=== PATIENT | male | born 1940 | race Caucasian/White ===

== ENCOUNTER → 2016-11-07 | Outpatient (CLI) | payer MEDICARE, OTHER ==
--- NOTE | 2016-11-07 10:41 | FL ---
Esophagram Indication status post esophageal stent, patient with recurrent feeling of food sticking. TECHNIQUE: Single contrast esophagram in the upright position Esophagus and the proximal and mid portions appears normal. The distal esophagus has a stent present. The stent appears open. Distal to the stent there is irregularity. This does open to a degree there is has be passing through this region. Contrast extends into the stomach. IMPRESSIONS: 1. There appears to be irregular narrowing distal to the esophageal stent at the level of the gastroe sophageal junction. Direct visualization is recommended. Neoplasm is not excluded. Differential diagn osis could include varices.
== END | disposition home or self-care (01) ==
LOC: RADFLWHC 09:53
PROVIDERS: ATTEND Thoracic Surgery (Cardiothoracic Vascular Surgery)
DX: K22.2 Esophageal obstruction (principal)
CPT/HCPCS: 74220

== ENCOUNTER 2017-11-16 09:26 | Day surgery (SDC) | payer MEDICARE, OTHER ==
[2017-11-15 09:19] VITALS: BMI 21.8
[~2017-11-16 09:26] MED LIST: LACTATED RINGERS 1,000 ML IV SCH; LIDOCAINE 1% 20 ML VIAL (10MG/ML) FOR IV START INTRADERMA PRN
[2017-11-16 09:45] VITALS: RESP 16; TEMP 97.2
--- NOTE | 2017-11-16 09:55 | P.GSHP ---
History of Present Illness H&P Date: 11/16/17 Chief Complaint: Anemia, GI bleed This is a 77-year-old male referred from Dr. Madelyn Kelsey. Patient presents today for EGD colonoscopy. He's had issues with anemia and GI bleed. Past Medical History Past Medical History: Cancer, GERD/Reflux, Hyperlipidemia, Hypertension, Osteoarthritis (OA) Additional Past Medical History / Comment(s): esophageal stricture, hiatal hernia, prostate cancer 7 yrs. ago-had radiation tx, rectal bleeding History of Any Multi-Drug Resistant Organisms: None Reported Past Surgical History: Cholecystectomy Additional Past Surgical History / Comment(s): mult EGD's. 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 Esophageal dilatations, esophageal stent Past Anesthesia/Blood Transfusion Reactions: Previous Problems w/ Anesthesia, Postoperative Nausea & Vomiting (PONV) Additional Past Anesthesia/Blood Transfusion Reaction / Comment(s): problem with intubation-"uses special equipment" per niece. small airway & palate, niece states had a trach after a procedure and went to ICU Smoking Status: Former smoker - Past Family History Sister(s) Family Medical History: Cancer Medications and Allergies Home Medications Medication Instructions Recorded Confirmed Type Citalopram Hydrobromide [CeleXA] 20 mg PO BID 04/30/14 11/16/17 History Metoprolol Succinate [Toprol XL] 100 mg PO DAILY 04/30/14 11/16/17 History Omeprazole [PriLOSEC] 40 mg PO BID 04/30/14 11/16/17 History Potassium Chloride [Klor-Con 10] 20 meq PO DAILY 04/30/14 11/16/17 History Pravastatin Sodium [Pravachol] 40 mg PO DAILY 04/30/14 11/16/17 History Multivitamin [Men's Multi-Vitamin] 1 each PO DAILY 11/15/17 11/16/17 History amLODIPine BESYLATE/BENAZEPRIL 1 cap PO DAILY 11/15/17 11/16/17 History [Lotrel 5-20 mg Capsule] Allergies Allergy/AdvReac Type Severity Reaction Status Date / Time No Known Allergies Allergy Verified 11/16/17 09:39 Surgical - Exam Vital Signs Temp Pulse Resp BP Pulse Ox 97.2 F L 69 16 123/60 100 11/16/17 09:43 11/16/17 09:43 11/16/17 09:43 11/16/17 09:43 11/16/17 09:43 - General well developed, no distress - Eyes PERRL - ENT normal pinna - Neck no masses - Respiratory normal expansion - Cardiovascular Rhythm: regular - Abdomen Abdomen: soft, non tender Assessment and Plan Assessment: Anemia, GI bleed. We'll perform EGD and colonoscopy.
[2017-11-16] MEDS ORDERED: PROPOFOL 10 MG/ML 20 ML VIAL IV ONE (09:57)
--- NOTE | 2017-11-16 10:23 | P.OP ---
Date of Procedure: 11/16/17 Preoperative Diagnosis: GI bleed Postoperative Diagnosis: Mild antral gastritis No evidence of upper GI bleed Procedure(s) Performed: EGD Colonoscopy Anesthesia: MAC Surgeon: Delmar España Pathology: other (Antrum) Condition: stable Disposition: PACU Description of Procedure: The patient's placed on the endoscopy table in the lateral position. He received IV sedation. The gastroscope placed oropharynx passed in the esophagus. The patient had an esophageal stent the scope was placed through the esophageal stent into the stomach. Scope was then placed through the pylorus. The first and second portion of the duodenum appeared normal. Scope was then brought back the antrum and this was mildly inflamed. A biopsies performed. The scope was unretroflexed and remainder of the stomach appeared normal. The patient had a sliding hiatal hernia. The GE junction was at 38 cm. There is known to any blood in the stomach. Scope was then brought back through the esophagus the esophageal stent appeared to be in the lower third of the esophagus. Her is known to any erosions around the esophageal stent. The proximal esophagus appeared normal. Scope was withdrawn for patient. Next, digital rectal exam was performed which revealed a few external hemorrhoids. The flexible colonoscope was then placed patient anus and passed throughout the entire colon. The colon prep was quite poor. There is a large amount of liquid stool seen throughout the colon. The ileocecal valve was visualized. The cecum, ascending and transverse colon appeared normal. The view was limited due to the poor prep. There is no blood seen in the colon. Scope was withdrawn of the transverse colon, descending colon and sigmoid colon appeared normal. However once again the prep was quite poor in the mucosal view was limited. There is no evidence of any large polyps or tumors. There is no blood seen in the entire colon. Scope was then brought back the rectum and this appeared normal. Scope was withdrawn from patient.
[2017-11-16 10:45] VITALS: PULSE 86
[2017-11-16 12:32] VITALS: BP 147/67
== END 2017-11-16 12:40 | disposition home or self-care (01) ==
LOC: ORWHC2ENDO 09:26
PROVIDERS: ATTEND Surgery
DX: K29.70 Gastritis, unspecified, without bleeding (principal); K44.9 Diaphragmatic hernia without obstruction or gangrene; K64.4 Residual hemorrhoidal skin tags; D64.9 Anemia, unspecified; K21.9 Gastro-esophageal reflux disease without esophagitis; Z87.19 Personal history of other diseases of the digestive system; Z85.46 Personal history of malignant neoplasm of prostate; Z92.3 Personal history of irradiation; E78.5 Hyperlipidemia, unspecified; I10 Essential (primary) hypertension; M19.90 Unspecified osteoarthritis, unspecified site; Z79.899 Other long term (current) drug therapy; Z87.891 Personal history of nicotine dependence
CPT/HCPCS: 88305; 88342; 45378; 43239; J2704

== ENCOUNTER 2018-11-15 10:44 | Inpatient (IN) | payer MEDICARE, OTHER ==
[2018-11-15] MEDS ORDERED: SODIUM CHLORIDE 0.9% 1,000 ML IV STA ×3 (11:07→16:54)
[2018-11-15] MEDS ORDERED: SODIUM CHLORIDE 0.9% 500 ML 500 ML IV STA (11:07)
--- NOTE | 2018-11-15 11:11 | ED ---
Chest Pain HPI - General Chief Complaint: Chest Pain Stated Complaint: CHEST PAIN Time Seen by Provider: 11/15/18 10:56 Source: patient, family, RN notes reviewed Mode of arrival: ambulatory Limitations: no limitations - History of Present Illness Initial Comments: This is a 78-year-old male with a history of a congenital absence of the external ears a former smoker who presents complaining of 2 days of not feeling well fighting cold symptoms he's had rhinorrhea slight cough some chest discomfort no palpitations no reports of fevers chills or sweats he also has a history of quitting smoking 10 years ago and history of alcoholism he has not drank for long time. No other complaints at this time other modifying factors MD Complaint: chest pain, other - Related Data Home Medications Medication Instructions Recorded Confirmed Metoprolol Succinate [Toprol XL] 100 mg PO DAILY 04/30/14 11/15/18 Omeprazole [PriLOSEC] 40 mg PO BID 04/30/14 11/15/18 Aspirin [Adult Low Dose Aspirin EC] 81 mg PO DAILY PRN 11/15/18 11/15/18 Citalopram Hydrobromide [CeleXA] 40 mg PO BID 11/15/18 11/15/18 HYDROcodone/APAP 10-325MG [[place] 1 tab PO Q4HR PRN 11/15/18 11/15/18 10-325] Magnesium 200 mg PO DAILY 11/15/18 11/15/18 amLODIPine [Norvasc] 5 mg PO DAILY 11/15/18 11/15/18 Allergies Allergy/AdvReac Type Severity Reaction Status Date / Time No Known Allergies Allergy Verified 11/15/18 10:57 Review of Systems ROS Statement: Those systems with pertinent positive or pertinent negative responses have been documented in the HPI. ROS Other: All systems not noted in ROS Statement are negative. EKG Findings - EKG Results: EKG: interpreted by ERMD, sinus rhythm (Junctional rhythm likely sinus rate was 99 QRS 92 QT since QTC 422/541 minimal voltage criteria for LVH nonspecific ST configuration prolonged QT artifact is present) Past Medical History Past Medical History: Cancer, GERD/Reflux, Hyperlipidemia, Hypertension, Osteoarthritis (OA) Additional Past Medical History / Comment(s): esophageal stricture, hiatal hernia, prostate cancer 7 yrs. ago-had radiation tx, rectal bleeding History of Any Multi-Drug Resistant Organisms: None Reported Past Surgical History: Cholecystectomy Additional Past Surgical History / Comment(s): mult EGD's. 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 Esophageal dilatations, esophageal stent Past Anesthesia/Blood Transfusion Reactions: Previous Problems w/ Anesthesia, Postoperative Nausea & Vomiting (PONV) Additional Past Anesthesia/Blood Transfusion Reaction / Comment(s): problem with intubation-"uses special equipment" per niece. 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 Absent: scleral icterus, conjunctival injection, periorbital swelling ENT exam: Present: mucous membranes dry. Absent: normal external ear exam Neck exam: Present: normal inspection. Absent: tenderness, meningismus, lymphadenopathy Respiratory exam: Present: normal lung sounds bilaterally. Absent: respiratory distress, wheezes, rales, rhonchi, stridor Cardiovascular Exam: Present: regular rate, normal rhythm, normal heart sounds. Absent: systolic murmur, diastolic murmur, rubs, gallop, clicks GI/Abdominal exam: Present: soft, normal bowel sounds. Absent: distended, tenderness, guarding, rebound, rigid Extremities exam: Present: normal inspection, full ROM, normal capillary refill. Absent: tenderness, pedal edema, joint swelling, calf tenderness Back exam: Present: normal inspection Neurological exam: Present: alert, oriented X3, CN II-XII intact Psychiatric exam: Present: normal affect, normal mood Skin exam: Present: warm, intact, normal color, diaphoretic. Absent: rash Course Vital Signs 11/15/18 11/15/18 11/15/18 10:47 11:06 11:30 Temperature 98.4 F Pulse Rate 103 H 90 Respiratory 20 18 Rate Blood Pressure 159/74 151/80 O2 Sat by Pulse 99 96 95 Oximetry 11/15/18 11/15/18 11/15/18 12:00 12:30 14:17 Temperature 97.1 F L Pulse Rate 93 87 105 H Respiratory 13 13 16 Rate Blood Pressure 129/74 142/68 140/83 O2 Sat by Pulse 95 92 L 95 Oximetry 11/15/18 11/15/18 15:00 15:30 Temperature Pulse Rate 114 H 100 Respiratory 18 17 Rate Blood Pressure 165/87 165/107 O2 Sat by Pulse 91 L 93 L Oximetry Chest Pain MDM - MDM I did review the imaging and reports no acute findings. I did discuss the findings with the patient family members. he'll be admitted. The site appears be no infectious source for the leukocytosis and the lactic acidosis appears be secondary to dehydration. I did discuss the findings with the family and with Dr. Lara. Patient be admitted with continued IV hydration. Disposition Clinical Impression: Lactic acidosis, Dehydration, Hypomagnesemia syndrome, Renal insufficiency syndrome Disposition: ADMITTED IP TO THIS HOSP Condition: Stable Referrals: Madelyn Kelsey DO [Primary Care Provider] - 1-2 days
[2018-11-15] MEDS ORDERED: LORazepam 2 MG/ML INJ IV STA ×2 (11:37→17:07)
[2018-11-15 12:04] LABS: Basophils % (A) 0 %; Eosinophils % (A) 0 %; HCT 33.6 % (39.0-53.0); HGB 11.6 gm/dL (13.0-17.5); Lymphocytes # (A) 0.4 k/uL (1.0-4.8); Lymphocytes % (A) 2 %; MCHC 34.4 g/dL (31.0-37.0); Mean Platelet Volume 6.8; Monocytes # (A) 0.8 k/uL (0-1.0); Monocytes % (A) 4 %; Neutrophils # (A) 20.8 k/uL (1.3-7.7); Neutrophils % (A) 93 %; Platelet Count 314 k/uL (150-450); RBC 3.74 m/uL (4.30-5.90); RDW 13.6 % (11.5-15.5); WBC 22.3 k/uL (3.8-10.6)
--- NOTE | 2018-11-15 12:12 | XR ---
EXAMINATION TYPE: XR chest 2V DATE OF EXAM: 11/15/2018 COMPARISON: 03/31/2011 INDICATION: TECHNIQUE: Frontal and lateral views of the chest are obtained. FINDINGS: The heart size is normal. The pulmonary vasculature is normal. The lungs are clear. On the lateral projection there is some subtle circular range densities could be related to internal foreign body structure markers. These are not identified on the frontal projection were not present p reviously. IMPRESSION: 1. No acute pulmonary process.
[2018-11-15 12:18] LABS: INR 1.1 (<1.2); Partial Thromboplastin Time 27.1 sec (22.0-30.0); Prothrombin Time 11.7 sec (9.0-12.0)
[2018-11-15 12:22] LABS: Albumin 3.7 g/dL (3.5-5.0); Calcium 8.7 mg/dL (8.4-10.2); Magnesium 1.1 mg/dL (1.6-2.3); Potassium 3.7 mmol/L (3.5-5.1); Total Bilirubin 0.6 mg/dL (0.2-1.3); Total Protein 6.8 g/dL (6.3-8.2)
[2018-11-15 12:28] LABS: Creatine Kinase 35 U/L (55-170)
[2018-11-15 12:42] LABS: Creatine Kinase MB 0.6 ng/mL (0.0-2.4); Troponin I <0.012 ng/mL (0.000-0.034)
[2018-11-15] MEDS ORDERED: MAGNESIUM SULFATE-D5W PMX 1 GM in DEXTROSE/WATER 1 100ML.BAG IVPB ONE ×2 (12:50→16:54)
--- NOTE | 2018-11-15 14:40 | CT ---
EXAMINATION TYPE: CT abdomen pelvis wo con DATE OF EXAM: 11/15/2018 COMPARISON: 10/13/2015 HISTORY: generalized pain CT DLP: 465 mGycm Automated exposure control for dose reduction was used. TECHNIQUE: Helical acquisition of images was performed from the lung bases through the pelvis. FINDINGS: LUNG BASES: There is a small left pleural effusion and left basilar atelectasis. Punctate high densit y foci are seen along the left hemidiaphragm such as on coronal image 54 and 66. These appear calcifi ed. Right lower lobe opacity is partially groundglass, suspicious for pneumonia with linear probable atelectasis. LIVER/GB: Unremarkable unenhanced morphology. Limitation in evaluation for hepatic masses due to lack of intravenous contrast. Gallbladder surgically absent. PANCREAS: Pancreatic parenchymal atrophy is seen without ductal dilatation. SPLEEN: No significant abnormality is seen. ADRENALS: No significant abnormality is seen. KIDNEYS: No nephrolithiasis or hydronephrosis. FREE AIR: No free air is visualized ADENOPATHY: No greater than 1 cm short axis lymph node is seen in the abdomen or pelvis. OSSEOUS STRUCTURES: There is a mottled appearance of the bone marrow such as on sagittal image 62 an d 63 that may relate to metastasis. Multilevel degenerative change of the thoracolumbar spine is also seen with multilevel Schmorl's nodes and intervertebral disc space narrowing as well as facet arthro keerthi. BOWEL: Esophageal stent is noted. There is circumferential esophageal wall thickening surrounding the stent and thickening of the gastric fundus and body, partially related to incomplete distention. The re is a descending duodenal diverticulum present. Numerous sigmoid diverticula are present without pe ricolonic fat stranding. Gaseous distention of the transverse colon is seen. Moderate hemicolonic retained stool is seen. Appendix is air-filled and within normal limits. OTHER: Moderate atherosclerosis is seen of the abdominal aorta and its branches. IMPRESSION: 1. THERE IS AN ESOPHAGEAL STENT WITH CIRCUMFERENTIAL WALL THICKENING OF THE DISTAL ESOPHAGUS, GASTRIC FUNDUS AND GASTRIC BODY. NO PROVIDED HISTORY OF ESOPHAGEAL CARCINOMA IS GIVEN HOWEVER ESOPHAGEAL CAR CINOMA IS PRESUMED WITH STENT PLACEMENT. THERE IS ALSO A SMALL LEFT PLEURAL EFFUSION AND FINDINGS VICTOR HUGO PICIOUS FOR RIGHT LOWER LOBE PNEUMONIA. 2. MOTTLED APPEARANCE OF THE BONE MARROW RAISES SUSPICION FOR OSSEOUS METASTASIS AND COULD BE FURTHER EVALUATED WITH MRI TO EVALUATE FOR BONE MARROW REPLACING PROCESS OR NUCLEAR MEDICINE BONE SCAN.
[2018-11-15 15:52] LABS: Appearance,Urine Clear (Clear); Bilirubin,Urine Negative (Negative); Blood,Urine Negative (Negative); Color,Urine Yellow; Glucose,Urine (UA) Negative (Negative); Ketones,Urine Negative (Negative); Leukocyte Esterase,Urine Negative (Negative); Nitrite,Urine Negative (Negative); PH, Urine 5.5 (5.0-8.0); Protein,Urine Trace (Negative); Specific Gravity,Urine 1.019 (1.001-1.035); Urobilinogen,Urine <2.0 mg/dL (<2.0)
[2018-11-15] MEDS ORDERED: MORPHINE SULFATE 4 MG/ML SYRINGE IVP STA (16:36)
[2018-11-15] MEDS ORDERED: NALOXONE 0.4 MG/ML 1 ML VIAL IV PRN (16:51)
[2018-11-15] MEDS ORDERED: ONDANSETRON 4 MG/2 ML VIAL IVP PRN (16:51)
[2018-11-15 19:03] VITALS: BMI 23.0
[2018-11-15] MEDS: HYDROmorphone 1 MG/ML 1 ML SYRINGE IVP PRN (20:14)
[2018-11-15] MEDS: SODIUM CHLORIDE 0.9% 1,000 ML IV SCH (22:50)
[2018-11-15] MEDS: PANTOPRAZOLE 40 MG TABLET PO SCH (22:52)
[2018-11-15] MEDS: CITALOPRAM HYDROBROMIDE 20 MG TAB PO SCH (22:52)
[2018-11-16] MEDS: SODIUM CHLORIDE 0.9% 1,000 ML IV SCH ×4 (02:33→21:42)
[2018-11-16] MEDS: HYDROmorphone 1 MG/ML 1 ML SYRINGE IVP PRN (07:02)
[2018-11-16] MEDS: CITALOPRAM HYDROBROMIDE 20 MG TAB PO SCH ×2 (07:45→20:27)
[2018-11-16] MEDS: amLODIPine 5 MG TAB PO SCH (07:45)
[2018-11-16] MEDS: PANTOPRAZOLE 40 MG TABLET PO SCH ×2 (07:45→16:51)
[2018-11-16] MEDS: MAGNESIUM OXIDE 400 MG TAB PO SCH (07:45)
[2018-11-16] MEDS: ASPIRIN 81 MG PO SCH (07:45)
[2018-11-16] MEDS: METOPROLOL SUCCINATE (ER) 100 MG TAB.ER.24H PO SCH (07:45)
[2018-11-16] MEDS ORDERED: PANTOPRAZOLE 40 MG/10 ML VIAL IV SCH (09:00)
[2018-11-16] MEDS: HYDROcodone/APAP 10-325MG 1 EACH TAB PO PRN ×2 (10:38→20:28)
[2018-11-16] MEDS ORDERED: HYDROmorphone 4 MG TABLET PO PRN (12:17)
[2018-11-16 12:30] LABS: Basophils % (A) 0 %; Eosinophils # (A) 0.1 k/uL (0-0.7); Eosinophils % (A) 0 %; HCT 29.7 % (39.0-53.0); Lymphocytes # (A) 0.5 k/uL (1.0-4.8); Lymphocytes % (A) 3 %; MCH 28.9 pg (25.0-35.0); MCHC 31.7 g/dL (31.0-37.0); MCV 91.4 fL (80.0-100.0); Mean Platelet Volume 6.1; Monocytes # (A) 0.5 k/uL (0-1.0); Monocytes % (A) 3 %; Neutrophils # (A) 13.2 k/uL (1.3-7.7); Neutrophils % (A) 92 %; Platelet Count 305 k/uL (150-450); RBC 3.24 m/uL (4.30-5.90); RDW 13.4 % (11.5-15.5); WBC 14.4 k/uL (3.8-10.6)
[2018-11-16 12:40] LABS: HGB 9.4 gm/dL (13.0-17.5)
[2018-11-16 12:48] LABS: ALT 20 U/L (21-72); AST 16 U/L (17-59); Albumin 2.7 g/dL (3.5-5.0); Alkaline Phosphatase 69 U/L (38-126); Anion Gap 5 mmol/L; Blood Urea Nitrogen 15 mg/dL (9-20); Calcium 7.9 mg/dL (8.4-10.2); Carbon Dioxide 24 mmol/L (22-30); Chloride 103 mmol/L (98-107); Glucose 91 mg/dL (74-99); Magnesium 1.6 mg/dL (1.6-2.3); Potassium 3.8 mmol/L (3.5-5.1); Sodium 132 mmol/L (137-145); Total Bilirubin 0.5 mg/dL (0.2-1.3); Total Protein 5.2 g/dL (6.3-8.2)
--- NOTE | 2018-11-16 13:30 | P.HPIM ---
History of Present Illness H&P Date: 11/16/18 Chief Complaint: Not feeling well This is a 78-year-old male, patient of [facility]. He has a known past medical history of congenital absence of external ears, hyperlipidemia hypertension and prostate cancer with previous radiation treatment. He also has a history of smoking and quit about 10 years ago. Patient presents to the hospital complaining of 2 days of not feeling well. He's been fighting cold symptoms. Runny nose cough and some chest discomfort. Patient denies any fever or chills or sweats. It is difficult to obtain history form from him. Patient niece is his main caregiver. She is not present during my exam. History was mostly obtained from the chart. Apparently he does have a history of alcoholism he does not have a drink in a long time. Patient does feel that he is hurting all over. Computed tomography scan of the abdomen and pelvis shows esophageal stent with circumferential wall thickening of the distal esophagus, gastric fundus and gastric body. No parotid history of esophageal carcinoma is given. And suspicious findings of a right lower lobe pneumonia. Mottled appearance of the bone marrow raises suspicion for osseous metastasis and could be further evaluated with MRI. Review of Systems Please refer to HPI otherwise unremarkable Past Medical History Past Medical History: Cancer, GERD/Reflux, GI Bleed, Hyperlipidemia, Hypertension, Osteoarthritis (OA) Additional Past Medical History / Comment(s): esophageal stricture, hiatal hernia, prostate cancer 7 yrs. ago-had radiation tx, rectal bleeding congenital absence of external ears(sx), hiatal hernia, past anemia, per great neice-pt had flu and pne vaccine,web content writer unable to verify dates at time of admit-please f/ u in am History of Any Multi-Drug Resistant Organisms: None Reported Past Surgical History: Cholecystectomy Additional Past Surgical History / Comment(s): mult EGD's. 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 Esophageal dilatations, esophageal stentegd/colonooscopy, cataracts Past Anesthesia/Blood Transfusion Reactions: Previous Problems w/ Anesthesia, Postoperative Nausea & Vomiting (PONV) Additional Past Anesthesia/Blood Transfusion Reaction / Comment(s): problem with intubation-"uses special equipment" per niece. small airway & palate, niece states had a trach after a procedure and went to ICU Smoking Status: Former smoker - Past Family History Sister(s) Family Medical History: Cancer Mother History Unknown: Yes Additional Family Medical History / Comment(s): great niece stated pt's mom may have had syphyllis Father Additional Family Medical History / Comment(s): went blind, from alcoholism Medications and Allergies Home Medications Medication Instructions Recorded Confirmed Type Metoprolol Succinate [Toprol XL] 100 mg PO DAILY 04/30/14 11/15/18 History Omeprazole [PriLOSEC] 40 mg PO BID 04/30/14 11/15/18 History Aspirin [Adult Low Dose Aspirin EC] 81 mg PO DAILY PRN 11/15/18 11/15/18 History Citalopram Hydrobromide [CeleXA] 40 mg PO BID 11/15/18 11/15/18 History HYDROcodone/APAP 10-325MG [[place] 1 tab PO Q4HR PRN 11/15/18 11/15/18 History 10-325] Magnesium 200 mg PO DAILY 11/15/18 11/15/18 History amLODIPine [Norvasc] 5 mg PO DAILY 11/15/18 11/15/18 History Allergies Allergy/AdvReac Type Severity Reaction Status Date / Time No Known Allergies Allergy Verified 11/15/18 10:57 Physical Exam Vitals: Vital Signs Temp Pulse Pulse Resp BP BP BP 11/16/18 05:50 97.6 F 104 H 20 147/69 11/15/18 22:40 98.2 F 115 H 20 134/70 11/15/18 21:35 100.0 F H 112 H 22 148/72 11/15/18 21:00 115 H 11/15/18 20:12 11/15/18 19:54 99.2 F 115 H 26 H 169/92 11/15/18 18:30 103 H 15 130/73 11/15/18 18:00 105 H 20 142/77 11/15/18 17:30 105 H 18 149/86 11/15/18 17:00 102 H 19 155/82 11/15/18 16:30 105 H 19 127/79 11/15/18 16:00 102 H 19 147/85 11/15/18 15:30 100 17 165/107 11/15/18 15:00 114 H 18 165/87 11/15/18 14:17 97.1 F L 105 H 16 140/83 Pulse Ox 11/16/18 05:50 96 11/15/18 22:40 92 L 11/15/18 21:35 95 11/15/18 21:00 11/15/18 20:12 94 L 11/15/18 19:54 88 L 11/15/18 18:30 89 L 11/15/18 18:00 90 L 11/15/18 17:30 89 L 11/15/18 17:00 92 L 11/15/18 16:30 93 L 11/15/18 16:00 93 L 11/15/18 15:30 93 L 11/15/18 15:00 91 L 11/15/18 14:17 95 Intake and Output 11/15/18 11/16/18 11/16/18 22:59 06:59 14:59 Output Total 350 Balance -350 Output: Urine 350 Other: Voiding Method Urinal Weight 70.76 kg Head normocephalic Neck supple Lungs diminished bilaterally Heart regular rate and rhythm S1-S2, no rub or gallop Abdomen is soft nontender nondistended positive bowel sounds no hepatosplenomegaly Extremities no edema Neuro alert and orientated to 3 Muscle skeletal she does have tenderness along the rib cage especially on the left and into the abdomen area. Results CBC & Chem 7: 11/16/18 12:08 11/16/18 12:08 Labs: Abnormal Lab Results - Last 24 Hours (Table) 11/15/18 11/16/18 11/16/18 Range/Units 15:00 12:08 12:08 WBC 14.4 H (3.8-10.6) k/uL RBC 3.24 L (4.30-5.90) m/uL Hgb 9.4 L D (13.0-17.5) gm/dL Hct 29.7 L (39.0-53.0) % Neutrophils # 13.2 H (1.3-7.7) k/uL Lymphocytes # 0.5 L (1.0-4.8) k/uL Sodium 132 L (137-145) mmol/L Creatinine 0.63 L (0.66-1.25) mg/dL Calcium 7.9 L (8.4-10.2) mg/dL AST 16 L (17-59) U/L ALT 20 L (21-72) U/L Total Protein 5.2 L (6.3-8.2) g/dL Albumin 2.7 L (3.5-5.0) g/dL Urine Protein Trace H (Negative) Thrombosis Risk Factor Assmnt - Choose All That Apply Any of the Below Risk Factors Present?: No Other Risk Factors: Yes Each Risk Factor Represents 2 Points: Age 61-74 years Other congenital or acquired thrombophilia - If yes, enter type in comment: No Thrombosis Risk Factor Assessment Total Risk Factor Score: 2 Thrombosis Risk Factor Assessment Level: Low Risk Assessment and Plan Assessment: 1. Cough with cold like symptoms: Questionable pneumonia noted on CT. Chest x- rays negative. Patient will continue the Rocephin 1 g daily. Influenza screen negative urinalysis negative 2. Musculoskeletal pain with CT showing mottled appearance of the bone marrow raising suspicion for osseous metastasis. 3. Elevated lactic acid level possibly related to dehydration improved with IV fluids. 4. Acute kidney injury creatinine 1.48 baseline creatinine unknown. Continue with IV fluids 5. History of prostate cancer status post radiation treatment 6. History of nicotine dependence quit smoking about 10 years ago 7. Essential hypertension 8. Hyperlipidemia 9. Hypomagnesemia and patient receiving magnesium supplement. 10. Chest pain troponin negative repeating EKG due to artifact Also note patient's EKG had a lot of artifact. We'll repeat EKG GI prophylaxis Protonix and DVT prophylaxis SCDs Time with Patient: Greater than 30 (Greater than 50% of the total time spent in counseling and coordination of care.I performed an examination of the patient and discussed their management with the physician Space Officer. I have reviewed the Physician Space Officer's notes and agree with the documented findings and plan of care)
[2018-11-16] MEDS: ACETAMINOPHEN TAB 325 MG TAB PO PRN (15:37)
[2018-11-16 16:31] LABS: Reticulocyte % 1.8 % (0.5-2.0)
--- NOTE | 2018-11-16 16:32 | P.CONS ---
History of Present Illness - Reason for Consult Consult date: 11/16/18 possible Osseous mets Requesting physician: Roxie Wilhelm - Chief Complaint Not Feeling Well - History of Present Illness Mr. Carballo is a 8 year old male patient, poor historian who presented with 3-5 days of not feeling well. He apparently has history of prostate cancer, unknown stage or treatment. Per the medical record he received radiation treatment. On imaging CT Abdomen and Pelvis there was esophageal thickening and stent identified which is suspicious for a history of esophageal carcinoma. His bone and bone marrow signal also showed some abnormalities, along with normocytic anemia on peripheral blood therefore hematology oncology has been asked to further evaluate. His WBC is elevated, Febrile 101.4 today and tachycardic. Complained of pain lkeft lower back, he is extremely anxious. Review of Systems A 14 point review of systems is difficult to obtain given the patient is a poor historian and no family at bedside, attempted to best of my ability all neg except HPI. Past Medical History Past Medical History: Cancer, GERD/Reflux, GI Bleed, Hyperlipidemia, Hypertension, Osteoarthritis (OA) Additional Past Medical History / Comment(s): esophageal stricture, hiatal hernia, prostate cancer 7 yrs. ago-had radiation tx, rectal bleeding congenital absence of external ears(sx), hiatal hernia, past anemia, per radha chilel-pt had flu and pne vaccine,underwriter solicitation director unable to verify dates at time of admit-please f/ u in am History of Any Multi-Drug Resistant Organisms: None Reported Past Surgical History: Cholecystectomy Additional Past Surgical History / Comment(s): mult EGD's. 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 Esophageal dilatations, esophageal stentegd/colonooscopy, cataracts Past Anesthesia/Blood Transfusion Reactions: Previous Problems w/ Anesthesia, Postoperative Nausea & Vomiting (PONV) Additional Past Anesthesia/Blood Transfusion Reaction / Comm: problem with intubation-"uses special equipment" per niece. small airway & palate, niece states had a trach after a procedure and went to ICU Smoking Status: Former smoker - Past Family History Sister(s) Family Medical History: Cancer Mother History Unknown: Yes Additional Family Medical History / Comment(s): great niece stated pt's mom may have had syphyllis Father Additional Family Medical History / Comment(s): went blind, from alcoholism Medications and Allergies Home Medications Medication Instructions Recorded Confirmed Type Metoprolol Succinate [Toprol XL] 100 mg PO DAILY 04/30/14 11/15/18 History Omeprazole [PriLOSEC] 40 mg PO BID 04/30/14 11/15/18 History Aspirin [Adult Low Dose Aspirin EC] 81 mg PO DAILY PRN 11/15/18 11/15/18 History Citalopram Hydrobromide [CeleXA] 40 mg PO BID 11/15/18 11/15/18 History HYDROcodone/APAP 10-325MG [Sharon 1 tab PO Q4HR PRN 11/15/18 11/15/18 History 10-325] Magnesium 200 mg PO DAILY 11/15/18 11/15/18 History amLODIPine [Norvasc] 5 mg PO DAILY 11/15/18 11/15/18 History Allergies Allergy/AdvReac Type Severity Reaction Status Date / Time No Known Allergies Allergy Verified 11/15/18 10:57 Physical Exam Vitals: Vital Signs Temp Pulse Pulse Resp BP BP BP 11/16/18 15:00 101.4 F H 86 18 129/70 11/16/18 05:50 97.6 F 104 H 20 147/69 11/15/18 22:40 98.2 F 115 H 20 134/70 11/15/18 21:35 100.0 F H 112 H 22 148/72 11/15/18 21:00 115 H 11/15/18 20:12 11/15/18 19:54 99.2 F 115 H 26 H 169/92 11/15/18 18:30 103 H 15 130/73 11/15/18 18:00 105 H 20 142/77 11/15/18 17:30 105 H 18 149/86 11/15/18 17:00 102 H 19 155/82 11/15/18 16:30 105 H 19 127/79 Pulse Ox 11/16/18 15:00 91 L 11/16/18 05:50 96 11/15/18 22:40 92 L 11/15/18 21:35 95 11/15/18 21:00 11/15/18 20:12 94 L 11/15/18 19:54 88 L 11/15/18 18:30 89 L 11/15/18 18:00 90 L 11/15/18 17:30 89 L 11/15/18 17:00 92 L 11/15/18 16:30 93 L Intake and Output 11/16/18 11/16/18 11/16/18 06:59 14:59 22:59 Output Total 350 600 Balance -350 -600 Output: Urine 350 600 Other: Voiding Method Urinal Weight 70.76 kg Gen: Alert, poor historian Head nc, nt no cervical or supraclavicular adenopathy on exam Lungs: Diminished, bibasilar, no increased effort noted Heart: tachycardic, reg, diaphoretic Abdomen: tender ND Ext: No Edema Neuro: inconsistent follows Results CBC & Chem 7: 11/18/18 09:50 11/18/18 09:50 Labs: Abnormal Lab Results - Last 24 Hours (Table) 11/16/18 11/16/18 Range/Units 12:08 12:08 WBC 14.4 H (3.8-10.6) k/uL RBC 3.24 L (4.30-5.90) m/uL Hgb 9.4 L D (13.0-17.5) gm/dL Hct 29.7 L (39.0-53.0) % Neutrophils # 13.2 H (1.3-7.7) k/uL Lymphocytes # 0.5 L (1.0-4.8) k/uL Sodium 132 L (137-145) mmol/L Creatinine 0.63 L (0.66-1.25) mg/dL Calcium 7.9 L (8.4-10.2) mg/dL AST 16 L (17-59) U/L ALT 20 L (21-72) U/L Total Protein 5.2 L (6.3-8.2) g/dL Albumin 2.7 L (3.5-5.0) g/dL Microbiology - Last 24 Hours (Table) 11/15/18 11:20 Blood Culture - Preliminary Blood No Growth after 24 hours Chest x-ray: report reviewed CT scan - abdomen: report reviewed US - abdomen: report reviewed Assessment and Plan Plan: Assessment and Recommendations: 1. SIRS 4/4: Tachycardic and Febrile - Lactic Acidosis - Ignacio cultures in Progress - I have ordered Influenza Culture - Urinalysis and Blood cultures negative 24 hours 2. Abnormality on bone/bone marrow in CT scan: - Further evaluate with history of cancer Bone Scan with nuclear medicine 3. History of Prostate Cancer?Esophageal Cancer: - Check PSA 4. Normocytic Anemia: - no interventional transfusion needed at his time, transfuse less than 7 - Work-up ordered with SPEP, FLC, LDH, RETIC, IRON, Folate, Ferritin, B12, MMA 5. Leukocytosis with neutrophilia shift. - Likely reactive to underlying infection thank you for allowing us to participate in the care of this patient await further work up and will continue to follow
[2018-11-16 20:55] LABS: Glucose,Whole Blood 134 mg/dL (75-99)
[2018-11-16] MEDS ORDERED: AZITHROMYCIN 500 MG TAB PO STA (21:59)
[2018-11-16 22:48] LABS: Iron Saturation 2.86 (15.00-50.00)
[2018-11-17] MEDS: SODIUM CHLORIDE 0.9% 1,000 ML IV SCH ×4 (01:47→23:02)
[2018-11-17] MEDS: HYDROcodone/APAP 10-325MG 1 EACH TAB PO PRN ×3 (05:44→21:43)
--- NOTE | 2018-11-17 07:17 | CONS ---
CONSULTATION DATE OF SERVICE: 11/16/2018. REASON FOR CONSULTATION: Pneumonia and UTI. HISTORY OF PRESENT ILLNESS: The patient is a 78-year-old male who presented to the ER at [facility] yesterday with the chief complaints of not feeling well and coarse symptoms that apparently has been going on for a few days before he presented to the hospital. The patient did have a congested cough. Patient also bringing up some sputum, not clear about the color. No hemoptysis. No chest pain. No significant URI symptoms. No nausea or vomiting. No abdominal pain or any diarrhea. With these symptoms, the patient was evaluated by the ER physician. On arrival to the ER, the patient was afebrile. Subsequently, spiked a fever of 100 with 101.4 this afternoon. The patient did have elevated white count of 22.3. The patient UA was negative. Influenza serology was negative. The patient did have a chest x-ray, that was reported to be negative for any acute infiltrate. The patient did have a CT of the abdomen and pelvis which shows esophageal stent with circumferential wall thickening of the distal esophagus, appearance of the bone marrow raises the possibility of question of metastasis and evidence of left lower lobe infiltrate. The patient who also has elevated lactic acid. With these symptoms, the patient has been started on Rocephin and admitted hospital. Infectious Disease was consulted for further recommendation regarding antibiotic therapy. REVIEW OF SYSTEMS: Positive points have been mentioned in HPI. Rest of the system has been negative. PAST MEDICAL HISTORY: Hypertension hyperlipidemia, osteoarthritis, gastroesophageal reflux disease, esophageal stricture. Prostate cancer. PAST SURGICAL HISTORY: Cholecystectomy, esophageal stent placement, tracheostomy, skin graft with reconstruction of the ears, esophageal dilatation. SOCIAL HISTORY: Remote history of smoking. No drinking, drug use. FAMILY HISTORY: Father from alcoholism, Sister with a history of cancer. ALLERGIES: No known drug allergies. MEDICATIONS: The patient is currently on: 1. Protonix. 2. Zofran. 3. Narcan. 4. Toprol-XL. 5. Mag oxide. 6. Dilaudid. 7. Celexa. 8. Rocephin. 9. Aspirin. 10.Norvasc. 11.[place]. 12.Tylenol. PHYSICAL EXAMINATION: VITAL SIGNS: On examination, blood pressure is 129/70 with a pulse of 86, temperature 101.4 degrees Fahrenheit. He is 91% on room air. GENERAL DESCRIPTION: Elderly male lying in bed in no distress. No tachypnea or accessory muscles for respiration use. HEENT: Shows pallor. No scleral icterus. Oral mucosa membranes are dry. No pharyngeal erythema or thrush. Neck: Trachea central. No thyromegaly. Lungs unlabored breathing. Coarse breath sounds at the bases bilaterally. No wheeze. Heart S1-S2 regular rate and rhythm. Abdomen: Soft, no tenderness. No guarding or rigidity. EXTREMITIES: No edema of the feet. Skin examination: No rash or mass palpable. Neurological: Patient is awake, alert, oriented x2. Mood and affect normal. LABS: Hemoglobin 9.4, white count on admission was 22.3 with a BUN of 15, creatinine 0.63. Electrolytes normal. Lactic acid is 4.1. Repeat is 1.8. Influenza serology has been negative. DIAGNOSTIC IMPRESSION: The patient presented to the hospital with congested cough in this patient who did have a fever of 101 degrees Fahrenheit with evidence of left lower lobe infiltrate as seen on the CT of abdomen and pelvis likely the source of pneumonia and likely community- acquired pneumonia. The patient currently with no other clinical focus of infection. The patient UA was negative. CT abdomen and pelvis did not show any intraabdominal inflammation and no evidence of any cellulitis or joint swelling. PLAN: 1. We will try to obtain sputum for Gram stain culture and sensitivity. 2. We will add oral . Continue with Rocephin. 3. We will follow up on his clinical condition and culture to further adjust medication if needed. Thank you for this consultation. We will follow this patient along with you. MMODL / IJN: [id number] /
[2018-11-17] MEDS: IPRATROPIUM-ALBUTEROL 3 ML NEB INHALATION PRN (07:27)
[2018-11-17] MEDS: CITALOPRAM HYDROBROMIDE 20 MG TAB PO SCH ×2 (07:49→21:43)
[2018-11-17] MEDS: PANTOPRAZOLE 40 MG TABLET PO SCH ×2 (07:49→23:01)
[2018-11-17] MEDS: MAGNESIUM OXIDE 400 MG TAB PO SCH (07:49)
[2018-11-17] MEDS: METOPROLOL SUCCINATE (ER) 100 MG TAB.ER.24H PO SCH (07:49)
[2018-11-17] MEDS: ASPIRIN 81 MG PO SCH (07:49)
[2018-11-17] MEDS: amLODIPine 5 MG TAB PO SCH (07:49)
[2018-11-17 08:24] LABS: Basophils % (A) 0 %; Eosinophils % (A) 0 %; HCT 30.1 % (39.0-53.0); HGB 9.8 gm/dL (13.0-17.5); Lymphocytes # (A) 0.8 k/uL (1.0-4.8); Lymphocytes % (A) 5 %; MCH 30.8 pg (25.0-35.0); MCHC 32.6 g/dL (31.0-37.0); MCV 94.3 fL (80.0-100.0); Mean Platelet Volume 6.8; Monocytes # (A) 0.5 k/uL (0-1.0); Monocytes % (A) 4 %; Neutrophils % (A) 89 %; Platelet Count 303 k/uL (150-450); RBC 3.19 m/uL (4.30-5.90); RDW 13.7 % (11.5-15.5); WBC 14.5 k/uL (3.8-10.6)
[2018-11-17 08:38] LABS: ALT 22 U/L (21-72); AST 18 U/L (17-59); Albumin 2.6 g/dL (3.5-5.0); Alkaline Phosphatase 70 U/L (38-126); Anion Gap 7 mmol/L; Blood Urea Nitrogen 14 mg/dL (9-20); Calcium 7.8 mg/dL (8.4-10.2); Carbon Dioxide 24 mmol/L (22-30); Chloride 104 mmol/L (98-107); Glucose 107 mg/dL (74-99); Magnesium 1.4 mg/dL (1.6-2.3); Potassium 3.2 mmol/L (3.5-5.1); Sodium 135 mmol/L (137-145); Total Bilirubin 0.6 mg/dL (0.2-1.3)
--- NOTE | 2018-11-17 11:22 | NM ---
EXAMINATION TYPE: NM bone scan whole body DATE OF EXAM: 11/17/2018 COMPARISON: CT scan dated 11/15/2018. HISTORY: Abnormal CT scan. Delayed whole-body scanning was performed following the injection of 25.9 mCi Tc 99m MDP. Images acq uired 3 hours post injection. FINDINGS: There is increased activity in the costochondral junctions 108 and 9 on the left. This is l ikely posttraumatic. There is no convincing evidence of osseous metastases. IMPRESSION: NO CONVINCING EVIDENCE OF OSSEOUS METASTASES.
[2018-11-17] MEDS ORDERED: SODIUM CHLORIDE 0.9% 1,000 ML BAG ONE (17:00)
[2018-11-17] MEDS ORDERED: PANTOPRAZOLE 40 MG/10 ML VIAL ONE (17:00)
[2018-11-17] MEDS ORDERED: HYDROcodone/APAP 10-325MG 1 EACH TAB ONE (17:00)
[2018-11-17] MEDS ORDERED: IPRATROPIUM-ALBUTEROL 3 ML NEB ONE (17:00)
[2018-11-17 18:46] LABS: Albumin CANCELED g/dL; Gamma Globulin CANCELED g/dL
[2018-11-17] MEDS ORDERED: Potassium Replacement Protocol 1 EACH MISC MISCELLANE PRN (23:22)
[2018-11-17] MEDS ORDERED: Magnesium Replacement Protocol 1 EACH MISC MISCELLANE PRN (23:24)
[2018-11-18] MEDS: POTASSIUM CHLORIDE ER 20 MEQ TAB.ER PO SCH ×2 (00:25→01:41)
[2018-11-18] MEDS ORDERED: MAGNESIUM SULFATE-D5W PMX 1 GM in DEXTROSE/WATER 1 100ML.BAG IVPB ONE ×3 (01:30→03:00)
[2018-11-18] MEDS: SODIUM CHLORIDE 0.9% 1,000 ML IV SCH ×3 (04:04→17:40)
[2018-11-18 06:15] LABS: Glucose,Whole Blood 160 mg/dL (75-99)
--- NOTE | 2018-11-18 07:49 | PN ---
PROGRESS NOTE DATE OF SERVICE: 11/17/2018 REASON FOR FOLLOWUP: Pneumonia. INTERVAL HISTORY: The patient is afebrile. He has been breathing comfortably. Denies having any chest pain. He did have a cough, not bringing up any sputum. No abdominal pain, no diarrhea. PHYSICAL EXAMINATION: Blood pressure 139/78 with a pulse of 94, temperature 97.6, 94% on 2 L nasal cannula. GENERAL DESCRIPTION: An elderly male lying in bed in no distress. RESPIRATORY SYSTEM: Unlabored breathing. Decreased breath sounds in the bases bilaterally. HEART: S1, S2. Regular rate and rhythm. ABDOMEN: Soft, no tenderness. LABS: Hemoglobin 9.8, white count 14.5, BUN of 14, creatinine 0.55. Blood cultures have been negative so far. No sputum culture obtained. DIAGNOSTIC IMPRESSION AND PLAN: Patient admitted to the hospital with difficulty breathing. He did have a cough in this patient who did have evidence of pneumonia, possibly community acquired. Patient currently covered with Rocephin and Zithromax that was transitioned to doxycycline as the patient to have ( ) Zithromax. We will try to obtain a sputum. Continue on antibiotics. Continue supportive care. MMODL / IJN: [id number] /
[2018-11-18] MEDS: amLODIPine 5 MG TAB PO SCH (08:15)
[2018-11-18] MEDS: PANTOPRAZOLE 40 MG TABLET PO SCH ×2 (08:15→17:38)
[2018-11-18] MEDS: METOPROLOL SUCCINATE (ER) 100 MG TAB.ER.24H PO SCH (08:15)
[2018-11-18] MEDS: CITALOPRAM HYDROBROMIDE 20 MG TAB PO SCH ×2 (08:15→21:18)
[2018-11-18] MEDS: ASPIRIN 81 MG PO SCH (08:15)
[2018-11-18] MEDS: MAGNESIUM OXIDE 400 MG TAB PO SCH (08:15)
[2018-11-18] MEDS: DOXYCYCLINE 100 MG CAP PO SCH ×2 (08:17→21:18)
[2018-11-18 10:34] LABS: ALT 25 U/L (21-72); AST 30 U/L (17-59); Albumin 2.8 g/dL (3.5-5.0); Alkaline Phosphatase 88 U/L (38-126); Anion Gap 9 mmol/L; Basophils % (A) 0 %; Blood Urea Nitrogen 14 mg/dL (9-20); Calcium 8.4 mg/dL (8.4-10.2); Carbon Dioxide 24 mmol/L (22-30); Chloride 102 mmol/L (98-107); Eosinophils % (A) 0 %; Glucose 133 mg/dL (74-99); HCT 33.9 % (39.0-53.0); HGB 10.5 gm/dL (13.0-17.5); Lymphocytes # (A) 0.8 k/uL (1.0-4.8); Lymphocytes % (A) 4 %; MCH 28.8 pg (25.0-35.0); MCV 92.9 fL (80.0-100.0); Magnesium 2.1 mg/dL (1.6-2.3); Mean Platelet Volume 6.3; Monocytes % (A) 5 %; Neutrophils # (A) 19.4 k/uL (1.3-7.7); Neutrophils % (A) 90 %; Platelet Count 391 k/uL (150-450); Potassium 3.9 mmol/L (3.5-5.1); RBC 3.65 m/uL (4.30-5.90); RDW 13.8 % (11.5-15.5); Sodium 135 mmol/L (137-145); Total Bilirubin 0.5 mg/dL (0.2-1.3); Total Protein 5.6 g/dL (6.3-8.2); WBC 21.6 k/uL (3.8-10.6)
[2018-11-18] MEDS: HYDROcodone/APAP 10-325MG 1 EACH TAB PO PRN ×2 (11:03→20:06)
--- NOTE | 2018-11-18 15:23 | P.PN ---
Subjective Progress Note Date: 11/18/18 This is a 78-year-old male, patient of [facility]. He has a known past medical history of congenital absence of external ears, hyperlipidemia hypertension and prostate cancer with previous radiation treatment. He also has a history of smoking and quit about 10 years ago. Patient presents to the hospital complaining of 2 days of not feeling well. He's been fighting cold symptoms. Runny nose cough and some chest discomfort. Patient denies any fever or chills or sweats. It is difficult to obtain history form from him. Patient niece is his main caregiver. She is not present during my exam. History was mostly obtained from the chart. Apparently he does have a history of alcoholism he does not have a drink in a long time. Patient does feel that he is hurting all over. Computed tomography scan of the abdomen and pelvis shows esophageal stent with circumferential wall thickening of the distal esophagus, gastric fundus and gastric body. No parotid history of esophageal carcinoma is given. And suspicious findings of a right lower lobe pneumonia. Mottled appearance of the bone marrow raises suspicion for osseous metastasis and could be further evaluated with MRI. On 11/17/2018, patient was seen and examined on medical floor, he is alert and oriented 3 in no apparent distress, still complaining of left rib area pain, there is no fever or chills no headache or dizziness no chest pain no shortness of breath no cough no nausea or vomiting no abdominal pain no diarrhea and no urinary symptoms On 11/18/2018 patient was seen and examined on the medical floor he is alert and oriented in no apparent distress, he is complaining of anxiety and is still complaining of left sided rib area pain otherwise no complaints there is no fever or chills no headache or dizziness no chest pain or shortness of breath no cough no nausea or vomiting no abdominal pain and no urinary symptoms Objective - Vital Signs Vital signs: Vital Signs Temp 97.0 F L 11/18/18 13:58 Pulse 88 11/18/18 13:58 Resp 16 11/18/18 13:58 BP 141/82 11/18/18 13:58 Pulse Ox 95 11/18/18 13:58 Intake & Output 11/17/18 11/18/18 11/18/18 18:59 06:59 18:59 Intake Total 250 Balance 250 Intake: Oral 250 Other: Voiding Method Urinal # Voids 2 2 - Exam Head normocephalic and atraumatic Neck supple no JVD no goiter Lungs diminished bilaterally Heart regular rate and rhythm S1-S2, no rub or gallop Abdomen is soft nontender nondistended positive bowel sounds no hepatosplenomegaly Extremities no edema no cyanosis or clubbing Neuro alert and orientated to 3 Muscle skeletal she does have tenderness along the rib cage especially on the left and into the abdomen area. - Labs CBC & Chem 7: 11/18/18 09:50 11/18/18 09:50 Labs: Abnormal Lab Results - Last 24 Hours (Table) 11/15/18 11/18/18 11/18/18 Range/Units 11:22 06:13 09:50 WBC 21.6 H (3.8-10.6) k/uL RBC 3.65 L (4.30-5.90) m/uL Hgb 10.5 L (13.0-17.5) gm/dL Hct 33.9 L (39.0-53.0) % Neutrophils # 19.4 H (1.3-7.7) k/uL Lymphocytes # 0.8 L (1.0-4.8) k/uL Sodium (137-145) mmol/L Creatinine (0.66-1.25) mg/dL Glucose (74-99) mg/dL POC Glucose (mg/dL) 160 H (75-99) mg/dL Total Protein (6.3-8.2) g/dL Albumin (3.5-5.0) g/dL Free [place] LC, Quant 2.18 H (0.33-1.94) mg/dL 11/18/18 Range/Units 09:50 WBC (3.8-10.6) k/uL RBC (4.30-5.90) m/uL Hgb (13.0-17.5) gm/dL Hct (39.0-53.0) % Neutrophils # (1.3-7.7) k/uL Lymphocytes # (1.0-4.8) k/uL Sodium 135 L (137-145) mmol/L Creatinine 0.47 L (0.66-1.25) mg/dL Glucose 133 H (74-99) mg/dL POC Glucose (mg/dL) (75-99) mg/dL Total Protein 5.6 L (6.3-8.2) g/dL Albumin 2.8 L (3.5-5.0) g/dL Free [place] LC, Quant (0.33-1.94) mg/dL Microbiology - Last 24 Hours (Table) 11/15/18 11:20 Blood Culture - Preliminary Blood No Growth after 72 hours Assessment and Plan Plan: 1. Cough with cold like symptoms: Questionable pneumonia noted on CT. Chest x- rays negative. Patient will continue the Rocephin 1 g daily. Influenza screen negative urinalysis negative 2. Musculoskeletal pain with CT showing mottled appearance of the bone marrow raising suspicion for osseous metastasis. 3. Elevated lactic acid level possibly related to dehydration improved with IV fluids. 4. Acute kidney injury creatinine 1.48 baseline creatinine unknown. Continue with IV fluids 5. History of prostate cancer status post radiation treatment 6. History of nicotine dependence quit smoking about 10 years ago 7. Essential hypertension 8. Hyperlipidemia 9. Hypomagnesemia and patient receiving magnesium supplement. 10. Chest pain troponin negative repeating EKG due to artifact Also note patient's EKG had a lot of artifact. We'll repeat EKG GI prophylaxis Protonix and DVT prophylaxis SCDs
--- NOTE | 2018-11-18 17:07 | P.PN ---
Subjective Progress Note Date: 11/18/18 Principal diagnosis: pneumonia reviewed labs, Iron Saturation is low and resonable for Supp. Objective - Vital Signs Vital signs: Vital Signs Temp 97.0 F L 11/18/18 13:58 Pulse 88 11/18/18 13:58 Resp 16 11/18/18 13:58 BP 141/82 11/18/18 13:58 Pulse Ox 95 11/18/18 13:58 Intake & Output 11/17/18 11/18/18 11/18/18 18:59 06:59 18:59 Intake Total 250 Balance 250 Intake: Oral 250 Other: Voiding Method Urinal # Voids 2 2 - Exam Gen: Alert, poor historian Head nc, nt no cervical or supraclavicular adenopathy on exam Lungs: Diminished, bibasilar, no increased effort noted Heart: tachycardic, reg, diaphoretic Abdomen: tender ND Ext: No Edema Neuro: inconsistent follows - Labs CBC & Chem 7: 11/18/18 09:50 11/18/18 09:50 Labs: Abnormal Lab Results - Last 24 Hours (Table) 11/15/18 11/18/18 11/18/18 Range/Units 11:22 06:13 09:50 WBC 21.6 H (3.8-10.6) k/uL RBC 3.65 L (4.30-5.90) m/uL Hgb 10.5 L (13.0-17.5) gm/dL Hct 33.9 L (39.0-53.0) % Neutrophils # 19.4 H (1.3-7.7) k/uL Lymphocytes # 0.8 L (1.0-4.8) k/uL Sodium (137-145) mmol/L Creatinine (0.66-1.25) mg/dL Glucose (74-99) mg/dL POC Glucose (mg/dL) 160 H (75-99) mg/dL Total Protein (6.3-8.2) g/dL Albumin (3.5-5.0) g/dL Free [place] LC, Quant 2.18 H (0.33-1.94) mg/dL 11/18/18 Range/Units 09:50 WBC (3.8-10.6) k/uL RBC (4.30-5.90) m/uL Hgb (13.0-17.5) gm/dL Hct (39.0-53.0) % Neutrophils # (1.3-7.7) k/uL Lymphocytes # (1.0-4.8) k/uL Sodium 135 L (137-145) mmol/L Creatinine 0.47 L (0.66-1.25) mg/dL Glucose 133 H (74-99) mg/dL POC Glucose (mg/dL) (75-99) mg/dL Total Protein 5.6 L (6.3-8.2) g/dL Albumin 2.8 L (3.5-5.0) g/dL Free [place] LC, Quant (0.33-1.94) mg/dL Microbiology - Last 24 Hours (Table) 11/15/18 11:20 Blood Culture - Preliminary Blood No Growth after 72 hours Assessment and Plan Plan: Assessment and Recommendations: 1. SIRS 4/: Tachycardic and Febrile - Lactic Acidosis - Ignacio cultures in Progress - I have ordered Influenza Culture - Urinalysis and Blood cultures negative 24 hours 2. Abnormality on bone/bone marrow in CT scan: - Bone scan showed no evidence of bone metas. 3. History of Prostate Cancer?Esophageal Cancer: - Check PSA 4. Normocytic Anemia: Component of Iron GI Loss anemia - IV Iron supp after Doxy completed as interaction. - no interventional transfusion needed at his time, transfuse less than 7 - Work-up ordered IRON, Folate, Ferritin, B12, MMA 5. Leukocytosis with neutrophilia shift. - Likely reactive to underlying infection Plan: Parental Iron After completion of Abx - Anxiety and muscle spasms per primary team.
[2018-11-18] MEDS: ALPRAZolam 0.25 MG TAB PO PRN (17:39)
[2018-11-18] MEDS ORDERED: ALPRAZolam 0.25 MG TAB PO SCH (18:00)
--- NOTE | 2018-11-18 23:58 | PN ---
PROGRESS NOTE DATE OF SERVICE: 11/18/2018. REASON FOR FOLLOWUP: Pneumonia. INTERVAL HISTORY: The patient is currently afebrile. He is breathing more comfortably. He did have a cough but not bringing up any sputum. No chest pain. No abdominal pain. No diarrhea. PHYSICAL EXAMINATION: Blood pressure 141/82 with a pulse of 80, temperature 97. He is 95% on 4 L nasal cannula. General description is an elderly male lying in bed in no distress. Respiratory system: Unlabored breathing with decreased breath sounds in the bases. No wheeze. Heart: S1, S2. Regular rate and rhythm. ABDOMEN: Soft, no tenderness. Extremities: No edema of the feet. LABS: Hemoglobin is 12.5, white count of 21.6, BUN of 14, creatinine 0.47. Blood culture has been negative, unable to provide any sputum. DIAGNOSTIC IMPRESSION AND PLAN: Patient admitted to the hospital with difficulty breathing. Did have a cough with fever with concern for pneumonia. Now with worsening of the white count. Chest x-ray will be repeated tomorrow. Continue Rocephin and doxycycline. Adjust antibiotic further on the basis of the clinical response. We will also try to obtain a sputum for narrow down antibiotic. Continue supportive care. MMODL / IJN: [id number] /
[2018-11-19] MEDS: SODIUM CHLORIDE 0.9% 1,000 ML IV SCH ×4 (01:26→22:00)
--- NOTE | 2018-11-19 01:48 | P.CONS ---
History of Present Illness - Reason for Consult Consult date: 11/18/18 Esophageal abnormality. - History of Present Illness The patient is a 78-year-old male with congenital absence of external years and history of prostate cancer, was admitted to the hospital because of not feeling well for a few days and cough with finding of lactic acidosis and suspected pneumonia on CT. Also noted on CT was a stent in the distal esophagus with circumferential thickening in the distal esophagus. We are asked to see him regarding this problem. His niece who was present during my visit today indicated that the patient had an esophageal stricture that required frequent dilation in the past and he ultimately had a stent placed for that purpose around 5 years ago. He has been followed by Dr. Gillespie once a year and he seems to have been stable without difficulties swallowing. Review of Systems Constitutional: Denies fever, chills, sweats, weight gain, or loss. HEENT: Negative for migraines, blurred vision or loss, drainage, oral mucosal lesions. Decreased hearing with hearing aids. 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 CARDIAC: Negative for chest pain, arrhythmias, or palpitation. RESPIRATORY: Negative for shortness of breath, hemoptysis, cough, or sputum production. GI: See HPI for pertinent findings. : Negative for hematuria, urgency, frequency, polyuria, or dysuria. MUSCULOSKELETAL: Negative for muscle aches, swelling, arthritis, and arthralgias. NEUROLOGIC: Negative for stroke or TIA. ENDOCRINE: Negative for thyroid problems. SKIN: Negative for rash or itching. PSYCHIATRIC: Negative history for depression and anxiety Past Medical History Past Medical History: Cancer, GERD/Reflux, GI Bleed, Hyperlipidemia, Hypertension, Osteoarthritis (OA) Additional Past Medical History / Comment(s): esophageal stricture, hiatal hernia, prostate cancer 7 yrs. ago-had radiation tx, rectal bleeding congenital absence of external ears(sx), hiatal hernia, past anemia, per great neice-pt had flu and pne vaccine,fiction writer unable to verify dates at time of admit-please f/ u in am History of Any Multi-Drug Resistant Organisms: None Reported Past Surgical History: Cholecystectomy Additional Past Surgical History / Comment(s): mult EGD's. 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 Esophageal dilatations, esophageal stentegd/colonooscopy, cataracts Past Anesthesia/Blood Transfusion Reactions: Previous Problems w/ Anesthesia, Postoperative Nausea & Vomiting (PONV) Additional Past Anesthesia/Blood Transfusion Reaction / Comm: problem with intubation-"uses special equipment" per niece. small airway & palate, niece states had a trach after a procedure and went to ICU Smoking Status: Former smoker - Past Family History Sister(s) Family Medical History: Cancer Mother History Unknown: Yes Additional Family Medical History / Comment(s): great niece stated pt's mom may have had syphyllis Father Additional Family Medical History / Comment(s): went blind, from alcoholism Medications and Allergies Home Medications Medication Instructions Recorded Confirmed Type Metoprolol Succinate [Toprol XL] 100 mg PO DAILY 04/30/14 11/15/18 History Omeprazole [PriLOSEC] 40 mg PO BID 04/30/14 11/15/18 History Aspirin [Adult Low Dose Aspirin EC] 81 mg PO DAILY PRN 11/15/18 11/15/18 History Citalopram Hydrobromide [CeleXA] 40 mg PO BID 11/15/18 11/15/18 History HYDROcodone/APAP 10-325MG [[place] 1 tab PO Q4HR PRN 11/15/18 11/15/18 History 10-325] Magnesium 200 mg PO DAILY 11/15/18 11/15/18 History amLODIPine [Norvasc] 5 mg PO DAILY 11/15/18 11/15/18 History Allergies Allergy/AdvReac Type Severity Reaction Status Date / Time No Known Allergies Allergy Verified 11/15/18 10:57 Physical Exam Vitals: Vital Signs Temp Pulse Resp BP Pulse Ox 11/18/18 13:58 97.0 F L 88 16 141/82 95 11/18/18 06:15 98.3 F 110 H 24 158/82 92 L 11/17/18 22:40 97.6 F 101 H 24 163/77 90 L Intake and Output 11/18/18 11/18/18 11/18/18 06:59 14:59 22:59 Intake Total 100 Balance 100 Intake: Oral 100 Other: Voiding Method Urinal # Voids 2 2 General appearance: The patient is stated age, pleasant in no apparent distress. HET: Head is normocephalic and atraumatic. Pupils are equal and reactive. Oropharynx is clear without lesions. Evidence of skin grafts in the location of his external ears with hearing aids. Neck: Supple without lymphadenopathy. Trachea midline. Heart: S1 S2. Regular rate and rhythm. Lungs: No crackles or wheezes are heard. Abdomen: Soft, nontender, nondistended with bowel sounds. No peritoneal signs. No palpable organomegaly or masses. Extremities: Normal skin color and turgor. No cyanosis, rash, ulceration, clubbing, or edema. Radial and pedal pulses are 2/4 bilaterally. Neurological: Oriented X3. No focal deficits. Strength and sensation are grossly intact. Results CBC & Chem 7: 11/18/18 09:50 11/18/18 09:50 Labs: Abnormal Lab Results - Last 24 Hours (Table) 11/15/18 11/18/18 11/18/18 Range/Units 11:22 06:13 09:50 WBC 21.6 H (3.8-10.6) k/uL RBC 3.65 L (4.30-5.90) m/uL Hgb 10.5 L (13.0-17.5) gm/dL Hct 33.9 L (39.0-53.0) % Neutrophils # 19.4 H (1.3-7.7) k/uL Lymphocytes # 0.8 L (1.0-4.8) k/uL Sodium (137-145) mmol/L Creatinine (0.66-1.25) mg/dL Glucose (74-99) mg/dL POC Glucose (mg/dL) 160 H (75-99) mg/dL Total Protein (6.3-8.2) g/dL Albumin (3.5-5.0) g/dL Free [place] LC, Quant 2.18 H (0.33-1.94) mg/dL 11/18/18 Range/Units 09:50 WBC (3.8-10.6) k/uL RBC (4.30-5.90) m/uL Hgb (13.0-17.5) gm/dL Hct (39.0-53.0) % Neutrophils # (1.3-7.7) k/uL Lymphocytes # (1.0-4.8) k/uL Sodium 135 L (137-145) mmol/L Creatinine 0.47 L (0.66-1.25) mg/dL Glucose 133 H (74-99) mg/dL POC Glucose (mg/dL) (75-99) mg/dL Total Protein 5.6 L (6.3-8.2) g/dL Albumin 2.8 L (3.5-5.0) g/dL Free [place] LC, Quant (0.33-1.94) mg/dL Microbiology - Last 24 Hours (Table) 11/15/18 11:20 Blood Culture - Preliminary Blood No Growth after 72 hours Assessment and Plan Assessment: History of esophageal stricture requiring stent placement to maintain lumen patency more than 5 years ago. No active swallowing issues at this time. Plan: Agree with your current management of his infection. I did not schedule an endoscopy at this time. I will discuss with Dr. Gillespie his most recent findings on his last endoscopy in September. Further plans will be made based on his course.
[2018-11-19] MEDS: METOPROLOL SUCCINATE (ER) 100 MG TAB.ER.24H PO SCH (06:13)
[2018-11-19] MEDS: ALPRAZolam 0.25 MG TAB PO PRN ×4 (06:13→23:15)
[2018-11-19] MEDS: HYDROcodone/APAP 10-325MG 1 EACH TAB PO PRN ×4 (08:10→22:00)
[2018-11-19] MEDS: ASPIRIN 81 MG PO SCH (08:11)
[2018-11-19] MEDS: amLODIPine 5 MG TAB PO SCH (08:11)
[2018-11-19] MEDS: MAGNESIUM OXIDE 400 MG TAB PO SCH (08:11)
[2018-11-19] MEDS: CITALOPRAM HYDROBROMIDE 20 MG TAB PO SCH ×2 (08:11→21:59)
[2018-11-19] MEDS: PANTOPRAZOLE 40 MG TABLET PO SCH ×2 (08:11→16:45)
[2018-11-19] MEDS: DOXYCYCLINE 100 MG CAP PO SCH (08:12)
[2018-11-19 08:39] LABS: Protein, Total CANCELED g/dL
[2018-11-19 09:20] LABS: Basophils % (A) 0 %; Eosinophils % (A) 0 %; HCT 34.7 % (39.0-53.0); HGB 11.3 gm/dL (13.0-17.5); Lymphocytes % (A) 5 %; MCH 29.8 pg (25.0-35.0); MCHC 32.5 g/dL (31.0-37.0); MCV 91.9 fL (80.0-100.0); Mean Platelet Volume 7.1; Monocytes # (A) 1.1 k/uL (0-1.0); Monocytes % (A) 6 %; Neutrophils # (A) 15.4 k/uL (1.3-7.7); Neutrophils % (A) 86 %; Platelet Count 448 k/uL (150-450); RBC 3.77 m/uL (4.30-5.90); RDW 13.8 % (11.5-15.5); WBC 17.8 k/uL (3.8-10.6)
[2018-11-19 09:46] LABS: ALT 29 U/L (21-72); AST 37 U/L (17-59); Albumin 2.8 g/dL (3.5-5.0); Alkaline Phosphatase 90 U/L (38-126); Anion Gap 11 mmol/L; Blood Urea Nitrogen 17 mg/dL (9-20); Calcium 8.5 mg/dL (8.4-10.2); Carbon Dioxide 24 mmol/L (22-30); Chloride 101 mmol/L (98-107); Glucose 102 mg/dL (74-99); Potassium 3.5 mmol/L (3.5-5.1); Sodium 136 mmol/L (137-145); Total Bilirubin 0.7 mg/dL (0.2-1.3); Total Protein 5.5 g/dL (6.3-8.2)
--- NOTE | 2018-11-19 10:59 | XR ---
EXAMINATION TYPE: XR chest 2V DATE OF EXAM: 11/19/2018 COMPARISON: 11/15/2018 HISTORY: Shortness of breath TECHNIQUE: Frontal and lateral views of the chest are obtained. FINDINGS: There is moderate left-sided pleural effusion with layering fluid noted. Suspect left basilar atelect asis and/or infiltrate. Patchy density right suprahilar and right medial basilar regions as well. Cor relate for pneumonia. Follow-up until resolution is advised. Small right effusion noted. Heart size is stable. Paratracheal prominence may reflect underlying adenopathy. No evidence for hilar prominence. Degenerative changes dorsal spine. IMPRESSION: 1. Correlate for pneumonia with pleural effusions. Follow-up until resolution advised.
[2018-11-19] MEDS ORDERED: RX INFO: IV CONTRAST WAS GIVEN 1 EACH MISC MISCELLANE PRN (11:15)
--- NOTE | 2018-11-19 12:45 | CT ---
EXAMINATION TYPE: CT chest w con DATE OF EXAM: 11/19/2018 COMPARISON: 10/13/2015 HISTORY: Difficulty breathing CT DLP: 556 mGycm Automated exposure control for dose reduction was used. CONTRAST: CT scan of the chest is performed with IV Contrast, patient injected with 100 mL of Isovue 300. FINDINGS: LUNGS: There is bilateral consolidation. There is a groundglass and ill-defined infiltrate within the right upper lobe and a multifocal location. Soft tissue prominence in the right suprahilar region li alia inflammatory follow-up to resolution to exclude neoplasia. There are bilateral pleural effusions small on the right and [id number] on the left. MEDIASTINUM: There are no greater than 1 cm hilar or mediastinal lymph nodes. No pericardial effusi on is seen. There is evidence of a esophageal stent. Circumferential wall thickening as previously n oted. This could been the basis of esophageal carcinoma. Coronary artery calcification noted. There i s a subcutaneous soft tissue nodule along the lower left chest measuring 1.7 cm. This is stable from prior exam. Small amount of pericardial fluid. OTHER: Nonspecific heterogeneous appearance of the marrow but previously noted could be on the basis of metastasis. Findings suspicious for hepatic steatosis. Previous gallbladder surgery noted. IMPRESSION: 1. There is bilateral consolidation and pleural effusion greater on the left. Underlying pneumonia in the differential diagnosis particularly with regard to the multifocal right upper lobe areas of cons olidation. There are two somewhat irregular nodular appearing areas of density which may be postinfla mmatory measuring 1-1.2 cm. Follow-up to resolution recommended to exclude underlying neoplastic proc ess. 2. Esophageal stent circumferential esophageal wall thickening suggestive of esophageal carcinoma. 3. Stable calcified subcutaneous anterior chest wall nodule unchanged from 2015 and therefore likely benign. 4. Hepatic steatosis with changes of previous cholecystectomy. 5. There is a tiny lucency in the anterior aspect of the left lower lobe. This is too small to charac terize but does not contain lung markings. A less than 1% pneumothorax not excluded.
--- NOTE | 2018-11-19 14:01 | P.PN ---
Subjective Progress Note Date: 11/19/18 This is a 78-year-old male, patient of [facility]. He has a known past medical history of congenital absence of external ears, hyperlipidemia hypertension and prostate cancer with previous radiation treatment. He also has a history of smoking and quit about 10 years ago. Patient presents to the hospital complaining of 2 days of not feeling well. He's been fighting cold symptoms. Runny nose cough and some chest discomfort. Patient denies any fever or chills or sweats. It is difficult to obtain history form from him. Patient niece is his main caregiver. She is not present during my exam. History was mostly obtained from the chart. Apparently he does have a history of alcoholism he does not have a drink in a long time. Patient does feel that he is hurting all over. Computed tomography scan of the abdomen and pelvis shows esophageal stent with circumferential wall thickening of the distal esophagus, gastric fundus and gastric body. No parotid history of esophageal carcinoma is given. And suspicious findings of a right lower lobe pneumonia. Mottled appearance of the bone marrow raises suspicion for osseous metastasis and could be further evaluated with MRI. On 11/17/2018, patient was seen and examined on medical floor, he is alert and oriented 3 in no apparent distress, still complaining of left rib area pain, there is no fever or chills no headache or dizziness no chest pain no shortness of breath no cough no nausea or vomiting no abdominal pain no diarrhea and no urinary symptoms On 11/18/2018 patient was seen and examined on the medical floor he is alert and oriented in no apparent distress, he is complaining of anxiety and is still complaining of left sided rib area pain otherwise no complaints there is no fever or chills no headache or dizziness no chest pain or shortness of breath no cough no nausea or vomiting no abdominal pain and no urinary symptoms On 11/19/2018 patient is alert and oriented in no distress. Patient is stating improvement with anxiety and left-sided rib discomfort. This time patient denies chest pain. Patient denies nausea vomiting or diarrhea. Patient denies any urinary burning or frequency Objective - Vital Signs Vital signs: Vital Signs Temp 97.3 F L 11/19/18 05:46 Pulse 105 H 11/19/18 05:46 Resp 16 11/19/18 08:05 BP 168/97 11/19/18 05:46 Pulse Ox 96 11/19/18 05:46 Intake & Output 11/18/18 11/19/18 11/19/18 18:59 06:59 18:59 Output Total 300 Balance -300 Weight 70.76 kg Output: Urine 300 Other: # Voids 3 1 - Exam Head normocephalic and atraumatic Neck supple no JVD no goiter Lungs diminished bilaterally Heart regular rate and rhythm S1-S2, no rub or gallop Abdomen is soft nontender nondistended positive bowel sounds no hepatosplenomegaly Extremities no edema no cyanosis or clubbing Neuro alert and orientated to 3 Muscle skeletal she does have tenderness along the rib cage especially on the left and into the abdomen area. - Labs CBC & Chem 7: 11/19/18 08:14 11/19/18 08:14 Labs: Abnormal Lab Results - Last 24 Hours (Table) 11/19/18 11/19/18 Range/Units 08:14 08:14 WBC 17.8 H (3.8-10.6) k/uL RBC 3.77 L (4.30-5.90) m/uL Hgb 11.3 L (13.0-17.5) gm/dL Hct 34.7 L (39.0-53.0) % Neutrophils # 15.4 H (1.3-7.7) k/uL Monocytes # 1.1 H (0-1.0) k/uL Sodium 136 L (137-145) mmol/L Creatinine 0.45 L (0.66-1.25) mg/dL Glucose 102 H (74-99) mg/dL Total Protein 5.5 L (6.3-8.2) g/dL Albumin 2.8 L (3.5-5.0) g/dL Microbiology - Last 24 Hours (Table) 11/15/18 11:20 Blood Culture - Preliminary Blood No Growth after 96 hours Assessment and Plan Assessment: 1. Cough with cold like symptoms: Questionable pneumonia noted on CT. repeat chest x-ray showing correlation for pneumonia with pleural effusions. Pulmonary services have been consulted. Patient maintained on Rocephin and doxycycline. Infectious disease is following. 2. Musculoskeletal pain with CT showing mottled appearance of the bone marrow raising suspicion for osseous metastasis. 3. Elevated lactic acid level possibly related to dehydration improved with IV fluids. 4. Acute kidney injury creatinine 1.48 baseline creatinine unknown. Continue with IV fluids 5. History of prostate cancer status post radiationer. 6. History of nicotine dependence quit smoking about 10 years ago 7. Essential hypertension 8. Hyperlipidemia 9. Hypomagnesemia and patient receiving magnesium supplement. 10. Chest pain troponin negative . 11. Normocytic anemia. Oncology service is following 12. Anxiety. Xanax has been added 13. History of esophageal stricture requiring stent placement to maintain lumen patency more than 5 years ago. GI services are following. No endoscopy scheduled at this time Social work has been consulted for possible ECF placement GI prophylaxis Protonix and DVT prophylaxis SCDs I performed an examination of the patient and discussed their management with the Nurse Practitioner. I have reviewed the Nurse Practitioner's notes and agree with the documented findings and plan of care
--- NOTE | 2018-11-19 14:44 | US ---
EXAMINATION TYPE: US chest DATE OF EXAM: 11/19/2018 COMPARISON: NONE CLINICAL HISTORY: Markings for thoracentesis by pulmonary staff. Pleural effusion TECHNIQUE: Targeted ultrasound of the posterior lower bilaterally EXAM MEASUREMENTS: Right Pleural Effusion pocket size: 6.4 cm Right skin surface to fluid distance: 3.8 cm Left Pleural Effusion pocket size: 6.2 cm Left skin surface to fluid distance: 4.1 cm Right side marked for possible thoracentesis outside the dept. Left side marked for possible thoracentesis outside the dept. Pulmonologists are able to review the images in the patient?s EMR. IMPRESSIONS: Bilateral pleural effusions.
--- NOTE | 2018-11-19 16:11 | CONS ---
CONSULTATION This is a pulmonary critical care consultation. DATE OF SERVICE: November 19, 2018 This is a 78-year-old male who apparently presented to the Emergency Room back on November 15 with chest pain. The patient complained of 2 days of not feeling well. He was apparently getting a chest cold. He admits to some chest congestion coughing wheezing and some shortness of breath. Also had some pain in the left chest area. In addition, he had some nasal drainage and discharge. The patient does have a previous history of tobacco use and also was a heavy drinker in the past. The patient was born with congenital absence of the external ears. The patient has been here since the . We were just consulted today. The reason for the consultation revolved around the possibility of an effusion and pneumonic process at the left base. The patient is short of breath. Does have pain in the left chest when he takes a deep breath. No fever or chills. No nausea, vomiting or diarrhea. Still having a sharp sort of pain when he takes a deep breath in the left lateral and posterior chest area. MEDICATIONS: Home medications are reviewed. They include Toprol-XL, omeprazole, aspirin, citalopram, [place], magnesium and amlodipine. ALLERGIES: Denied. MEDICAL HISTORY: Includes DJD, hypertension, hyperlipidemia, gastroesophageal reflux disease, prostate cancer, status post external beam radiation. He also has a history of previous esophageal stricture with esophageal stent placement and history of hiatal hernia. He has had biopsies of the esophagus multiple times and each time they come back negative for malignancy. SURGICAL HISTORY: Includes among other things, cholecystectomy, and multiple EGDs, stent placement in the esophagus, previous tracheostomy for respiratory failure, skin graft reconstruction of the ears and esophageal dilatations and as I mentioned, esophageal stent. SOCIAL HISTORY: Positive for previous heavy alcohol use and previous heavy tobacco use. Denies any illicit drug use. FAMILY HISTORY: Positive for cancer. REVIEW OF SYSTEMS: Constitutional: Weakness. Neurologic negative. HEENT negative. Cardiovascular chest pain, left chest, sharp, worse with deep breathing or coughing. Pulmonary: Shortness of breath. Chest tightness and wheezing, cough, chest congestion and phlegm production. GI/ negative. Rheumatologic/immunologic/hematologic negative. ENDOCRINOLOGIC/DERMATOLOGIC: Negative. PHYSICAL EXAMINATION: Current vital signs are reviewed. Temperature 97.3, heart rate 85, respiratory rate 16, blood pressure 149/88, mean 108. 4 L saturation 96%. Appears in no acute distress. HEENT examination is grossly unremarkable. Nasal O2 noted. NECK: Supple. Full range of motion. No adenopathy or thyromegaly. Neck veins are flat. Cardiovascular examination reveals regular rhythm and rate. Heart rate in mid 80s. S1, S2 normal. Heart sounds are distant. LUNGS: Coarse rhonchi throughout. There is diminished breath sounds at the left base. Dullness at the left base. Some crackles are appreciated in both bases. Abdomen is soft. Bowel sounds are heard. Extremities are intact. No cyanosis, clubbing, or edema. Skin without rash. Neurologic examination is brief but nonfocal. LAB DATA: Reviewed. White count 17.8, hemoglobin 11.3, hematocrit 34.7, platelet count 448,000. Sodium 136, potassium 3.5, chloride 101, CO2 24, anion gap 11, BUN and creatinine were 17 and 0.45. Albumin 2.8. Microbiologic studies are negative. The patient had an initial chest x-ray back on the , which showed no acute abnormality. A followup chest x-ray was done this morning. It does show possible pneumonia and pleural effusions left greater than right. We ordered a chest CT which was done also today which showed some bilateral consolidations and pleural effusions, greater on the left than on the right. Pneumonia was suspected. There is also increased abnormality at the right upper lobe consistent with multifocal pneumonia. The rest of the findings are so noted. Ultrasound was ordered but not read as yet. Microbiologic studies are negative thus far. Medications are reviewed. From the pulmonary standpoint, the patient is on breathing treatments q.i.d. and p.r.n. with albuterol and Atrovent. The patient also is on ceftriaxone and doxycycline for possible pneumonia left lung. ASSESSMENT: 1. Bilateral pneumonia with bilateral pleural effusions, left greater than right. 2. History of chest pain, which may in fact relate to the pneumonic process in the left lower lobe. The pain is exclusively left-sided. 3. History of prostate cancer, status post external beam radiation and subsequent radiation colitis. 4. Gastroesophageal reflux disease. 5. Hyperlipidemia. 6. Hypertension. 7. Degenerative joint disease. 8. Esophageal stricture, status post esophageal stent. 9. Hiatal hernia. 10.Status post cholecystectomy. 11.Congenital absence of the ear pinna. PLAN: Await for the results of the ultrasound. The patient may benefit from thoracentesis. The fluid does not appear to be great in size. X-rays and CT scans are reviewed. Additional recommendations and suggestions are forthcoming. Medications are reviewed. Prognosis is guarded. MMODL / IJN: [id number] /
--- NOTE | 2018-11-19 20:23 | PN ---
PROGRESS NOTE DATE OF SERVICE: 11/19/2018 REASON FOR FOLLOWUP: Pneumonia. INTERVAL HISTORY: The patient is currently afebrile, has been breathing comfortably. He has been complaining that he did have any bowel movement for the last one week. No nausea or vomiting has been reported. He did have some cough but did not bring up any sputum. PHYSICAL EXAMINATION: Blood pressure 168/97 with a pulse of 105, temperature 97.3. He is 96% on 4 L nasal cannula. General description is an elderly male lying in bed in no distress. RESPIRATORY SYSTEM: Unlabored breathing with decreased breath sounds at the base. No wheeze. HEART: S1, S2. Regular rate and rhythm. ABDOMEN: Soft. No tenderness. EXTREMITIES: No edema of the feet. LABS: Hemoglobin 11.3, white count 17.8 with a BUN of 17, creatinine 0.45. He did have a CT of the chest completed today with bilateral consolidation, mostly within the right upper lobe and multifocal location. DIAGNOSTIC IMPRESSION AND PLAN: Patient with right upper lobe pneumonia in a patient who did have a jump in his white count, also with esophageal with a question of possible aspiration etiology. Antibiotic will be adjusted to Zosyn. Will discontinue Rocephin and doxycycline, monitor his clinical course closely. Try to obtain sputum. Continue with supportive care. MMODL / IJN: [id number] /
[2018-11-20] MEDS: PIPERACILLIN-TAZOBACTAM 3.375 GM in SODIUM CHLORIDE 0.9% 100 ML IVPB SCH ×3 (01:00→16:29)
[2018-11-20] MEDS: SODIUM CHLORIDE 0.9% 1,000 ML IV SCH ×2 (05:43→08:20)
[2018-11-20] MEDS: ASPIRIN 81 MG PO SCH (08:18)
[2018-11-20] MEDS: PANTOPRAZOLE 40 MG TABLET PO SCH ×2 (08:18→16:29)
[2018-11-20] MEDS: amLODIPine 5 MG TAB PO SCH (08:18)
[2018-11-20] MEDS: METOPROLOL SUCCINATE (ER) 100 MG TAB.ER.24H PO SCH (08:19)
[2018-11-20] MEDS: MAGNESIUM OXIDE 400 MG TAB PO SCH (08:19)
[2018-11-20] MEDS: CITALOPRAM HYDROBROMIDE 20 MG TAB PO SCH ×2 (08:19→22:28)
[2018-11-20] MEDS: HYDROcodone/APAP 10-325MG 1 EACH TAB PO PRN ×2 (08:33→18:09)
[2018-11-20 08:51] LABS: Basophils % (A) 0 %; Eosinophils # (A) 0.2 k/uL (0-0.7); Eosinophils % (A) 1 %; HCT 32.1 % (39.0-53.0); HGB 10.3 gm/dL (13.0-17.5); Lymphocytes # (A) 0.8 k/uL (1.0-4.8); Lymphocytes % (A) 6 %; MCH 29.7 pg (25.0-35.0); MCHC 32.1 g/dL (31.0-37.0); MCV 92.5 fL (80.0-100.0); Mean Platelet Volume 6.6; Monocytes # (A) 0.8 k/uL (0-1.0); Monocytes % (A) 6 %; Neutrophils # (A) 11.1 k/uL (1.3-7.7); Neutrophils % (A) 84 %; Platelet Count 409 k/uL (150-450); RBC 3.47 m/uL (4.30-5.90); RDW 13.8 % (11.5-15.5); WBC 13.2 k/uL (3.8-10.6)
[2018-11-20 09:08] LABS: ALT 35 U/L (21-72); AST 49 U/L (17-59); Albumin 2.5 g/dL (3.5-5.0); Alkaline Phosphatase 87 U/L (38-126); Anion Gap 7 mmol/L; Blood Urea Nitrogen 18 mg/dL (9-20); Calcium 8.1 mg/dL (8.4-10.2); Carbon Dioxide 26 mmol/L (22-30); Chloride 101 mmol/L (98-107); Glucose 91 mg/dL (74-99); Potassium 3.7 mmol/L (3.5-5.1); Sodium 134 mmol/L (137-145); Total Bilirubin 0.6 mg/dL (0.2-1.3); Total Protein 5.1 g/dL (6.3-8.2)
--- NOTE | 2018-11-20 10:12 | CDI ---
Documentation Clarification Form Date: 11/20/2018 10:01:43 AM From: Laura VelardeRainesANALY, CCDS Admit Date: 11/15/2018 4:54:00 PM Patient Name: Vaughn Carballo Visit Number: [id number] Discharge Date: ATTENTION: The Clinical Documentation Specialists (CDI) and [facility] Coding Staff appreciate your assistance in clarifying documentation. Please respond to the clarification below the line at the bottom and electronically sign. The CDI & [facility] Coding staff will review the response and follow-up if needed. Please note: Queries are made part of the Legal Health Record. If you have any questions, please contact the author of this message via ITS. Dr. Broderick Lara: Per the Infectious Disease consult, the patient is admitted with SIRS: tachycardia, febrile with lactic acidosis. Diagnosed with bilateral pneumonia, acute kidney injury and dehydration. History/Risk Factors: Prostate Cancer status post radiation, Hypertension, Hyperlipidemia, previous esophageal stricture w/stent inserted. Clinical Indicators: Presented with cough & cold symptoms. VS: T 98.4-100.0; P 115%, R 20, BP 159/74, PO 99 RA LAB: WBC 22.3^, Neut 20.8^, Lactic acid 4.1^^. Blood culture neg @ 96 hours. Treatment: IV fluid boluses x2, IV fluid rate 100, IV Ativan x3, IV Rocephin, IV Zosyn, IV Mag Sulfate, IV Ms In your professional opinion, please clarify if these findings signify one of the following conditions, whether the condition is POA, and cause, if known: Sepsis ruled out Sepsis ruled in SIRS, without underlying infectious process Severe Sepsis Septic Shock Other, please specify Unable to determine Present on Admission o Yes o No (Last Revision: January 2018) sepsis ruled out MTDD
--- NOTE | 2018-11-20 10:21 | P.PN ---
Subjective Progress Note Date: 11/20/18 This is a 78-year-old male, patient of [facility]. He has a known past medical history of congenital absence of external ears, hyperlipidemia hypertension and prostate cancer with previous radiation treatment. He also has a history of smoking and quit about 10 years ago. Patient presents to the hospital complaining of 2 days of not feeling well. He's been fighting cold symptoms. Runny nose cough and some chest discomfort. Patient denies any fever or chills or sweats. It is difficult to obtain history form from him. Patient niece is his main caregiver. She is not present during my exam. History was mostly obtained from the chart. Apparently he does have a history of alcoholism he does not have a drink in a long time. Patient does feel that he is hurting all over. Computed tomography scan of the abdomen and pelvis shows esophageal stent with circumferential wall thickening of the distal esophagus, gastric fundus and gastric body. No parotid history of esophageal carcinoma is given. And suspicious findings of a right lower lobe pneumonia. Mottled appearance of the bone marrow raises suspicion for osseous metastasis and could be further evaluated with MRI. On 11/17/2018, patient was seen and examined on medical floor, he is alert and oriented 3 in no apparent distress, still complaining of left rib area pain, there is no fever or chills no headache or dizziness no chest pain no shortness of breath no cough no nausea or vomiting no abdominal pain no diarrhea and no urinary symptoms On 11/18/2018 patient was seen and examined on the medical floor he is alert and oriented in no apparent distress, he is complaining of anxiety and is still complaining of left sided rib area pain otherwise no complaints there is no fever or chills no headache or dizziness no chest pain or shortness of breath no cough no nausea or vomiting no abdominal pain and no urinary symptoms On 11/19/2018 patient is alert and oriented in no distress. Patient is stating improvement with anxiety and left-sided rib discomfort. This time patient denies chest pain. Patient denies nausea vomiting or diarrhea. Patient denies any urinary burning or frequency On 11/20/2018 patient is currently resting comfortably in bed. Antibiotics adjusted per infectious disease. Possible thoracentesis per pulmonary. This time patient denies chest pain or shortness breath. Patient denies nausea vomiting or diarrhea. Patient denies any urinary burning or frequency Objective - Vital Signs Vital signs: Vital Signs Temp 97.6 F 11/20/18 07:00 Pulse 105 H 11/20/18 07:00 Resp 18 11/20/18 07:00 BP 158/89 11/20/18 07:00 Pulse Ox 96 11/20/18 07:00 Intake & Output 11/19/18 11/20/18 11/20/18 18:59 06:59 18:59 Output Total 350 Balance -350 Weight 70.76 kg Output: Urine 350 Other: # Voids 3 - Exam Head normocephalic and atraumatic Neck supple no JVD no goiter Lungs diminished bilaterally Heart regular rate and rhythm S1-S2, no rub or gallop Abdomen is soft nontender nondistended positive bowel sounds no hepatosplenomegaly Extremities no edema no cyanosis or clubbing Neuro alert and orientated to 3 Muscle skeletal she does have tenderness along the rib cage especially on the left and into the abdomen area. - Labs CBC & Chem 7: 11/20/18 08:05 11/20/18 08:05 Labs: Abnormal Lab Results - Last 24 Hours (Table) 11/20/18 11/20/18 Range/Units 08:05 08:05 WBC 13.2 H (3.8-10.6) k/uL RBC 3.47 L (4.30-5.90) m/uL Hgb 10.3 L (13.0-17.5) gm/dL Hct 32.1 L (39.0-53.0) % Neutrophils # 11.1 H (1.3-7.7) k/uL Lymphocytes # 0.8 L (1.0-4.8) k/uL Sodium 134 L (137-145) mmol/L Creatinine 0.44 L (0.66-1.25) mg/dL Calcium 8.1 L (8.4-10.2) mg/dL Total Protein 5.1 L (6.3-8.2) g/dL Albumin 2.5 L (3.5-5.0) g/dL Microbiology - Last 24 Hours (Table) 11/15/18 11:20 Blood Culture - Preliminary Blood No Growth after 96 hours Assessment and Plan Assessment: 1. Bilateral pneumonia with bilateral pleural effusions left greater than right. repeat chest x-ray showing correlation for pneumonia with pleural effusions. Patient has been switched to Zosyn per infectious disease. Sputum culture ordered. Possible thoracentesis per pulmonary. Ultrasound of chest completed. White blood cell is improving to 13 point 2. Musculoskeletal pain with CT showing mottled appearance of the bone marrow raising suspicion for osseous metastasis. 3. Elevated lactic acid level possibly related to dehydration improved with IV fluids. Repeat lactic 1.8. Fluids have been DC'd 4. Acute kidney injury creatinine 1.48 baseline creatinine unknown. Resolved. 5. History of prostate cancer status post radiationer. 6. History of nicotine dependence quit smoking about 10 years ago 7. Essential hypertension 8. Hyperlipidemia 9. Hypomagnesemia and patient receiving magnesium supplement. 10. Chest pain. troponin negative . EKG reviewed.. Pain likely related to pneumonic process in the left upper lobe. 11. Normocytic anemia. Oncology service is following 12. Anxiety. Xanax has been added 13. History of esophageal stricture requiring stent placement to maintain lumen patency more than 5 years ago. GI services are following. No endoscopy scheduled at this time Social work has been consulted for possible ECF placement GI prophylaxis Protonix and DVT prophylaxis SCDs I performed an examination of the patient and discussed their management with the Nurse Practitioner. I have reviewed the Nurse Practitioner's notes and agree with the documented findings and plan of care
[2018-11-20] MEDS: ALPRAZolam 0.25 MG TAB PO PRN (10:35)
--- NOTE | 2018-11-20 15:36 | P.PN ---
Subjective Progress Note Date: 11/20/18 Principal diagnosis: This is 78-year-old white male patient with past medical history of hypertension, hyperlipidemia, GERD, prostate cancer, status post external beam radiation, previous history of esophageal stricture with esophageal stent placement and history of hiatal hernia. Patient was admitted to the hospital on 11/12/2018 for chest congestion, coughing, wheezing, shortness of breath in addition patient was complaining of some pain in the left chest area. Patient does have a history of previous tobacco use, and used to be a heavy drinker in the past. Initial chest x-ray showed no acute abnormality, follow-up chest x- ray was done yesterday on 11/19/2018, and showed possible pneumonia and pleural effusions left greater than the right. CT chest was done, and showed some bilateral consolidation and some pleural effusions, greater on the left than the right. No new was suspected. Obtain the ultrasound of the chest which showed 6.4 cm pocket on the right, and 6.2 cm pocket on the left. Still has some dyspnea, and left-sided chest discomfort, but no acute distress, is maintaining good oxygenation on 4 L per nasal cannula, his pulse ox is 95%, he has been afebrile, he is on antibiotics form of Zosyn. Culture showed no growth. His labs have been reviewed, and showed white count of 13.2, hemoglobin of 10.3, sodium is 134, rest of electrolytes were within normal limits, BUN was 18, creatinine was 0.44. Objective - Vital Signs Vital signs: Vital Signs Temp 97.5 F L 11/20/18 15:00 Pulse 97 11/20/18 15:00 Resp 18 11/20/18 15:00 BP 147/75 11/20/18 15:00 Pulse Ox 95 11/20/18 15:00 Intake & Output 11/19/18 11/20/18 11/20/18 18:59 06:59 18:59 Output Total 350 Balance -350 Weight 70.76 kg Output: Urine 350 Other: # Voids 3 3 - Exam GENERAL EXAM: Alert, pleasant, 78-year-old white male 4 L per nasal cannula comfortable in no apparent distress. HEAD: Normocephalic/atraumatic. EYES: Normal reaction of pupils, equal size. Conjunctiva pink, sclera white. NOSE: Clear with pink turbinates. THROAT: No erythema or exudates. NECK: No masses, no JVD, no thyroid enlargement, no adenopathy. CHEST: No chest wall deformity. Symmetrical expansion. LUNGS: Equal air entry scattered rhonchi, dullness at bilateral bases, and some crackles at the bases CVS: Regular rate and rhythm, normal S1 and S2, no gallops, no murmurs, no rubs ABDOMEN: Soft, nontender. No hepatosplenomegaly, normal bowel sounds, no guarding or rigidity. EXTREMITIES: No clubbing, no edema, no cyanosis, 2+ pulses and upper and lower extremities. MUSCULOSKELETAL: Muscle strength and tone normal. SPINE: No scoliosis or deformity SKIN: No rashes CENTRAL NERVOUS SYSTEM: Alert and oriented -3. No focal deficits, tone is normal in all 4 extremities. PSYCHIATRIC: Alert and oriented -3. Appropriate affect. Intact judgment and insight. - Labs CBC & Chem 7: 11/20/18 08:05 11/20/18 08:05 Labs: Abnormal Lab Results - Last 24 Hours (Table) 11/20/18 11/20/18 Range/Units 08:05 08:05 WBC 13.2 H (3.8-10.6) k/uL RBC 3.47 L (4.30-5.90) m/uL Hgb 10.3 L (13.0-17.5) gm/dL Hct 32.1 L (39.0-53.0) % Neutrophils # 11.1 H (1.3-7.7) k/uL Lymphocytes # 0.8 L (1.0-4.8) k/uL Sodium 134 L (137-145) mmol/L Creatinine 0.44 L (0.66-1.25) mg/dL Calcium 8.1 L (8.4-10.2) mg/dL Total Protein 5.1 L (6.3-8.2) g/dL Albumin 2.5 L (3.5-5.0) g/dL Microbiology - Last 24 Hours (Table) 11/15/18 11:20 Blood Culture - Preliminary Blood No Growth after 120 hours Assessment and Plan Plan: Assessment: #1. Acute hypoxemic respiratory failure secondary to bilateral pneumonia with bilateral pleural effusions, left greater than the right. #2. Left-sided chest pain, likely related to pneumonic process in the left lower lobe #3. History of prostate cancer, status post external beam radiation and subsequent radiation colitis #4. Gastroesophageal reflux disease #5. Hypertension, hyperlipidemia #6. Degenerative joint disease #7. Esophageal stricture, status post esophageal stent #8. Hiatal hernia #9. Status post cholecystectomy #10. Congenital absence of the ear pinna Plan: Continue current antibiotic coverage, ID service is following, patient is afebrile, ultrasound the chest were reviewed, and shows 6.4 cm pleural fluid pocket on the right, 6.2 cm pocket on the left. Patient will be canceled for right-sided thoracentesis by Dr. Resendez tomorrow at the bedside, and left side will be done the day after. This was discussed with the patient, pleural fluid will be sent for cultures, cytology and pleural fluid analysis. This was discussed with the patient, and patient is agreeable to proceed I performed a history & physical examination of the patient and discussed their management with my nurse practitioner, Jessika Coronado. I reviewed the nurse practitioner's note and agree with the documented findings and plan of care. Lung sounds are positive for diminished breath sounds at the bases, with bibasilar crackles. The findings and the impression was discussed with the patient. I attest to the documentation by the nurse practitioner. Time with Patient: Less than 30
--- NOTE | 2018-11-20 17:14 | P.PN ---
Subjective Progress Note Date: 11/20/18 Principal diagnosis: Suspicious scan findings initially, no osseous metastatic disease. Iron deficient anemia. Suspicious findings on CT chest Patient seen today in follow-up with his medical decision maker (Niece) at bedside. Patient is resting comfortably, in no acute complaints per patient, patient proxy does not feel patient is uncomfortable or lacking any of his needs being met. Objective - Vital Signs Vital signs: Vital Signs Temp 97.5 F L 11/20/18 15:00 Pulse 97 11/20/18 15:00 Resp 18 11/20/18 15:00 BP 147/75 11/20/18 15:00 Pulse Ox 95 11/20/18 15:00 Intake & Output 11/19/18 11/20/18 11/20/18 18:59 06:59 18:59 Output Total 350 Balance -350 Weight 70.76 kg Output: Urine 350 Other: # Voids 3 3 - Labs CBC & Chem 7: 11/20/18 08:05 11/20/18 08:05 Labs: Abnormal Lab Results - Last 24 Hours (Table) 11/20/18 11/20/18 Range/Units 08:05 08:05 WBC 13.2 H (3.8-10.6) k/uL RBC 3.47 L (4.30-5.90) m/uL Hgb 10.3 L (13.0-17.5) gm/dL Hct 32.1 L (39.0-53.0) % Neutrophils # 11.1 H (1.3-7.7) k/uL Lymphocytes # 0.8 L (1.0-4.8) k/uL Sodium 134 L (137-145) mmol/L Creatinine 0.44 L (0.66-1.25) mg/dL Calcium 8.1 L (8.4-10.2) mg/dL Total Protein 5.1 L (6.3-8.2) g/dL Albumin 2.5 L (3.5-5.0) g/dL Microbiology - Last 24 Hours (Table) 11/15/18 11:20 Blood Culture - Preliminary Blood No Growth after 120 hours Assessment and Plan (1) History of prostate cancer Narrative/Plan: With patient's history of prostate cancer, on admission, there was concerns for diffuse bony metastasis on imaging. Nuclear medicine bone scan was negative for metastatic disease, PSA returned at 0.2. Currently no suspicions for metastatic prostate cancer. Current Visit: Yes Status: Chronic Priority: Low Code(s): Z85.46 - PERSONAL HISTORY OF MALIGNANT NEOPLASM OF PROSTATE SNOMED Code(s): 658588594 (2) Iron deficiency anemia Narrative/Plan: Based on the initial imaging with the suspicious osseous findings, workup was performed to rule out an underlying bone marrow disorder. Thus far the results are showing no monoclonal protein, positive for iron deficiency with low iron level and saturation, ferritin just over 100. Parenteral iron will be provided to the patient during his admission as patient advocate states pt has trouble with his stomach and bowels Current Visit: Yes Status: Chronic Priority: Medium Code(s): D50.9 - IRON DEFICIENCY ANEMIA, UNSPECIFIED SNOMED Code(s): 06481924 (3) Lung nodule, solitary Narrative/Plan: Case was briefly discussed with Pulmonary [facility]AGE AND FAMILY THERAPIST. They are evaluating the patient' s new findings of bilateral pleural effusion, left greater than right and the 1.7 cm soft tissue mass in the left lower chest. Would request cytology, cell count, C&S and albumin on pleural fluid if thoracentesis is done. Current Visit: Yes Status: Acute Priority: High Code(s): R91.1 - SOLITARY PULMONARY NODULE SNOMED Code(s): 038658895 (4) Pleural effusion Current Visit: Yes Status: Acute Priority: High Code(s): J90 - PLEURAL EFFUSION, NOT ELSEWHERE CLASSIFIED SNOMED Code(s): 14608133
[2018-11-20] MEDS: SODIUM FERRIC GLUCONAT-SUCROSE 125 MG in SODIUM CHLORIDE 0.9% 100 ML IVPB SCH (18:09)
[2018-11-21] MEDS: PIPERACILLIN-TAZOBACTAM 3.375 GM in SODIUM CHLORIDE 0.9% 100 ML IVPB SCH ×4 (01:29→23:02)
[2018-11-21] MEDS: HYDROcodone/APAP 10-325MG 1 EACH TAB PO PRN ×3 (01:44→16:19)
[2018-11-21] MEDS: ALPRAZolam 0.25 MG TAB PO PRN ×2 (01:44→20:30)
--- NOTE | 2018-11-21 05:18 | PN ---
PROGRESS NOTE DATE OF SERVICE: 11/20/2018 REASON FOR FOLLOWUP: Pneumonia possible aspiration. INTERVAL HISTORY: The patient is currently afebrile. He seemed to be breathing comfortably. He did have a cough but not bringing up any sputum. No chest pain. No abdominal pain. No diarrhea. PHYSICAL EXAMINATION: On examination, blood pressure 147/75 with a pulse of 97, temperature 97.5. He is 95% on 4 L nasal cannula. General description is an elderly male lying in bed in no distress. RESPIRATORY SYSTEM: Unlabored breathing with decreased breath sounds at the bases, no wheeze. HEART: S1, S2. Regular rate and rhythm. ABDOMEN: Soft, no tenderness. LABS: Hemoglobin 10.3, white count 13.2 with a BUN of 18, creatinine 0.44. Blood culture has been negative. He was unable to provide any sputum. DIAGNOSTIC IMPRESSION AND PLAN: Patient admitted to the hospital with pneumonia right upper lobe with concern for possible aspiration etiology. The patient with initial antibiotic therapy of Rocephin and doxycycline. He was started on Zosyn yesterday and did have improvement in his white count, that will be continued for now. We will try to obtain a sputum and his antibiotics. Continue supportive care. MMODL / IJN: [id number] /
--- NOTE | 2018-11-21 07:38 | P.PN ---
Subjective Progress Note Date: 11/20/18 Principal diagnosis: History of esophageal stricture and stent placement Patient in bed reporting that he is tolerating his diet. No abdominal pain reported. Objective - Vital Signs Vital signs: Vital Signs Temp 97.9 F 11/20/18 23:00 Pulse 99 11/20/18 23:00 Resp 20 11/20/18 23:00 BP 148/84 11/20/18 23:00 Pulse Ox 95 11/20/18 23:00 Intake & Output 11/20/18 11/21/18 11/21/18 18:59 06:59 18:59 Intake Total 300 Output Total 400 Balance -100 Intake: Oral 300 Output: Urine 400 Other: # Voids 3 1 - Exam On physical examination, patient appears comfortable in no apparent distress. HEAD: Atraumatic, deformity of external ears consistent with congenital abnormality. EYES: No scleral icterus. No conjunctival injection. MOUTH: No lesions, tongue midline. NECK: Trachea midline, no gross abnormalities. CHEST: Decreased air entry in all lung garcia. ABDOMEN: Soft, obese. Bowel sounds are positive. No organomegaly. No guarding or rigidity. EXTREMITIES: No pedal edema. SKIN: No rashes, no jaundice. - Labs CBC & Chem 7: 11/20/18 08:05 11/20/18 08:05 Labs: Abnormal Lab Results - Last 24 Hours (Table) 11/20/18 11/20/18 Range/Units 08:05 08:05 WBC 13.2 H (3.8-10.6) k/uL RBC 3.47 L (4.30-5.90) m/uL Hgb 10.3 L (13.0-17.5) gm/dL Hct 32.1 L (39.0-53.0) % Neutrophils # 11.1 H (1.3-7.7) k/uL Lymphocytes # 0.8 L (1.0-4.8) k/uL Sodium 134 L (137-145) mmol/L Creatinine 0.44 L (0.66-1.25) mg/dL Calcium 8.1 L (8.4-10.2) mg/dL Total Protein 5.1 L (6.3-8.2) g/dL Albumin 2.5 L (3.5-5.0) g/dL Microbiology - Last 24 Hours (Table) 11/15/18 11:20 Blood Culture - Preliminary Blood No Growth after 120 hours Assessment and Plan (1) Esophageal stricture Narrative/Plan: The patient has a known history of esophageal stricture which had required dilation in the past for which the patient underwent stent placement approximately 5 years ago. This was redemonstrated on computed tomography scan of the chest and abdomen Current Visit: Yes Status: Acute Code(s): K22.2 - ESOPHAGEAL OBSTRUCTION SNOMED Code(s): 08159610 Plan: Supportive care Okay for diet Report from computed tomography scan reviewed Discussion with Dr. Gillespie who has treated the patient's esophageal stricture and placed his stent in the past, he reports that the patient is extremely difficult to scope due to his underlying breathing issues, and that the stent appears to be functioning and that no further workup is needed at this time Thank you for allowing us to participate in the care of the patient, the GI service will stand by at this time, please call us back with any questions or concerns
[2018-11-21] MEDS: PANTOPRAZOLE 40 MG TABLET PO SCH ×2 (08:07→17:52)
[2018-11-21] MEDS: amLODIPine 5 MG TAB PO SCH (08:08)
[2018-11-21] MEDS: MAGNESIUM OXIDE 400 MG TAB PO SCH (08:08)
[2018-11-21] MEDS: METOPROLOL SUCCINATE (ER) 100 MG TAB.ER.24H PO SCH (08:08)
[2018-11-21] MEDS: CITALOPRAM HYDROBROMIDE 20 MG TAB PO SCH ×2 (08:08→20:30)
[2018-11-21] MEDS: SODIUM FERRIC GLUCONAT-SUCROSE 125 MG in SODIUM CHLORIDE 0.9% 100 ML IVPB SCH (08:38)
[2018-11-21 09:12] LABS: Basophils % (A) 0 %; Eosinophils # (A) 0.2 k/uL (0-0.7); Eosinophils % (A) 2 %; HCT 30.7 % (39.0-53.0); Lymphocytes # (A) 0.8 k/uL (1.0-4.8); Lymphocytes % (A) 7 %; MCH 30.3 pg (25.0-35.0); MCHC 32.7 g/dL (31.0-37.0); MCV 92.5 fL (80.0-100.0); Monocytes # (A) 0.9 k/uL (0-1.0); Monocytes % (A) 8 %; Neutrophils # (A) 9.9 k/uL (1.3-7.7); Neutrophils % (A) 81 %; Platelet Count 351 k/uL (150-450); RBC 3.32 m/uL (4.30-5.90); RDW 14.2 % (11.5-15.5); WBC 12.2 k/uL (3.8-10.6)
[2018-11-21 09:26] LABS: ALT 35 U/L (21-72); AST 59 U/L (17-59); Albumin 2.3 g/dL (3.5-5.0); Alkaline Phosphatase 63 U/L (38-126); Anion Gap 5 mmol/L; Blood Urea Nitrogen 19 mg/dL (9-20); Calcium 7.9 mg/dL (8.4-10.2); Carbon Dioxide 25 mmol/L (22-30); Chloride 101 mmol/L (98-107); Glucose 112 mg/dL (74-99); Sodium 131 mmol/L (137-145); Total Bilirubin 0.8 mg/dL (0.2-1.3); Total Protein 5.1 g/dL (6.3-8.2)
[2018-11-21 09:27] LABS: Potassium 4.4 mmol/L (3.5-5.1)
[2018-11-21] MEDS: ASPIRIN 81 MG PO SCH (10:25)
[2018-11-21] MEDS ORDERED: LIDOCAINE 1% INJ 10MG/ML (20 ML MDV) ONE (11:28)
--- NOTE | 2018-11-21 12:06 | XR ---
EXAMINATION TYPE: XR chest 1V portable DATE OF EXAM: 11/21/2018 Comparison: 11/19/2018 Clinical History: 78-year-old male pneumonia Findings: Leftward margin obscured by adjacent pleural parenchymal opacity. Moderate to large left pleural effu hamzah remains with hazy density extending up into the upper lung. Some patchy density in the right upp er lobe as well. Overall appearance is relatively similar Impression: Relatively similar exam with moderate to large left pleural effusion with underlying atelectasis and/ or consolidation. Some patchy infiltrate also persists in the right upper lobe.
--- NOTE | 2018-11-21 12:22 | PCN ---
PROCEDURE NOTE PROCEDURE: Right thoracentesis. OPERATORS: Dr. Resendez, Dr. Valdez and Kelsy Coronado. PREOPERATIVE DIAGNOSIS: Right pleural effusion. POSTOPERATIVE DIAGNOSIS: Right pleural effusion. Indication Pleural effusion. A time-out was completed verifying correct patient, procedure, site, positioning , and implant (s) or special equipment if applicable. Ultrasound guidance was used and appropriate fluid pocket was identified and marked. Patient was positioned, prepped and draped in usual sterile fashion. Lidocaine was used to anesthetize the area. A Thoracentesis catheter was introduced into the pleural space and fluid was removed. Blood loss was none. A chest x-ray was ordered to evaluate for pneumothorax. Total Fluid Removed 600 mL Color of Fluid light yellow Fluid was sent for appropriate laboratory tests. Patient tolerated the procedure well and there were no complications. There was 600 mL removed from the right pleural space. The fluid will be sent for analysis. The right posterior chest was marked. There was no immediate complication. A chest x-ray was ordered to make sure there was no pneumothorax. Again, the patient tolerated the procedure well without incident. MMODL / IJN: [id number] / [facility]
--- NOTE | 2018-11-21 13:38 | P.PN ---
Subjective Progress Note Date: 11/21/18 This is a 78-year-old male, patient of [facility]. He has a known past medical history of congenital absence of external ears, hyperlipidemia hypertension and prostate cancer with previous radiation treatment. He also has a history of smoking and quit about 10 years ago. Patient presents to the hospital complaining of 2 days of not feeling well. He's been fighting cold symptoms. Runny nose cough and some chest discomfort. Patient denies any fever or chills or sweats. It is difficult to obtain history form from him. Patient niece is his main caregiver. She is not present during my exam. History was mostly obtained from the chart. Apparently he does have a history of alcoholism he does not have a drink in a long time. Patient does feel that he is hurting all over. Computed tomography scan of the abdomen and pelvis shows esophageal stent with circumferential wall thickening of the distal esophagus, gastric fundus and gastric body. No parotid history of esophageal carcinoma is given. And suspicious findings of a right lower lobe pneumonia. Mottled appearance of the bone marrow raises suspicion for osseous metastasis and could be further evaluated with MRI. On 11/17/2018, patient was seen and examined on medical floor, he is alert and oriented 3 in no apparent distress, still complaining of left rib area pain, there is no fever or chills no headache or dizziness no chest pain no shortness of breath no cough no nausea or vomiting no abdominal pain no diarrhea and no urinary symptoms On 11/18/2018 patient was seen and examined on the medical floor he is alert and oriented in no apparent distress, he is complaining of anxiety and is still complaining of left sided rib area pain otherwise no complaints there is no fever or chills no headache or dizziness no chest pain or shortness of breath no cough no nausea or vomiting no abdominal pain and no urinary symptoms On 11/19/2018 patient is alert and oriented in no distress. Patient is stating improvement with anxiety and left-sided rib discomfort. This time patient denies chest pain. Patient denies nausea vomiting or diarrhea. Patient denies any urinary burning or frequency On 11/20/2018 patient is currently resting comfortably in bed. Antibiotics adjusted per infectious disease. Possible thoracentesis per pulmonary. This time patient denies chest pain or shortness breath. Patient denies nausea vomiting or diarrhea. Patient denies any urinary burning or frequency On 11/21/2018 patient is awake alert sitting up in bed. Patient remains on Zosyn per infectious disease. Patient to get right thoracentesis per pulmonary today and left thoracentesis tomorrow as time patient is resting comfortably with no complaints of chest pain. Patient denies nausea vomiting or diarrhea. Patient denies any urinary burning or frequency Objective - Vital Signs Vital signs: Vital Signs Temp 96.8 F L 11/21/18 07:18 Pulse 98 11/21/18 07:18 Resp 18 11/21/18 07:18 BP 138/78 11/21/18 07:18 Pulse Ox 96 11/21/18 07:18 Intake & Output 11/20/18 11/21/18 11/21/18 18:59 06:59 18:59 Intake Total 300 Output Total 400 Balance -100 Intake: Oral 300 Output: Urine 400 Other: # Voids 3 1 - Exam Head normocephalic and atraumatic Neck supple no JVD no goiter Lungs diminished bilaterally Heart regular rate and rhythm S1-S2, no rub or gallop Abdomen is soft nontender nondistended positive bowel sounds no hepatosplenomegaly Extremities no edema no cyanosis or clubbing Neuro alert and orientated to 3 Muscle skeletal tenderness along the rib cage especially on the left and into the abdomen area. - Labs CBC & Chem 7: 11/21/18 08:53 11/21/18 08:53 Labs: Abnormal Lab Results - Last 24 Hours (Table) 11/21/18 11/21/18 Range/Units 08:53 08:53 WBC 12.2 H (3.8-10.6) k/uL RBC 3.32 L (4.30-5.90) m/uL Hgb 10.0 L (13.0-17.5) gm/dL Hct 30.7 L (39.0-53.0) % Neutrophils # 9.9 H (1.3-7.7) k/uL Lymphocytes # 0.8 L (1.0-4.8) k/uL Sodium 131 L (137-145) mmol/L Creatinine 0.44 L (0.66-1.25) mg/dL Glucose 112 H (74-99) mg/dL Calcium 7.9 L (8.4-10.2) mg/dL Total Protein 5.1 L (6.3-8.2) g/dL Albumin 2.3 L (3.5-5.0) g/dL Microbiology - Last 24 Hours (Table) 11/15/18 11:20 Blood Culture - Preliminary Blood No Growth after 120 hours Assessment and Plan Assessment: 1. Bilateral pneumonia with bilateral pleural effusions left greater than right. repeat chest x-ray showing correlation for pneumonia with pleural effusions. Patient has been switched to Zosyn per infectious disease. Sputum culture ordered. Possible thoracentesis per pulmonary. Ultrasound of chest completed. White blood cell is improving to 13.1. Patient currently on Zosyn per infectious disease 2. Musculoskeletal pain with CT showing mottled appearance of the bone marrow raising suspicion for osseous metastasis. Nuclear medicine bone scan was negative for metastatic disease. Per oncology currently no suspicions for metastatic prostate cancer 3. Elevated lactic acid level possibly related to dehydration improved with IV fluids. Repeat lactic 1.8. Fluids have been DC'd 4. Acute kidney injury creatinine 1.48 baseline creatinine unknown. Resolved. 5. History of prostate cancer status post radiationer. 6. History of nicotine dependence quit smoking about 10 years ago 7. Essential hypertension 8. Hyperlipidemia 9. Hypomagnesemia and patient receiving magnesium supplement. 10. Chest pain. troponin negative . EKG reviewed.. Pain likely related to pneumonic process in the left upper lobe. 11. Normocytic anemia. Oncology service is following 12. Anxiety. Xanax has been added 13. History of esophageal stricture requiring stent placement to maintain lumen patency more than 5 years ago. GI services are following. No endoscopy scheduled at this time 14. Lung nodule. CT scan of chest completed showing 2 somewhat irregular nodule appearing areas of density which may be postinflammatory measuring 1-1.2 cm. Pulmonary and oncology services are following. Pulmonary services and planning right thoracentesis today and left thoracentesis tomorrow cytology, cell count, C&S and albumin ordered from pleural fluid. Social work has been consulted for possible ECF placement GI prophylaxis Protonix and DVT prophylaxis SCDs I performed an examination of the patient and discussed their management with the Nurse Practitioner. I have reviewed the Nurse Practitioner's notes and agree with the documented findings and plan of care
--- NOTE | 2018-11-21 14:50 | P.PN ---
Subjective Progress Note Date: 11/21/18 Principal diagnosis: This is 78-year-old white male patient with past medical history of hypertension, hyperlipidemia, GERD, prostate cancer, status post external beam radiation, previous history of esophageal stricture with esophageal stent placement and history of hiatal hernia. Patient was admitted to the hospital on 11/12/2018 for chest congestion, coughing, wheezing, shortness of breath in addition patient was complaining of some pain in the left chest area. Patient does have a history of previous tobacco use, and used to be a heavy drinker in the past. Initial chest x-ray showed no acute abnormality, follow-up chest x- ray was done yesterday on 11/19/2018, and showed possible pneumonia and pleural effusions left greater than the right. CT chest was done, and showed some bilateral consolidation and some pleural effusions, greater on the left than the right. No new was suspected. Obtain the ultrasound of the chest which showed 6.4 cm pocket on the right, and 6.2 cm pocket on the left. Still has some dyspnea, and left-sided chest discomfort, but no acute distress, is maintaining good oxygenation on 4 L per nasal cannula, his pulse ox is 95%, he has been afebrile, he is on antibiotics form of Zosyn. Culture showed no growth. His labs have been reviewed, and showed white count of 13.2, hemoglobin of 10.3, sodium is 134, rest of electrolytes were within normal limits, BUN was 18, creatinine was 0.44. On 11/21/2018 patient seen in follow-up on medical surgical floor. He is resting comfortably in bed, pulse ox on 4 L per nasal cannula is 96%, lung sounds are diminished breaths at the bases, with some bibasilar crackles. He is afebrile, blood cultures have been negative. Lab work has been reviewed and showed white blood cell, 12.2, hemoglobin of 10.0, sodium of 131, there was a electrolytes and renal profile were unremarkable. Patient underwent a right- sided thoracentesis by Dr. Resendez at the bedside today, tolerated procedure well. 600 mL of light yellow pleural fluid removed. Patient tolerated procedure well. Follow-up chest x-ray showed significant improvement in the appearance of the right base following the thoracentesis. Fluid was sent for cytology, cultures, and analysis. Objective - Vital Signs Vital signs: Vital Signs Temp 96.8 F L 11/21/18 07:18 Pulse 98 11/21/18 07:18 Resp 18 11/21/18 07:18 BP 138/78 11/21/18 07:18 Pulse Ox 96 11/21/18 07:18 Intake & Output 11/20/18 11/21/18 11/21/18 18:59 06:59 18:59 Intake Total 300 Output Total 400 Balance -100 Intake: Oral 300 Output: Urine 400 Other: # Voids 3 1 - Exam GENERAL EXAM: Alert, pleasant, 78-year-old white male 4 L per nasal cannula comfortable in no apparent distress. HEAD: Normocephalic/atraumatic. EYES: Normal reaction of pupils, equal size. Conjunctiva pink, sclera white. NOSE: Clear with pink turbinates. THROAT: No erythema or exudates. NECK: No masses, no JVD, no thyroid enlargement, no adenopathy. CHEST: No chest wall deformity. Symmetrical expansion. LUNGS: Equal air entry scattered rhonchi, dullness at bilateral bases, and some crackles at the bases CVS: Regular rate and rhythm, normal S1 and S2, no gallops, no murmurs, no rubs ABDOMEN: Soft, nontender. No hepatosplenomegaly, normal bowel sounds, no guarding or rigidity. EXTREMITIES: No clubbing, no edema, no cyanosis, 2+ pulses and upper and lower extremities. MUSCULOSKELETAL: Muscle strength and tone normal. SPINE: No scoliosis or deformity SKIN: No rashes CENTRAL NERVOUS SYSTEM: Alert and oriented -3. No focal deficits, tone is normal in all 4 extremities. PSYCHIATRIC: Alert and oriented -3. Appropriate affect. Intact judgment and insight. - Labs CBC & Chem 7: 11/21/18 08:53 11/21/18 08:53 Labs: Abnormal Lab Results - Last 24 Hours (Table) 11/21/18 11/21/18 Range/Units 08:53 08:53 WBC 12.2 H (3.8-10.6) k/uL RBC 3.32 L (4.30-5.90) m/uL Hgb 10.0 L (13.0-17.5) gm/dL Hct 30.7 L (39.0-53.0) % Neutrophils # 9.9 H (1.3-7.7) k/uL Lymphocytes # 0.8 L (1.0-4.8) k/uL Sodium 131 L (137-145) mmol/L Creatinine 0.44 L (0.66-1.25) mg/dL Glucose 112 H (74-99) mg/dL Calcium 7.9 L (8.4-10.2) mg/dL Total Protein 5.1 L (6.3-8.2) g/dL Albumin 2.3 L (3.5-5.0) g/dL Microbiology - Last 24 Hours (Table) 11/15/18 11:20 Blood Culture - Final Blood No Growth after 144 hours Assessment and Plan Plan: Assessment: #1. Acute hypoxemic respiratory failure secondary to bilateral pneumonia with bilateral pleural effusions, left greater than the right. #2. Left-sided chest pain, likely related to pneumonic process in the left lower lobe #3. History of prostate cancer, status post external beam radiation and subsequent radiation colitis #4. Gastroesophageal reflux disease #5. Hypertension, hyperlipidemia #6. Degenerative joint disease #7. Esophageal stricture, status post esophageal stent #8. Hiatal hernia #9. Status post cholecystectomy #10. Congenital absence of the ear pinna Plan: Patient had a right-sided thoracentesis would removal of 600 mL of light yellow pleural fluid, tolerated procedure well, we will proceed with thoracentesis of the left side tomorrow. follow up chest x-ray postprocedure was reviewed, and there is significant improvement in the appearance of the right base. There is a moderately sized left pleural effusion. Continue current antibiotic coverage , ID service is following. I performed a history & physical examination of the patient and discussed their management with my nurse practitioner, Jessika Coronado. I reviewed the nurse practitioner's note and agree with the documented findings and plan of care. Lung sounds are positive for diminished breath sounds at the bases, with bibasilar crackles. The findings and the impression was discussed with the patient. I attest to the documentation by the nurse practitioner. Time with Patient: Less than 30
[2018-11-21 18:01] LABS: Appearance,BF Clear; Color,BF Yellow
[2018-11-21 18:02] LABS: Nucleated Cells, Body Fluid 21 /uL; RBC, Body Fluid 182 /uL
[2018-11-21 18:07] LABS: Mononuclear WBC,Body Fluid 46 %; Polynuclear WBC,Body Fluid 54 %; Total Cells Counted,Body Fluid 100
--- NOTE | 2018-11-21 23:19 | PN ---
PROGRESS NOTE DATE OF SERVICE: 11/21/2018. REASON FOR FOLLOWUP: Possible aspiration pneumonia. INTERVAL HISTORY: The patient is currently afebrile. The patient is status post right-sided thoracocentesis with removal of 600 mL fluid. The patient tolerated the procedure. He is breathing comfortably. He did have a cough, not bringing up sputum. No nausea, no vomiting. No abdominal pain or diarrhea. PHYSICAL EXAMINATION: Blood pressure 132/75 with a pulse of 89, temperature 97.1. He is 94% on 4 L nasal cannula. GENERAL DESCRIPTION: An elderly male lying in bed in no distress. RESPIRATORY SYSTEM: Unlabored breathing with decreased breath sounds in the bases. HEART: S1, S2. Regular rate and rhythm. ABDOMEN: Soft, no tenderness. LABS: Hemoglobin is 10 with white count of 12.2, BUN of 19, creatinine 0.4. Fluid is yellow clear, WBC. DIAGNOSTIC IMPRESSION AND PLAN: Patient with right upper lobe pneumonia possible aspiration. The patient is currently covered with Zosyn. The patient's white count is coming down. Blood culture has been negative. Continue supportive care. MMODL / IJN: [id number] /
[2018-11-22 00:57] LABS: Total Protein, Body Fluid 1567 mg/dL
[2018-11-22] MEDS: PIPERACILLIN-TAZOBACTAM 3.375 GM in SODIUM CHLORIDE 0.9% 100 ML IVPB SCH ×3 (08:57→23:29)
[2018-11-22] MEDS: METOPROLOL SUCCINATE (ER) 100 MG TAB.ER.24H PO SCH (09:01)
[2018-11-22] MEDS: MAGNESIUM OXIDE 400 MG TAB PO SCH (09:02)
[2018-11-22] MEDS: CITALOPRAM HYDROBROMIDE 20 MG TAB PO SCH ×2 (09:02→20:31)
[2018-11-22] MEDS: amLODIPine 5 MG TAB PO SCH (09:02)
[2018-11-22] MEDS: ASPIRIN 81 MG PO SCH (09:02)
[2018-11-22] MEDS: PANTOPRAZOLE 40 MG TABLET PO SCH ×2 (09:02→17:27)
[2018-11-22] MEDS: ALPRAZolam 0.25 MG TAB PO PRN ×2 (09:06→17:27)
[2018-11-22] MEDS: SODIUM FERRIC GLUCONAT-SUCROSE 125 MG in SODIUM CHLORIDE 0.9% 100 ML IVPB SCH (09:07)
[2018-11-22 09:49] LABS: Basophils % (A) 0 %; Eosinophils # (A) 0.1 k/uL (0-0.7); Eosinophils % (A) 1 %; HCT 32.1 % (39.0-53.0); HGB 10.1 gm/dL (13.0-17.5); Lymphocytes % (A) 6 %; MCH 29.1 pg (25.0-35.0); MCHC 31.3 g/dL (31.0-37.0); MCV 92.8 fL (80.0-100.0); Mean Platelet Volume 6.9; Monocytes # (A) 0.8 k/uL (0-1.0); Monocytes % (A) 5 %; Neutrophils # (A) 13.4 k/uL (1.3-7.7); Neutrophils % (A) 87 %; Platelet Count 473 k/uL (150-450); RBC 3.46 m/uL (4.30-5.90); RDW 14.1 % (11.5-15.5); WBC 15.4 k/uL (3.8-10.6)
[2018-11-22 10:12] LABS: ALT 33 U/L (21-72); AST 54 U/L (17-59); Albumin 2.5 g/dL (3.5-5.0); Alkaline Phosphatase 91 U/L (38-126); Anion Gap 6 mmol/L; Blood Urea Nitrogen 17 mg/dL (9-20); Calcium 8.5 mg/dL (8.4-10.2); Carbon Dioxide 27 mmol/L (22-30); Chloride 99 mmol/L (98-107); Glucose 115 mg/dL (74-99); Sodium 132 mmol/L (137-145); Total Bilirubin 0.5 mg/dL (0.2-1.3); Total Protein 5.3 g/dL (6.3-8.2)
--- NOTE | 2018-11-22 10:23 | PCN ---
PROCEDURE NOTE PROCEDURE: Left thoracentesis. PREOPERATIVE DIAGNOSIS: Left pleural effusion. POSTOPERATIVE DIAGNOSIS: Left pleural effusion. OPERATORS: Dr. Resendez, Dr. Valdez and Kelsy Coronado. Indication Pleural effusion. A time-out was completed verifying correct patient, procedure, site, positioning , and implant (s) or special equipment if applicable. The left posterior chest was marked by ultrasound guidance and appropriate fluid pocket was identified and marked. Patient was positioned, prepped and draped in usual sterile fashion. Lidocaine was used to anesthetize the area. A Thoracentesis catheter was introduced into the pleural space and fluid was removed. Blood loss was none. A chest x-ray was ordered to evaluate for pneumothorax. Total Fluid Removed: Roughly 650 mL Color of Fluid francy Fluid was sent for appropriate laboratory tests. Patient tolerated the procedure well and there were no complications. There was informed consent. There was universal timeout. The fluid will be sent for analysis. The procedure was done without incident. Roughly 650 mL of fluid was removed from the left pleural space. It will be sent for cytology. There was no immediate complication. A chest x-ray will be done afterwards. MMODL / IJN: [id number] / [id number]
--- NOTE | 2018-11-22 10:36 | US ---
EXAMINATION TYPE: US chest DATE OF EXAM: 11/22/2018 COMPARISON: NONE CLINICAL HISTORY: left thora, need left side remarked. TECHNIQUE: Targeted ultrasound of the posterior lower left hemithorax EXAM MEASUREMENTS: Left Pleural Effusion pocket size: 5.4 cm Left skin surface to fluid distance: 2.4 cm Scan done with bright sunshine glaring on machine. Dr. Resendez present for exam. Left side shown to Dr. Resendez for bedside thoracentesis. Pulmonologists are able to review the images in the patient?s EMR. IMPRESSIONS: 1. Left pleural effusion
--- NOTE | 2018-11-22 10:45 | XR ---
EXAMINATION TYPE: XR chest 1V portable DATE OF EXAM: 11/22/2018 COMPARISON: 11/21/2018 INDICATION: Pneumonia TECHNIQUE: Single frontal view of the chest is obtained. FINDINGS: The heart size is enlarged. The pulmonary vasculature is normal. There is a small to moderate left pleural effusion, stable. Mild left basilar atelectasis is present. The right upper lobe infiltrate is resolving with minimal residual IMPRESSION: 1. Resolving right upper lobe infiltrate with some residual remaining. 2. Small to moderate left pleural effusion, stable with adjacent compressive atelectasis
--- NOTE | 2018-11-22 13:12 | P.PN ---
Subjective Progress Note Date: 11/22/18 This is a 78-year-old male, [facility] He has a known past medical history of congenital absence of external ears, hyperlipidemia hypertension and prostate cancer with previous radiation treatment. He also has a history of smoking and quit about 10 years ago. Patient presents to the hospital complaining of 2 days of not feeling well. He's been fighting cold symptoms. Runny nose cough and some chest discomfort. Patient denies any fever or chills or sweats. It is difficult to obtain history form from him. Patient niece is his main caregiver. She is not present during my exam. History was mostly obtained from the chart. Apparently he does have a history of alcoholism he does not have a drink in a long time. Patient does feel that he is hurting all over. Computed tomography scan of the abdomen and pelvis shows esophageal stent with circumferential wall thickening of the distal esophagus, gastric fundus and gastric body. No parotid history of esophageal carcinoma is given. And suspicious findings of a right lower lobe pneumonia. Mottled appearance of the bone marrow raises suspicion for osseous metastasis and could be further evaluated with MRI. On 11/17/2018, patient was seen and examined on medical floor, he is alert and oriented 3 in no apparent distress, still complaining of left rib area pain, there is no fever or chills no headache or dizziness no chest pain no shortness of breath no cough no nausea or vomiting no abdominal pain no diarrhea and no urinary symptoms On 11/18/2018 patient was seen and examined on the medical floor he is alert and oriented in no apparent distress, he is complaining of anxiety and is still complaining of left sided rib area pain otherwise no complaints there is no fever or chills no headache or dizziness no chest pain or shortness of breath no cough no nausea or vomiting no abdominal pain and no urinary symptoms On 11/19/2018 patient is alert and oriented in no distress. Patient is stating improvement with anxiety and left-sided rib discomfort. This time patient denies chest pain. Patient denies nausea vomiting or diarrhea. Patient denies any urinary burning or frequency On 11/20/2018 patient is currently resting comfortably in bed. Antibiotics adjusted per infectious disease. Possible thoracentesis per pulmonary. This time patient denies chest pain or shortness breath. Patient denies nausea vomiting or diarrhea. Patient denies any urinary burning or frequency On 11/21/2018 patient is awake alert sitting up in bed. Patient remains on Zosyn per infectious disease. Patient to get right thoracentesis per pulmonary today and left thoracentesis tomorrow as time patient is resting comfortably with no complaints of chest pain. Patient denies nausea vomiting or diarrhea. Patient denies any urinary burning or frequency On 11/22/2018 patient is currently undergoing thoracentesis per Dr. Resendez. Patient had 600 mls removed from left thoracentesis yesterday. Cytology was sent. At the time patient denies chest pain or shortness of breath. Patient denies nausea vomiting or diarrhea. Patient denies any urinary burning or frequency Objective - Vital Signs Vital signs: Vital Signs Temp 98.6 F 11/22/18 10:25 Pulse 100 11/22/18 10:25 Resp 18 11/22/18 10:25 BP 123/73 11/22/18 10:25 Pulse Ox 94 L 11/22/18 10:25 Intake & Output 11/21/18 11/22/18 11/22/18 18:59 06:59 18:59 Intake Total 200 100 Output Total 100 Balance 200 0 Weight 70.76 kg Intake: Intake, IV Titration 100 Amount Sodium Ferric Gluconat- 100 Sucrose 125 mg In Sodium Chloride 0.9% 100 ml @ 100 mls/hr IVPB DAILY [facility] Rx#:[id number] Oral 200 Output: Urine 100 Other: Voiding Method Urinal Urinal # Voids 2 # Bowel Movements 0 - Exam Head normocephalic and atraumatic Neck supple no JVD no goiter Lungs diminished bilaterally Heart regular rate and rhythm S1-S2, no rub or gallop Abdomen is soft nontender nondistended positive bowel sounds no hepatosplenomegaly Extremities no edema no cyanosis or clubbing Neuro alert and orientated to 3 Muscle skeletal tenderness along the rib cage especially on the left and into the abdomen area. - Labs CBC & Chem 7: 11/22/18 09:16 11/22/18 09:16 Labs: Abnormal Lab Results - Last 24 Hours (Table) 11/22/18 11/22/18 Range/Units 09:16 09:16 WBC 15.4 H (3.8-10.6) k/uL RBC 3.46 L (4.30-5.90) m/uL Hgb 10.1 L (13.0-17.5) gm/dL Hct 32.1 L (39.0-53.0) % Plt Count 473 H (150-450) k/uL Neutrophils # 13.4 H (1.3-7.7) k/uL Sodium 132 L (137-145) mmol/L Creatinine 0.53 L (0.66-1.25) mg/dL Glucose 115 H (74-99) mg/dL Total Protein 5.3 L (6.3-8.2) g/dL Albumin 2.5 L (3.5-5.0) g/dL Microbiology - Last 24 Hours (Table) 11/21/18 11:30 Gram Stain - Preliminary Pleural Fluid Body Fluid Culture - Preliminary 11/21/18 11:30 Fungal Culture - Preliminary Pleural Fluid 11/21/18 11:30 Acid Fast Bacilli Culture - Preliminary Pleural Fluid 11/15/18 11:20 Blood Culture - Final Blood No Growth after 144 hours Assessment and Plan Assessment: 1. Bilateral pneumonia with bilateral pleural effusions left greater than right. repeat chest x-ray showing correlation for pneumonia with pleural effusions. Patient has been switched to Zosyn per infectious disease. Sputum culture ordered. Possible thoracentesis per pulmonary. Ultrasound of chest completed. Patient currently on Zosyn per infectious disease. White blood cell 15.4 2. Musculoskeletal pain with CT showing mottled appearance of the bone marrow raising suspicion for osseous metastasis. Nuclear medicine bone scan was negative for metastatic disease. Per oncology currently no suspicions for metastatic prostate cancer 3. Elevated lactic acid level possibly related to dehydration improved with IV fluids. Repeat lactic 1.8. Fluids have been DC'd 4. Acute kidney injury creatinine 1.48 baseline creatinine unknown. Resolved. 5. History of prostate cancer status post radiationer. 6. History of nicotine dependence quit smoking about 10 years ago 7. Essential hypertension 8. Hyperlipidemia 9. Hypomagnesemia and patient receiving magnesium supplement. 10. Chest pain. troponin negative . EKG reviewed.. Pain likely related to pneumonic process in the left upper lobe. 11. Normocytic anemia. Oncology service is following 12. Anxiety. Xanax has been added 13. History of esophageal stricture requiring stent placement to maintain lumen patency more than 5 years ago. GI services are following. Computed tomography scan results reviewed by GI team No endoscopy scheduled at this time 14. Lung nodule. CT scan of chest completed showing 2 somewhat irregular nodule appearing areas of density which may be postinflammatory measuring 1-1.2 cm. Pulmonary and oncology services are following. Patient underwent right thoracentesis yesterday was 600 and. Patient to undergo left thoracentesis today pulmonary services. cytology, cell count, C&S and albumin ordered from pleural fluid. 2. Hyponatremia sodium 132. Fluid restrictions added to diet. We'll continue to monitor Social work has been consulted for possible ECF placement GI prophylaxis Protonix and DVT prophylaxis SCDs I performed an examination of the patient and discussed their management with the Nurse Practitioner. I have reviewed the Nurse Practitioner's notes and agree with the documented findings and plan of care
--- NOTE | 2018-11-22 13:41 | P.PN ---
Subjective Progress Note Date: 11/22/18 Principal diagnosis: This is 78-year-old white male patient with past medical history of hypertension, hyperlipidemia, GERD, prostate cancer, status post external beam radiation, previous history of esophageal stricture with esophageal stent placement and history of hiatal hernia. Patient was admitted to the hospital on 11/12/2018 for chest congestion, coughing, wheezing, shortness of breath in addition patient was complaining of some pain in the left chest area. Patient does have a history of previous tobacco use, and used to be a heavy drinker in the past. Initial chest x-ray showed no acute abnormality, follow-up chest x- ray was done yesterday on 11/19/2018, and showed possible pneumonia and pleural effusions left greater than the right. CT chest was done, and showed some bilateral consolidation and some pleural effusions, greater on the left than the right. No new was suspected. Obtain the ultrasound of the chest which showed 6.4 cm pocket on the right, and 6.2 cm pocket on the left. Still has some dyspnea, and left-sided chest discomfort, but no acute distress, is maintaining good oxygenation on 4 L per nasal cannula, his pulse ox is 95%, he has been afebrile, he is on antibiotics form of Zosyn. Culture showed no growth. His labs have been reviewed, and showed white count of 13.2, hemoglobin of 10.3, sodium is 134, rest of electrolytes were within normal limits, BUN was 18, creatinine was 0.44. On 11/21/2018 patient seen in follow-up on medical surgical floor. He is resting comfortably in bed, pulse ox on 4 L per nasal cannula is 96%, lung sounds are diminished breaths at the bases, with some bibasilar crackles. He is afebrile, blood cultures have been negative. Lab work has been reviewed and showed white blood cell, 12.2, hemoglobin of 10.0, sodium of 131, there was a electrolytes and renal profile were unremarkable. Patient underwent a right- sided thoracentesis by Dr. Resendez at the bedside today, tolerated procedure well. 600 mL of light yellow pleural fluid removed. Patient tolerated procedure well. Follow-up chest x-ray showed significant improvement in the appearance of the right base following the thoracentesis. Fluid was sent for cytology, cultures, and analysis. On 11/22/2018 patient seen in follow-up on medical surgical floor. Patient is status post right thoracentesis yesterday, on 11/21/2018 would removal off 600 mL of yellow pleural fluid, today patient had a left-sided thoracentesis today, and 650 mL of light francy-colored pleural fluid was removed. Patient tolerated procedure well, postprocedure chest x-ray showed small to moderate left pleural effusion, left basilar atelectasis, the right upper lobe infiltrate is resolving. Pleural fluid analysis showed transudative pleural fluid. Pleural fluid cultures are negative thus far. Patient remains on Zosyn, patient has been afebrile, hemodynamically stable. Cytology is pending. Today's labs have been reviewed, white blood cell count of 15.4, hemoglobin of 10.1, sodium is 132 , potassium is 4.0, chloride is 99, CO2 is 27, BUN is 17, creatinine 0.53. Objective - Vital Signs Vital signs: Vital Signs Temp 98.6 F 11/22/18 10:25 Pulse 100 11/22/18 10:25 Resp 18 11/22/18 10:25 BP 123/73 11/22/18 10:25 Pulse Ox 94 L 11/22/18 10:25 Intake & Output 11/21/18 11/22/18 11/22/18 18:59 06:59 18:59 Intake Total 200 100 Output Total 100 Balance 200 0 Weight 70.76 kg Intake: Intake, IV Titration 100 Amount Sodium Ferric Gluconat- 100 Sucrose 125 mg In Sodium Chloride 0.9% 100 ml @ 100 mls/hr IVPB DAILY COUNT INCLUDES THE [facility] Rx#:[id number] Oral 200 Output: Urine 100 Other: Voiding Method Urinal Urinal # Voids 2 # Bowel Movements 0 - Exam GENERAL EXAM: Alert, pleasant, 78-year-old white male 3 L per nasal cannula comfortable in no apparent distress. HEAD: Normocephalic/atraumatic. EYES: Normal reaction of pupils, equal size. Conjunctiva pink, sclera white. NOSE: Clear with pink turbinates. THROAT: No erythema or exudates. NECK: No masses, no JVD, no thyroid enlargement, no adenopathy. CHEST: No chest wall deformity. Symmetrical expansion. LUNGS: Equal air entry scattered rhonchi, dullness at left base, and some crackles at the bases CVS: Regular rate and rhythm, normal S1 and S2, no gallops, no murmurs, no rubs ABDOMEN: Soft, nontender. No hepatosplenomegaly, normal bowel sounds, no guarding or rigidity. EXTREMITIES: No clubbing, no edema, no cyanosis, 2+ pulses and upper and lower extremities. MUSCULOSKELETAL: Muscle strength and tone normal. SPINE: No scoliosis or deformity SKIN: No rashes CENTRAL NERVOUS SYSTEM: Alert and oriented -3. No focal deficits, tone is normal in all 4 extremities. PSYCHIATRIC: Alert and oriented -3. Appropriate affect. Intact judgment and insight. - Labs CBC & Chem 7: 11/22/18 09:16 11/22/18 09:16 Labs: Abnormal Lab Results - Last 24 Hours (Table) 11/22/18 11/22/18 Range/Units 09:16 09:16 WBC 15.4 H (3.8-10.6) k/uL RBC 3.46 L (4.30-5.90) m/uL Hgb 10.1 L (13.0-17.5) gm/dL Hct 32.1 L (39.0-53.0) % Plt Count 473 H (150-450) k/uL Neutrophils # 13.4 H (1.3-7.7) k/uL Sodium 132 L (137-145) mmol/L Creatinine 0.53 L (0.66-1.25) mg/dL Glucose 115 H (74-99) mg/dL Total Protein 5.3 L (6.3-8.2) g/dL Albumin 2.5 L (3.5-5.0) g/dL Microbiology - Last 24 Hours (Table) 11/21/18 11:30 Gram Stain - Preliminary Pleural Fluid Body Fluid Culture - Preliminary 11/21/18 11:30 Fungal Culture - Preliminary Pleural Fluid 11/21/18 11:30 Acid Fast Bacilli Culture - Preliminary Pleural Fluid 11/15/18 11:20 Blood Culture - Final Blood No Growth after 144 hours Assessment and Plan Plan: Assessment: #1. Acute hypoxemic respiratory failure secondary to bilateral pneumonia with bilateral pleural effusions, left greater than the right. She is status post right-sided thoracentesis on 11/21/2018 would removal of 600 mL of light yellow pleural fluid, and left-sided thoracentesis on 11/22/2018 would removal of 650 mL of light francy-colored fluid. Cytology is pending, pleural fluid analysis showed transudative fluid. Cultures are pending #2. Left-sided chest pain, likely related to pneumonic process in the left lower lobe #3. History of prostate cancer, status post external beam radiation and subsequent radiation colitis #4. Gastroesophageal reflux disease #5. Hypertension, hyperlipidemia #6. Degenerative joint disease #7. Esophageal stricture, status post esophageal stent #8. Hiatal hernia #9. 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 Follow-up chest x-ray showed slightly improved aeration at the left base, but persistence of moderately sized left pleural effusion. Patient is fairly comfortable, denies any shortness of breath, vital signs are stable. We'll continue to follow. I performed a history & physical examination of the patient and discussed their management with my nurse practitioner, Jessika Coronado. I reviewed the nurse practitioner's note and agree with the documented findings and plan of care. Lung sounds are positive for diminished breath sounds at the bases, with bibasilar crackles. The findings and the impression was discussed with the patient. I attest to the documentation by the nurse practitioner. Time with Patient: Less than 30
--- NOTE | 2018-11-22 18:14 | P.PN ---
Subjective Progress Note Date: 11/22/18 Principal diagnosis: Suspicious scan findings initially, no osseous metastatic disease. Iron deficient anemia. Suspicious findings on CT chest Patient seen in follow-up today. He is sleeping soundly. Briefly arousable to voice and touch, no pain or SAMUEL Objective - Vital Signs Vital signs: Vital Signs Temp 99.5 F 11/22/18 15:25 Pulse 91 11/22/18 15:25 Resp 18 11/22/18 15:25 BP 129/67 11/22/18 15:25 Pulse Ox 93 L 11/22/18 15:25 Intake & Output 11/21/18 11/22/18 11/22/18 18:59 06:59 18:59 Intake Total 200 650 Output Total 100 Balance 200 550 Weight 70.76 kg Intake: Intake, IV Titration 100 Amount Sodium Ferric Gluconat- 100 Sucrose 125 mg In Sodium Chloride 0.9% 100 ml @ 100 mls/hr IVPB DAILY [facility] Rx#:[id number] Oral 200 550 Output: Urine 100 Other: Voiding Method Urinal Urinal # Voids 2 2 # Bowel Movements 0 - Constitutional General appearance: Present: average body habitus, no acute distress - EENT Eyes: Present: anicteric sclerae - Respiratory Respiratory: bilateral: CTA - Cardiovascular Heart sounds: normal: S1, S2 - Gastrointestinal General gastrointestinal: Present: normal bowel sounds, soft - Integumentary Integumentary: Present: pale - Labs CBC & Chem 7: 11/22/18 09:16 11/22/18 09:16 Labs: Abnormal Lab Results - Last 24 Hours (Table) 11/22/18 11/22/18 Range/Units 09:16 09:16 WBC 15.4 H (3.8-10.6) k/uL RBC 3.46 L (4.30-5.90) m/uL Hgb 10.1 L (13.0-17.5) gm/dL Hct 32.1 L (39.0-53.0) % Plt Count 473 H (150-450) k/uL Neutrophils # 13.4 H (1.3-7.7) k/uL Sodium 132 L (137-145) mmol/L Creatinine 0.53 L (0.66-1.25) mg/dL Glucose 115 H (74-99) mg/dL Total Protein 5.3 L (6.3-8.2) g/dL Albumin 2.5 L (3.5-5.0) g/dL Microbiology - Last 24 Hours (Table) 11/21/18 11:30 Gram Stain - Preliminary Pleural Fluid Body Fluid Culture - Preliminary 11/21/18 11:30 Fungal Culture - Preliminary Pleural Fluid 11/21/18 11:30 Acid Fast Bacilli Culture - Preliminary Pleural Fluid 11/15/18 11:20 Blood Culture - Final Blood No Growth after 144 hours Assessment and Plan (1) History of prostate cancer Current Visit: Yes Status: Chronic Priority: Low Code(s): Z85.46 - PERSONAL HISTORY OF MALIGNANT NEOPLASM OF PROSTATE SNOMED Code(s): 693329141 (2) Iron deficiency anemia Narrative/Plan: Based on the initial imaging with the suspicious osseous findings, workup was performed to rule out an underlying bone marrow disorder. Thus far the results are showing no monoclonal protein, positive for iron deficiency with low iron level and saturation, ferritin just over 100. Parenteral iron x 4 Current Visit: Yes Status: Chronic Priority: Medium Code(s): D50.9 - IRON DEFICIENCY ANEMIA, UNSPECIFIED SNOMED Code(s): 86696755 (3) Lung nodule, solitary Narrative/Plan: Case discussed briefly with pulmonary. Patient is status post bilateral thoracentesis with fluid sent for cytology. We will await results. Current Visit: Yes Status: Acute Priority: High Code(s): R91.1 - SOLITARY PULMONARY NODULE SNOMED Code(s): 337151542 (4) Pleural effusion Current Visit: Yes Status: Acute Priority: High Code(s): J90 - PLEURAL EFFUSION, NOT ELSEWHERE CLASSIFIED SNOMED Code(s): 23947716
[2018-11-22] MEDS: IPRATROPIUM-ALBUTEROL 3 ML NEB INHALATION PRN (22:18)
--- NOTE | 2018-11-22 22:35 | PN ---
PROGRESS NOTE DATE OF SERVICE: 11/22/2018. REASON FOR FOLLOWUP: Pneumonia. INTERVAL HISTORY: The patient is currently afebrile. He is breathing comfortably. Denies significant chest pain. He did have some cough. No drainage. No nausea, no vomiting. No abdominal pain, no diarrhea. PHYSICAL EXAMINATION: Blood pressure 129/67 with a pulse of 90, temperature 98.2, he is 93% on 3 L nasal cannula. GENERAL DESCRIPTION: An elderly male, lying in bed in no distress. RESPIRATORY SYSTEM: Unlabored breathing with decreased breath sounds at the bases. No wheeze. HEART: S1, S2. Regular rate and rhythm. ABDOMEN: Soft, no tenderness. LABS: Hemoglobin is 10.1, white count 15.4, BUN of 17, creatinine 0.53. Pleural fluid culture currently pending. DIAGNOSTIC IMPRESSION AND PLAN: Patient with a right-sided pneumonia. The patient also has pleural effusion status post thoracocentesis, cultures currently pending. The patient has been on Zosyn, that will be continued. Slight jump in white count. Will monitor closely. Continue supportive care. MMODL / IJN: [id number] /
[2018-11-23] MEDS: ASPIRIN 81 MG PO SCH (08:15)
[2018-11-23] MEDS: amLODIPine 5 MG TAB PO SCH (08:15)
[2018-11-23] MEDS: PANTOPRAZOLE 40 MG TABLET PO SCH ×2 (08:15→16:23)
[2018-11-23] MEDS: MAGNESIUM OXIDE 400 MG TAB PO SCH (08:15)
[2018-11-23] MEDS: CITALOPRAM HYDROBROMIDE 20 MG TAB PO SCH ×2 (08:15→21:59)
[2018-11-23] MEDS: METOPROLOL SUCCINATE (ER) 100 MG TAB.ER.24H PO SCH (08:16)
[2018-11-23] MEDS: SODIUM FERRIC GLUCONAT-SUCROSE 125 MG in SODIUM CHLORIDE 0.9% 100 ML IVPB SCH (08:27)
[2018-11-23] MEDS: PIPERACILLIN-TAZOBACTAM 3.375 GM in SODIUM CHLORIDE 0.9% 100 ML IVPB SCH ×2 (09:47→16:23)
--- NOTE | 2018-11-23 10:28 | P.PN ---
Subjective Progress Note Date: 11/23/18 This is a 78-year-old male, patient of [facility]. He has a known past medical history of congenital absence of external ears, hyperlipidemia hypertension and prostate cancer with previous radiation treatment. He also has a history of smoking and quit about 10 years ago. Patient presents to the hospital complaining of 2 days of not feeling well. He's been fighting cold symptoms. Runny nose cough and some chest discomfort. Patient denies any fever or chills or sweats. It is difficult to obtain history form from him. Patient niece is his main caregiver. She is not present during my exam. History was mostly obtained from the chart. Apparently he does have a history of alcoholism he does not have a drink in a long time. Patient does feel that he is hurting all over. Computed tomography scan of the abdomen and pelvis shows esophageal stent with circumferential wall thickening of the distal esophagus, gastric fundus and gastric body. No parotid history of esophageal carcinoma is given. And suspicious findings of a right lower lobe pneumonia. Mottled appearance of the bone marrow raises suspicion for osseous metastasis and could be further evaluated with MRI. On 11/17/2018, patient was seen and examined on medical floor, he is alert and oriented 3 in no apparent distress, still complaining of left rib area pain, there is no fever or chills no headache or dizziness no chest pain no shortness of breath no cough no nausea or vomiting no abdominal pain no diarrhea and no urinary symptoms On 11/18/2018 patient was seen and examined on the medical floor he is alert and oriented in no apparent distress, he is complaining of anxiety and is still complaining of left sided rib area pain otherwise no complaints there is no fever or chills no headache or dizziness no chest pain or shortness of breath no cough no nausea or vomiting no abdominal pain and no urinary symptoms On 11/19/2018 patient is alert and oriented in no distress. Patient is stating improvement with anxiety and left-sided rib discomfort. This time patient denies chest pain. Patient denies nausea vomiting or diarrhea. Patient denies any urinary burning or frequency On 11/20/2018 patient is currently resting comfortably in bed. Antibiotics adjusted per infectious disease. Possible thoracentesis per pulmonary. This time patient denies chest pain or shortness breath. Patient denies nausea vomiting or diarrhea. Patient denies any urinary burning or frequency On 11/21/2018 patient is awake alert sitting up in bed. Patient remains on Zosyn per infectious disease. Patient to get right thoracentesis per pulmonary today and left thoracentesis tomorrow as time patient is resting comfortably with no complaints of chest pain. Patient denies nausea vomiting or diarrhea. Patient denies any urinary burning or frequency On 11/22/2018 patient is currently undergoing thoracentesis per Dr. Resendez. Patient had 600 mls removed from left thoracentesis yesterday. Cytology was sent. At the time patient denies chest pain or shortness of breath. Patient denies nausea vomiting or diarrhea. Patient denies any urinary burning or frequency On 11/23/2018 patient is currently resting comfortably in bed alert and oriented. Patient underwent went left thoracentesis yesterday with pulmonary services. Awaiting cytology results. Patient does report improvement with shortness of breath. CBC and CMP currently pending. White blood cell did increase yesterday. Infectious disease is following. Patient remains on Zosyn. At this time patient denies chest pain or shortness of breath. Patient denies nausea vomiting or diarrhea. Patient denies any urinary burning or frequency. Objective - Vital Signs Vital signs: Vital Signs Temp 98.3 F 11/23/18 05:59 Pulse 92 11/23/18 05:59 Resp 18 11/23/18 05:59 BP 160/77 11/23/18 05:59 Pulse Ox 94 L 11/23/18 05:59 Intake & Output 11/22/18 11/23/18 11/23/18 18:59 06:59 18:59 Intake Total 650 Output Total 100 600 240 Balance 550 -600 -240 Weight 70.76 kg Intake: Intake, IV Titration 100 Amount Sodium Ferric Gluconat- 100 Sucrose 125 mg In Sodium Chloride 0.9% 100 ml @ 100 mls/hr IVPB DAILY [facility] Rx#:[id number] Oral 550 Output: Urine 100 600 240 Other: Voiding Method Urinal # Voids 2 1 1 - Exam Head normocephalic and atraumatic Neck supple no JVD no goiter Lungs diminished bilaterally Heart regular rate and rhythm S1-S2, no rub or gallop Abdomen is soft nontender nondistended positive bowel sounds no hepatosplenomegaly Extremities no edema no cyanosis or clubbing Neuro alert and orientated to 3 Muscle skeletal tenderness along the rib cage especially on the left and into the abdomen area. - Labs CBC & Chem 7: 11/22/18 09:16 11/22/18 09:16 Labs: Microbiology - Last 24 Hours (Table) 11/21/18 11:30 Acid Fast Bacilli Smear - Final Pleural Fluid Acid Fast Bacilli Culture - Preliminary 11/21/18 11:30 Gram Stain - Preliminary Pleural Fluid Body Fluid Culture - Preliminary Assessment and Plan Assessment: 1. Bilateral pneumonia with bilateral pleural effusions left greater than right. repeat chest x-ray showing correlation for pneumonia with pleural effusions. Patient has been switched to Zosyn per infectious disease. Sputum culture ordered. Possible thoracentesis per pulmonary. Ultrasound of chest completed. Patient currently on Zosyn per infectious disease. White blood cell 15.4. Infectious disease is following 2. Musculoskeletal pain with CT showing mottled appearance of the bone marrow raising suspicion for osseous metastasis. Nuclear medicine bone scan was negative for metastatic disease. Per oncology currently no suspicions for metastatic prostate cancer 3. Elevated lactic acid level possibly related to dehydration improved with IV fluids. Repeat lactic 1.8. Fluids have been DC'd 4. Acute kidney injury creatinine 1.48 baseline creatinine unknown. Resolved. 5. History of prostate cancer status post radiationer. 6. History of nicotine dependence quit smoking about 10 years ago 7. Essential hypertension 8. Hyperlipidemia 9. Hypomagnesemia and patient receiving magnesium supplement. 10. Chest pain. troponin negative . EKG reviewed.. Pain likely related to pneumonic process in the left upper lobe. 11. Normocytic anemia. Oncology service is following 12. Anxiety. Xanax has been added 13. History of esophageal stricture requiring stent placement to maintain lumen patency more than 5 years ago. GI services are following. Computed tomography scan results reviewed by GI team No endoscopy scheduled at this time 14. Lung nodule. CT scan of chest completed showing 2 somewhat irregular nodule appearing areas of density which may be postinflammatory measuring 1-1.2 cm. Pulmonary and oncology services are following. Patient underwent right thoracentesis yesterday was 600 and. Patient underwent left thoracentesis on . Awaiting cytology, cell count, C&S and albumin ordered from pleural fluid. 2. Hyponatremia sodium 132. Fluid restrictions added to diet. We'll continue to monitor Social work has been consulted for possible ECF placement GI prophylaxis Protonix and DVT prophylaxis Lovenox I performed an examination of the patient and discussed their management with the Nurse Practitioner. I have reviewed the Nurse Practitioner's notes and agree with the documented findings and plan of care
[2018-11-23] MEDS: ENOXAPARIN 40 MG/0.4 ML SYRINGE SQ SCH (11:27)
[2018-11-23 11:56] LABS: Basophils % (A) 0 %; Eosinophils % (A) 0 %; HCT 28.9 % (39.0-53.0); HGB 9.3 gm/dL (13.0-17.5); Lymphocytes # (A) 0.9 k/uL (1.0-4.8); Lymphocytes % (A) 8 %; MCH 29.3 pg (25.0-35.0); MCHC 32.3 g/dL (31.0-37.0); MCV 90.7 fL (80.0-100.0); Mean Platelet Volume 6.9; Monocytes # (A) 0.6 k/uL (0-1.0); Monocytes % (A) 5 %; Neutrophils # (A) 10.3 k/uL (1.3-7.7); Neutrophils % (A) 85 %; Platelet Count 479 k/uL (150-450); RBC 3.19 m/uL (4.30-5.90); RDW 14.2 % (11.5-15.5); WBC 12.2 k/uL (3.8-10.6)
[2018-11-23 12:09] LABS: ALT 55 U/L (21-72); AST 90 U/L (17-59); Albumin 2.5 g/dL (3.5-5.0); Alkaline Phosphatase 86 U/L (38-126); Anion Gap 8 mmol/L; Blood Urea Nitrogen 12 mg/dL (9-20); Calcium 8.1 mg/dL (8.4-10.2); Carbon Dioxide 25 mmol/L (22-30); Chloride 101 mmol/L (98-107); Glucose 102 mg/dL (74-99); Potassium 3.9 mmol/L (3.5-5.1); Sodium 134 mmol/L (137-145); Total Bilirubin 0.6 mg/dL (0.2-1.3)
--- NOTE | 2018-11-23 13:32 | P.PN ---
Subjective Progress Note Date: 11/23/18 Principal diagnosis: This is 78-year-old white male patient with past medical history of hypertension, hyperlipidemia, GERD, prostate cancer, status post external beam radiation, previous history of esophageal stricture with esophageal stent placement and history of hiatal hernia. Patient was admitted to the hospital on 11/12/2018 for chest congestion, coughing, wheezing, shortness of breath in addition patient was complaining of some pain in the left chest area. Patient does have a history of previous tobacco use, and used to be a heavy drinker in the past. Initial chest x-ray showed no acute abnormality, follow-up chest x- ray was done yesterday on 11/19/2018, and showed possible pneumonia and pleural effusions left greater than the right. CT chest was done, and showed some bilateral consolidation and some pleural effusions, greater on the left than the right. No new was suspected. Obtain the ultrasound of the chest which showed 6.4 cm pocket on the right, and 6.2 cm pocket on the left. Still has some dyspnea, and left-sided chest discomfort, but no acute distress, is maintaining good oxygenation on 4 L per nasal cannula, his pulse ox is 95%, he has been afebrile, he is on antibiotics form of Zosyn. Culture showed no growth. His labs have been reviewed, and showed white count of 13.2, hemoglobin of 10.3, sodium is 134, rest of electrolytes were within normal limits, BUN was 18, creatinine was 0.44. On 11/21/2018 patient seen in follow-up on medical surgical floor. He is resting comfortably in bed, pulse ox on 4 L per nasal cannula is 96%, lung sounds are diminished breaths at the bases, with some bibasilar crackles. He is afebrile, blood cultures have been negative. Lab work has been reviewed and showed white blood cell, 12.2, hemoglobin of 10.0, sodium of 131, there was a electrolytes and renal profile were unremarkable. Patient underwent a right- sided thoracentesis by Dr. Resendez at the bedside today, tolerated procedure well. 600 mL of light yellow pleural fluid removed. Patient tolerated procedure well. Follow-up chest x-ray showed significant improvement in the appearance of the right base following the thoracentesis. Fluid was sent for cytology, cultures, and analysis. On 11/22/2018 patient seen in follow-up on medical surgical floor. Patient is status post right thoracentesis yesterday, on 11/21/2018 would removal off 600 mL of yellow pleural fluid, today patient had a left-sided thoracentesis today, and 650 mL of light francy-colored pleural fluid was removed. Patient tolerated procedure well, postprocedure chest x-ray showed small to moderate left pleural effusion, left basilar atelectasis, the right upper lobe infiltrate is resolving. Pleural fluid analysis showed transudative pleural fluid. Pleural fluid cultures are negative thus far. Patient remains on Zosyn, patient has been afebrile, hemodynamically stable. Cytology is pending. Today's labs have been reviewed, white blood cell count of 15.4, hemoglobin of 10.1, sodium is 132 , potassium is 4.0, chloride is 99, CO2 is 27, BUN is 17, creatinine 0.53. On 11/23/2018 patient seen in follow-up on medical surgical floor. He is resting comfortably in bed, in no acute distress, cytology is pending on the pleural fluid from the right and left thoracentesis. Preliminary Gram stain showed no growth, final cultures pending. Patient reports breathing easier, he is currently on 2 L per nasal cannula, his pulse ox is 94%, he is afebrile, lung sounds are diminished breath sounds at the left base, otherwise clear on the right. Today's labs have been reviewed, blood blood cell count is 12.2, hemoglobin is 9.3, serum sodium is 134, the rest of electrolytes were within normal limits, BUN was 12 and creatinine is 0.46. No viruses were detected in the viral serology from the pleural fluid. Fluid analysis showed transudative fluid. Patient is on empiric antibiotics in the form of Zosyn, nebulized treatments. Objective - Vital Signs Vital signs: Vital Signs Temp 98.3 F 11/23/18 05:59 Pulse 92 11/23/18 05:59 Resp 18 11/23/18 05:59 BP 160/77 11/23/18 05:59 Pulse Ox 94 L 11/23/18 05:59 Intake & Output 11/22/18 11/23/18 11/23/18 18:59 06:59 18:59 Intake Total 650 Output Total 100 600 240 Balance 550 -600 -240 Weight 70.76 kg Intake: Intake, IV Titration 100 Amount Sodium Ferric Gluconat- 100 Sucrose 125 mg In Sodium Chloride 0.9% 100 ml @ 100 mls/hr IVPB DAILY [facility] Rx#:[id number] Oral 550 Output: Urine 100 600 240 Other: Voiding Method Urinal Urinal # Voids 2 1 1 # Bowel Movements 1 - Exam GENERAL EXAM: Alert, pleasant, 78-year-old white male 3 L per nasal cannula comfortable in no apparent distress. HEAD: Normocephalic/atraumatic. EYES: Normal reaction of pupils, equal size. Conjunctiva pink, sclera white. NOSE: Clear with pink turbinates. THROAT: No erythema or exudates. NECK: No masses, no JVD, no thyroid enlargement, no adenopathy. CHEST: No chest wall deformity. Symmetrical expansion. LUNGS: Equal air entry with diminished breath sounds, and dullness at the left base improved from yesterday's exam CVS: Regular rate and rhythm, normal S1 and S2, no gallops, no murmurs, no rubs ABDOMEN: Soft, nontender. No hepatosplenomegaly, normal bowel sounds, no guarding or rigidity. EXTREMITIES: No clubbing, no edema, no cyanosis, 2+ pulses and upper and lower extremities. MUSCULOSKELETAL: Muscle strength and tone normal. SPINE: No scoliosis or deformity SKIN: No rashes CENTRAL NERVOUS SYSTEM: Alert and oriented -3. No focal deficits, tone is normal in all 4 extremities. PSYCHIATRIC: Alert and oriented -3. Appropriate affect. Intact judgment and insight. - Labs CBC & Chem 7: 11/23/18 11:27 11/23/18 11:27 Labs: Abnormal Lab Results - Last 24 Hours (Table) 11/23/18 11/23/18 Range/Units 11:27 11:27 WBC 12.2 H (3.8-10.6) k/uL RBC 3.19 L (4.30-5.90) m/uL Hgb 9.3 L (13.0-17.5) gm/dL Hct 28.9 L (39.0-53.0) % Plt Count 479 H (150-450) k/uL Neutrophils # 10.3 H (1.3-7.7) k/uL Lymphocytes # 0.9 L (1.0-4.8) k/uL Sodium 134 L (137-145) mmol/L Creatinine 0.46 L (0.66-1.25) mg/dL Glucose 102 H (74-99) mg/dL Calcium 8.1 L (8.4-10.2) mg/dL AST 90 H (17-59) U/L Total Protein 5.0 L (6.3-8.2) g/dL Albumin 2.5 L (3.5-5.0) g/dL Microbiology - Last 24 Hours (Table) 11/21/18 11:30 Acid Fast Bacilli Smear - Final Pleural Fluid Acid Fast Bacilli Culture - Preliminary 11/21/18 11:30 Gram Stain - Preliminary Pleural Fluid Body Fluid Culture - Preliminary Assessment and Plan Plan: Assessment: #1. Acute hypoxemic respiratory failure secondary to bilateral pneumonia with bilateral pleural effusions, left greater than the right. She is status post right-sided thoracentesis on 11/21/2018 would removal of 600 mL of light yellow pleural fluid, and left-sided thoracentesis on 11/22/2018 would removal of 650 mL of light francy-colored fluid. Cytology is pending, pleural fluid analysis showed transudative fluid. Cultures are pending #2. Left-sided chest pain, likely related to pneumonic process in the left lower lobe #3. History of prostate cancer, status post external beam radiation and subsequent radiation colitis #4. Gastroesophageal reflux disease #5. Hypertension, hyperlipidemia #6. Degenerative joint disease #7. Esophageal stricture, status post esophageal stent #8. Hiatal hernia #9. 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 Patient reports breathing easier. Await results of the final cultures. Continue with current treatment, increase activity as tolerated, encourage patient to sit up in the chair, and ambulate. Yesterday his chest x-ray showed resolving right upper lobe infiltrate with some residual remaining. Residual [id number] residual left pleural effusion with compressive atelectasis. Clinically patient is improving. I performed a history & physical examination of the patient and discussed their management with my nurse practitioner, Jessika Coronado. I reviewed the nurse practitioner's note and agree with the documented findings and plan of care. Lung sounds are positive for diminished breath sounds at the bases, with bibasilar crackles. The findings and the impression was discussed with the patient. I attest to the documentation by the nurse practitioner. Time with Patient: Less than 30
[2018-11-23] MEDS: ALPRAZolam 0.25 MG TAB PO PRN ×2 (14:24→21:59)
--- NOTE | 2018-11-23 17:37 | P.PN ---
Subjective Progress Note Date: 11/23/18 Principal diagnosis: pneumonia Awaiting Path, no acute complaints overnight, he was resting comfortably in bed , in no acute distress, Preliminary Gram stain showed no growth, final cultures pending. 2 L per nasal cannula, he is afebrile, Objective - Vital Signs Vital signs: Vital Signs Temp 97.5 F L 11/23/18 15:00 Pulse 88 11/23/18 15:00 Resp 20 11/23/18 15:00 BP 145/76 11/23/18 15:00 Pulse Ox 94 L 11/23/18 15:00 Intake & Output 11/22/18 11/23/18 11/23/18 18:59 06:59 18:59 Intake Total 650 Output Total 100 600 315 Balance 550 -600 -315 Weight 70.76 kg Intake: Intake, IV Titration 100 Amount Sodium Ferric Gluconat- 100 Sucrose 125 mg In Sodium Chloride 0.9% 100 ml @ 100 mls/hr IVPB DAILY [facility] Rx#:[id number] Oral 550 Output: Urine 100 600 315 Other: Voiding Method Urinal Urinal # Voids 2 1 0 # Bowel Movements 1 - Exam Gen: Alert, poor historian Head nc, nt no cervical or supraclavicular adenopathy on exam Lungs: Diminished, bibasilar, no increased effort noted Heart: tachycardic, reg, diaphoretic Abdomen: tender ND Ext: No Edema Neuro: inconsistent follows - Labs CBC & Chem 7: 11/23/18 11:27 11/23/18 11:27 Labs: Abnormal Lab Results - Last 24 Hours (Table) 11/23/18 11/23/18 Range/Units 11:27 11:27 WBC 12.2 H (3.8-10.6) k/uL RBC 3.19 L (4.30-5.90) m/uL Hgb 9.3 L (13.0-17.5) gm/dL Hct 28.9 L (39.0-53.0) % Plt Count 479 H (150-450) k/uL Neutrophils # 10.3 H (1.3-7.7) k/uL Lymphocytes # 0.9 L (1.0-4.8) k/uL Sodium 134 L (137-145) mmol/L Creatinine 0.46 L (0.66-1.25) mg/dL Glucose 102 H (74-99) mg/dL Calcium 8.1 L (8.4-10.2) mg/dL AST 90 H (17-59) U/L Total Protein 5.0 L (6.3-8.2) g/dL Albumin 2.5 L (3.5-5.0) g/dL Microbiology - Last 24 Hours (Table) 11/21/18 11:30 Acid Fast Bacilli Smear - Final Pleural Fluid Acid Fast Bacilli Culture - Preliminary 11/21/18 11:30 Gram Stain - Preliminary Pleural Fluid Body Fluid Culture - Preliminary Assessment and Plan Plan: Assessment and Recommendations: 1. SIRS 4/4: Tachycardic and Febrile - Improved 2. Abnormality on bone/bone marrow in CT scan: - Bone scan showed no evidence of bone metas. 3. History of Prostate Cancer?Esophageal Cancer: - Check PSA 4. Normocytic Anemia: Component of Iron GI Loss anemia - IV Iron supp after Doxy completed as interaction. - no interventional transfusion needed at his time, transfuse less than 7 - Work-up ordered IRON, Folate, Ferritin, B12, MMA 5. Leukocytosis with neutrophilia shift. - Likely reactive to underlying infection 6. Bilateral Pneumonia and Bilateral Pleural Effusions: - Status Post Thoracentesis awaiting final path Plan: Status Post Parental Iron with improvement in anemia Ilene Middleton NP
[2018-11-23] MEDS: ACETAMINOPHEN TAB 325 MG TAB PO PRN (17:50)
[2018-11-24] MEDS: PIPERACILLIN-TAZOBACTAM 3.375 GM in SODIUM CHLORIDE 0.9% 100 ML IVPB SCH ×4 (01:17→23:48)
--- NOTE | 2018-11-24 06:40 | PN ---
PROGRESS NOTE DATE OF SERVICE: 11/23/2018 REASON FOR FOLLOWUP: Pneumonia. INTERVAL HISTORY: The patient is currently afebrile, has been breathing comfortably. No chest pain. No cough. No nausea, vomiting or diarrhea. PHYSICAL EXAMINATION: Blood pressure is 131/81 with a pulse of 80, temperature 96.7. He is 98% on 3 L nasal cannula. GENERAL DESCRIPTION: An elderly male lying in bed in no distress. RESPIRATORY SYSTEM: Unlabored breathing with decreased breath sounds in the bases. No wheeze. HEART: heart S1, S2. Regular rate and rhythm. LABS: White count of 12.2 with a BUN of 12, creatinine 0.46. The ( ) culture so far negative. Blood culture has been negative. DIAGNOSTIC IMPRESSION AND PLAN: Patient with pleural effusion status post thoracocentesis, culture is currently pending. The patient to continue with Zosyn at this point. Will monitor clinical course closely. Current supportive care. MMODL / IJN: [id number] /
[2018-11-24 08:01] LABS: Basophils % (A) 0 %; Eosinophils # (A) 0.1 k/uL (0-0.7); Eosinophils % (A) 1 %; HCT 33.1 % (39.0-53.0); HGB 10.9 gm/dL (13.0-17.5); Lymphocytes % (A) 7 %; MCHC 32.9 g/dL (31.0-37.0); Mean Platelet Volume 6.3; Monocytes # (A) 0.6 k/uL (0-1.0); Monocytes % (A) 5 %; Neutrophils # (A) 11.6 k/uL (1.3-7.7); Neutrophils % (A) 86 %; Platelet Count 617 k/uL (150-450); RBC 3.64 m/uL (4.30-5.90); RDW 14.2 % (11.5-15.5); WBC 13.5 k/uL (3.8-10.6)
[2018-11-24] MEDS: ASPIRIN 81 MG PO SCH (08:05)
[2018-11-24] MEDS: CITALOPRAM HYDROBROMIDE 20 MG TAB PO SCH ×2 (08:05→20:44)
[2018-11-24] MEDS: PANTOPRAZOLE 40 MG TABLET PO SCH ×2 (08:05→17:18)
[2018-11-24] MEDS: METOPROLOL SUCCINATE (ER) 100 MG TAB.ER.24H PO SCH (08:05)
[2018-11-24] MEDS: amLODIPine 5 MG TAB PO SCH (08:05)
[2018-11-24] MEDS: ENOXAPARIN 40 MG/0.4 ML SYRINGE SQ SCH (08:05)
[2018-11-24] MEDS: MAGNESIUM OXIDE 400 MG TAB PO SCH (08:05)
[2018-11-24 08:14] LABS: ALT 73 U/L (21-72); AST 84 U/L (17-59); Albumin 2.6 g/dL (3.5-5.0); Alkaline Phosphatase 85 U/L (38-126); Anion Gap 8 mmol/L; Blood Urea Nitrogen 14 mg/dL (9-20); Calcium 8.5 mg/dL (8.4-10.2); Carbon Dioxide 27 mmol/L (22-30); Chloride 100 mmol/L (98-107); Glucose 116 mg/dL (74-99); Potassium 3.8 mmol/L (3.5-5.1); Sodium 135 mmol/L (137-145); Total Bilirubin 0.7 mg/dL (0.2-1.3); Total Protein 5.5 g/dL (6.3-8.2)
--- NOTE | 2018-11-24 12:16 | P.PN ---
Subjective Progress Note Date: 11/24/18 This is a 78-year-old male, patient of [facility]. He has a known past medical history of congenital absence of external ears, hyperlipidemia hypertension and prostate cancer with previous radiation treatment. He also has a history of smoking and quit about 10 years ago. Patient presents to the hospital complaining of 2 days of not feeling well. He's been fighting cold symptoms. Runny nose cough and some chest discomfort. Patient denies any fever or chills or sweats. It is difficult to obtain history form from him. Patient niece is his main caregiver. She is not present during my exam. History was mostly obtained from the chart. Apparently he does have a history of alcoholism he does not have a drink in a long time. Patient does feel that he is hurting all over. Computed tomography scan of the abdomen and pelvis shows esophageal stent with circumferential wall thickening of the distal esophagus, gastric fundus and gastric body. No parotid history of esophageal carcinoma is given. And suspicious findings of a right lower lobe pneumonia. Mottled appearance of the bone marrow raises suspicion for osseous metastasis and could be further evaluated with MRI. On 11/17/2018, patient was seen and examined on medical floor, he is alert and oriented 3 in no apparent distress, still complaining of left rib area pain, there is no fever or chills no headache or dizziness no chest pain no shortness of breath no cough no nausea or vomiting no abdominal pain no diarrhea and no urinary symptoms On 11/18/2018 patient was seen and examined on the medical floor he is alert and oriented in no apparent distress, he is complaining of anxiety and is still complaining of left sided rib area pain otherwise no complaints there is no fever or chills no headache or dizziness no chest pain or shortness of breath no cough no nausea or vomiting no abdominal pain and no urinary symptoms On 11/19/2018 patient is alert and oriented in no distress. Patient is stating improvement with anxiety and left-sided rib discomfort. This time patient denies chest pain. Patient denies nausea vomiting or diarrhea. Patient denies any urinary burning or frequency On 11/20/2018 patient is currently resting comfortably in bed. Antibiotics adjusted per infectious disease. Possible thoracentesis per pulmonary. This time patient denies chest pain or shortness breath. Patient denies nausea vomiting or diarrhea. Patient denies any urinary burning or frequency On 11/21/2018 patient is awake alert sitting up in bed. Patient remains on Zosyn per infectious disease. Patient to get right thoracentesis per pulmonary today and left thoracentesis tomorrow as time patient is resting comfortably with no complaints of chest pain. Patient denies nausea vomiting or diarrhea. Patient denies any urinary burning or frequency On 11/22/2018 patient is currently undergoing thoracentesis per Dr. Resendez. Patient had 600 mls removed from left thoracentesis yesterday. Cytology was sent. At the time patient denies chest pain or shortness of breath. Patient denies nausea vomiting or diarrhea. Patient denies any urinary burning or frequency On 11/23/2018 patient is currently resting comfortably in bed alert and oriented. Patient underwent went left thoracentesis yesterday with pulmonary services. Awaiting cytology results. Patient does report improvement with shortness of breath. CBC and CMP currently pending. White blood cell did increase yesterday. Infectious disease is following. Patient remains on Zosyn. At this time patient denies chest pain or shortness of breath. Patient denies nausea vomiting or diarrhea. Patient denies any urinary burning or frequency. On 11/24/2018 patient is currently resting in bed comfortably. At this time patient does report some increased weakness. Patient's continue to work with physical therapy and planning to be discharged to rehab once medically cleared. This time patient does state improvement with shortness of breath. Patient denies chest pain. Patient denies any urinary burning or frequency. Patient denies nausea vomiting or diarrhea Objective - Vital Signs Vital signs: Vital Signs Temp 97.9 F 11/24/18 06:05 Pulse 98 11/24/18 06:05 Resp 17 11/24/18 06:05 BP 163/87 11/24/18 06:05 Pulse Ox 94 L 11/24/18 06:05 Intake & Output 11/23/18 11/24/18 11/24/18 18:59 06:59 18:59 Output Total 315 900 Balance -315 -900 Output: Urine 315 900 Other: Voiding Method Urinal Urinal # Voids 0 # Bowel Movements 1 - Exam Head normocephalic and atraumatic Neck supple no JVD no goiter Lungs diminished bilaterally Heart regular rate and rhythm S1-S2, no rub or gallop Abdomen is soft nontender nondistended positive bowel sounds no hepatosplenomegaly Extremities no edema no cyanosis or clubbing Neuro alert and orientated to 3 Muscle skeletal tenderness along the rib cage especially on the left and into the abdomen area. - Labs CBC & Chem 7: 11/24/18 07:48 11/24/18 07:48 Labs: Abnormal Lab Results - Last 24 Hours (Table) 11/23/18 11/23/18 11/24/18 Range/Units 11:27 11:27 07:48 WBC 12.2 H 13.5 H (3.8-10.6) k/uL RBC 3.19 L 3.64 L (4.30-5.90) m/uL Hgb 9.3 L 10.9 L (13.0-17.5) gm/dL Hct 28.9 L 33.1 L (39.0-53.0) % Plt Count 479 H 617 H (150-450) k/uL Neutrophils # 10.3 H 11.6 H (1.3-7.7) k/uL Lymphocytes # 0.9 L (1.0-4.8) k/uL Sodium 134 L (137-145) mmol/L Creatinine 0.46 L (0.66-1.25) mg/dL Glucose 102 H (74-99) mg/dL Calcium 8.1 L (8.4-10.2) mg/dL AST 90 H (17-59) U/L ALT (21-72) U/L Total Protein 5.0 L (6.3-8.2) g/dL Albumin 2.5 L (3.5-5.0) g/dL 11/24/18 Range/Units 07:48 WBC (3.8-10.6) k/uL RBC (4.30-5.90) m/uL Hgb (13.0-17.5) gm/dL Hct (39.0-53.0) % Plt Count (150-450) k/uL Neutrophils # (1.3-7.7) k/uL Lymphocytes # (1.0-4.8) k/uL Sodium 135 L (137-145) mmol/L Creatinine 0.47 L (0.66-1.25) mg/dL Glucose 116 H (74-99) mg/dL Calcium (8.4-10.2) mg/dL AST 84 H (17-59) U/L ALT 73 H (21-72) U/L Total Protein 5.5 L (6.3-8.2) g/dL Albumin 2.6 L (3.5-5.0) g/dL Microbiology - Last 24 Hours (Table) 11/21/18 11:30 Gram Stain - Preliminary Pleural Fluid Body Fluid Culture - Preliminary Assessment and Plan Assessment: 1. Bilateral pneumonia with bilateral pleural effusions. repeat chest x-ray showing correlation for pneumonia with pleural effusions. Patient has been switched to Zosyn per infectious disease. Sputum culture ordered. Patient underwent right thoracentesis yesterday was 600 and. Patient underwent left thoracentesis on 11/22/2018. Awaiting cytology, cell count, C&S and albumin ordered from pleural fluid. 2. Musculoskeletal pain with CT showing mottled appearance of the bone marrow raising suspicion for osseous metastasis. Nuclear medicine bone scan was negative for metastatic disease. Per oncology currently no suspicions for metastatic prostate cancer 3. Elevated lactic acid level possibly related to dehydration improved with IV fluids. Repeat lactic 1.8. Fluids have been DC'd 4. Acute kidney injury creatinine 1.48 baseline creatinine unknown. Resolved. 5. History of prostate cancer status post radiationer. 6. History of nicotine dependence quit smoking about 10 years ago 7. Essential hypertension 8. Hyperlipidemia 9. Hypomagnesemia and patient receiving magnesium supplement. 10. Chest pain. troponin negative . EKG reviewed.. Pain likely related to pneumonic process in the left upper lobe. 11. Normocytic anemia. Oncology service is following 12. Anxiety. Xanax has been added 13. History of esophageal stricture requiring stent placement to maintain lumen patency more than 5 years ago. GI services are following. Computed tomography scan results reviewed by GI team No endoscopy scheduled at this time 14. Lung nodule. CT scan of chest completed showing 2 somewhat irregular nodule appearing areas of density which may be postinflammatory measuring 1-1.2 cm. Pulmonary and oncology services are following. Cytology from thoracentesis pending 15. Hyponatremia sodium 132. Fluid restrictions added to diet. We'll continue to monitor. Sodium improving to 135 16. Elevated liver enzymes. AST 84 and ALT 73. We'll continue to monitor closely Plan for discharge to [facility] when medically stable GI prophylaxis Protonix and DVT prophylaxis Lovenox I performed an examination of the patient and discussed their management with the Nurse Practitioner. I have reviewed the Nurse Practitioner's notes and agree with the documented findings and plan of care
[2018-11-24] MEDS: HYDROcodone/APAP 10-325MG 1 EACH TAB PO PRN ×2 (13:22→20:44)
[2018-11-24] MEDS: ALPRAZolam 0.25 MG TAB PO PRN (20:44)
--- NOTE | 2018-11-25 02:01 | PN ---
PROGRESS NOTE DATE OF SERVICE: 11/24/2018. REASON FOR FOLLOWUP VISIT: Pneumonia. INTERVAL HISTORY: The patient is currently afebrile. He is breathing more comfortably. Denies any chest pain. He did have some cough but not bringing up any sputum. No nausea, vomiting or diarrhea. PHYSICAL EXAMINATION: Blood pressure 124/70 with a pulse of 90, temperature 97.7. He is 97% on room air. General description is an elderly male up in the chair in no distress. Respiratory system: Unlabored breathing with decreased breath sounds in the base, with no wheeze. Heart S1, S2. Regular rate and rhythm. ABDOMEN: Soft. No tenderness. Extremities: No edema of the feet. LABS: Deep culture has been negative so far. Blood cultures unable to provide any sputum. White count slightly elevated to 13.5. DIAGNOSTIC IMPRESSION AND PLAN: Patient admitted to the hospital with pneumonia with concern for possible gram negative aspiration currently covered with Zosyn. Also has pleural effusion status post thoracocentesis. The patient at this time will continue with Zosyn while watching his clinical course and white count closely. Continue supportive care. MMODL / IJN: [id number] /
[2018-11-25] MEDS: PIPERACILLIN-TAZOBACTAM 3.375 GM in SODIUM CHLORIDE 0.9% 100 ML IVPB SCH ×2 (07:43→16:00)
[2018-11-25] MEDS: CITALOPRAM HYDROBROMIDE 20 MG TAB PO SCH ×2 (07:44→20:24)
[2018-11-25] MEDS: METOPROLOL SUCCINATE (ER) 100 MG TAB.ER.24H PO SCH (07:44)
[2018-11-25] MEDS: ASPIRIN 81 MG PO SCH (07:44)
[2018-11-25] MEDS: PANTOPRAZOLE 40 MG TABLET PO SCH ×2 (07:44→16:40)
[2018-11-25] MEDS: MAGNESIUM OXIDE 400 MG TAB PO SCH (07:44)
[2018-11-25] MEDS: amLODIPine 5 MG TAB PO SCH (07:44)
[2018-11-25] MEDS: ENOXAPARIN 40 MG/0.4 ML SYRINGE SQ SCH (07:44)
[2018-11-25 11:07] LABS: Basophils % (A) 0 %; Eosinophils # (A) 0.1 k/uL (0-0.7); Eosinophils % (A) 1 %; HCT 30.4 % (39.0-53.0); HGB 9.9 gm/dL (13.0-17.5); Lymphocytes # (A) 1.1 k/uL (1.0-4.8); Lymphocytes % (A) 10 %; MCH 29.3 pg (25.0-35.0); MCHC 32.6 g/dL (31.0-37.0); Mean Platelet Volume 6.6; Monocytes # (A) 0.7 k/uL (0-1.0); Monocytes % (A) 6 %; Neutrophils # (A) 9.4 k/uL (1.3-7.7); Neutrophils % (A) 82 %; Platelet Count 590 k/uL (150-450); RBC 3.38 m/uL (4.30-5.90); RDW 14.5 % (11.5-15.5); WBC 11.5 k/uL (3.8-10.6)
[2018-11-25 11:16] LABS: ALT 67 U/L (21-72); AST 67 U/L (17-59); Albumin 2.6 g/dL (3.5-5.0); Alkaline Phosphatase 73 U/L (38-126); Anion Gap 7 mmol/L; Blood Urea Nitrogen 13 mg/dL (9-20); Calcium 8.3 mg/dL (8.4-10.2); Carbon Dioxide 23 mmol/L (22-30); Chloride 101 mmol/L (98-107); Glucose 98 mg/dL (74-99); Potassium 4.2 mmol/L (3.5-5.1); Sodium 131 mmol/L (137-145); Total Bilirubin 0.7 mg/dL (0.2-1.3); Total Protein 5.5 g/dL (6.3-8.2)
--- NOTE | 2018-11-25 11:51 | P.PN ---
Subjective Progress Note Date: 11/25/18 This is a 78-year-old male, patient of [facility]. He has a known past medical history of congenital absence of external ears, hyperlipidemia hypertension and prostate cancer with previous radiation treatment. He also has a history of smoking and quit about 10 years ago. Patient presents to the hospital complaining of 2 days of not feeling well. He's been fighting cold symptoms. Runny nose cough and some chest discomfort. Patient denies any fever or chills or sweats. It is difficult to obtain history form from him. Patient niece is his main caregiver. She is not present during my exam. History was mostly obtained from the chart. Apparently he does have a history of alcoholism he does not have a drink in a long time. Patient does feel that he is hurting all over. Computed tomography scan of the abdomen and pelvis shows esophageal stent with circumferential wall thickening of the distal esophagus, gastric fundus and gastric body. No parotid history of esophageal carcinoma is given. And suspicious findings of a right lower lobe pneumonia. Mottled appearance of the bone marrow raises suspicion for osseous metastasis and could be further evaluated with MRI. On 11/17/2018, patient was seen and examined on medical floor, he is alert and oriented 3 in no apparent distress, still complaining of left rib area pain, there is no fever or chills no headache or dizziness no chest pain no shortness of breath no cough no nausea or vomiting no abdominal pain no diarrhea and no urinary symptoms On 11/18/2018 patient was seen and examined on the medical floor he is alert and oriented in no apparent distress, he is complaining of anxiety and is still complaining of left sided rib area pain otherwise no complaints there is no fever or chills no headache or dizziness no chest pain or shortness of breath no cough no nausea or vomiting no abdominal pain and no urinary symptoms On 11/19/2018 patient is alert and oriented in no distress. Patient is stating improvement with anxiety and left-sided rib discomfort. This time patient denies chest pain. Patient denies nausea vomiting or diarrhea. Patient denies any urinary burning or frequency On 11/20/2018 patient is currently resting comfortably in bed. Antibiotics adjusted per infectious disease. Possible thoracentesis per pulmonary. This time patient denies chest pain or shortness breath. Patient denies nausea vomiting or diarrhea. Patient denies any urinary burning or frequency On 11/21/2018 patient is awake alert sitting up in bed. Patient remains on Zosyn per infectious disease. Patient to get right thoracentesis per pulmonary today and left thoracentesis tomorrow as time patient is resting comfortably with no complaints of chest pain. Patient denies nausea vomiting or diarrhea. Patient denies any urinary burning or frequency On 11/22/2018 patient is currently undergoing thoracentesis per Dr. Resendez. Patient had 600 mls removed from left thoracentesis yesterday. Cytology was sent. At the time patient denies chest pain or shortness of breath. Patient denies nausea vomiting or diarrhea. Patient denies any urinary burning or frequency On 11/23/2018 patient is currently resting comfortably in bed alert and oriented. Patient underwent went left thoracentesis yesterday with pulmonary services. Awaiting cytology results. Patient does report improvement with shortness of breath. CBC and CMP currently pending. White blood cell did increase yesterday. Infectious disease is following. Patient remains on Zosyn. At this time patient denies chest pain or shortness of breath. Patient denies nausea vomiting or diarrhea. Patient denies any urinary burning or frequency. On 11/24/2018 patient is currently resting in bed comfortably. At this time patient does report some increased weakness. Patient's continue to work with physical therapy and planning to be discharged to rehab once medically cleared. This time patient does state improvement with shortness of breath. Patient denies chest pain. Patient denies any urinary burning or frequency. Patient denies nausea vomiting or diarrhea On 11/25/2018 patient is currently alert and oriented resting comfortably in bed. Patient doesn't 8 some improvement with shortness of breath and weakness. White blood cell is improving at this time. Patient remains on IV Zosyn. Awaiting final cytology from pleural effusions. Patient denies chest pain or shortness breath. Patient denies nausea vomiting or diarrhea. Patient denies any urinary burning or frequency Objective - Vital Signs Vital signs: Vital Signs Temp 98.5 F 11/25/18 06:00 Pulse 91 11/25/18 06:00 Resp 20 11/25/18 06:00 BP 154/71 11/25/18 06:00 Pulse Ox 95 11/25/18 06:00 Intake & Output 11/24/18 11/25/18 11/25/18 18:59 06:59 18:59 Intake Total 300 Balance 300 Intake: Oral 300 Other: Voiding Method Urinal # Voids 2 2 # Bowel Movements 2 - Exam Head normocephalic and atraumatic Neck supple no JVD no goiter Lungs diminished bilaterally Heart regular rate and rhythm S1-S2, no rub or gallop Abdomen is soft nontender nondistended positive bowel sounds no hepatosplenomegaly Extremities no edema no cyanosis or clubbing Neuro alert and orientated to 3 Muscle skeletal tenderness along the rib cage especially on the left and into the abdomen area. - Labs CBC & Chem 7: 11/25/18 10:49 11/25/18 10:49 Labs: Abnormal Lab Results - Last 24 Hours (Table) 11/25/18 11/25/18 Range/Units 10:49 10:49 WBC 11.5 H (3.8-10.6) k/uL RBC 3.38 L (4.30-5.90) m/uL Hgb 9.9 L (13.0-17.5) gm/dL Hct 30.4 L (39.0-53.0) % Plt Count 590 H (150-450) k/uL Neutrophils # 9.4 H (1.3-7.7) k/uL Sodium 131 L (137-145) mmol/L Creatinine 0.48 L (0.66-1.25) mg/dL Calcium 8.3 L (8.4-10.2) mg/dL AST 67 H (17-59) U/L Total Protein 5.5 L (6.3-8.2) g/dL Albumin 2.6 L (3.5-5.0) g/dL Microbiology - Last 24 Hours (Table) 11/21/18 11:30 Gram Stain - Preliminary Pleural Fluid Body Fluid Culture - Preliminary Assessment and Plan Assessment: 1. Bilateral pneumonia with bilateral pleural effusions. repeat chest x-ray showing correlation for pneumonia with pleural effusions. Patient has been switched to Zosyn per infectious disease. Sputum culture ordered. Patient underwent right thoracentesis yesterday was 600 and. Patient underwent left thoracentesis on 11/22/2018. Awaiting cytology, cell count, C&S and albumin ordered from pleural fluid. White blood cell 11.5 2. Musculoskeletal pain with CT showing mottled appearance of the bone marrow raising suspicion for osseous metastasis. Nuclear medicine bone scan was negative for metastatic disease. Per oncology currently no suspicions for metastatic prostate cancer 3. Elevated lactic acid level possibly related to dehydration improved with IV fluids. Repeat lactic 1.8. Fluids have been DC'd 4. Acute kidney injury creatinine 1.48 baseline creatinine unknown. Resolved. 5. History of prostate cancer status post radiationer. 6. History of nicotine dependence quit smoking about 10 years ago 7. Essential hypertension 8. Hyperlipidemia 9. Hypomagnesemia and patient receiving magnesium supplement. 10. Chest pain. troponin negative . EKG reviewed.. Pain likely related to pneumonic process in the left upper lobe. 11. Normocytic anemia. Oncology service is following 12. Anxiety. Xanax has been added 13. History of esophageal stricture requiring stent placement to maintain lumen patency more than 5 years ago. GI services are following. Computed tomography scan results reviewed by GI team No endoscopy scheduled at this time 14. Lung nodule. CT scan of chest completed showing 2 somewhat irregular nodule appearing areas of density which may be postinflammatory measuring 1-1.2 cm. Pulmonary and oncology services are following. Cytology from thoracentesis pending 15. Hyponatremia sodium 132. Fluid restrictions added to diet. We'll continue to monitor. 16. Elevated liver enzymes. AST 84 and ALT 73. We'll continue to monitor closely. Her enzymes are improving Plan for discharge to [facility] when medically stable GI prophylaxis Protonix and DVT prophylaxis Lovenox I performed an examination of the patient and discussed their management with the Nurse Practitioner. I have reviewed the Nurse Practitioner's notes and agree with the documented findings and plan of care
[2018-11-25] MEDS: ALPRAZolam 0.25 MG TAB PO PRN (20:24)
[2018-11-25] MEDS: IPRATROPIUM-ALBUTEROL 3 ML NEB INHALATION PRN (20:36)
[2018-11-26] MEDS: PIPERACILLIN-TAZOBACTAM 3.375 GM in SODIUM CHLORIDE 0.9% 100 ML IVPB SCH ×3 (00:05→14:58)
[2018-11-26] MEDS: HYDROcodone/APAP 10-325MG 1 EACH TAB PO PRN ×4 (00:11→17:20)
--- NOTE | 2018-11-26 00:41 | PN ---
PROGRESS NOTE DATE OF SERVICE: 11/25/2018. REASON FOR FOLLOWUP: Pneumonia. INTERVAL HISTORY: The patient is currently afebrile. He seems to be breathing more comfortably. Patient denies any chest pain. Did have some cough but no sputum production. No abdominal pain. No diarrhea. PHYSICAL EXAMINATION: Blood pressure 127/70 with a pulse of 81, temperature 97.8. He is 97% on 2 L nasal cannula. General description is an elderly male lying in bed in no distress. Respiratory system: Unlabored breathing with decreased breath sounds in the bases. Heart S1-S2 regular rate and rhythm. Abdomen: Soft. No tenderness. LABS: Hemoglobin 9.8, white count 11.5 with a BUN of 13, creatinine 0.48. Stool culture has been negative. Cytology was negative for any malignancy. DIAGNOSTIC IMPRESSION AND PLAN: Patient with bilateral pneumonia, more in the right upper lobe, possible gram negative or aspiration. The patient is currently covered with Zosyn to continue for another then will be transitioned to oral Avelox on discharge to finish a course of therapy once he is stable for discharge from the medicine and the pulmonary standpoint. MMODL / IJN: [id number] /
[2018-11-26 07:14] VITALS: RESP 18
[2018-11-26] MEDS: amLODIPine 5 MG TAB PO SCH (07:31)
[2018-11-26] MEDS: ENOXAPARIN 40 MG/0.4 ML SYRINGE SQ SCH (07:31)
[2018-11-26] MEDS: PANTOPRAZOLE 40 MG TABLET PO SCH ×2 (07:31→16:48)
[2018-11-26] MEDS: METOPROLOL SUCCINATE (ER) 100 MG TAB.ER.24H PO SCH (07:31)
[2018-11-26] MEDS: MAGNESIUM OXIDE 400 MG TAB PO SCH (07:31)
[2018-11-26] MEDS: CITALOPRAM HYDROBROMIDE 20 MG TAB PO SCH (07:31)
[2018-11-26] MEDS: ASPIRIN 81 MG PO SCH (07:31)
[2018-11-26 07:42] LABS: Basophils % (A) 0 %; Eosinophils # (A) 0.1 k/uL (0-0.7); Eosinophils % (A) 1 %; HCT 30.8 % (39.0-53.0); HGB 9.8 gm/dL (13.0-17.5); Lymphocytes # (A) 1.1 k/uL (1.0-4.8); Lymphocytes % (A) 9 %; MCH 28.9 pg (25.0-35.0); MCHC 31.8 g/dL (31.0-37.0); MCV 90.6 fL (80.0-100.0); Mean Platelet Volume 6.5; Monocytes # (A) 0.6 k/uL (0-1.0); Monocytes % (A) 5 %; Neutrophils # (A) 10.1 k/uL (1.3-7.7); Neutrophils % (A) 83 %; Platelet Count 627 k/uL (150-450); RDW 14.4 % (11.5-15.5); WBC 12.2 k/uL (3.8-10.6)
[2018-11-26 07:53] LABS: ALT 60 U/L (21-72); AST 57 U/L (17-59); Albumin 2.6 g/dL (3.5-5.0); Alkaline Phosphatase 73 U/L (38-126); Anion Gap 9 mmol/L; Blood Urea Nitrogen 11 mg/dL (9-20); Calcium 8.3 mg/dL (8.4-10.2); Carbon Dioxide 23 mmol/L (22-30); Chloride 100 mmol/L (98-107); Glucose 97 mg/dL (74-99); Potassium 4.3 mmol/L (3.5-5.1); Sodium 132 mmol/L (137-145); Total Bilirubin 0.7 mg/dL (0.2-1.3); Total Protein 5.4 g/dL (6.3-8.2)
[2018-11-26] MEDS: IPRATROPIUM-ALBUTEROL 3 ML NEB INHALATION PRN ×3 (08:08→16:03)
[2018-11-26 14:06] VITALS: BP 140/77; TEMP 97.3
--- NOTE | 2018-11-26 14:09 | PN ---
PROGRESS NOTE DATE OF SERVICE: 11/26/2018 REASON FOR FOLLOWUP VISIT: Pneumonia, possible infection. INTERVAL HISTORY: The patient is afebrile, has been breathing comfortably. Denies having any chest pain or cough. No abdominal pain or any diarrhea. PHYSICAL EXAMINATION: Blood pressure is 159/72 with a pulse of 89, temperature 97.2, he is 96% on 2 L nasal cannula. General description is an elderly male, lying in bed in no distress. RESPIRATORY SYSTEM: Unlabored breathing with decreased breath sounds in the bases, no wheeze. HEART: S1, S2. Regular rate and rhythm. ABDOMEN: Soft, no tenderness. LABS: White count 12.2 with a BUN of 11, creatinine 0.46. The fluid culture has been negative. DIAGNOSTIC IMPRESSION AND PLAN: Patient with pneumonia, bilateral. There is pleural fluid effusion status post thoracocentesis. Stool culture has been negative. The patient at this time to continue with Zosyn, finish therapy with oral Avelox for another 7 days, close outpatient followup. Plan of care was discussed with the nurse practitioner for admitting team. MARYL / KHALIFN: [id number] /
[2018-11-26] MEDS: ALPRAZolam 0.25 MG TAB PO PRN (14:58)
--- NOTE | 2018-11-26 15:00 | P.DS ---
Providers Date of admission: 11/15/18 16:54 Expected date of discharge: 11/26/18 Attending physician: Broderick Lara Consults: 11/16/18 14:23 Consult Physician Routine Consulting Provider: Diana Kemp Consult Reason/Comments: leukocytosis Do you want consulting provider notified?: Yes 11/16/18 14:24 Consult Physician Routine Consulting Provider: Supa Zhou Consult Reason/Comments: possible osseous metastasis on CT scan Do you want consulting provider notified?: Yes 11/18/18 14:36 Consult Physician Routine Consulting Provider: Bonnie Bueno Consult Reason/Comments: pneumonia Do you want consulting provider notified?: Yes Primary care physician: Madelyn Kelsey [facility] Course: Discharge diagnosis 1. Bilateral pneumonia with bilateral pleural effusions. repeat chest x-ray showing correlation for pneumonia with pleural effusions. Patient has been switched to Zosyn per infectious disease. Sputum culture ordered. Patient underwent right thoracentesis yesterday was 600 and. Patient underwent left thoracentesis on 11/22/2018. Per oncology cytology from pleural effusion negative. She has been cleared for discharge from pulmonary, infectious disease and oncology services. Patient will be discharged on Augmentin for 7 more days per ID. 2. Musculoskeletal pain with CT showing mottled appearance of the bone marrow raising suspicion for osseous metastasis. Nuclear medicine bone scan was negative for metastatic disease. Per oncology currently no suspicions for metastatic prostate cancer 3. Elevated lactic acid level possibly related to dehydration improved with IV fluids. Repeat lactic 1.8. Fluids have been DC'd 4. Acute kidney injury creatinine 1.48 baseline creatinine unknown. Resolved. 5. History of prostate cancer status post radiationer. 6. History of nicotine dependence quit smoking about 10 years ago 7. Essential hypertension 8. Hyperlipidemia 9. Hypomagnesemia and patient receiving magnesium supplement. 10. Chest pain. troponin negative . EKG reviewed.. Pain likely related to pneumonic process in the left upper lobe. 11. Normocytic anemia. Oncology service is following 12. Anxiety. Xanax has been added 13. History of esophageal stricture requiring stent placement to maintain lumen patency more than 5 years ago. GI services are following. Computed tomography scan results reviewed by GI team No endoscopy scheduled at this time 14. Lung nodule. CT scan of chest completed showing 2 somewhat irregular nodule appearing areas of density which may be postinflammatory measuring 1-1.2 cm. Pulmonary and oncology services are following. Cytology from thoracentesis pending 15. Hyponatremia sodium 132. Fluid restrictions added to diet. We'll continue to monitor. Patient will be DC'd with fluid restrictions 16. Elevated liver enzymes. AST 84 and ALT 73. We'll continue to monitor closely. Her enzymes are improving. Resolved Hospital course This is a 78-year-old male, patient of [facility]. He has a known past medical history of congenital absence of external ears, hyperlipidemia hypertension and prostate cancer with previous radiation treatment. He also has a history of smoking and quit about 10 years ago. Patient presents to the hospital complaining of 2 days of not feeling well. He's been fighting cold symptoms. Runny nose cough and some chest discomfort. Patient denies any fever or chills or sweats. It is difficult to obtain history form from him. Patient niece is his main caregiver. She is not present during my exam. History was mostly obtained from the chart. Apparently he does have a history of alcoholism he does not have a drink in a long time. Patient does feel that he is hurting all over. Computed tomography scan of the abdomen and pelvis shows esophageal stent with circumferential wall thickening of the distal esophagus, gastric fundus and gastric body. No parotid history of esophageal carcinoma is given. And suspicious findings of a right lower lobe pneumonia. Mottled appearance of the bone marrow raises suspicion for osseous metastasis and could be further evaluated with MRI. On 11/17/2018, patient was seen and examined on medical floor, he is alert and oriented 3 in no apparent distress, still complaining of left rib area pain, there is no fever or chills no headache or dizziness no chest pain no shortness of breath no cough no nausea or vomiting no abdominal pain no diarrhea and no urinary symptoms On 11/18/2018 patient was seen and examined on the medical floor he is alert and oriented in no apparent distress, he is complaining of anxiety and is still complaining of left sided rib area pain otherwise no complaints there is no fever or chills no headache or dizziness no chest pain or shortness of breath no cough no nausea or vomiting no abdominal pain and no urinary symptoms On 11/19/2018 patient is alert and oriented in no distress. Patient is stating improvement with anxiety and left-sided rib discomfort. This time patient denies chest pain. Patient denies nausea vomiting or diarrhea. Patient denies any urinary burning or frequency On 11/20/2018 patient is currently resting comfortably in bed. Antibiotics adjusted per infectious disease. Possible thoracentesis per pulmonary. This time patient denies chest pain or shortness breath. Patient denies nausea vomiting or diarrhea. Patient denies any urinary burning or frequency On 11/21/2018 patient is awake alert sitting up in bed. Patient remains on Zosyn per infectious disease. Patient to get right thoracentesis per pulmonary today and left thoracentesis tomorrow as time patient is resting comfortably with no complaints of chest pain. Patient denies nausea vomiting or diarrhea. Patient denies any urinary burning or frequency On 11/22/2018 patient is currently undergoing thoracentesis per Dr. Resendez. Patient had 600 mls removed from left thoracentesis yesterday. Cytology was sent. At the time patient denies chest pain or shortness of breath. Patient denies nausea vomiting or diarrhea. Patient denies any urinary burning or frequency On 11/23/2018 patient is currently resting comfortably in bed alert and oriented. Patient underwent went left thoracentesis yesterday with pulmonary services. Awaiting cytology results. Patient does report improvement with shortness of breath. CBC and CMP currently pending. White blood cell did increase yesterday. Infectious disease is following. Patient remains on Zosyn. At this time patient denies chest pain or shortness of breath. Patient denies nausea vomiting or diarrhea. Patient denies any urinary burning or frequency. On 11/24/2018 patient is currently resting in bed comfortably. At this time patient does report some increased weakness. Patient's continue to work with physical therapy and planning to be discharged to rehab once medically cleared. This time patient does state improvement with shortness of breath. Patient denies chest pain. Patient denies any urinary burning or frequency. Patient denies nausea vomiting or diarrhea On 11/25/2018 patient is currently alert and oriented resting comfortably in bed. Patient doesn't 8 some improvement with shortness of breath and weakness. White blood cell is improving at this time. Patient remains on IV Zosyn. Awaiting final cytology from pleural effusions. Patient denies chest pain or shortness breath. Patient denies nausea vomiting or diarrhea. Patient denies any urinary burning or frequency On 11/26/2018 patient has been cleared for discharge from consulting providers. Discussed case with oncology services cytology report from pleural effusions have returned negative. Patient will be discharged on antibiotic Augmentin for 7 more days for pneumonia. Patient states he feels ready to go to rehab. Patient denies chest pain or shortness of breath. Patient denies nausea vomiting or diarrhea. Patient denies any urinary burning or frequency. Patient will be transferred to [facility] followed by Dr. Jane Pierre performed an examination of the patient and discussed their management with the Nurse Practitioner. I have reviewed the Nurse Practitioner's notes and agree with the documented findings and plan of care Patient Condition at Discharge: Stable Plan - Discharge Summary Discharge Rx Participant: No New Discharge Prescriptions: New ALPRAZolam [Xanax] 0.25 mg PO QID PRN tab PRN Reason: Anxiety Amoxicillin/Potassium Clav [Augmentin 875-125 Tablet] 1 tab PO Q12HR 7 Days # 14 tab Continue Metoprolol Succinate [Toprol XL] 100 mg PO DAILY Omeprazole [PriLOSEC] 40 mg PO BID amLODIPine [Norvasc] 5 mg PO DAILY HYDROcodone/APAP 10-325MG [[place] 10-325] 1 tab PO Q4HR PRN PRN Reason: Pain Citalopram Hydrobromide [CeleXA] 40 mg PO BID Aspirin [Adult Low Dose Aspirin EC] 81 mg PO DAILY PRN PRN Reason: Chest Pain Magnesium 200 mg PO DAILY Discharge Medication List Metoprolol Succinate [Toprol XL] 100 mg PO DAILY 04/30/14 [History] Omeprazole [PriLOSEC] 40 mg PO BID 04/30/14 [History] Aspirin [Adult Low Dose Aspirin EC] 81 mg PO DAILY PRN 11/15/18 [History] Citalopram Hydrobromide [CeleXA] 40 mg PO BID 11/15/18 [History] HYDROcodone/APAP 10-325MG [[place] 10-325] 1 tab PO Q4HR PRN 11/15/18 [History] Magnesium 200 mg PO DAILY 11/15/18 [History] amLODIPine [Norvasc] 5 mg PO DAILY 11/15/18 [History] ALPRAZolam [Xanax] 0.25 mg PO QID PRN tab 11/26/18 [Rx] Amoxicillin/Potassium Clav [Augmentin 875-125 Tablet] 1 tab PO Q12HR 7 Days #14 tab 11/26/18 [Rx] Follow up Appointment(s)/Referral(s): [facility], [NON-STAFF] - Madelyn Kelsey DO [Primary Care Provider] - 1-2 days Supa Zhou MD [STAFF PHYSICIAN] - 4 Weeks Reginaldo Resendez DO [Doctor of Osteopathic Medicine] - 1 Week Activity/Diet/Wound Care/Special Instructions: Diet dysphagia level III chopped 11 supervision fluid restriction of 1500ml Activity as tolerated Discharge Disposition: TRANSFER TO SNF/ECF
[2018-11-26 16:14] VITALS: PULSE 88
--- NOTE | 2018-11-26 17:51 | P.PN ---
Subjective Progress Note Date: 11/26/18 Principal diagnosis: Suspicious scan findings initially, no osseous metastatic disease. Iron deficient anemia. Suspicious findings on CT chest Pt f/u today he has no c/o Objective - Vital Signs Vital signs: Vital Signs Temp 97.3 F L 11/26/18 13:41 Pulse 88 11/26/18 16:13 Resp 18 11/26/18 13:41 BP 140/77 11/26/18 13:41 Pulse Ox 96 11/26/18 13:41 Intake & Output 11/25/18 11/26/18 11/26/18 18:59 06:59 18:59 Intake Total 675 Output Total 200 Balance -200 675 Weight 70.76 kg Intake: Oral 675 Output: Urine 200 Other: Voiding Method Urinal # Voids 600 4 3 # Bowel Movements 0 - Constitutional General appearance: Present: average body habitus, cooperative, no acute distress - EENT Eyes: Present: anicteric sclerae, EOMI ENT: Present: hearing grossly normal - Respiratory Respiratory: bilateral: CTA - Cardiovascular Heart sounds: normal: S1, S2 - Gastrointestinal General gastrointestinal: Present: normal bowel sounds - Integumentary Integumentary: Present: pale - Musculoskeletal Musculoskeletal: Present: generalized weakness - Psychiatric Psychiatric: Present: A&O x's 3, appropriate affect - Labs CBC & Chem 7: 11/26/18 06:58 11/26/18 06:58 Labs: Abnormal Lab Results - Last 24 Hours (Table) 11/26/18 11/26/18 Range/Units 06:58 06:58 WBC 12.2 H (3.8-10.6) k/uL RBC 3.40 L (4.30-5.90) m/uL Hgb 9.8 L (13.0-17.5) gm/dL Hct 30.8 L (39.0-53.0) % Plt Count 627 H (150-450) k/uL Neutrophils # 10.1 H (1.3-7.7) k/uL Sodium 132 L (137-145) mmol/L Creatinine 0.46 L (0.66-1.25) mg/dL Calcium 8.3 L (8.4-10.2) mg/dL Total Protein 5.4 L (6.3-8.2) g/dL Albumin 2.6 L (3.5-5.0) g/dL Microbiology - Last 24 Hours (Table) 11/21/18 11:30 Gram Stain - Final Pleural Fluid Body Fluid Culture - Final Assessment and Plan (1) Lung nodule, solitary Narrative/Plan: Pleural fluid was negative for malignant cells. Pulm will cont to follow pt for the nodule. Current Visit: Yes Status: Acute Priority: High Code(s): R91.1 - SOLITARY PULMONARY NODULE SNOMED Code(s): 921632704 (2) Iron deficiency anemia Narrative/Plan: Iron replaced, Hgb stable. F/U Dr. Zhou 1 month for recheck Current Visit: Yes Status: Chronic Priority: Medium Code(s): D50.9 - IRON DEFICIENCY ANEMIA, UNSPECIFIED SNOMED Code(s): 04398591 (3) History of prostate cancer Current Visit: Yes Status: Chronic Priority: Low Code(s): Z85.46 - PERSONAL HISTORY OF MALIGNANT NEOPLASM OF PROSTATE SNOMED Code(s): 484307677 (4) Pleural effusion Current Visit: Yes Status: Resolved Priority: High Code(s): J90 - PLEURAL EFFUSION, NOT ELSEWHERE CLASSIFIED SNOMED Code(s): 24328093
== END 2018-11-26 18:53 | DRG 177 ==
LOC: EC 10:44 → 4MS4W 16:54 → EEVIPCON 16:54
PROVIDERS: ADMIT Internal Medicine; ATTEND Internal Medicine
PROC: 0W993ZX Drainage of Right Pleural Cavity, Percutaneous Approach, Diagnostic (ICD-10-PCS; principal; 2018-11-21)
PROC: 0W9B3ZX Drainage of Left Pleural Cavity, Percutaneous Approach, Diagnostic (ICD-10-PCS; 2018-11-22)
DX: J69.0 Pneumonitis due to inhalation of food and vomit (principal); J96.01 Acute respiratory failure with hypoxia; E87.1 Hypo-osmolality and hyponatremia; E87.2 Acidosis; J90 Pleural effusion, not elsewhere classified; J98.11 Atelectasis; D50.9 Iron deficiency anemia, unspecified; D53.9 Nutritional anemia, unspecified; E78.5 Hyperlipidemia, unspecified; E83.42 Hypomagnesemia; E86.0 Dehydration; F41.9 Anxiety disorder, unspecified; I10 Essential (primary) hypertension; J00 Acute nasopharyngitis [common cold]; K21.9 Gastro-esophageal reflux disease without esophagitis; Z87.19 Personal history of other diseases of the digestive system; K44.9 Diaphragmatic hernia without obstruction or gangrene; M19.90 Unspecified osteoarthritis, unspecified site; Q16.0 Congenital absence of (ear) auricle; Z79.82 Long term (current) use of aspirin; Z79.899 Other long term (current) drug therapy; Z80.9 Family history of malignant neoplasm, unspecified; Z82.1 Family history of blindness and visual loss; Z81.1 Family history of alcohol abuse and dependence; Z98.49 Cataract extraction status, unspecified eye; Z96.89 Presence of other specified functional implants; Z85.46 Personal history of malignant neoplasm of prostate; Z87.891 Personal history of nicotine dependence; Z90.49 Acquired absence of other specified parts of digestive tract; Z92.3 Personal history of irradiation; M79.18 Myalgia, other site; R91.1 Solitary pulmonary nodule; R94.5 Abnormal results of liver function studies
CPT/HCPCS: 36415; 71045; 71046; 71260; 74176; 76604; 78306; 80053; 81003; 82042; 82550; 82553; 82607; 82728; 82746; 82945; 83540; 83550; 83605; 83615; 83735; 83880; 83883; 83921; 84153; 84157; 84165; 84484; 85025; 85045; 85610; 85730; 86334; 87040; 87070; 87102; 87116; 87205; 87206; 87252; 87496; 87498; 87502; 87529; 87634; 87798; 88108; 88305; 88341; 88342; 89050; 93005; 94640; 94760; 96361; 96365; 96366; 96367; 96375; 96376; 99285

== ENCOUNTER → 2018-12-06 | Outpatient (CLI) | payer MEDICARE, OTHER ==
--- NOTE | 2018-12-06 12:25 | FL ---
EXAMINATION TYPE: FL barium swallow w video DATE OF EXAM: 12/06/2018 MODIFIED SWALLOW / DEGLUTITION STUDY CLINICAL HISTORY: Dysphagia. TECHNIQUE: Deglutition study is performed utilizing thin liquid barium, honey and nectar thick liqui d barium, barium thick applesauce, and barium coated cracker. 294 fluoroscopic images were sent and s aved. Fluoroscopy time of 3 minutes and 20 seconds was utilized. COMPARISON: None. FINDINGS: The oral and pharyngeal phases show satisfactory initiation and propagation with all modali ties tested. Normal mastication is seen with solid modalities tested. There is no evidence of penet ration or aspiration with any modality tested. No significant pharyngeal residue was appreciated. Anterior was performed with liquid barium and evaluation of the distal esophageal stent with no signi ficant stricture seen, however on ingestion of the additional consistencies of increased viscosity st asis was identified through the esophageal stent and within the surrounding sleetmute distal esophagus w ith delayed propulsion and abnormal contractility. IMPRESSION: 1. Normal deglutition study. Please refer to speech therapist notes for further details if necessar y. 2. Mild esophageal stasis is seen within the distal esophageal stent with abnormal motility and delay ed passage of multiple barium consistencies through the surrounding sleetmute distal esophagus. No gross evidence of stricture.
== END ==
LOC: RADFLMAIN 10:44
PROVIDERS: ATTEND Internal Medicine
DX: K22.2 Esophageal obstruction (principal)
CPT/HCPCS: 74230

== ENCOUNTER → 2019-01-30 | Outpatient (CLI) | payer MEDICARE, OTHER ==
[2019-01-30 17:36] LABS: Blood Urea Nitrogen 17 mg/dL (9-20)
--- NOTE | 2019-01-31 10:04 | CT ---
EXAMINATION TYPE: CT chest w con DATE OF EXAM: 01/30/2019 COMPARISON: CT chest 11/19/2018, chest x-ray 11/22/2018 HISTORY: abnormal cxr. Recent pneumonia. CT DLP: 223.6 mGycm, Automated exposure control for dose reduction was used. CONTRAST: Performed injected with 100 mL of Isovue 300. TECHNIQUE: Axial images were obtained at 5 mm thick sections. Reconstructed images are reviewed on [employer] computer in the coronal plane. FINDINGS: Portion of the thyroid visualized is normal. There is a loculated fluidlike collection measuring 20 Hounsfield units in the left lower lobe. This measures 5.2 x 10.5 cm. This appears more complex at the base. Empyema could be considered. Cavitatio n of a infectious etiology or neoplastic etiology could be considered. Wall appears more suggestive f or infectious etiology. Small left pleural effusion is also present. The previous left pleural effusi on is largely resolved otherwise. Previous right pleural effusion is absent. Coronary artery calcification is present. No enlarged mediastinal or hilar adenopathy is evident. The ascending aorta diameter at the level o f the main pulmonary artery is 3.3 cm. The main pulmonary artery diameter at the bifurcation is 2.[address] sections are obtained through the upper abdomen. There is a stent through the distal esoph henry. Upper abdomen within the [id number] appears unremarkable. IMPRESSIONS: 1. Loculated collection within the posterior left lung base may be a loculated pleural fluid collecti on. Empyema should be considered. Cavitary neoplasm is considered less likely given the changes from the prior CT. 2. Minimal residual left pleural effusion
== END | disposition home or self-care (01) ==
LOC: RADCTMAIN 16:43
PROVIDERS: ATTEND Family Medicine
DX: J90 Pleural effusion, not elsewhere classified (principal); R91.8 Other nonspecific abnormal finding of lung field
CPT/HCPCS: 82565; 84520; 71260; 36415; Q9967

== ENCOUNTER → 2020-05-11 | Outpatient (CLI) | payer MEDICARE, OTHER ==
--- NOTE | 2020-05-11 12:47 | FL ---
Barium swallow HISTORY: Dysphagia 1 minute 16 seconds fluoroscopy time, 31 images obtained Patient was given high density barium to drink. Swallowing mechanism is normal. There is a stent thor acic esophagus. Distal level of the stent there is an angled appearance however there is a widely pat ent appearance of the stent. No evident reflux. No evident erosion. Surgical clips present in the rig ht upper quadrant. IMPRESSION: Postprocedural changes.
== END | disposition home or self-care (01) ==
LOC: RADUSWWP 09:50
PROVIDERS: ATTEND Thoracic Surgery (Cardiothoracic Vascular Surgery)
DX: R13.10 Dysphagia, unspecified (principal); Z98.890 Other specified postprocedural states
CPT/HCPCS: 74220

== ENCOUNTER 2021-08-30 09:09 | Day surgery (SDC) | payer MEDICARE, OTHER ==
[2021-08-27 10:03] VITALS: BMI 23.7
[~2021-08-30 09:09] MED LIST changes: -LIDOCAINE 1% 20 ML VIAL (10MG/ML) FOR IV START INTRADERMA PRN
[2021-08-30 10:31] VITALS: TEMP 97.7
[2021-08-30] MEDS ORDERED: PROPOFOL 10 MG/ML 20 ML VIAL IV ONE (11:18)
[2021-08-30] MEDS ORDERED: LIDOCAINE 1% INJ 10MG/ML (20 ML MDV) ONE (11:18)
--- NOTE | 2021-08-30 11:20 | P.GSHP ---
History of Present Illness H&P Date: 08/30/21 Chief Complaint: Rectal bleeding This 81-year-old male been safe for colonoscopy. He's had issues with rectal bleeding Past Medical History Past Medical History: Cancer, GERD/Reflux, GI Bleed, Hyperlipidemia, Hypertension, Osteoarthritis (OA) Additional Past Medical History / Comment(s): esophageal stricture, hiatal hernia, prostate cancer 7 yrs. ago-had radiation tx, rectal bleeding congenital absence of external ears(sx), hiatal hernia. History of Any Multi-Drug Resistant Organisms: None Reported Past Surgical History: Cholecystectomy Additional Past Surgical History / Comment(s): mult EGD's. 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 Esophageal dilatations, esophageal stent, colonoscopy ,cataracts. Past Anesthesia/Blood Transfusion Reactions: Previous Problems w/ Anesthesia, Postoperative Nausea & Vomiting (PONV) Additional Past Anesthesia/Blood Transfusion Reaction / Comment(s): problem with intubation-"uses special equipment" per niece. small airway & palate, niece states had a trach after a procedure and went to ICU. Smoking Status: Former smoker - Past Family History Sister(s) Family Medical History: Cancer Mother History Unknown: Yes Additional Family Medical History / Comment(s): great niece stated pt's mom may have had syphyllis Father Additional Family Medical History / Comment(s): Blind, from alcoholism. Medications and Allergies Home Medications Medication Instructions Recorded Confirmed Type Metoprolol Succinate [Toprol XL] 100 mg PO DAILY 04/30/14 08/30/21 History Omeprazole [PriLOSEC] 40 mg PO BID 04/30/14 08/30/21 History Citalopram Hydrobromide [CeleXA] 40 mg PO BID 11/15/18 08/30/21 History HYDROcodone/APAP 10-325MG [[place] 1 tab PO Q4HR PRN 11/15/18 08/30/21 History 10-325] Magnesium 200 mg PO DAILY 11/15/18 08/30/21 History amLODIPine [Norvasc] 5 mg PO DAILY 11/15/18 08/30/21 History Allergies Allergy/AdvReac Type Severity Reaction Status Date / Time No Known Allergies Allergy Verified 08/30/21 10:12 Surgical - Exam Vital Signs Temp Pulse Resp BP Pulse Ox 97.7 F 104 H 20 151/81 98 08/30/21 10:25 08/30/21 10:25 08/30/21 10:25 08/30/21 10:25 08/30/21 10:25 - General well developed, well nourished, no distress - Eyes PERRL - ENT normal pinna - Neck no masses - Respiratory normal expansion - Cardiovascular Rhythm: regular - Abdomen Abdomen: soft, non tender Assessment and Plan Assessment: Rectal bleeding. We'll perform colonoscopy.
--- NOTE | 2021-08-30 11:36 | P.OP ---
Date of Procedure: 08/30/21 Preoperative Diagnosis: Rectal bleeding Postoperative Diagnosis: Mild diverticulosis Procedure(s) Performed: Colonoscopy Anesthesia: MAC Surgeon: Delmar España Pathology: none sent Condition: stable Disposition: PACU Description of Procedure: The patient's placed on the endoscopy table in the lateral position. He received IV sedation. Digital rectal exam was performed which revealed a few external hemorrhoids the flexible colonoscope was then placed patient anus and passed throughout the entire colon. The ileocecal valve was visualized. The cecum, ascending and transverse colon appeared normal. In the descending and sigmoid colon there is mild diverticulosis. Scope summer back the rectum and this appeared normal. Scope was then withdrawn for patient. There was no evidence of lower GI bleed. Presumed patient's previous bleeding may be due to diverticulosis.
[2021-08-30 11:46] VITALS: RESP 16
[2021-08-30 11:54] VITALS: BP 159/89; PULSE 85
== END 2021-08-30 12:21 | disposition home or self-care (01) ==
LOC: ORWHC2ENDO 09:09
PROVIDERS: ATTEND Surgery
DX: K62.5 Hemorrhage of anus and rectum (principal); K57.90 Diverticulosis of intestine, part unspecified, without perforation or abscess without bleeding; K21.9 Gastro-esophageal reflux disease without esophagitis; E78.5 Hyperlipidemia, unspecified; I10 Essential (primary) hypertension; M19.90 Unspecified osteoarthritis, unspecified site; Z87.891 Personal history of nicotine dependence; Z85.46 Personal history of malignant neoplasm of prostate; Z92.3 Personal history of irradiation; Z79.899 Other long term (current) drug therapy
CPT/HCPCS: 45378; J2001; J2704

== ENCOUNTER → 2023-12-13 | Outpatient (CLI) | payer MEDICARE, OTHER ==
[2023-12-13 16:33] LABS: % Iron Saturation 20.57 (15.00-50.00); ALT 12 U/L (10-49); AST 13 U/L (14-35); Albumin 4.1 g/dL (3.8-4.9); Albumin/Globulin Ratio 1.46 Ratio (1.60-3.17); Alkaline Phosphatase 63 U/L (41-126); BUN/Creat Ratio 19.88 Ratio (12.00-20.00); Blood Urea Nitrogen 15.9 mg/dL (9.0-27.0); Calcium 9.2 mg/dL (8.7-10.3); Carbon Dioxide 24.5 mmol/L (21.6-31.8); Chloride 99 mmol/L (96-109); Chol/HDL Ratio 3.65 Ratio; Globulin 2.8 g/dL (1.6-3.3); Glucose 116 mg/dL (70-110); Iron 72 UG/DL (65-175); LDH 134 U/L (120-246); LDL Cholesterol,Calculated 102.1 mg/dL (0.0-131.0); Potassium 4.3 mmol/L (3.5-5.5); Rheumatoid Factor, Qnt <15 IU/mL (0-15); Sodium 135 mmol/L (135-145); Total Bilirubin 0.2 mg/dL (0.3-1.2); Total Iron Binding Capacity 350 UG/DL (228-460); Total Protein 6.9 g/dL (6.2-8.2)
[2023-12-13 16:48] LABS: HCT 31.9 % (39.6-50.0); HGB 10.5 g/dL (13.0-17.0); MCH 29.1 pg (27.0-32.0); MCHC 32.9 g/dL (32.0-37.0); MCV 88.4 FL (80.0-97.0); Mean Platelet Volume 10.9 FL (9.5-12.2); NRBC Per 100 WBC 0 X 10*3/uL (0.00-0.01); Platelet Count 260 X 10*3/uL (140-440); RBC 3.61 X 10*6/uL (4.40-5.60); RDW 15.9 % (11.5-14.5); WBC 7.08 X 10*3/uL (4.50-10.00)
[2023-12-13 17:11] LABS: Erythrocyte Sedimentation Rate 30 mm/Hr (0-20)
== END | disposition home or self-care (01) ==
LOC: LABWHC1 09:04
PROVIDERS: ATTEND Physician Assistant
DX: D50.9 Iron deficiency anemia, unspecified (principal); R50.9 Fever, unspecified; R61 Generalized hyperhidrosis
CPT/HCPCS: 36415; 80053; 80061; 83036; 83540; 83550; 83615; 84443; 85027; 85652; 86038; 86140; 86308; 86431

== ENCOUNTER 2024-11-13 20:04 | Inpatient (IN) | payer MEDICARE, OTHER ==
--- NOTE | 2024-11-13 20:42 | ED ---
Chest Pain HPI - General Chief Complaint: Chest Pain Stated Complaint: SOB Time Seen by Provider: 11/13/24 20:28 Source: patient, EMS Mode of arrival: EMS - History of Present Illness Initial Comments: 84-year-old male presenting with chief complaint of shortness of breath. Patient reports that he has had pain in the center of his back that is sharp and squeezing. States that he has been coughing and has been trying to cough up sputum in his chest. He has had a subjective fever on and off. No lower extremity swelling. He has had some nausea and vomiting as well. Some epi gastric abdominal discomfort. - Related Data Home Medications Medication Instructions Recorded Confirmed Metoprolol Succinate [Toprol XL] 100 mg PO DAILY 04/30/14 08/30/21 Omeprazole [PriLOSEC] 40 mg PO BID 04/30/14 08/30/21 Citalopram Hydrobromide [CeleXA] 40 mg PO BID 11/15/18 08/30/21 HYDROcodone/APAP 10-325MG [[place] 1 tab PO Q4HR PRN 11/15/18 08/30/21 10-325] Magnesium 200 mg PO DAILY 11/15/18 08/30/21 amLODIPine [Norvasc] 5 mg PO DAILY 11/15/18 08/30/21 Allergies Allergy/AdvReac Type Severity Reaction Status Date / Time No Known Allergies Allergy Verified 08/30/21 10:12 Review of Systems ROS Statement: Those systems with pertinent positive or pertinent negative responses have been documented in the HPI. ROS Other: All systems not noted in ROS Statement are negative. Past Medical History Past Medical History: Cancer, GERD/Reflux, GI Bleed, Hyperlipidemia, Hypertension, Osteoarthritis (OA) Additional Past Medical History / Comment(s): esophageal stricture, hiatal hernia, prostate cancer 7 yrs. ago-had radiation tx, rectal bleeding congenital absence of external ears(sx), hiatal hernia. History of Any Multi-Drug Resistant Organisms: None Reported Past Surgical History: Cholecystectomy Additional Past Surgical History / Comment(s): mult EGD's. 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 Esophageal dilatations, esophageal stent, colonoscopy ,cataracts. Past Anesthesia/Blood Transfusion Reactions: Previous Problems w/ Anesthesia, Postoperative Nausea & Vomiting (PONV) Additional Past Anesthesia/Blood Transfusion Reaction / Comment(s): problem with intubation-"uses special equipment" per niece. small airway & palate, niece states had a trach after a procedure and went to ICU. Past Psychological History: No Psychological Hx Reported Smoking Status: Former smoker - Past Family History Sister(s) Family Medical History: Cancer Mother History Unknown: Yes Additional Family Medical History / Comment(s): great niece stated pt's mom may have had syphyllis Father Additional Family Medical History / Comment(s): Blind, from alcoholism. General Exam Limitations: no limitations General appearance: alert, in no apparent distress Head exam: Present: atraumatic, normocephalic, normal inspection Eye exam: Present: normal appearance, EOMI Neck exam: Present: normal inspection. Absent: meningismus Respiratory exam: Present: rhonchi. Absent: respiratory distress, wheezes, rales, stridor Cardiovascular Exam: Present: regular rate, normal rhythm, normal heart sounds. Absent: systolic murmur, diastolic murmur, rubs, gallop, clicks Extremities exam: Absent: pedal edema Neurological exam: Present: alert, oriented X3 Psychiatric exam: Present: normal affect, normal mood Skin exam: Present: warm, dry Course Vital Signs 11/13/24 11/13/24 20:15 20:23 Temperature 98.0 F Pulse Rate 84 84 Respiratory 18 18 Rate Blood Pressure 168/82 O2 Sat by Pulse 95 96 Oximetry Chest Pain MDM - [facility] EKG shows sinus rhythm ventricular rate 81. WA interval 194. QRS 94. QT 376. QTc 414. No ST deviation. Was pt. sent in by a medical professional or institution (, PA, PHOTOCOPYING EQUIPMENT REPAIRER, urgent care, hospital, or long term...) When possible be specific @ -No Did you speak to anyone other than the patient for history (EMS, parent, family, police, friend...)? What history was obtained from this source @ -No Did you review nursing and triage notes (agree or disagree)? Why? @ -I reviewed and agree with nursing and triage notes Were old charts reviewed (outside hosp., previous admission, EMS record, old EKG, old radiological studies, urgent care reports/EKG's, long term records)? Report findings @ -No old charts were reviewed Differential Diagnosis (chest pain, altered mental status, abdominal pain women, abdominal pain men, vaginal bleeding, weakness, fever, dyspnea, syncope, headache, dizziness, GI bleed, back pain, seizure, CVA, palpatations, mental health, musculoskeletal)? @ -MDM Differential Dyspnea: Coronary syndrome, arrhythmia, tamponade, asthma, COPD, pulmonary embolism, pneumonia, pneumothorax, pulmonary effusion, anaphylaxis, diabetic ketoacidosis, flailed chest, pulmonary contusion, diaphragmatic rupture, anemia, neuromuscular this is not meant to be an all-inclusive list. EKG interpreted by me (3pts min.). @ -As above X-rays interpreted by me (1pt min.). @ -Chest x-ray shows no acute process. By my interpretation there seems to be some hazy opacities at the lung bases CT interpreted by me (1pt min.). @ -CT shows no evidence for acute pulmonary embolism. Suboptimal study areas of developing acute infiltrate in the lower lungs cannot be excluded. Focal moderate to severe wall thickening in the mid to distal esophagus with some dilatation and air-fluid level proximal to this. Patient has history of prior stent. Consider stricture versus neoplasm at this level. U/S interpreted by me (1pt. min.). @ -None done What testing was considered but not performed or refused? (CT, X-rays, U/S, labs)? Why? @ -None What meds were considered but not given or refused? Why? @ -None Did you discuss the management of the patient with other professionals (professionals i.e. , PA, PHOTOCOPYING EQUIPMENT REPAIRER, lab, RT, psych nurse, social work job titles, lombardi developer, teacher, project control officer, gearcase assembler)? Give summary @ -Spoke with Rosemary Negrete from [facility] who accepts admission Was smoking cessation discussed for >3mins.? @ -No Was critical care preformed (if so, how long)? @ -No Were there social determinants of health that impacted care today? How? (Homelessness, low income, unemployed, alcoholism, drug addiction, t ransportation, low edu. Level, literacy, decrease access to med. care, [facility], rehab)? @ -No Was there de-escalation of care discussed even if they declined (Discuss DNR or withdrawal of care, Hospice)? DNR status @ -No What co-morbidities impacted this encounter? (DM, HTN, Smoking, COPD, CAD, Cancer, CVA, ARF, Chemo, Hep., AIDS, mental health diagnosis, sleep apnea, morbid obesity)? @ -None Was patient admitted / discharged? Hospital course, mention meds given and route, prescriptions, significant lab abnormalities, going to OR and other pertinent info. @ -84-year-old male presenting with chief complaint of shortness of breath, chest pain with radiation to the back, and productive cough. On examination there are Rales heard throughout the lung bases. No leukocytosis. Negative troponin. D-dimer 0.63. CT is negative for pulmonary embolism but shows possible developing infiltrates at the lung bases. Considering the patient's presentation we will treat for pneumonia with Rocephin and azithromycin. We will trend troponins. Patient will be admitted. Patient is agreeable with this plan. I discussed this case with my attending Dr. Campos Undiagnosed new problem with uncertain prognosis? @ -No Drug Therapy requiring intensive monitoring for toxicity (Heparin, Nitro, Insulin, Cardizem)? @ -No Were any procedures done? @ -No Diagnosis/symptom? @ -Pneumonia Acute, or Chronic, or Acute on Chronic? @ -Acute Uncomplicated (without systemic symptoms) or Complicated (systemic symptoms)? @ -Complicated Side effects of treatment? @ -No Exacerbation, Progression, or Severe Exacerbation? @ -No Poses a threat to life or bodily function? How? (Chest pain, [place], [place], pneumonia, PE, COPD, DKA, ARF, appy, cholecystitis, CVA, Diverticulitis, Homicidal, Suicidal, threat to staff... and all critical care pts) @ -Yes Disposition Clinical Impression: Pneumonia Disposition: ADMITTED IP TO THIS HOSP Condition: Fair Referrals: None,Stated [REFERRING] - 1-2 days Time of Disposition: 22:29
[2024-11-13 20:58] LABS: HCT 32.5 % (39.0-53.0); HGB 10.8 gm/dL (13.0-17.5); MCHC 33.4 g/dL (31.0-37.0); Mean Platelet Volume 8.1; Platelet Count 236 k/uL (150-450); RBC 3.73 m/uL (4.30-5.90); RDW 14.7 % (11.5-15.5); WBC 6.7 k/uL (3.8-10.6)
[2024-11-13] MEDS: ASPIRIN 81 MG PO STA (20:59)
--- NOTE | 2024-11-13 20:59 | XR ---
EXAMINATION TYPE: XR chest 2V DATE OF EXAM: 11/13/2024 8:51 PM COMPARISON: Chest CTA from 08/11/2019 CLINICAL INDICATION: Male, 84 years old with history of Chest Pain, TECHNIQUE: Frontal and lateral views of the chest are obtained. FINDINGS: Focal elevation and eventration anterior aspect right hemidiaphragm. There is no focal air space opacity, pleural effusion, or pneumothorax seen. The cardiac silhouette size is within normal limits. The osseous structures are intact. IMPRESSION: No acute process. [facility], , 11/13/2024 8:56 PM
[2024-11-13 21:16] LABS: ALT 33 U/L (4-49); AST 31 U/L (17-59); African American GFR (CKD) >90 (>60 ml/min/1.73 sqM); Albumin 4.4 g/dL (3.5-5.0); Alkaline Phosphatase 59 U/L (38-126); Anion Gap 11 mmol/L; Blood Urea Nitrogen 21 mg/dL (9-20); Calcium 9.3 mg/dL (8.4-10.2); Carbon Dioxide 27 mmol/L (22-30); Chloride 93 mmol/L (98-107); Glucose 108 mg/dL (74-99); Non-African American GFR(CKD) 86 (>60 ml/min/1.73 sqM); Potassium 4.6 mmol/L (3.5-5.1); Sodium 131 mmol/L (137-145); Total Bilirubin 0.4 mg/dL (0.2-1.3); Total Protein 7.1 g/dL (6.3-8.2)
[2024-11-13 21:31] LABS: INR 0.9 (<1.2); Partial Thromboplastin Time 22.3 sec (22.0-30.0); Prothrombin Time 10.5 sec (10.0-12.5)
--- NOTE | 2024-11-13 22:07 | CT ---
EXAMINATION TYPE: CT chest angio for PE DATE OF EXAM: 11/13/2024 COMPARISON: CT chest January 30, 2019. Chest x-ray earlier today. HISTORY: Patient in by EMS with complaint of SOB with chest pain, nausea and vomiting. Pain is 10/10 radiating to back and characterized as sharp. Onset of symptoms 5 days ago. Elevated dimer .63 CT DLP: 525.9 mGycm. Automated Exposure Control for Dose Reduction was Utilized. CONTRAST: CTA scan of the thorax is performed with IV Contrast, patient injected with 100ml mL of Isovue 370, p ulmonary embolism protocol. MIP Images are created on CT scanner and reviewed. FINDINGS: LUNGS: Evaluation is suboptimal as there is motion artifact particularly in the lower lungs. This dubose its evaluation particularly for subcentimeter nodules. Some faint areas of increased opacity in the p eriphery of the lower lungs are seen. There is no pleural effusion or pneumothorax seen. The tracheo bronchial tree is patent. MEDIASTINUM: There is satisfactory enhancement of the pulmonary artery and its branches, there is no CT evidence for pulmonary embolism. There is enhancement of the aorta without aneurysm or dissection . No cardiomegaly or pericardial effusion. Coronary artery calcification is redemonstrated. There is air-fluid level in the proximal and mid esophagus with moderate to severe wall thickening at the subc arinal level. OTHER: Cholecystectomy clips are noted. Small degree of bilateral gynecomastia is redemonstrated. Sco liotic curvature is present. IMPRESSION: 1. No CT evidence for acute pulmonary embolism. 2. Suboptimal study. Areas of developing acute infiltrate in the lower lungs cannot be excluded. Marques elate clinically. 3. Focal [id number] wall thickening in the mid to distal esophagus with some dilatation and a ir-fluid level proximal to this. Patient has history of prior stent. Consider stricture versus neopla sm at this level. Correlate clinically to determine need for further workup. [facility], , 11/13/2024 10:05 PM
[2024-11-13 22:22] LABS: Lymphocytes # (M) 2.95 k/uL (1.0-4.8); Monocytes # (M) 0.34 k/uL (0-1.0); Neutrophils # (M) 3.22 k/uL (1.3-7.7); Neutrophils % (M) 48 %; Nucleated Red Blood Cells 0 /100 WBC (0-0); Total Cells Counted 100
[2024-11-13] MEDS ORDERED: NALOXONE 0.4 MG/ML 1 ML VIAL IV PRN (22:40)
[2024-11-13] MEDS: SODIUM CHLORIDE 0.9% 1,000 ML IV SCH (23:00)
[2024-11-13] MEDS: AZITHROMYCIN 500 MG in SODIUM CHLORIDE 0.9% 250 ML IVPB STA (23:00)
[2024-11-14] MEDS: MELATONIN 5 MG TABLET PO SCH (02:04)
[2024-11-14] MEDS: hydrALAZINE HCL 20 MG/ML 1 ML VIAL IVP STA (08:02)
[2024-11-14] MEDS: METOPROLOL SUCCINATE (ER) 100 MG TAB.ER.24H PO SCH (09:03)
[2024-11-14] MEDS: amLODIPine 5 MG TAB PO SCH (09:03)
[2024-11-14] MEDS: ESCITALOPRAM 20 MG TAB PO SCH (10:35)
[2024-11-14] MEDS: busPIRone HCl 10 MG TAB PO SCH (10:35)
[2024-11-14] MEDS: HYDROcodone/APAP 10-325MG 1 EACH TAB PO PRN (10:39)
--- NOTE | 2024-11-14 13:35 | P.CRDCN ---
History of Present Illness Consult date: 11/14/24 Reason for Consult (text): Afib with RVR History of present illness: This is an 84-year-old male does not follow with a chief architect with past medical history of esophageal stricture, GERD, hiatal hernia, hypertension, hyperlipidemia, prostate cancer, congenital absence of external ears. We have been asked to evaluate the patient for A-fib with RVR. Patient was found this morning to have heart rate that was running between 120s and 150s. Patient received a beta-rolando and the heart rate came down to the 80s. Patient denies having been told that he had atrial fibrillation. Unable to find atrial fibrillation in his history. Patient denies having chest pain no shortness of breath, no lightheadedness or dizziness, no palpitations. He denies history of CVA or TIA. He denies any blood in his urine or stool. Blood pressure 103/70, heart rate 100, pulse ox 94% on 2 L nasal cannula. Patient was brought into the hospital due to shortness of breath and also pain in the center of his back, coughing and sputum production. Patient was diagnosed with pneumonia and started on IV antibiotics. -EKG: Taken on 11/13 at 2020: Sinus rhythm. #2 atrial fibrillation at 113 bpm -Chest x-ray: No acute process. -CTA of the chest: No acute pulmonary embolism. Suboptimal study. Areas of developing acute infiltrate in the lower lungs cannot be excluded. -Laboratory studies: WBC 6.7, hemoglobin 10.8, D-dimer 0.63, sodium 131, potassium 4.6, BUN 21, creatinine 0.72. Troponin negative x 3. -Home cardiac medications: Amlodipine 5 mg daily, metoprolol succinate 100 mg daily. Review Of Systems: At the time of my exam: CONSTITUTIONAL: Denies fever or chills. HEENT: Denies blurred vision, vision changes, or eye pain. Denies hemoptysis CARDIOVASCULAR: Denies chest pain. Denies orthopnea. Denies PND. Denies palpitations RESPIRATORY: Reports cough with sputum production, reports shortness of breath. GASTROINTESTINAL: Denies abdominal pain. Denies nausea or vomiting. HEMATOLOGIC: Denies bleeding disorders. GENITOURINARY: Denies any blood in urine. SKIN: Denies puritis. Denies rash. Physical examination: Gen: This is an 84-year-old male in no acute distress VS: reviewed HEENT: Head is atraumatic, normocephalic. Pupils equal, round. Sclerae is anicteric. NECK: Supple. No JVD. LUNGS: Diminished breath sounds. No intercostal retractions. HEART: Irregular rate and rhythm. ABDOMEN: Soft No tenderness. EXTREMITIES: No pedal edema. No calf tenderness. NEUROLOGICAL: Patient is awake, alert and oriented x3. Assessment: New onset paroxysmal atrial fibrillation with RVR currently rate controlled Pneumonia with concern for aspiration Esophageal strictures GERD Hiatal hernia Hypertension Hyperlipidemia History of prostate cancer Plan: Resume patient's home cardiac medications Patient will be started on Lovenox 100 mg twice daily Recommend GI evaluation for esophageal strictures Obtain 2-D echocardiogram and Doppler study to assess cardiac structure and function Further recommendations to follow based upon clinical course Thank you kindly for this consultation. Nurse practitioner note has been reviewed, I agree with documented findings and plan of care. Patient was seen and examined. Past Medical History Past Medical History: Cancer, GERD/Reflux, GI Bleed, Hyperlipidemia, Hypertension, Osteoarthritis (OA) Additional Past Medical History / Comment(s): esophageal stricture, hiatal hernia, prostate cancer 7 yrs. ago-had radiation tx, rectal bleeding congenital absence of external ears(sx), hiatal hernia. History of Any Multi-Drug Resistant Organisms: None Reported Past Surgical History: Cholecystectomy Additional Past Surgical History / Comment(s): mult EGD's. 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 Esophageal dilatations, esophageal stent, colonoscopy ,cataracts. Past Anesthesia/Blood Transfusion Reactions: Previous Problems w/ Anesthesia, Postoperative Nausea & Vomiting (PONV) Additional Past Anesthesia/Blood Transfusion Reaction / Comment(s): problem with intubation-"uses special equipment" per niece. small airway & palate, niece states had a trach after a procedure and went to ICU. Past Psychological History: No Psychological Hx Reported Additional Psychological History / Comment(s): pt lives with family. His niece takes him to his appt.'s Smoking Status: Former smoker Past Alcohol Use History: Abuse Additional Past Alcohol Use History / Comment(s): Quit smoking 2007, smoked cigarettes &/or pipe since teens, quit drinking 2006. Past Drug Use History: None Reported - Past Family History Sister(s) Family Medical History: Cancer Mother History Unknown: Yes Additional Family Medical History / Comment(s): great niece stated pt's mom may have had syphyllis Father Additional Family Medical History / Comment(s): Blind, from alcoholism. Medications and Allergies Home Medications Medication Instructions Recorded Confirmed Type Metoprolol Succinate [Toprol XL] 100 mg PO DAILY 04/30/14 11/14/24 History HYDROcodone/APAP 10-325MG [[place] 1 tab PO TID 11/15/18 11/14/24 History 10-325] amLODIPine [Norvasc] 5 mg PO DAILY 11/15/18 11/14/24 History Cariprazine HCl [Vraylar] 4.5 mg PO DAILY 11/14/24 11/14/24 History Cholecalciferol (Vitamin D3) 1,250 mcg PO Q7DAYS 11/14/24 11/14/24 History [Vitamin D3 (1250 Mcg = 50,000 Iu)] Escitalopram [Lexapro] 20 mg PO DAILY 11/14/24 11/14/24 History Esomeprazole Magnesium [NexIUM] 40 mg PO BID 11/14/24 11/14/24 History Metoclopramide [Reglan] 10 mg PO HS 11/14/24 11/14/24 History busPIRone HCl [Buspar] 10 mg PO BID 11/14/24 11/14/24 History Allergies Allergy/AdvReac Type Severity Reaction Status Date / Time No Known Allergies Allergy Verified 11/14/24 08:12 Physical Exam Vitals: Vital Signs Temp Pulse Pulse Resp BP BP Pulse Ox 11/14/24 11:17 100 16 103/70 94 L 11/14/24 08:50 152 H 20 167/82 11/14/24 08:29 84 18 167/76 95 11/14/24 08:02 87 20 220/98 11/14/24 01:05 97.6 F 75 18 164/85 95 11/14/24 00:47 98.4 F 76 18 130/78 98 11/13/24 22:51 80 18 160/76 94 L 11/13/24 20:23 84 18 168/82 96 11/13/24 20:15 98.0 F 84 18 95 Intake and Output 11/13/24 11/14/24 11/14/24 22:59 06:59 14:59 Intake Total 118 Balance 118 Intake: Oral 118 Other: # Voids 2 Weight 90.718 kg 90.718 kg Results 11/13/24 20:49 11/13/24 20:49 Cardiac Enzymes 11/13/24 11/13/24 11/13/24 Range/Units 20:49 20:49 23:37 AST 31 (17-59) U/L Troponin I <0.012 <0.012 (0.000-0.034) ng/mL 11/14/24 Range/Units 05:03 AST (17-59) U/L Troponin I 0.015 (0.000-0.034) ng/mL Coagulation 11/13/24 Range/Units 20:49 PT 10.5 (10.0-12.5) sec APTT 22.3 (22.0-30.0) sec CBC 11/13/24 Range/Units 20:49 WBC 6.7 (3.8-10.6) k/uL RBC 3.73 L (4.30-5.90) m/uL Hgb 10.8 L (13.0-17.5) gm/dL Hct 32.5 L (39.0-53.0) % Plt Count 236 (150-450) k/uL Comprehensive Metabolic Panel 11/13/24 Range/Units 20:49 Sodium 131 L (137-145) mmol/L Potassium 4.6 (3.5-5.1) mmol/L Chloride 93 L (98-107) mmol/L Carbon Dioxide 27 (22-30) mmol/L BUN 21 H (9-20) mg/dL Creatinine 0.72 (0.66-1.25) mg/dL Glucose 108 H (74-99) mg/dL Calcium 9.3 (8.4-10.2) mg/dL AST 31 (17-59) U/L ALT 33 (4-49) U/L Alkaline Phosphatase 59 (38-126) U/L Total Protein 7.1 (6.3-8.2) g/dL Albumin 4.4 (3.5-5.0) g/dL Current Medications Generic Name Dose Route Start Last Admin Trade Name Freq PRN Reason Stop Dose Admin Hydrocodone Bitart/Acetaminophen 1 each 11/14/24 09:01 11/14/24 10:39 Hydrocodone/Apap 10-325mg 1 Each Tab PO 1 each TID PRN Administration Pain Amlodipine Besylate 5 mg 11/14/24 09:00 11/14/24 09:03 Amlodipine 5 Mg Tab PO 5 mg DAILY LINH Administration Buspirone HCl 10 mg 11/14/24 09:15 11/14/24 10:35 Buspirone Hcl 10 Mg Tab PO 10 mg BID LINH Administration Ergocalciferol 1,250 mcg 11/21/24 09:00 Ergocalciferol 1,250 Mcg (50,000 Iu) Capsule PO Q7DAYS LINH Escitalopram Oxalate 20 mg 11/14/24 09:15 11/14/24 10:35 Escitalopram 20 Mg Tab PO 20 mg DAILY LINH Administration Sodium Chloride 1,000 mls @ 20 mls/hr 11/13/24 22:45 11/13/24 23:00 Saline 0.9% IV 20 mls/hr .Q24H LINH Administration Melatonin 5 mg 11/14/24 01:37 11/14/24 02:04 Melatonin 5 Mg Tablet PO 5 mg HS LINH Administration Metoprolol Succinate 100 mg 11/14/24 09:00 11/14/24 09:03 Metoprolol Succinate (Er) 100 Mg Tab.Er.24h PO 100 mg DAILY LINH Administration Naloxone HCl 0.2 mg 11/13/24 22:40 Naloxone 0.4 Mg/Ml 1 Ml Vial IV Q2M PRN Opioid Reversal Cariprazine Hcl [ 4.5 mg 11/14/24 09:15 11/14/24 09:11 Vraylar] 4.5 Mg PO Not Given Capsule DAILY LINH Intake and Output 11/13/24 11/14/24 11/14/24 22:59 06:59 14:59 Intake Total 118 Balance 118 Intake: Oral 118 Other: # Voids 2 Weight 90.718 kg 90.718 kg 11/13/24 20:49 11/13/24 20:49
[2024-11-14] MEDS: ENOXAPARIN 100 MG/ML SYRINGE SQ SCH (14:42)
[2024-11-14] MEDS ORDERED: IPRATROPIUM-ALBUTEROL 3 ML NEB INHALATION PRN (14:58)
--- NOTE | 2024-11-14 15:03 | P.HPIM ---
History of Present Illness H&P Date: 11/14/24 Chief Complaint: Pneumonia Patient is a 84-year-old male with GERD, hyperlipidemia, hypertension, osteoarthritis presented to the emergency department with shortness of breath, chest pain, nausea, vomiting for the past 5 days. Patient states that over the past 5 days his symptoms have gradually worsened and started producing a productive cough. He reports his chest pain to be sharp stabbing which radiates towards his back. His shortness of breath is also gradually getting worse. He also reports feeling nauseous and vomited a few times this morning. Patient also reports trouble swallowing. Patient denies fever, chills, belly pain, diarrhea or constipation. Denies any hematochezia or melena. He does not have any recent sick contacts. ED documentation reviewed. In the ED patient was treated with aspirin 324 mg p.o. x 1, Flomax 500 mg IV x 1, Rocephin 2 g IV x 1, hydralazine 10 mg IV x 1 Vitals on admission temperature 97.6, pulse rate 84, respiratory rate 18, blood pressure 167/76, O2 sat 95% on standby at 2 L/min EKG independently interpreted as sinus rhythm with ventricular rate of 81 bpm, QTc interval 414 ms CXR shows no acute process Chest CTA shows no CT evidence for acute pulmonary embolism. Suboptimal study. Areas of developing acute infiltrate in the lower lungs cannot be excluded. Focal moderate to severe wall thickening in the mid to distal esophagus with some dilatation and air-fluid level proximal to this. Patient has history of prior stent. Consider stricture versus neoplasm at this level. Labs on admission show WBC 6.7, hemoglobin 10.8, hematocrit 32.5, platelet 236, PT 10.5, PTT 22.3, INR 0.9, D-dimer 0.63, sodium 131, potassium 4.6, chloride 93, carbon dioxide 27, BUN 21, creatinine 0.72, glucose 108 Review of systems: Pertinent positives and negatives as discussed in HPI, a complete review of systems was performed and all other systems are negative. PMH: GERD, hyperlipidemia, hypertension, osteoarthritis PSH: Cholecystectomy, tracheostomy FMH: Mother may have had syphilis Allergies: No known drug allergies Social history: Tobacco: Former smoker Alcohol: No alcohol use Recreational drugs: No drug use Travel: No travel history Sick contacts: No recent sick contact Physical examination: Vital signs reviewed General: nontoxic, no distress, appears at stated age Derm: warm, dry, intact Head: atraumatic, normocephalic, symmetric Eyes: EOMI, anicteric sclera Mouth: no lip lesion, mucus membranes moist Cardiovascular: S1 S2 reg, no murmur Lungs: CTA bilateral, no rhonchi, no rales, no accessory muscle use Abdominal: soft, non-tender to palpation Extremities: No cyanosis, clubbing, or pedal edema. Neuro: Alert, Oriented, Gross neurological examination did not reveal any focal deficits. Psych: well appearing, appropriate affect Assessment/Plan: Patient is a 84-year-old male with GERD, hyperlipidemia, hypertension, osteoarthritis presented to the emergency department with shortness of breath. Patient will be admitted to internal medicine service. Active: #. Atypical pneumonia Chest CTA shows areas of developing acute infiltrate in the lower lungs cannot be excluded. WBC 6.7 Azithromycin 500 mg IV x 1 and Rocephin 2 g IV x 1 given in the ED Monitor morning CBC Continue cardiac monitoring Trend troponin Order procalcitonin Consulted pulmonology Order respiratory panel Continue Rocephin 2 g IV every 24 hours and azithromycin 500 mg daily Order serum mycoplasma IgG and IgM antibody Order urine Legionella antigen Order DuoNebs scheduled and as needed Consult speech therapy #. Hyponatremia Sodium 131 Continue normal saline at 75 cc an hour Monitor morning BMP #. Normocytic anemia Hemoglobin 10.8 MCV 87 Monitor morning CBC Chronic: #. GERD #. Hypertension #. Vitamin D deficiency Restart home medications F: No restrictions E: Replete as needed N: Heart healthy diet A: EMS DVT prophylaxis: Lovenox 40 mg subcu daily The patient is admitted with an anticipated less than 2 midnight stay for evaluation of pneumonia CODE STATUS: Unknown at this time Discussed with: Patient Anticipated discharge place: Home Past Medical History Past Medical History: Cancer, GERD/Reflux, GI Bleed, Hyperlipidemia, Hypertension, Osteoarthritis (OA) Additional Past Medical History / Comment(s): esophageal stricture, hiatal her trung, prostate cancer 7 yrs. ago-had radiation tx, rectal bleeding congenital absence of external ears(sx), hiatal hernia. History of Any Multi-Drug Resistant Organisms: None Reported Past Surgical History: Cholecystectomy Additional Past Surgical History / Comment(s): mult EGD's. 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 Esophageal dilatations, esophageal stent, colonoscopy ,cataracts. Past Anesthesia/Blood Transfusion Reactions: Previous Problems w/ Anesthesia, Postoperative Nausea & Vomiting (PONV) Additional Past Anesthesia/Blood Transfusion Reaction / Comment(s): problem with intubation-"uses special equipment" per niece. small airway & palate, niece states had a trach after a procedure and went to ICU. Past Psychological History: No Psychological Hx Reported Additional Psychological History / Comment(s): pt lives with family. His niece takes him to his appt.'s Smoking Status: Former smoker Past Alcohol Use History: Abuse Additional Past Alcohol Use History / Comment(s): Quit smoking 2007, smoked cigarettes &/or pipe since teens, quit drinking 2006. Past Drug Use History: None Reported - Past Family History Sister(s) Family Medical History: Cancer Mother History Unknown: Yes Additional Family Medical History / Comment(s): great niece stated pt's mom may have had syphyllis Father Additional Family Medical History / Comment(s): Blind, from alcoholism. Medications and Allergies Home Medications Medication Instructions Recorded Confirmed Type Metoprolol Succinate [Toprol XL] 100 mg PO DAILY 04/30/14 11/14/24 History HYDROcodone/APAP 10-325MG [[place] 1 tab PO TID 11/15/18 11/14/24 History 10-325] amLODIPine [Norvasc] 5 mg PO DAILY 11/15/18 11/14/24 History Cariprazine HCl [Vraylar] 4.5 mg PO DAILY 11/14/24 11/14/24 History Cholecalciferol (Vitamin D3) 1,250 mcg PO Q7DAYS 11/14/24 11/14/24 History [Vitamin D3 (1250 Mcg = 50,000 Iu)] Escitalopram [Lexapro] 20 mg PO DAILY 11/14/24 11/14/24 History Esomeprazole Magnesium [NexIUM] 40 mg PO BID 11/14/24 11/14/24 History Metoclopramide [Reglan] 10 mg PO HS 11/14/24 11/14/24 History busPIRone HCl [Buspar] 10 mg PO BID 11/14/24 11/14/24 History Allergies Allergy/AdvReac Type Severity Reaction Status Date / Time No Known Allergies Allergy Verified 11/14/24 08:12 Physical Exam Vitals: Vital Signs Temp Pulse Pulse Resp BP BP Pulse Ox 11/14/24 08:29 84 18 167/76 95 11/14/24 08:02 87 20 220/98 11/14/24 01:05 97.6 F 75 18 164/85 95 11/14/24 00:47 98.4 F 76 18 130/78 98 11/13/24 22:51 80 18 160/76 94 L 11/13/24 20:23 84 18 168/82 96 11/13/24 20:15 98.0 F 84 18 95 Intake and Output 11/13/24 11/14/24 11/14/24 22:59 06:59 14:59 Other: # Voids 2 Weight 90.718 kg 90.718 kg Results CBC & Chem 7: 11/13/24 20:49 11/13/24 20:49 Labs: Abnormal Lab Results - Last 24 Hours (Table) 11/13/24 11/13/24 11/13/24 Range/Units 20:49 20:49 20:49 RBC 3.73 L (4.30-5.90) m/uL Hgb 10.8 L (13.0-17.5) gm/dL Hct 32.5 L (39.0-53.0) % D-Dimer 0.63 H (<0.60) mg/L FEU Sodium 131 L (137-145) mmol/L Chloride 93 L (98-107) mmol/L BUN 21 H (9-20) mg/dL Glucose 108 H (74-99) mg/dL
[2024-11-14] MEDS: ONDANSETRON 4 MG TAB PO PRN (15:54)
[2024-11-14 16:21] LABS: Influenza A Not Detected (Not Detectd); Influenza B Not Detected (Not Detectd); RSV Not Detected (Not Detectd)
[2024-11-14] MEDS: IPRATROPIUM-ALBUTEROL 3 ML NEB INHALATION SCH (16:31)
[2024-11-14] MEDS: AZITHROMYCIN 500 MG TAB PO SCH (16:45)
[2024-11-14] MEDS: TAMSULOSIN 0.4 MG CAP.ER.24H PO SCH ×2 (16:45→20:59)
--- NOTE | 2024-11-14 16:45 | CA ---
Transthoracic Echo Report Name: Vaughn Carballo Age: 84 Gender: M : 1940 Exam Date: 11/14/2024 14:19 Exam Location: [facility] Ht (in): 70 Wt (lb): 200 Ordering Physician: Poppy Xavier Attending/Referring Phys: [id number], Duc Wash Barrel Leader Agatha Trinidad, CARLINE Procedure CPT: Indications: LVF Cardiac Hx: Technical Quality: Fair Contrast 1: Total Dose (mL): Contrast 2: Total Dose (mL): MEASUREMENTS (Male / Female) Normal Values 2D ECHO LV Diastolic Diameter PLAX 5.2 cm 4.2 - 5.9 / 3.9 - 5.3 cm LV Systolic Diameter PLAX 3.0 cm IVS Diastolic Thickness 1.2 cm 0.6 - 1.0 / 0.6 - 0.9 cm LVPW Diastolic Thickness 1.0 cm 0.6 - 1.0 / 0.6 - 0.9 cm LV Relative Wall Thickness 0.4 RV Internal Dim ED PLAX 3.5 cm LA Systolic Diameter LX 3.0 cm 3.0 - 4.0 / 2.7 - 3.8 cm LV Diastolic Volume MOD BP 93.8 cm??? 67 - 155 / 56 - 104 cm??? LV Systolic Volume MOD BP 41.5 cm??? 22 - 58 / 19 - 49 cm??? LV Ejection Fraction MOD BP 55.8 % >= 55 % LV Cardiac Index MOD BP 2351.9 cm???/min???m??? LV Diastolic Volume MOD 4C 96.2 cm??? LV Systolic Volume MOD 4C 49.4 cm??? LV Ejection Fraction MOD 4C 48.7 % LV Cardiac Index MOD 4C 2102.8 cm???/min???m??? LV Diastolic Length 4C 8.1 cm LV Systolic Length 4C 7.4 cm LV Diastolic Volume MOD 2C 90.2 cm??? LV Systolic Volume MOD 2C 35.2 cm??? LV Ejection Fraction MOD 2C 60.9 % LV Cardiac Index MOD 2C 2468.1 cm???/min???m??? LV Diastolic Length 2C 8.3 cm LV Systolic Length 2C 7.3 cm M-MODE Aortic Root Diameter MM 3.7 cm LA Systolic Diameter MM 2.1 cm LA Ao Ratio MM 0.6 DOPPLER AV Peak Velocity 106.8 cm/s AV Peak Gradient 4.6 mmHg Mitral E Point Velocity 71.4 cm/s Mitral A Point Velocity 106.7 cm/s Mitral E to A Ratio 0.7 MV Deceleration Time 190.6 ms MV E' Velocity 5.5 cm/s Mitral E to MV E' Ratio 13.0 FINDINGS Left Ventricle Left ventricular ejection fraction is estimated at 55-60 %. Mildly increased septal wall thickness. No obvious regional wall motion abnormalities. Right Ventricle Normal right ventricular size and function. Unable to estimate the right ventricular systolic pressure. Right Atrium Normal right atrial size. Left Atrium Normal left atrial size. Mitral Valve Structurally normal mitral valve. No mitral stenosis, regurgitation or prolapse. Aortic Valve Trileaflet aortic valve. No aortic valve stenosis or regurgitation. Tricuspid Valve Structurally normal tricuspid valve. No tricuspid stenosis. Trace tricuspid regurgitation. Pulmonic Valve Pulmonic valve not well visualized. Pericardium No pericardial effusion. Aorta Normal size aortic root and proximal ascending aorta. CONCLUSIONS Left ventricular ejection fraction 55-60% Mild increased left ventricular wall thickness No mitral regurgitation Trace tricuspid regurgitation No pericardial effusion Previewed by: Dr. Buddy Ayoub DO (Electronically Signed) Final Date: 14 November 2024 16:44
[2024-11-15 08:34] LABS: Basophils # (A) 0.01 X 10*3/uL (0.00-0.10); Basophils % (A) 0.1 %; Eosinophils # (A) 0 X 10*3/uL (0.04-0.35); Eosinophils % (A) 0 %; HCT 30.6 % (39.6-50.0); HGB 10.4 g/dL (13.0-17.0); Lymphocytes # (A) 1.52 X 10*3/uL (0.90-5.00); Lymphocytes % (A) 12.6 %; MCV 85.2 FL (80.0-97.0); Mean Platelet Volume 11.7 FL (9.5-12.2); Monocytes # (A) 1.33 X 10*3/uL (0.20-1.00); NRBC Per 100 WBC 0 X 10*3/uL (0.00-0.01); Neutrophils # (A) 9.14 X 10*3/uL (1.80-7.70); Neutrophils % (A) 75.7 %; Platelet Count 265 X 10*3/uL (140-440); RBC 3.59 X 10*6/uL (4.40-5.60); RDW 14.7 % (11.5-14.5); WBC 12.07 X 10*3/uL (4.50-10.00)
[2024-11-15 08:35] LABS: BUN/Creat Ratio 33.71 Ratio (12.00-20.00); Blood Urea Nitrogen 23.6 mg/dL (9.0-27.0); Calcium 8.2 mg/dL (8.7-10.3); Carbon Dioxide 19.1 mmol/L (21.6-31.8); Chloride 96 mmol/L (96-109); Glucose 148 mg/dL (70-110); Potassium 3.7 mmol/L (3.5-5.5); Sodium 128 mmol/L (135-145)
--- NOTE | 2024-11-15 10:01 | P.CONS ---
History of Present Illness - Reason for Consult Consult date: 11/15/24 Esophageal stricture Requesting physician: Niecy Iraheta - Chief Complaint Cough, shortness of breath, difficulty swallowing - History of Present Illness This a pleasant 84-year-old male with a past medical history of esophageal stricture, small airway status post esophageal stent placed by Dr. 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 Patient is somewhat of a poor historian and states to contact his niece Aleksandra who has his power of insurance attorney. Speaking with his niece Aleksandra Dasilva over the phone she states that patient has had multiple upper endoscopies and dilations he has very difficult time with eating. Much of his nutrition is from [employer]. States that he can eat some small chopped but overall diet is poor. States they will come in episodes where he will have more difficulty with swallowing. Patient states over last few days it has been more difficult. He was brought into the emergency department for complaints of shortness of breath and chest pain as well as coughing. Patient is being admitted for pneumonia, also what appears to be new onset atrial fibrillation. Patient is stating that it feels like food is getting stuck in his throat/chest. Niece states airway is small and difficult intubation and has required a tracheostomy in the past. Since she states he has not followed with anybody since 2019 when the stent was removed. WBC 12 hemoglobin 10.4 platelet count 265,000 INR 0.9. Patient had a CTA of the chest that reported moderate to severe wall thickening mid to distal esophagus send dilation and air fluid level, consider possible stricture versus neoplasm at this level. Gastroenterology was consulted for further evaluation. Review of Systems REVIEW OF SYSTEMS: CARDIOPULMONARY: No chest pain, positive shortness of breath and productive cough Gastrointestinal: No abdominal pain. No nausea or vomiting. Does report difficulty swallowing. No hematemesis, coffee-ground emesis. No rectal bleeding, or melena. Poor appetite and poor diet. GENITOURINARY: No dysuria or hematuria. MUSCULOSKELETAL: Reports normal range of motion. SKIN: No rashes. No jaundice. ENDOCRINE: No chills, fevers. No excessive weight gain or loss. No polydipsia or polyuria. PSYCHIATRIC: Unremarkable. NEUROLOGY: No change in mental status. Denies dizziness, headache. ENT: Vision unremarkable. Hard of hearing. CONSTITUTIONAL: No recent weight loss. No fever, chills, night sweats. Past Medical History Past Medical History: Cancer, GERD/Reflux, GI Bleed, Hyperlipidemia, Hypertension, Osteoarthritis (OA) Additional Past Medical History / Comment(s): esophageal stricture, hiatal hernia, prostate cancer 7 yrs. ago-had radiation tx, rectal bleeding congenital absence of external ears(sx), hiatal hernia. History of Any Multi-Drug Resistant Organisms: None Reported Past Surgical History: Cholecystectomy Additional Past Surgical History / Comment(s): mult EGD's. 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 Esophageal dilatations, esophageal stent, colonoscopy ,cataracts. Past Anesthesia/Blood Transfusion Reactions: Previous Problems w/ Anesthesia, Postoperative Nausea & Vomiting (PONV) Additional Past Anesthesia/Blood Transfusion Reaction / Comm: problem with intubation-"uses special equipment" per niece. small airway & palate, niece states had a trach after a procedure and went to ICU. Past Psychological History: No Psychological Hx Reported Additional Psychological History / Comment(s): pt lives with family. His niece takes him to his appt.'s Smoking Status: Former smoker Past Alcohol Use History: Abuse Additional Past Alcohol Use History / Comment(s): Quit smoking 2007, smoked cigarettes &/or pipe since teens, quit drinking 2006. Past Drug Use History: None Reported - Past Family History Sister(s) Family Medical History: Cancer Mother History Unknown: Yes Additional Family Medical History / Comment(s): great niece stated pt's mom may have had syphyllis Father Additional Family Medical History / Comment(s): Blind, from alcoholism. Medications and Allergies Home Medications Medication Instructions Recorded Confirmed Type Metoprolol Succinate [Toprol XL] 100 mg PO DAILY 04/30/14 11/14/24 History HYDROcodone/APAP 10-325MG [[place] 1 tab PO TID 11/15/18 11/14/24 History 10-325] amLODIPine [Norvasc] 5 mg PO DAILY 11/15/18 11/14/24 History Cariprazine HCl [Vraylar] 4.5 mg PO DAILY 11/14/24 11/14/24 History Cholecalciferol (Vitamin D3) 1,250 mcg PO Q7DAYS 11/14/24 11/14/24 History [Vitamin D3 (1250 Mcg = 50,000 Iu)] Escitalopram [Lexapro] 20 mg PO DAILY 11/14/24 11/14/24 History Esomeprazole Magnesium [NexIUM] 40 mg PO BID 11/14/24 11/14/24 History Metoclopramide [Reglan] 10 mg PO HS 11/14/24 11/14/24 History busPIRone HCl [Buspar] 10 mg PO BID 11/14/24 11/14/24 History Allergies Allergy/AdvReac Type Severity Reaction Status Date / Time No Known Allergies Allergy Verified 11/14/24 08:12 Physical Exam Vitals: Vital Signs Temp Pulse Pulse Resp BP Pulse Ox 11/15/24 01:08 97.9 F 85 18 157/75 99 11/14/24 20:07 88 11/14/24 20:00 97.9 F 89 17 177/71 99 11/14/24 19:56 88 11/14/24 16:46 88 11/14/24 16:40 98.3 F 90 17 136/75 99 11/14/24 16:32 20 11/14/24 16:31 96 11/14/24 11:57 16 11/14/24 11:17 100 16 103/70 94 L 11/14/24 08:50 152 H 20 167/82 11/14/24 08:29 84 18 167/76 95 11/14/24 08:02 87 20 220/98 Intake and Output 11/14/24 11/14/24 11/15/24 14:59 22:59 06:59 Intake Total 118 Output Total 800 Balance -682 Intake: Oral 118 Output: Urine 800 Straight 800 Other: Voiding Method Indwelling Catheter Indwelling Catheter # Bowel Movements 0 General appearance: The patient is alert, oriented, appears in no acute distress. HET: Head disfigurement secondary to defect. Conjunctiva pink. Sclera anicteric. Neck: Supple without lymphadenopathy. Trachea midline. Heart: Regular. Lungs: Equal expansion, normal respiratory effort. Abdomen: Soft, nontender, nondistended. Skin: No rashes. No jaundice. Extremities: Normal skin color and turgor. No pedal edema. Neurological: No focal deficits. Alert and oriented x3. Results CBC & Chem 7: 11/15/24 05:35 11/15/24 05:35 Comments: CTA of the chest that reported no CT evidence for acute pulmonary embolism. Suboptimal study. Areas of developing acute infiltrate in the lower lungs cannot be excluded correlate clinically. Focal moderate to severe wall thickening in the mid to distal esophagus with some dilation and air-fluid level proximal to this. Patient has history of prior stent. Consider stricture versus neoplasm at this level. Correlate clinically to determine need for further workup. Assessment and Plan (1) Dysphagia Narrative/Plan: 84 male with a history of dysphagia, esophageal stricture status post dilations and previous cyst esophageal stent which was removed in 2019. Patient is presenting with shortness of breath cough, being treated for pneumonia. However patient is also complaining of difficulty with swallowing. Has not been followed since 2019 has intermittent episodes of dysphagia. Need to consider possible esophageal stricture or other possible etiology. Will plan for upper endoscopy with possible dilation. Patient's niece Aleksandra Dasilva (power of insurance attorney) agreeable to plan. With further recommendations forthcoming based on findings of upper endoscopy. Current Visit: Yes Status: Acute Code(s): R13.10 - DYSPHAGIA, UNSPECIFIED SNOMED Code(s): 26176632 (2) History of esophageal stricture Current Visit: Yes Status: Acute Code(s): Z87.19 - PERSONAL HISTORY OF OTHER DISEASES OF THE DIGESTIVE SYSTEM SNOMED Code(s): 37061113970758786 (3) Pneumonia Current Visit: Yes Status: Acute Code(s): J18.9 - PNEUMONIA, UNSPECIFIED ORGANISM SNOMED Code(s): 658635884 Plan: 1. Continue supportive care 2. Keep n.p.o. 3. Hold Lovenox 4. Agree with speech therapy evaluation 5. Patient and plan discussed with patient's power of insurance attorney/niece Aleksandra Dasilva. She is agreeable with proceeding with EGD with possible dilation 6. Plan for EGD with possible esophageal dilation today. Please obtain consent from patient's power of insurance attorney 7. Rest of medical management per primary medical team 8. Further recommendations forthcoming following upper endoscopy findings Thank you for allowing us to participate in the care of the patient, the GI service will sign off, gastroenterology will not be available at the hospital this weekend and through next week. If further evaluation by gastroenterology is required the patient will need transfer as per the primary team's discretion. Dr. Cassandra Sandoval I agree with the dictator's note, documented as a scribe by Gracie Ellis.
[2024-11-15] MEDS: methylPREDNISolone 4 MG TAB TAPER PO SCH (10:08)
[2024-11-15] MEDS: AMOXIC-POT CLAV 875-125MG 1 EACH TAB PO SCH (10:10)
--- NOTE | 2024-11-15 11:43 | P.PN ---
Subjective This is an 84-year-old male does not follow with a programmer analyst consultant with past medical history of esophageal stricture, GERD, hiatal hernia, hypertension, hyperlipidemia, prostate cancer, congenital absence of external ears. We have been asked to evaluate the patient for A-fib with RVR. Patient was found this morning to have heart rate that was running between 120s and 150s. Patient received a beta-rolando and the heart rate came down to the 80s. Patient denies having been told that he had atrial fibrillation. Unable to find atrial fibrillation in his history. Patient denies having chest pain no shortness of breath, no lightheadedness or dizziness, no palpitations. He denies history of CVA or TIA. He denies any blood in his urine or stool. Blood pressure 103/70, heart rate 100, pulse ox 94% on 2 L nasal cannula. Patient was brought into the hospital due to shortness of breath and also pain in the center of his back, coughing and sputum production. Patient was diagnosed with pneumonia and started on IV antibiotics. -EKG: Taken on 11/13 at 2020: Sinus rhythm. #2 atrial fibrillation at 113 bpm -Chest x-ray: No acute process. -CTA of the chest: No acute pulmonary embolism. Suboptimal study. Areas of developing acute infiltrate in the lower lungs cannot be excluded. -Laboratory studies: WBC 6.7, hemoglobin 10.8, D-dimer 0.63, sodium 131, potassium 4.6, BUN 21, creatinine 0.72. Troponin negative x 3. -Home cardiac medications: Amlodipine 5 mg daily, metoprolol succinate 100 mg daily. 11/15 patient seen and examined. Echocardiogram performed which shows preserved EF with no significant valvular disease. He has been receiving IV fluids. GI evaluated patient with likely EGD and esophageal stricture dilation. Remains in normal sinus rhythm. He was placed on Lovenox. Physical examination: Gen: This is an 84-year-old male in no acute distress VS: reviewed HEENT: Head is atraumatic, normocephalic. Pupils equal, round. Sclerae is anicteric. NECK: Supple. No JVD. LUNGS: Diminished breath sounds. No intercostal retractions. HEART: Irregular rate and rhythm. ABDOMEN: Soft No tenderness. EXTREMITIES: No pedal edema. No calf tenderness. NEUROLOGICAL: Patient is awake, alert and oriented x3. Assessment: New onset paroxysmal atrial fibrillation currently normal sinus rhythm Pneumonia with concern for aspiration Esophageal strictures GERD Hiatal hernia Hypertension Hyperlipidemia History of prostate cancer Plan: Resume patient's home cardiac medications Continue with Lovenox 100 mg twice daily and OK to hold for GI, EGD. Start Eliquis 5mg bid when cleared by GI Relatively asymptomatic and continue with Toprol 100 daily No further recommendations from a cardio standpoint. Please call with questi ons. Objective - Vital Signs Vital signs: Vital Signs Temp 98.2 F 11/15/24 07:49 Pulse 92 11/15/24 08:16 Resp 16 11/15/24 08:00 BP 157/79 11/15/24 07:49 Pulse Ox 99 11/15/24 07:49 FiO2 Intake & Output 11/14/24 11/15/24 11/15/24 18:59 06:59 18:59 Intake Total 118 Output Total 800 350 Balance -682 -350 Intake: Oral 118 Output: Urine 800 350 Straight 800 Other: Voiding Method Urinal Indwelling Catheter Indwelling Catheter Diaper # Bowel Movements 0 1 - Labs CBC & Chem 7: 11/15/24 05:35 11/15/24 05:35 Labs: Abnormal Lab Results - Last 24 Hours (Table) 11/15/24 11/15/24 Range/Units 05:35 05:35 WBC 12.07 H (4.50-10.00) X 10*3/uL RBC 3.59 L (4.40-5.60) X 10*6/uL Hgb 10.4 L (13.0-17.0) g/dL Hct 30.6 L (39.6-50.0) % RDW 14.7 H (11.5-14.5) % Immature Gran # 0.07 H (0.00-0.04) X 10*3/uL Neutrophils # 9.14 H (1.80-7.70) X 10*3/uL Monocytes # 1.33 H (0.20-1.00) X 10*3/uL Eosinophils # 0 L (0.04-0.35) X 10*3/uL Sodium 128 L (135-145) mmol/L Carbon Dioxide 19.1 L (21.6-31.8) mmol/L Anion Gap 12.90 H (4.00-12.00) mmol/L BUN/Creatinine Ratio 33.71 H (12.00-20.00) Ratio Glucose 148 H (70-110) mg/dL Calcium 8.2 L (8.7-10.3) mg/dL
[2024-11-15] MEDS ORDERED: LIDOCAINE 1% INJ 10MG/ML (20 ML MDV) ONE (13:30)
[2024-11-15] MEDS ORDERED: PROPOFOL 10 MG/ML 20 ML VIAL IV ONE (13:30)
[2024-11-15] MEDS: IV FLUID CONTINUATION 1,000 ML IV ONE (13:31)
--- NOTE | 2024-11-15 13:59 | P.CNPUL ---
History of Present Illness Consult date: 11/15/24 Requesting physician: José Miguel Chamorro Reason for consult: dyspnea Chief complaint: Chest pain, shortness of breath History of present illness: This is an 84-year-old male patient with a known history of esophageal stricture, prostate cancer, hypertension, hyperlipidemia, former smoker who presented here to the emergency room 2 evenings ago with complaints of chest pain and shortness of breath. No hemoptysis. No productive sputum. Chest x- ray revealed no acute pulmonary process. CT angiogram ruled out pulmonary embolism. There was focal moderate to severe wall thickening in the mid to d istal esophagus with some dilatation and air-fluid level proximal to this. Patient has a prior history of stent white count 12.0. Hemoglobin 10.4. Platelets 265. Sodium 128 glucose 148. Viral screen negative. Procalcitonin negative. Troponin negative. Regular medical floor. He is currently sitting up in a chair at the bedside. He denies any worsening shortness of breath, cough or congestion. He does state he has having trouble swallowing at times. He is maintaining O2 saturations in the 90s on 2 L/min per nasal cannula. 0.9% normal saline at 75 mL/h. Review of Systems REVIEW OF SYSTEMS: CONSTITUTIONAL: Denies any recent significant weight loss or weight gain. EYES: Denies change in vision. EARS, NOSE, MOUTH, THROAT: Denies headaches, denies sore throat. CARDIOVASCULAR: Positive for chest pain, no palpitations or syncopal episodes. RESPIRATORY: Positive for shortness of breath, no cough, congestion or hemoptysis. GASTROINTESTINAL: Positive for difficulty in swallowing GENITOURINARY: Denies hematuria, denies infections. MUSKULOSKELETAL: Denies pain, denies swelling. INTEGUMENTARY: Denies rash, denies eczema. NEUROLOGICAL: Denies recent memory loss, no recent seizure activity. PSYCHIATRIC: Denies anxiety, denies depression. HEMATOLOGIC/LYMPHATIC: Denies anemia, denies enlarged lymph nodes. Past Medical History Past Medical History: Cancer, GERD/Reflux, GI Bleed, Hyperlipidemia, Hypertension, Osteoarthritis (OA) Additional Past Medical History / Comment(s): esophageal stricture, hiatal hernia, prostate cancer 7 yrs. ago-had radiation tx, rectal bleeding congenital absence of external ears(sx), hiatal hernia. History of Any Multi-Drug Resistant Organisms: None Reported Past Surgical History: Cholecystectomy Additional Past Surgical History / Comment(s): mult EGD's. 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 Esophageal dilatations, esophageal stent, colonoscopy ,cataracts. Past Anesthesia/Blood Transfusion Reactions: Previous Problems w/ Anesthesia, Postoperative Nausea & Vomiting (PONV) Additional Past Anesthesia/Blood Transfusion Reaction / Comment(s): problem with intubation-"uses special equipment" per niece. small airway & palate, niece states had a trach after a procedure and went to ICU. Past Psychological History: No Psychological Hx Reported Additional Psychological History / Comment(s): pt lives with family. His niece takes him to his appt.'s Smoking Status: Former smoker Past Alcohol Use History: Abuse Additional Past Alcohol Use History / Comment(s): Quit smoking 2007, smoked cigarettes &/or pipe since teens, quit drinking 2006. Past Drug Use History: None Reported - Past Family History Sister(s) Family Medical History: Cancer Mother History Unknown: Yes Additional Family Medical History / Comment(s): great niece stated pt's mom may have had syphyllis Father Additional Family Medical History / Comment(s): Blind, from alcoholism. Medications and Allergies Home Medications Medication Instructions Recorded Confirmed Type Metoprolol Succinate [Toprol XL] 100 mg PO DAILY 04/30/14 11/14/24 History HYDROcodone/APAP 10-325MG [[place] 1 tab PO TID 11/15/18 11/14/24 History 10-325] amLODIPine [Norvasc] 5 mg PO DAILY 11/15/18 11/14/24 History Cariprazine HCl [Vraylar] 4.5 mg PO DAILY 11/14/24 11/14/24 History Cholecalciferol (Vitamin D3) 1,250 mcg PO Q7DAYS 11/14/24 11/14/24 History [Vitamin D3 (1250 Mcg = 50,000 Iu)] Escitalopram [Lexapro] 20 mg PO DAILY 11/14/24 11/14/24 History Esomeprazole Magnesium [NexIUM] 40 mg PO BID 11/14/24 11/14/24 History Metoclopramide [Reglan] 10 mg PO HS 11/14/24 11/14/24 History busPIRone HCl [Buspar] 10 mg PO BID 11/14/24 11/14/24 History Allergies Allergy/AdvReac Type Severity Reaction Status Date / Time No Known Allergies Allergy Verified 11/14/24 08:12 Physical Exam Vitals: Vital Signs Temp Pulse Pulse Resp BP Pulse Ox 11/15/24 08:16 92 11/15/24 08:03 92 11/15/24 08:00 16 11/15/24 07:49 98.2 F 95 16 157/79 99 11/15/24 01:08 97.9 F 85 18 157/75 99 11/14/24 20:07 88 11/14/24 20:00 97.9 F 89 17 177/71 99 11/14/24 19:56 88 11/14/24 16:46 88 11/14/24 16:40 98.3 F 90 17 136/75 99 11/14/24 16:32 20 11/14/24 16:31 96 Intake and Output 11/14/24 11/15/24 11/15/24 22:59 06:59 14:59 Output Total 350 Balance -350 Output: Urine 350 Other: Voiding Method Indwelling Catheter Indwelling Catheter Indwelling Catheter # Bowel Movements 0 1 GENERAL EXAM: Alert, pleasant 84-year-old male, sitting up in a chair, on room air, comfortable in no apparent distress. HEAD: Normocephalic. EYES: Normal reaction of pupils, equal size. NOSE: Clear with pink turbinates. THROAT: No erythema or exudates. NECK: No masses, no JVD. CHEST: No chest wall deformity. LUNGS: Equal air entry with no crackles, wheeze, rhonchi or dullness. CVS: S1 and S2 normal with no audible murmur, regular rhythm. ABDOMEN: No hepatosplenomegaly, normal bowel sounds, no guarding or rigidity. SPINE: No scoliosis or deformity SKIN: No rashes CENTRAL NERVOUS SYSTEM: No focal deficits, tone is normal in all 4 extremities. EXTREMITIES: There is no peripheral edema. No clubbing, no cyanosis. Per ipheral pulses are intact. Results - Laboratory Findings CBC and BMP: 11/15/24 05:35 11/15/24 05:35 PT/INR, D-dimer PT 10.5 sec (10.0-12.5) 11/13/24 20:49 INR 0.9 (<1.2) 11/13/24 20:49 D-Dimer 0.63 mg/L FEU (<0.60) H 11/13/24 20:49 Abnormal lab findings: Abnormal Labs 11/13/24 11/13/24 11/13/24 20:49 20:49 20:49 WBC RBC 3.73 L Hgb 10.8 L Hct 32.5 L RDW Immature Gran # Neutrophils # Monocytes # Eosinophils # D-Dimer 0.63 H Sodium 131 L Chloride 93 L Carbon Dioxide Anion Gap BUN 21 H BUN/Creatinine Ratio Glucose 108 H Calcium 11/15/24 11/15/24 05:35 05:35 WBC 12.07 H RBC 3.59 L Hgb 10.4 L Hct 30.6 L RDW 14.7 H Immature Gran # 0.07 H Neutrophils # 9.14 H Monocytes # 1.33 H Eosinophils # 0 L D-Dimer Sodium 128 L Chloride Carbon Dioxide 19.1 L Anion Gap 12.90 H BUN BUN/Creatinine Ratio 33.71 H Glucose 148 H Calcium 8.2 L - Diagnostic Findings Chest x-ray: image reviewed CT scan - chest: image reviewed Assessment and Plan Assessment: Dyspnea and chest discomfort suspect secondary to esophageal stricture. CT angiogram of the chest ruled out pulmonary embolism. Focal moderate to severe wall thickening in the mid to distal esophagus with some dilation and air fluid levels proximal to this. Plan is for upper endoscopy and possible dilation today History of esophageal strictures previous esophageal dilatation and esophageal stent placement Dysphagia secondary to above Acute tracheobronchitis with out evidence of pneumonia. 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 Number of minutes spent on the visit: 20 Dictation was produced using [employer] dictation software. Please excuse any grammatical, word or spelling errors. Time with Patient: Greater than 30
[2024-11-15] MEDS: LACTATED RINGERS 1,000 ML IV ONE (14:08)
--- NOTE | 2024-11-15 14:13 | P.PCN ---
Date of Procedure: 11/15/24 Procedure(s) Performed: BRIEF HISTORY: Patient is a 84-year-old, pleasant, white male with history of GERD and esophageal stricture in the past for the tendon and dilation and is having a stent placement in 2019 which was subsequently removed was admitted to hospital for pneumonia. He has been complaining of difficulty swallowing for the last few weeks but much worse in the last 3 days.. PROCEDURE PERFORMED: Esophagogastroduodenoscopy with biopsy. PREOPERATIVE DIAGNOSIS: Progressive dysphagia to solids.. IV sedation per anesthesia. PROCEDURE: After informed consent was obtained, the patient was brought into the endoscopy unit. IV sedation was administered by Anesthesia under continuous monitoring. Initially the Olympus GIF-140 video endoscope was inserted into the mouth. Esophagus intubated without any difficulty. It was gradually advanced into the stomach and duodenum and carefully examined. The bulb and the second part of the duodenum appeared normal. The scope at this time was withdrawn to the stomach, adequately insufflated with air, and upon careful examination, mucosa of the antrum, body, cardia and the fundus appeared normal. The gastric polyps noted in the proximal body of the stomach was biopsied. The scope was then withdrawn into the esophagus. Moderate to large size hiatal hernia noted. The GE junction was located at 39 cm from the incisors. There was circumferential ulceration of the entire distal esophagus extending from 30 to 38 cm from the incisors with some oozing consistent with LA grade D reflux esophagitis. There was a 1 cm esophageal polyp noted in the mid esophagus at 30 cm from the incisors that was biopsied. No evidence of esophageal stricture. The proximal esophagus appeared normal and the patient tolerated the procedure well. IMPRESSION: 1. Severe ulcerative esophagitis extending from 30 to 38 cm from the incisors with circumferential ulceration and oozing consistent with severe LA grade D reflux esophagitis. 2. 1 cm polyp in the mid esophagus at 30 cm from the incisors s/p biopsy 3. Moderate to large size hiatal hernia 4 Small gastric polyps s/p biopsy. RECOMMENDATIONS: The findings of this examination were discussed with the patient. He will be started on Protonix 40 mg twice daily and follow antireflux measures. Start him on liquids liquids and advance diet as tolerated.. Change to Protonix 40 mg IV twice daily while in the hospital. In the office in 2 weeks following discharge from the hospital.
--- NOTE | 2024-11-15 14:32 | P.PN ---
Subjective Progress Note Date: 11/15/24 Per Medical H&P, " Patient is a 84-year-old male with GERD, hyperlipidemia, hypertension, osteoarthritis presented to the emergency department with shortness of breath, chest pain, nausea, vomiting for the past 5 days. Patient states that over the past 5 days his symptoms have gradually worsened and started producing a productive cough. He reports his chest pain to be sharp stabbing which radiates towards his back. His shortness of breath is also gradually getting worse. He also reports feeling nauseous and vomited a few times this morning. Patient also reports trouble swallowing. Patient denies fever, chills, belly pain, diarrhea or constipation. Denies any hematochezia or melena. He does not have any recent sick contacts. ED documentation reviewed. In the ED patient was treated with aspirin 324 mg p.o. x 1, Flomax 500 mg IV x 1, Rocephin 2 g IV x 1, hydralazine 10 mg IV x 1 Vitals on admission temperature 97.6, pulse rate 84, respiratory rate 18, blood pressure 167/76, O2 sat 95% on standby at 2 L/min EKG independently interpreted as sinus rhythm with ventricular rate of 81 bpm, QTc interval 414 ms CXR shows no acute process Chest CTA shows no CT evidence for acute pulmonary embolism. Suboptimal study. Areas of developing acute infiltrate in the lower lungs cannot be excluded. Focal moderate to severe wall thickening in the mid to distal esophagus with some dilatation and air-fluid level proximal to this. Patient has history of prior stent. Consider stricture versus neoplasm at this level. Labs on admission show WBC 6.7, hemoglobin 10.8, hematocrit 32.5, platelet 236, PT 10.5, PTT 22.3, INR 0.9, D-dimer 0.63, sodium 131, potassium 4.6, chloride 93, carbon dioxide 27, BUN 21, creatinine 0.72, glucose 108 " Progress note for 11/15/2024: Patient was seen at bedside seem to be sleepy this morning. Patient still reports having shortness of breath, chest pain, and producing a productive cough. Patient will undergo EGD today with possible dilatation. Review of Systems Constitutional: Denies chills, Denies fever Eyes: denies blurred vision, double vision or pain Ears, nose, mouth and throat: Denies headache, Denies sore throat Cardiovascular: Denies chest pain, Denies shortness of breath Respiratory: Denies cough Gastrointestinal: Denies abdominal pain, Denies diarrhea, Denies nausea, Denies vomiting Musculoskeletal: Denies myalgias Integumentary: Denies pruritus, Denies rash Neurological: Denies numbness, Denies weakness Psychiatric: Denies anxiety, Denies depression Endocrine: Denies fatigue, Denies weight change GENERAL: This is a 84-year-old in no apparent distress at the time of examination. Pleasant and cooperative. HEENT: Head is atraumatic, normocephalic. Pupils are equal, round, and reactive to light. Sclerae anicteric. Conjunctivae are clear. Mucus membranes of the mouth are moist. Neck is supple. RESPIRATORY: Clear to auscultation. No wheezes, rales, or rhonchi. No use of accessory muscles. Patient maintaining oxygen saturation greater than 92%. No chest wall tenderness is noted on palpation or with deep breathing. CARDIOVASCULAR: Regular rate and rhythm. S1 and S2 noted. No systolic or diastolic murmur auscultated. No JVD noted. No S3 or S4 noted. GASTROINTESTINAL: No distention noted. Abdomen soft and round. Normal active bowel sounds auscultated x 4 quadrants. No pain or tenderness noted upon palpat ion. INTEGUMENTARY: No cyanosis. No jaundice. No rashes noted. No cellulitis noted. EXTREMITIES: 2+ peripheral pulses. No evidence of peripheral edema. No calf tenderness noted. NEUROLOGIC: Cranial nerves II-XII intact. PSYCHIATRIC: Awake, alert, and oriented X 3. Appropriate affect. Intact judgeme nt and insight. Assessment/Plan: Patient is a 84-year-old male with GERD, hyperlipidemia, hypertension, osteoarthritis presented to the emergency department with shortness of breath. Patient will be admitted to internal medicine service. Active: #. Pneumonia with concern for aspiration Chest CTA shows areas of developing acute infiltrate in the lower lungs cannot be excluded. WBC 6.7 Azithromycin 500 mg IV x 1 and Rocephin 2 g IV x 1 given in the ED Monitor morning CBC Continue cardiac monitoring Trend troponin Procalcitonin 0.07 Consulted pulmonology Respiratory panel negative for influenza, RSV, COVID-19 Urine Legionella antigen negative Continue Rocephin 2 g IV every 24 hours and azithromycin 500 mg daily Pending serum mycoplasma IgG and IgM antibody Order DuoNebs scheduled and as needed Awaiting speech therapy evaluation #. Leukocytosis, likely as a result of aspiration pneumonia WBC 12.07 Monitor morning CBC #. Esophageal strictures GI has been consulted, plan to do a EGD today. #. New onset paroxysmal atrial fibrillation with RVR currently rate controlled Continue metoprolol 100 mg daily and Lovenox 100 mg subcu every 12 hours Cardiology has been consulted Echocardiogram on 11/14/2024 showed left ventricular ejection fraction of 55 to 60% #. Hyponatremia Sodium 131 Continue normal saline at 75 cc an hour Monitor morning BMP #. Normocytic anemia Hemoglobin 10.8 MCV 87 Monitor morning CBC Chronic: #. GERD #. Hypertension #. Vitamin D deficiency Restart home medications F: No restrictions E: Replete as needed N: Heart healthy diet A: EMS DVT prophylaxis: Lovenox 100 mg subcu every 12 hour The patient is admitted with an anticipated less than 2 midnight stay for evaluation of pneumonia CODE STATUS: Unknown at this time Discussed with: Patient Anticipated discharge place: Home Attestation I have seen and examined this patient with my resident , discussed the same with the resident/WILLIAM, and agree with the dictator's assessment and plan as written Dr. José Miguel malhotra Objective - Vital Signs Vital signs: Vital Signs Temp 98.2 F 11/15/24 07:49 Pulse 92 11/15/24 08:16 Resp 16 11/15/24 08:00 BP 157/79 11/15/24 07:49 Pulse Ox 99 11/15/24 07:49 FiO2 Intake & Output 11/14/24 11/15/24 11/15/24 18:59 06:59 18:59 Intake Total 118 Output Total 800 350 Balance -682 -350 Intake: Oral 118 Output: Urine 800 350 Straight 800 Other: Voiding Method Urinal Indwelling Catheter Indwelling Catheter Diaper # Bowel Movements 0 - Labs CBC & Chem 7: 11/15/24 05:35 11/15/24 05:35 Labs: Abnormal Lab Results - Last 24 Hours (Table) 11/15/24 11/15/24 Range/Units 05:35 05:35 WBC 12.07 H (4.50-10.00) X 10*3/uL RBC 3.59 L (4.40-5.60) X 10*6/uL Hgb 10.4 L (13.0-17.0) g/dL Hct 30.6 L (39.6-50.0) % RDW 14.7 H (11.5-14.5) % Immature Gran # 0.07 H (0.00-0.04) X 10*3/uL Neutrophils # 9.14 H (1.80-7.70) X 10*3/uL Monocytes # 1.33 H (0.20-1.00) X 10*3/uL Eosinophils # 0 L (0.04-0.35) X 10*3/uL Sodium 128 L (135-145) mmol/L Carbon Dioxide 19.1 L (21.6-31.8) mmol/L Anion Gap 12.90 H (4.00-12.00) mmol/L BUN/Creatinine Ratio 33.71 H (12.00-20.00) Ratio Glucose 148 H (70-110) mg/dL Calcium 8.2 L (8.7-10.3) mg/dL
[2024-11-15] MEDS: PANTOPRAZOLE 40 MG/10 ML VIAL IVP SCH (20:34)
[2024-11-16 10:22] LABS: BUN/Creat Ratio 31.86 Ratio (12.00-20.00); Blood Urea Nitrogen 22.3 mg/dL (9.0-27.0); Calcium 7.2 mg/dL (8.7-10.3); Carbon Dioxide 18.7 mmol/L (21.6-31.8); Chloride 101 mmol/L (96-109); Glucose 121 mg/dL (70-110); Potassium 3.7 mmol/L (3.5-5.5); Sodium 129 mmol/L (135-145)
--- NOTE | 2024-11-16 11:26 | P.PN ---
Subjective Progress Note Date: 11/16/24 This is an 84-year-old male patient with a known history of esophageal stricture, prostate cancer, hypertension, hyperlipidemia, former smoker who presented here to the emergency room 2 evenings ago with complaints of chest pain and shortness of breath. No hemoptysis. No productive sputum. Chest x- ray revealed no acute pulmonary process. CT angiogram ruled out pulmonary embolism. There was focal moderate to severe wall thickening in the mid to distal esophagus with some dilatation and air-fluid level proximal to this. Patient has a prior history of stent white count 12.0. Hemoglobin 10.4. Pl atelets 265. Sodium 128 glucose 148. Viral screen negative. Procalcitonin negative. Troponin negative. Regular medical floor. He is currently sitting up in a chair at the bedside. He denies any worsening shortness of breath, cough or congestion. He does state he has having trouble swallowing at times. He is maintaining O2 saturations in the 90s on 2 L/min per nasal cannula. 0.9% normal saline at 75 mL/h. The patient is seen today November 16, 2024 in follow-up on the regular medical floor. He is currently sitting up in bed. Awake and alert in no acute distress. Maintaining good O2 saturations in the 90s on room air. He is afebrile. Hemodynamically stable. White count 12.0. Hemoglobin 10.4. Platelets 265. Sodium 129. Potassium 3.7. Bicarb 19. BUN 22. Creatinine 0.7. Glucose 121. He did undergo EGD with biopsies yesterday. He was found to have severe ulcerative esophagitis and oozing consistent with severe LA grade D reflux esophagitis. 1 cm polyp in the mid esophagus biopsied. Moderate to large hiatal hernia. Small gastric polyp biopsied. Protonix 40 mg twice daily. Therapeutic Lovenox for his atrial fibrillation. Continued on bronchodilators, Augmentin. Objective - Vital Signs Vital signs: Vital Signs Temp 98.2 F 11/16/24 07:45 Pulse 84 11/16/24 11:13 Resp 16 11/16/24 08:00 BP 128/57 11/16/24 07:45 Pulse Ox 94 L 11/16/24 07:55 FiO2 Intake & Output 11/15/24 11/16/24 11/16/24 18:59 06:59 18:59 Intake Total 300 Output Total 350 600 Balance -50 -600 Intake: IV 300 Output: Urine 350 600 Other: Voiding Method Indwelling Catheter Indwelling Catheter Indwelling Catheter # Bowel Movements 1 - Exam GENERAL EXAM: Alert, 84-year-old male, resting in bed, on room air, comfortable in no apparent distress. HEAD: Normocephalic. EYES: Normal reaction of pupils, equal size. NOSE: Clear with pink turbinates. THROAT: No erythema or exudates. NECK: No masses, no JVD. CHEST: No chest wall deformity. LUNGS: Equal air entry with no crackles, wheeze, rhonchi or dullness. CVS: S1 and S2 normal with no audible murmur, irregular rhythm. ABDOMEN: No hepatosplenomegaly, normal bowel sounds, no guarding or rigidity. SPINE: No scoliosis or deformity SKIN: No rashes CENTRAL NERVOUS SYSTEM: No focal deficits, tone is normal in all 4 extremities. EXTREMITIES: There is no peripheral edema. No clubbing, no cyanosis. Peripheral pulses are intact. - Labs CBC & Chem 7: 11/15/24 05:35 11/16/24 05:20 Labs: Abnormal Lab Results - Last 24 Hours (Table) 11/16/24 Range/Units 05:20 Sodium 129 L (135-145) mmol/L Carbon Dioxide 18.7 L (21.6-31.8) mmol/L BUN/Creatinine Ratio 31.86 H (12.00-20.00) Ratio Glucose 121 H (70-110) mg/dL Calcium 7.2 L (8.7-10.3) mg/dL Assessment and Plan Assessment: Dyspnea and chest discomfort suspect secondary to esophageal stricture. CT angiogram of the chest ruled out pulmonary embolism. Focal moderate to severe wall thickening in the mid to distal esophagus with some dilation and air fluid levels proximal to this. EGD performed 11/15/2024 revealed severe ulcerative esophagitis with oozing consistent with severe LA grade D reflux HF otitis. 1 cm polyp in the mid esophagus status post biopsy. Small gastric polyp status post biopsy. Moderate to large hiatal hernia. Initiated on Protonix IV twice daily Atrial fibrillation with rapid ventricular response History of esophageal strictures previous esophageal dilatation and esophageal stent placement Dysphagia secondary to above Acute tracheobronchitis without evidence of pneumonia. 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 Number of minutes spent on the visit: 10 Dictation was produced using [employer] dictation software. Please excuse any grammatical, word or spelling errors.
[2024-11-16 11:37] LABS: Basophils # (A) 0 X 10*3/uL (0.00-0.10); Basophils % (A) 0 %; Eosinophils # (A) 0 X 10*3/uL (0.04-0.35); Eosinophils % (A) 0 %; HCT 22.9 % (39.6-50.0); Lymphocytes # (A) 0.91 X 10*3/uL (0.90-5.00); Lymphocytes % (A) 10.9 %; MCH 29.9 pg (27.0-32.0); MCHC 34.9 g/dL (32.0-37.0); MCV 85.4 FL (80.0-97.0); Mean Platelet Volume 11.1 FL (9.5-12.2); Monocytes # (A) 1.55 X 10*3/uL (0.20-1.00); Monocytes % (A) 18.5 %; NRBC Per 100 WBC 0.02 X 10*3/uL (0.00-0.01); Neutrophils # (A) 5.86 X 10*3/uL (1.80-7.70); Neutrophils % (A) 69.9 %; Platelet Count 183 X 10*3/uL (140-440); RBC 2.68 X 10*6/uL (4.40-5.60); RBC Morphology Normal (Normal); RDW 15.2 % (11.5-14.5); WBC 8.38 X 10*3/uL (4.50-10.00)
--- NOTE | 2024-11-16 13:19 | P.PN ---
Subjective Progress Note Date: 11/16/24 Per Medical H&P, " Patient is a 84-year-old male with GERD, hyperlipidemia, hypertension, osteoarthritis presented to the emergency department with shortness of breath, chest pain, nausea, vomiting for the past 5 days. Patient states that over the past 5 days his symptoms have gradually worsened and started producing a productive cough. He reports his chest pain to be sharp stabbing which radiates towards his back. His shortness of breath is also gradually getting worse. He also reports feeling nauseous and vomited a few times this morning. Patient also reports trouble swallowing. Patient denies fever, chills, belly pain, diarrhea or constipation. Denies any hematochezia or melena. He does not have any recent sick contacts. ED documentation reviewed. In the ED patient was treated with aspirin 324 mg p.o. x 1, Flomax 500 mg IV x 1, Rocephin 2 g IV x 1, hydralazine 10 mg IV x 1 Vitals on admission temperature 97.6, pulse rate 84, respiratory rate 18, blood pressure 167/76, O2 sat 95% on standby at 2 L/min EKG independently interpreted as sinus rhythm with ventricular rate of 81 bpm, QTc interval 414 ms CXR shows no acute process Chest CTA shows no CT evidence for acute pulmonary embolism. Suboptimal study. Areas of developing acute infiltrate in the lower lungs cannot be excluded. Focal moderate to severe wall thickening in the mid to distal esophagus with some dilatation and air-fluid level proximal to this. Patient has history of prior stent. Consider stricture versus neoplasm at this level. Labs on admission show WBC 6.7, hemoglobin 10.8, hematocrit 32.5, platelet 236, PT 10.5, PTT 22.3, INR 0.9, D-dimer 0.63, sodium 131, potassium 4.6, chloride 93, carbon dioxide 27, BUN 21, creatinine 0.72, glucose 108 " Progress note for 11/15/2024: Patient was seen at bedside seem to be sleepy this morning. Patient still reports having shortness of breath, chest pain, and producing a productive cough. Patient will undergo EGD today with possible dilatation. Progress note for 11/16/2024: Patient was seen at bedside today. Patient underwent an EGD yesterday. EGD showed severe ulcerative esophagitis consistent with severe LA grade D reflux esophagitis. 1 cm polyp in the mid esophagus status post biopsy. Moderate to large size hiatal hernia. Small gastric polyps status post biopsy. GI recommended patient to start on Protonix 40 mg IV twice daily in the hospital. Outpatient follow-up with GI 2 weeks following discharge. Spoke to patient's nurse at bedside who reported that family is aware that patient will not be transferred to [facility]. Patient still reports trouble swallowing today. Denies other acute complaints at this time. Review of Systems Constitutional: Denies chills, Denies fever Eyes: denies blurred vision, double vision or pain Ears, nose, mouth and throat: Denies headache, Denies sore throat Cardiovascular: Denies chest pain, Denies shortness of breath Respiratory: Denies cough Gastrointestinal: Denies abdominal pain, Denies diarrhea, Denies nausea, Denies vomiting Musculoskeletal: Denies myalgias Integumentary: Denies pruritus, Denies rash Neurological: Denies numbness, Denies weakness Psychiatric: Denies anxiety, Denies depression Endocrine: Denies fatigue, Denies weight change GENERAL: This is a 84-year-old in no apparent distress at the time of examination. Pleasant and cooperative. HEENT: Head is atraumatic, normocephalic. Pupils are equal, round, and reactive to light. Sclerae anicteric. Conjunctivae are clear. Mucus membranes of the mouth are moist. Neck is supple. RESPIRATORY: Clear to auscultation. No wheezes, rales, or rhonchi. No use of accessory muscles. Patient maintaining oxygen saturation greater than 92%. No chest wall tenderness is noted on palpation or with deep breathing. CARDIOVASCULAR: Regular rate and rhythm. S1 and S2 noted. No systolic or diastolic murmur auscultated. No JVD noted. No S3 or S4 noted. GASTROINTESTINAL: No distention noted. Abdomen soft and round. Normal active bowel sounds auscultated x 4 quadrants. No pain or tenderness noted upon pal pation. INTEGUMENTARY: No cyanosis. No jaundice. No rashes noted. No cellulitis noted. EXTREMITIES: 2+ peripheral pulses. No evidence of peripheral edema. No calf tenderness noted. NEUROLOGIC: Cranial nerves II-XII intact. PSYCHIATRIC: Awake, alert, and oriented X 3. Appropriate affect. Intact judg ement and insight. Assessment/Plan: Patient is a 84-year-old male with GERD, hyperlipidemia, hypertension, osteoarthritis presented to the emergency department with shortness of breath. Patient will be admitted to internal medicine service. Active: #. Aspiration pneumonia Chest CTA shows areas of developing acute infiltrate in the lower lungs cannot be excluded. WBC 8.38 Continue cardiac monitoring Continue Augmentin x 5 days total Rocephin 2 g IV every 24 hours and azithromycin 500 mg daily have been discontinued #. Leukocytosis, resolved WBC 8.38 Monitor morning CBC Have discontinued normal saline at 75 cc an hour #. Ulcerative esophagitis EGD showed severe ulcerative esophagitis consistent with severe LA grade D reflux esophagitis. 1 cm polyp in the mid esophagus status post biopsy. Moderate to large size hiatal hernia. Small gastric polyps status post biopsy. Switch from Protonix 40 mg IV twice daily to oral Protonix 40 mg twice daily #. New onset paroxysmal atrial fibrillation with RVR currently rate controlled Continue metoprolol 100 mg daily Have discontinued Lovenox 100 mg subcu every 12 hours Started apixaban 5 mg twice daily #. Hyponatremia Sodium 129 Monitor morning BMP #. Normocytic anemia Hemoglobin 8.0 MCV 85.4 Monitor morning CBC Chronic: #. GERD #. Hypertension #. Vitamin D deficiency Restart home medications F: No restrictions E: Replete as needed N: Heart healthy diet A: EMS DVT prophylaxis: Apixaban 5 mg twice daily The patient is admitted with an anticipated less than 2 midnight stay for evaluation of pneumonia CODE STATUS: Unknown at this time Discussed with: Patient Anticipated discharge place: Home I have seen and examined this patient with my resident , discussed the same with the resident/WILLIAM, and agree with the dictator's assessment and plan as written Dr. José Miguel malhotra Objective - Vital Signs Vital signs: Vital Signs Temp 98.2 F 11/16/24 07:45 Pulse 85 11/16/24 11:22 Resp 16 11/16/24 08:00 BP 128/57 11/16/24 07:45 Pulse Ox 94 L 11/16/24 07:55 FiO2 Intake & Output 11/15/24 11/16/24 11/16/24 18:59 06:59 18:59 Intake Total 300 Output Total 350 600 Balance -50 -600 Intake: IV 300 Output: Urine 350 600 Other: Voiding Method Indwelling Catheter Indwelling Catheter Indwelling Catheter # Bowel Movements 1 - Labs CBC & Chem 7: 11/16/24 05:20 11/16/24 05:20 Labs: Abnormal Lab Results - Last 24 Hours (Table) 11/16/24 11/16/24 Range/Units 05:20 05:20 RBC 2.68 L (4.40-5.60) X 10*6/uL Hgb 8.0 L (13.0-17.0) g/dL Hct 22.9 L (39.6-50.0) % RDW 15.2 H (11.5-14.5) % Immature Gran # 0.06 H (0.00-0.04) X 10*3/uL Monocytes # 1.55 H (0.20-1.00) X 10*3/uL Eosinophils # 0 L (0.04-0.35) X 10*3/uL NRBC/100 WBC Diff 0.02 H (0.00-0.01) X 10*3/uL Sodium 129 L (135-145) mmol/L Carbon Dioxide 18.7 L (21.6-31.8) mmol/L BUN/Creatinine Ratio 31.86 H (12.00-20.00) Ratio Glucose 121 H (70-110) mg/dL Calcium 7.2 L (8.7-10.3) mg/dL
[2024-11-16] MEDS: PANTOPRAZOLE 40 MG TABLET PO SCH (17:46)
[2024-11-16] MEDS: APIXABAN 5 MG TAB PO SCH (21:03)
--- NOTE | 2024-11-17 08:33 | P.PN ---
Subjective Progress Note Date: 11/17/24 Principal diagnosis: Tracheobronchitis. This is an 84-year-old male patient with a known history of esophageal stricture, prostate cancer, hypertension, hyperlipidemia, former smoker who presented here to the emergency room 2 evenings ago with complaints of chest pain and shortness of breath. No hemoptysis. No productive sputum. Chest x- ray revealed no acute pulmonary process. CT angiogram ruled out pulmonary embolism. There was focal moderate to severe wall thickening in the mid to distal esophagus with some dilatation and air-fluid level proximal to this. Patient has a prior history of stent white count 12.0. Hemoglobin 10.4. Platelets 265. Sodium 128 glucose 148. Viral screen negative. Procalcitonin negative. Troponin negative. Regular medical floor. He is currently sitting up in a chair at the bedside. He denies any worsening shortness of breath, c ough or congestion. He does state he has having trouble swallowing at times. He is maintaining O2 saturations in the 90s on 2 L/min per nasal cannula. 0.9% normal saline at 75 mL/h. The patient is seen today November 16, 2024 in follow-up on the regular medical floor. He is currently sitting up in bed. Awake and alert in no acute distress. Maintaining good O2 saturations in the 90s on room air. He is afebrile. Hemodynamically stable. White count 12.0. Hemoglobin 10.4. Platelets 265. Sodium 129. Potassium 3.7. Bicarb 19. BUN 22. Creatinine 0.7. Glucose 121. He did undergo EGD with biopsies yesterday. He was found to have severe ulcerative esophagitis and oozing consistent with severe LA grade D reflux esophagitis. 1 cm polyp in the mid esophagus biopsied. Moderate to la rge hiatal hernia. Small gastric polyp biopsied. Protonix 40 mg twice daily. Therapeutic Lovenox for his atrial fibrillation. Continued on bronchodilators, Augmentin. Progress note dated November 17, 2024. 84-year-old male seen in consultation 2 days ago. Please see note above. The patient has a history of esophageal stricture, prostate cancer, hypertension, hyperlipidemia, and was admitted with a diagnosis of tracheobronchitis. In addition, he was having difficulty swallowing, and was evaluated with an EGD, with biopsies. Clinically, from the pulmonary standpoint he is doing well. He is on room air. Saturations are excellent. He is not receiving any IV fluids. For his tracheobronchitis he is receiving Augmentin, and Medrol Dosepak. He denies any difficulty with his breathing at this time. No new labs today. Labs from yesterday have been reviewed. Objective - Vital Signs Vital signs: Vital Signs Temp 97.9 F 11/17/24 07:29 Pulse 83 11/17/24 07:29 Resp 17 11/17/24 07:29 BP 165/63 11/17/24 07:29 Pulse Ox 93 L 11/17/24 07:29 FiO2 Intake & Output 11/16/24 11/17/24 11/17/24 18:59 06:59 18:59 Output Total 1000 400 Balance -1000 -400 Output: Urine 1000 400 Other: Voiding Method Indwelling Catheter Urinal # Voids 1 - Exam No acute distress, oriented 3. Currently on room air. No respiratory distress. HEENT examination is grossly unremarkable. Mucous membranes are moist. No oral lesions. Neck supple. Full range of motion. No adenopathy thyromegaly or neck vein distention. Cardiovascular examination reveals an irregular rhythm and rate. S1-S2 normal. No S3 or S4. No discernible murmur noted. Lungs reveal clear breath sounds. Breath sounds are equal bilaterally. No adv entitious lung sounds including wheezes rhonchi or crackles. Abdomen soft bowel sounds are heard. No masses or tenderness. Extremities are intact. No cyanosis clubbing or edema. Skin is without rash or lesion. Neurologic examination is brief but nonfocal. - Labs CBC & Chem 7: 11/16/24 05:20 11/16/24 05:20 Labs: Abnormal Lab Results - Last 24 Hours (Table) 11/16/24 11/16/24 Range/Units 05:20 05:20 RBC 2.68 L (4.40-5.60) X 10*6/uL Hgb 8.0 L (13.0-17.0) g/dL Hct 22.9 L (39.6-50.0) % RDW 15.2 H (11.5-14.5) % Immature Gran # 0.06 H (0.00-0.04) X 10*3/uL Monocytes # 1.55 H (0.20-1.00) X 10*3/uL Eosinophils # 0 L (0.04-0.35) X 10*3/uL NRBC/100 WBC Diff 0.02 H (0.00-0.01) X 10*3/uL Sodium 129 L (135-145) mmol/L Carbon Dioxide 18.7 L (21.6-31.8) mmol/L BUN/Creatinine Ratio 31.86 H (12.00-20.00) Ratio Glucose 121 H (70-110) mg/dL Calcium 7.2 L (8.7-10.3) mg/dL Assessment and Plan Assessment: Dyspnea and chest discomfort suspect secondary to esophageal stricture. CT angiogram of the chest ruled out pulmonary embolism. Focal moderate to severe wall thickening in the mid to distal esophagus with some dilation and air fluid levels proximal to this. EGD performed 11/15/2024 revealed severe ulcerative esophagitis with oozing consistent with severe LA grade D reflux esophagitis. 1 cm polyp in the mid esophagus status post biopsy. Small gastric polyp status p ost biopsy. Moderate to large hiatal hernia. Atrial fibrillation with rapid ventricular response. History of esophageal strictures previous esophageal dilatation and esophageal stent placement. Dysphagia secondary to above. Acute tracheobronchitis without evidence of pneumonia. Procalcitonin negative at 0.07. Hypertension. Hyperlipidemia. History of prostate cancer. History of GI bleed. History of congenital absence of the external ears. Plan: Plan dated November 17, 2024. The patient was seen today in room 622. He was interviewed and examined. He is on room air. He is not receiving any IV fluids. The patient is currently on Medrol Dosepak and Augmentin for his tracheobronchitis. Augmentin can be discontinued after 5 days. Labs, x-rays, and medications are reviewed. He is clinically stable. He is not having any respiratory issues. We will continue to follow. Time with Patient: Less than 30
[2024-11-17 09:39] LABS: Basophils # (A) 0 X 10*3/uL (0.00-0.10); Basophils % (A) 0 %; Eosinophils # (A) 0 X 10*3/uL (0.04-0.35); Eosinophils % (A) 0 %; HGB 7.9 g/dL (13.0-17.0); Lymphocytes # (A) 1.38 X 10*3/uL (0.90-5.00); Lymphocytes % (A) 24.7 %; MCH 29.5 pg (27.0-32.0); MCHC 34.3 g/dL (32.0-37.0); MCV 85.8 FL (80.0-97.0); Mean Platelet Volume 11.7 FL (9.5-12.2); Monocytes # (A) 0.82 X 10*3/uL (0.20-1.00); Monocytes % (A) 14.7 %; NRBC Per 100 WBC 0 X 10*3/uL (0.00-0.01); Neutrophils # (A) 3.34 X 10*3/uL (1.80-7.70); Neutrophils % (A) 59.9 %; Platelet Count 188 X 10*3/uL (140-440); RBC 2.68 X 10*6/uL (4.40-5.60); RDW 14.7 % (11.5-14.5); WBC 5.58 X 10*3/uL (4.50-10.00)
[2024-11-17 09:46] LABS: BUN/Creat Ratio 25.17 Ratio (12.00-20.00); Blood Urea Nitrogen 15.1 mg/dL (9.0-27.0); Calcium 7.5 mg/dL (8.7-10.3); Carbon Dioxide 21.9 mmol/L (21.6-31.8); Chloride 98 mmol/L (96-109); Glucose 103 mg/dL (70-110); Potassium 3.6 mmol/L (3.5-5.5); Sodium 129 mmol/L (135-145)
--- NOTE | 2024-11-17 13:30 | P.PN ---
Subjective Progress Note Date: 11/17/24 Per Medical H&P, " Patient is a 84-year-old male with GERD, hyperlipidemia, hypertension, osteoarthritis presented to the emergency department with shortness of breath, chest pain, nausea, vomiting for the past 5 days. Patient states that over the past 5 days his symptoms have gradually worsened and started producing a productive cough. He reports his chest pain to be sharp stabbing which radiates towards his back. His shortness of breath is also gradually getting worse. He also reports feeling nauseous and vomited a few times this morning. Patient also reports trouble swallowing. Patient denies fever, chills, belly pain, diarrhea or constipation. Denies any hematochezia or melena. He does not have any recent sick contacts. ED documentation reviewed. In the ED patient was treated with aspirin 324 mg p.o. x 1, Flomax 500 mg IV x 1, Rocephin 2 g IV x 1, hydralazine 10 mg IV x 1 Vitals on admission temperature 97.6, pulse rate 84, respiratory rate 18, blood pressure 167/76, O2 sat 95% on standby at 2 L/min EKG independently interpreted as sinus rhythm with ventricular rate of 81 bpm, QTc interval 414 ms CXR shows no acute process Chest CTA shows no CT evidence for acute pulmonary embolism. Suboptimal study. Areas of developing acute infiltrate in the lower lungs cannot be excluded. Focal moderate to severe wall thickening in the mid to distal esophagus with some dilatation and air-fluid level proximal to this. Patient has history of prior stent. Consider stricture versus neoplasm at this level. Labs on admission show WBC 6.7, hemoglobin 10.8, hematocrit 32.5, platelet 236, PT 10.5, PTT 22.3, INR 0.9, D-dimer 0.63, sodium 131, potassium 4.6, chloride 93, carbon dioxide 27, BUN 21, creatinine 0.72, glucose 108 " Progress note for 11/15/2024: Patient was seen at bedside seem to be sleepy this morning. Patient still reports having shortness of breath, chest pain, and producing a productive cough. Patient will undergo EGD today with possible dilatation. Progress note for 11/16/2024: Patient was seen at bedside today. Patient underwent an EGD yesterday. EGD showed severe ulcerative esophagitis consistent with severe LA grade D reflux esophagitis. 1 cm polyp in the mid esophagus status post biopsy. Moderate to large size hiatal hernia. Small gastric polyps status post biopsy. GI recommended patient to start on Protonix 40 mg IV twice daily in the hospital. Outpatient follow-up with GI 2 weeks following discharge. Spoke to patient's nurse at bedside who reported that family is aware that patient will not be transferred to [facility]. Patient still reports trouble swallowing today. Denies other acute complaints at this time. 11/17. Patient seen examined. Tolerating diet. States swallowing is improved from yesterday Review of Systems Constitutional: Denies chills, Denies fever Gastrointestinal: Denies abdominal pain, Denies diarrhea, Denies nausea, Denies vomiting Musculoskeletal: Denies myalgias Integumentary: Denies pruritus, Denies rash GENERAL: The patient is alert and oriented x3, not in any acute distress. Well d eveloped, well nourished. HEENT: Pupils are round and equally reacting to light. EOMI. No scleral icterus. Congenital absence of bilateral ears CARDIOVASCULAR: S1 and S2 present. No murmurs, rubs, or gallops. PULMONARY: Chest is clear to auscultation, no wheezing or crackles. ABDOMEN: Soft, nontender, nondistended, normoactive bowel sounds. No palpable organomegaly. MUSCULOSKELETAL: No joint swelling or deformity. EXTREMITIES: No cyanosis, clubbing, or pedal edema. NEUROLOGICAL: Gross neurological examination did not reveal any focal deficits. SKIN: No rashes. no petechiae. Assessment/Plan: #. Aspiration pneumonia Chest CTA shows areas of developing acute infiltrate in the lower lungs cannot be excluded. WBC 8.38 Continue cardiac monitoring Continue Augmentin x 5 days total #. Leukocytosis, resolved #. Ulcerative esophagitis EGD showed severe ulcerative esophagitis consistent with severe LA grade D reflux esophagitis. 1 cm polyp in the mid esophagus status post biopsy. Moderate to large size hiatal hernia. Small gastric polyps status post biopsy. Continue oral Protonix 40 mg twice a day #. New onset paroxysmal atrial fibrillation with RVR currently rate controlled Continue metoprolol 100 mg daily Eliquis continue #. Hyponatremia Monitor BMP #. Normocytic anemia Monitor CBC Chronic: #. GERD #. Hypertension #. Vitamin D deficiency Continue home meds Objective - Vital Signs Vital signs: Vital Signs Temp 97.9 F 11/17/24 07:29 Pulse 84 11/17/24 12:19 Resp 18 11/17/24 13:01 BP 165/63 11/17/24 07:29 Pulse Ox 93 L 11/17/24 07:29 FiO2 Intake & Output 11/16/24 11/17/24 11/17/24 18:59 06:59 18:59 Output Total 1000 400 Balance -1000 -400 Output: Urine 1000 400 Other: Voiding Method Indwelling Catheter Urinal Urinal # Voids 1 - Labs CBC & Chem 7: 11/17/24 05:56 11/17/24 05:56 Labs: Abnormal Lab Results - Last 24 Hours (Table) 11/17/24 11/17/24 Range/Units 05:56 05:56 RBC 2.68 L (4.40-5.60) X 10*6/uL Hgb 7.9 L (13.0-17.0) g/dL Hct 23.0 L (39.6-50.0) % RDW 14.7 H (11.5-14.5) % Eosinophils # 0 L (0.04-0.35) X 10*3/uL Sodium 129 L (135-145) mmol/L BUN/Creatinine Ratio 25.17 H (12.00-20.00) Ratio Calcium 7.5 L (8.7-10.3) mg/dL
[2024-11-18 03:47] LABS: Mycoplasma IgG Antibody (EIA) 3.81 INDEX (<=0.90); Mycoplasma IgM Antibody 0.45 INDEX (<=0.90)
--- NOTE | 2024-11-18 12:34 | FL ---
Exam Date: 11/18/2024 12:30 PM. Modified barium swallow for dysphagia. Consistencies administered: Various consistency of barium. Fluoro time: 44 sec No images were sent to PACS. Please see speech pathology report. DAP: Not reported [id number] [facility], , 11/18/2024 12:32 PM
--- NOTE | 2024-11-18 14:14 | XR ---
EXAMINATION TYPE: XR chest 2V DATE OF EXAM: 11/18/2024 1:47 PM COMPARISON: 11/13/2024 CLINICAL INDICATION: Male, 84 years old with cough, shortness of breath, history of aspiration pneumo trung, , TECHNIQUE: Frontal and lateral views FINDINGS: Heart normal size. Aorta and pulmonary vasculature within normal limits. There are small bilateral pl eural effusions with some adjacent patchy opacity on the lateral view. IMPRESSION: Small bilateral pleural effusions with adjacent atelectasis and/or consolidation seen on the lateral view. [facility], Workstation: [facility], 11/18/2024 2:12 PM
--- NOTE | 2024-11-18 15:42 | P.PN ---
Subjective Progress Note Date: 11/18/24 Per Medical H&P, " Patient is a 84-year-old male with GERD, hyperlipidemia, hypertension, osteoarthritis presented to the emergency department with shortness of breath, chest pain, nausea, vomiting for the past 5 days. Patient states that over the past 5 days his symptoms have gradually worsened and started producing a productive cough. He reports his chest pain to be sharp stabbing which radiates towards his back. His shortness of breath is also gradually getting worse. He also reports feeling nauseous and vomited a few times this morning. Patient also reports trouble swallowing. Patient denies fever, chills, belly pain, diarrhea or constipation. Denies any hematochezia or melena. He does not have any recent sick contacts. ED documentation reviewed. In the ED patient was treated with aspirin 324 mg p.o. x 1, Flomax 500 mg IV x 1, Rocephin 2 g IV x 1, hydralazine 10 mg IV x 1 Vitals on admission temperature 97.6, pulse rate 84, respiratory rate 18, blood pressure 167/76, O2 sat 95% on standby at 2 L/min EKG independently interpreted as sinus rhythm with ventricular rate of 81 bpm, QTc interval 414 ms CXR shows no acute process Chest CTA shows no CT evidence for acute pulmonary embolism. Suboptimal study. Areas of developing acute infiltrate in the lower lungs cannot be excluded. Focal moderate to severe wall thickening in the mid to distal esophagus with some dilatation and air-fluid level proximal to this. Patient has history of prior stent. Consider stricture versus neoplasm at this level. Labs on admission show WBC 6.7, hemoglobin 10.8, hematocrit 32.5, platelet 236, PT 10.5, PTT 22.3, INR 0.9, D-dimer 0.63, sodium 131, potassium 4.6, chloride 93, carbon dioxide 27, BUN 21, creatinine 0.72, glucose 108 " Progress note for 11/15/2024: Patient was seen at bedside seem to be sleepy this morning. Patient still reports having shortness of breath, chest pain, and producing a productive cough. Patient will undergo EGD today with possible dilatation. Progress note for 11/16/2024: Patient was seen at bedside today. Patient underwent an EGD yesterday. EGD showed severe ulcerative esophagitis consistent with severe LA grade D reflux esophagitis. 1 cm polyp in the mid esophagus status post biopsy. Moderate to large size hiatal hernia. Small gastric polyps status post biopsy. GI recommended patient to start on Protonix 40 mg IV twice daily in the hospital. Outpatient follow-up with GI 2 weeks following discharge. Spoke to patient's nurse at bedside who reported that family is aware that patient will not be transferred to [facility]. Patient still reports trouble swallowing today. Denies other acute complaints at this time. 11/17. Patient seen examined. Tolerating diet. States swallowing is improved from yesterday 11/18/2024. Patient was seen and examined at bedside. Patient did report having diarrhea yesterday. Swelling has improved. Patient will undergo modified barium swallow test today. Denies other acute complaints at this time. Review of Systems Constitutional: Denies chills, Denies fever Gastrointestinal: Denies abdominal pain, Denies diarrhea, Denies nausea, Denies vomiting Musculoskeletal: Denies myalgias Integumentary: Denies pruritus, Denies rash GENERAL: The patient is alert and oriented x3, not in any acute distress. Well developed, well nourished. HEENT: Pupils are round and equally reacting to light. EOMI. No scleral icterus. Congenital absence of bilateral ears CARDIOVASCULAR: S1 and S2 present. No murmurs, rubs, or gallops. PULMONARY: Chest is clear to auscultation, no wheezing or crackles. ABDOMEN: Soft, nontender, nondistended, normoactive bowel sounds. No palpable organomegaly. MUSCULOSKELETAL: No joint swelling or deformity. EXTREMITIES: No cyanosis, clubbing, or pedal edema. NEUROLOGICAL: Gross neurological examination did not reveal any focal deficits. SKIN: No rashes. no petechiae. Assessment/Plan: #. Aspiration pneumonia Chest CTA shows areas of developing acute infiltrate in the lower lungs cannot be excluded. WBC 5.58 Continue cardiac monitoring Continue Augmentin x 5 days total Patient will undergo modified barium swallow by speech therapy today PT recommended rehab placement for patient after discharge #. Leukocytosis, resolved #. Ulcerative esophagitis EGD showed severe ulcerative esophagitis consistent with severe LA grade D reflux esophagitis. 1 cm polyp in the mid esophagus status post biopsy. Moderate to large size hiatal hernia. Small gastric polyps status post biopsy. Continue oral Protonix 40 mg twice a day #. New onset paroxysmal atrial fibrillation with RVR currently rate controlled Continue metoprolol 100 mg daily Eliquis continue #. Hyponatremia Monitor BMP #. Normocytic anemia Monitor CBC Chronic: #. GERD #. Hypertension #. Vitamin D deficiency Continue home meds Objective - Vital Signs Vital signs: Vital Signs Temp 97.6 F 11/18/24 14:00 Pulse 80 11/18/24 14:00 Resp 16 11/18/24 14:00 BP 149/75 11/18/24 14:00 Pulse Ox 98 11/18/24 14:00 FiO2 Intake & Output 11/17/24 11/18/24 11/18/24 18:59 06:59 18:59 Other: Voiding Method Urinal Toilet Toilet # Voids 3 4 2 # Bowel Movements 1 2 - Labs CBC & Chem 7: 11/17/24 05:56 11/17/24 05:56 Labs: Abnormal Lab Results - Last 24 Hours (Table) 11/14/24 Range/Units 17:33 Mycoplasma pneumon IgG 3.81 H (<=0.90) INDEX
--- NOTE | 2024-11-18 16:14 | P.PN ---
Subjective Progress Note Date: 11/18/24 This is an 84-year-old male patient with a known history of esophageal stricture, prostate cancer, hypertension, hyperlipidemia, former smoker who presented here to the emergency room 2 evenings ago with complaints of chest pain and shortness of breath. No hemoptysis. No productive sputum. Chest x-ray revealed no acute pulmonary process. CT angiogram ruled out pulmonary embolism. There was focal moderate to severe wall thickening in the mid to distal esophagus with some dilatation and air-fluid level proximal to this. Patient has a prior history of stent white count 12.0. Hemoglobin 10.4. P latelets 265. Sodium 128 glucose 148. Viral screen negative. Procalcitonin negative. Troponin negative. Regular medical floor. He is currently sitting up in a chair at the bedside. He denies any worsening shortness of breath, cough or congestion. He does state he has having trouble swallowing at times. He is maintaining O2 saturations in the 90s on 2 L/min per nasal cannula. 0.9% normal saline at 75 mL/h. The patient is seen today November 16, 2024 in follow-up on the regular medical f ken[facility]. He is currently sitting up in bed. Awake and alert in no acute distress. Maintaining good O2 saturations in the 90s on room air. He is afebrile. Hemodynamically stable. White count 12.0. Hemoglobin 10.4. Platelets 265. Sodium 129. Potassium 3.7. Bicarb 19. BUN 22. Creatinine 0.7. Glucose 121. He did undergo EGD with biopsies yesterday. He was found to have severe ulcerative esophagitis and oozing consistent with severe LA grade D reflux esophagitis. 1 cm polyp in the mid esophagus biopsied. Moderate to large hiatal hernia. Small gastric polyp biopsied. Protonix 40 mg twice daily. Therapeutic Lovenox for his atrial fibrillation. Continued on bronchodilators, Augmentin. Progress note dated November 17, 2024. 84-year-old male seen in consultation 2 days ago. Please see note above. The patient has a history of esophageal stricture, prostate cancer, hypertension, hyperlipidemia, and was admitted with a diagnosis of tracheobronchitis. In addition, he was having difficulty swallowing, and was evaluated with an EGD, with biopsies. Clinically, from the pulmonary standpoint he is doing well. He is on room air. Saturations are excellent. He is not receiving any IV fluids. For his tracheobronchitis he is receiving Augmentin, and Medrol Dosepak. He denies any difficulty with his breathing at this time. No new labs today. Labs from yesterday have been reviewed. On 11/18/2024, the patient is calm and comfortable with a pulse ox of 98% on room air oxygen. Denies having any significant respiratory distress. A swallow evaluation was done with a modified barium and it was essentially within normal limits. Repeat chest x-ray was also done today that shows no evidence of any airspace disease or consolidation of ongoing pneumonia. However, the patient is known to have chronic esophageal problems. Send previous pneumonias related to esophageal stricture for which she has received dilatation back in 2019. Due to ongoing difficulty swallowing, the patient had another EGD that showed severe ulcerative ulcerative esophagitis with circumferential ulceration and oozing consistent with grade D esophagitis and a 1 cm polyp in the mid esophagus and moderate to large hiatal hernia and small gastric polyp that was biopsied. His current white cell count is at 5 with a hemoglobin 7.9 and a platelet count of 188. BUN is 15 with a creatinine 0.9. His Legionella urine antigen has been negative. The patient's is currently on DuoNeb of chest. He is on anticoagulation with Eliquis. He is also completing a course of Augmentin. Objective - Vital Signs Vital signs: Vital Signs Temp 97.6 F 11/18/24 14:00 Pulse 84 11/18/24 15:56 Resp 16 11/18/24 14:00 BP 149/75 11/18/24 14:00 Pulse Ox 98 11/18/24 14:00 FiO2 Intake & Output 11/17/24 11/18/24 11/18/24 18:59 06:59 18:59 Other: Voiding Method Urinal Toilet Toilet # Voids 3 4 2 # Bowel Movements 1 2 - Exam GENERAL EXAM: Alert, 84-year-old male, resting in bed, on room air, comfortable in no apparent distress. HEAD: Normocephalic. EYES: Normal reaction of pupils, equal size. NOSE: Clear with pink turbinates. THROAT: No erythema or exudates. NECK: No masses, no JVD. CHEST: No chest wall deformity. LUNGS: Equal air entry with no crackles, wheeze, rhonchi or dullness. CVS: S1 and S2 normal with no audible murmur, irregular rhythm. ABDOMEN: No hepatosplenomegaly, normal bowel sounds, no guarding or rigidity. SPINE: No scoliosis or deformity SKIN: No rashes CENTRAL NERVOUS SYSTEM: No focal deficits, tone is normal in all 4 extremities. EXTREMITIES: There is no peripheral edema. No clubbing, no cyanosis. Peripheral pulses are intact. - Labs CBC & Chem 7: 11/17/24 05:56 11/17/24 05:56 Labs: Abnormal Lab Results - Last 24 Hours (Table) 11/14/24 Range/Units 17:33 Mycoplasma pneumon IgG 3.81 H (<=0.90) INDEX Assessment and Plan Plan: Dyspnea and chest discomfort suspect secondary to esophageal stricture. CT angiogram of the chest ruled out pulmonary embolism. Focal moderate to severe wall thickening in the mid to distal esophagus with some dilation and air fluid levels proximal to this. EGD performed 11/15/2024 revealed severe ulcerative esophagitis with oozing consistent with severe LA grade D reflux HF otitis. 1 cm polyp in the mid esophagus status post biopsy. Small gastric polyp status post biopsy. Moderate to large hiatal hernia. Initiated on Protonix IV twice daily. Consider the possibility of aspiration Paroxysmal A-fib, currently sinus rhythm and the patient remains on anticoagulation History of esophageal strictures previous esophageal dilatation and esophageal stent placement Dysphagia secondary to above Acute tracheobronchitis without evidence of pneumonia. 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
[2024-11-19 08:17] VITALS: RESP 18
[2024-11-19 08:49] LABS: Basophils # (A) 0 X 10*3/uL (0.00-0.10); Basophils % (A) 0 %; Eosinophils # (A) 0.01 X 10*3/uL (0.04-0.35); Eosinophils % (A) 0.2 %; HCT 25.9 % (39.6-50.0); HGB 9.1 g/dL (13.0-17.0); Lymphocytes # (A) 1.46 X 10*3/uL (0.90-5.00); Lymphocytes % (A) 26.3 %; MCH 29.2 pg (27.0-32.0); MCHC 35.1 g/dL (32.0-37.0); Mean Platelet Volume 11.6 FL (9.5-12.2); Monocytes # (A) 0.92 X 10*3/uL (0.20-1.00); Monocytes % (A) 16.6 %; NRBC Per 100 WBC 0 X 10*3/uL (0.00-0.01); Neutrophils # (A) 3.11 X 10*3/uL (1.80-7.70); Platelet Count 221 X 10*3/uL (140-440); RBC 3.12 X 10*6/uL (4.40-5.60); WBC 5.55 X 10*3/uL (4.50-10.00)
[2024-11-19 10:50] LABS: Calcium 8.3 mg/dL (8.7-10.3); Carbon Dioxide 23.2 mmol/L (21.6-31.8); Chloride 94 mmol/L (96-109); Glucose 108 mg/dL (70-110); Potassium 3.3 mmol/L (3.5-5.5); Sodium 129 mmol/L (135-145)
[2024-11-19] MEDS ORDERED: Potassium Replacement Protocol 1 EACH MISC MISCELLANE PRN (12:07)
[2024-11-19 12:23] LABS: BUN/Creat Ratio 13.57 Ratio (12.00-20.00); Blood Urea Nitrogen 9.5 mg/dL (9.0-27.0)
[2024-11-19] MEDS: POTASSIUM CHLORIDE ER 20 MEQ TAB.ER PO SCH (12:25)
[2024-11-19 14:25] VITALS: BP 144/77; PULSE 89; TEMP 97.7
--- NOTE | 2024-11-19 14:43 | P.DS ---
Providers Date of admission: 11/15/24 08:22 Attending physician: Faby Brandon Consults: 11/14/24 14:59 Consult Physician Routine Consulting Provider: Reginaldo Resendez Consult Reason/Comments: atypical pneumonia Do you want consulting provider notified?: Yes 11/14/24 19:34 Consult Physician Urgent Consulting Provider: Laquita Sandoval Consult Reason/Comments: esophageal stricture Do you want consulting provider notified?: Yes Primary care physician: Anuj Zamudio MD Hospital Course: Diagnoses: #. Aspiration pneumonia #. Hyponatremia, stable #. Ulcerative esophagitis #. New onset paroxysmal atrial fibrillation with RVR currently rate controlled #. Hyponatremia #. Normocytic anemia #. GERD #. Hypertension #. Vitamin D deficiency Hospital course: Patient is a 84-year-old male with GERD, hyperlipidemia, hypertension, osteoarthritis presented to the emergency department with shortness of breath, chest pain, nausea, vomiting for the past 5 days. Patient states that over the past 5 days his symptoms have gradually worsened and started producing a productive cough. He reports his chest pain to be sharp stabbing which radiates towards his back. His shortness of breath is also gradually getting worse. He also reports feeling nauseous and vomited . Patient also reports trouble swallowing. Patient denies fever, chills, belly pain, diarrhea or constipation. Denies any hematochezia or melena. He does not have any recent sick contacts. Patient evaluated by several consultants including GI, pulmonary and cardiology service. Cardiology team already signed off the case Patient s/p EGD on 11/15 showing severe ulceration of the esophagus with esophagitis with oozing consistent with severe LA grade D reflux. Patient currently kept on Protonix Twice daily and symptomatic treatment with Zofran. Also he was treated with Medrol dose pack and Augmentin for total 5 days with 2 days left Also is on Eliquis for his A-fib and RVR., Patient currently heart rate controlled with metoprolol. Heart rate is 89 upon discharge. Patient hyponatremia stable at 129 over several days, we recommend to continue with the fluid restriction Patient feels fine. He also has some difficulty with eating regular food therefore we recommend soft food for him with aspiration precaution Patient had a biopsy of the esophagus he needs close outpatient follow-up. Appointment made for him with PCP and Dr. Drummond from GI Patient was cleared for discharge by all consultants including GI, cardiology and pulmonary Problems and management plan were discussed with the patient and he verbalized understanding and acceptance Patient was found stable and can be discharged home in guarded prognosis however he needs follow-up as an outpatient. Patient was instructed to follow up with PCP Dr. Zamudio within one week and patient agrees with appointment made for him in 11/25 An appointment made for the patient with Dr. Da Silva from GI on 12/11 patient instructed and he agrees. Patient instructed to follow-up with acting instructor Dr. Resendez in 2 to 3 weeks after discharge Physical exam Gen: patient is a AAOx3, no distress CVS: S1-S2, RRR, no murmur Lungs: B/L CTA, no wheezing Abdomen: soft, no distention, no tenderness, positive bowel sounds Extremity: no leg edema or induration Time spent more than 35 minutes Patient Condition at Discharge: Fair Plan - Discharge Summary Discharge Rx Participant: No New Discharge Prescriptions: New Apixaban [Eliquis] 5 mg PO BID #60 tab No Action Metoprolol Succinate [Toprol XL] 100 mg PO DAILY amLODIPine [Norvasc] 5 mg PO DAILY HYDROcodone/APAP 10-325MG [[place] 10-325] 1 tab PO TID Esomeprazole Magnesium [NexIUM] 40 mg PO BID busPIRone HCl [Buspar] 10 mg PO BID Metoclopramide [Reglan] 10 mg PO HS Escitalopram [Lexapro] 20 mg PO DAILY Cholecalciferol (Vitamin D3) [Vitamin D3 (1250 Mcg = 50,000 Iu)] 1,250 mcg PO Q7DAYS Cariprazine HCl [Vraylar] 4.5 mg PO DAILY Discharge Medication List Metoprolol Succinate [Toprol XL] 100 mg PO DAILY 04/30/14 [History] HYDROcodone/APAP 10-325MG [[place] 10-325] 1 tab PO TID 11/15/18 [History] amLODIPine [Norvasc] 5 mg PO DAILY 11/15/18 [History] Cariprazine HCl [Vraylar] 4.5 mg PO DAILY 11/14/24 [History] Cholecalciferol (Vitamin D3) [Vitamin D3 (1250 Mcg = 50,000 Iu)] 1,250 mcg PO Q7DAYS 11/14/24 [History] Escitalopram [Lexapro] 20 mg PO DAILY 11/14/24 [History] Esomeprazole Magnesium [NexIUM] 40 mg PO BID 11/14/24 [History] Metoclopramide [Reglan] 10 mg PO HS 11/14/24 [History] busPIRone HCl [Buspar] 10 mg PO BID 11/14/24 [History] Apixaban [Eliquis] 5 mg PO BID #60 tab 11/19/24 [Rx] Follow up Appointment(s)/Referral(s): Anuj Zamudio MD [Primary Care Provider] - 11/25/24 1:15 pm Laquita Sandoval MD [STAFF PHYSICIAN] - 12/11/24 1:30 pm (soonest avilable) Reginaldo Resendez DO [Doctor of Osteopathic Medicine] - 12/31/24 2:00 pm None,Stated [REFERRING] - 1-2 days Patient Instructions/Handouts: Pneumonia (DC) Activity/Diet/Wound Care/Special Instructions: Regular diet, soft food with aspiration precaution. Patient should be sitting up while eating and drinking Activity as tolerated Discharge Disposition: TRANSFER TO SNF/ECF
--- NOTE | 2024-11-19 15:09 | P.PN ---
Subjective Progress Note Date: 11/19/24 This is an 84-year-old male patient with a known history of esophageal stricture, prostate cancer, hypertension, hyperlipidemia, former smoker who presented here to the emergency room 2 evenings ago with complaints of chest pain and shortness of breath. No hemoptysis. No productive sputum. Chest x-ray revealed no acute pulmonary process. CT angiogram ruled out pulmonary embolism. There was focal moderate to severe wall thickening in the mid to distal esophagus with some dilatation and air-fluid level proximal to this. Patient has a prior history of stent white count 12.0. Hemoglobin 10.4. P latelets 265. Sodium 128 glucose 148. Viral screen negative. Procalcitonin negative. Troponin negative. Regular medical floor. He is currently sitting up in a chair at the bedside. He denies any worsening shortness of breath, cough or congestion. He does state he has having trouble swallowing at times. He is maintaining O2 saturations in the 90s on 2 L/min per nasal cannula. 0.9% normal saline at 75 mL/h. The patient is seen today November 16, 2024 in follow-up on the regular medical f [facility]. He is currently sitting up in bed. Awake and alert in no acute distress. Maintaining good O2 saturations in the 90s on room air. He is afebrile. Hemodynamically stable. White count 12.0. Hemoglobin 10.4. Platelets 265. Sodium 129. Potassium 3.7. Bicarb 19. BUN 22. Creatinine 0.7. Glucose 121. He did undergo EGD with biopsies yesterday. He was found to have severe ulcerative esophagitis and oozing consistent with severe LA grade D reflux esophagitis. 1 cm polyp in the mid esophagus biopsied. Moderate to large hiatal hernia. Small gastric polyp biopsied. Protonix 40 mg twice daily. Therapeutic Lovenox for his atrial fibrillation. Continued on bronchodilators, Augmentin. Progress note dated November 17, 2024. 84-year-old male seen in consultation 2 days ago. Please see note above. The patient has a history of esophageal stricture, prostate cancer, hypertension, hyperlipidemia, and was admitted with a diagnosis of tracheobronchitis. In addition, he was having difficulty swallowing, and was evaluated with an EGD, with biopsies. Clinically, from the pulmonary standpoint he is doing well. He is on room air. Saturations are excellent. He is not receiving any IV fluids. For his tracheobronchitis he is receiving Augmentin, and Medrol Dosepak. He denies any difficulty with his breathing at this time. No new labs today. Labs from yesterday have been reviewed. On 11/18/2024, the patient is calm and comfortable with a pulse ox of 98% on room air oxygen. Denies having any significant respiratory distress. A swallow evaluation was done with a modified barium and it was essentially within normal limits. Repeat chest x-ray was also done today that shows no evidence of any airspace disease or consolidation of ongoing pneumonia. However, the patient is known to have chronic esophageal problems. Send previous pneumonias related to esophageal stricture for which she has received dilatation back in 2019. Due to ongoing difficulty swallowing, the patient had another EGD that showed severe ulcerative ulcerative esophagitis with circumferential ulceration and oozing consistent with grade D esophagitis and a 1 cm polyp in the mid esophagus and moderate to large hiatal hernia and small gastric polyp that was biopsied. His current white cell count is at 5 with a hemoglobin 7.9 and a platelet count of 188. BUN is 15 with a creatinine 0.9. His Legionella urine antigen has been negative. The patient's is currently on DuoNeb of chest. He is on anticoagulation with Eliquis. He is also completing a course of Augmentin. On 11/19/2024, the patient has no new complaints. He is on room air oxygen with a pulse ox of 99%. Labs are stable with a white cell count of 5 and hemoglobin 9.1 and a platelet count of 221. Sodium level is at 129 with a BUN of 9 and a creatinine of 0.7. A swallow evaluation has been also completed. The patient is being considered for discharge today. Continues to have symptoms of reflux and epigastric discomfort and heartburn. Objective - Vital Signs Vital signs: Vital Signs Temp 98.5 F 11/19/24 08:00 Pulse 110 H 11/19/24 08:22 Resp 18 11/19/24 08:22 BP 129/71 11/19/24 08:00 Pulse Ox 99 11/19/24 08:14 FiO2 Intake & Output 11/18/24 11/19/24 11/19/24 18:59 06:59 18:59 Output Total 200 Balance -200 Output: Urine 200 Other: Voiding Method Toilet Toilet # Voids 1 1 1 - Exam GENERAL EXAM: Alert, 84-year-old male, resting in bed, on room air, comfortable in no apparent distress. HEAD: Normocephalic. EYES: Normal reaction of pupils, equal size. NOSE: Clear with pink turbinates. THROAT: No erythema or exudates. NECK: No masses, no JVD. CHEST: No chest wall deformity. LUNGS: Equal air entry with no crackles, wheeze, rhonchi or dullness. CVS: S1 and S2 normal with no audible murmur, irregular rhythm. ABDOMEN: No hepatosplenomegaly, normal bowel sounds, no guarding or rigidity. SPINE: No scoliosis or deformity SKIN: No rashes CENTRAL NERVOUS SYSTEM: No focal deficits, tone is normal in all 4 extremities. EXTREMITIES: There is no peripheral edema. No clubbing, no cyanosis. Peripheral pulses are intact. - Labs CBC & Chem 7: 11/19/24 05:05 11/19/24 05:05 Labs: Abnormal Lab Results - Last 24 Hours (Table) 11/19/24 11/19/24 Range/Units 05:05 05:05 RBC 3.12 L (4.40-5.60) X 10*6/uL Hgb 9.1 L (13.0-17.0) g/dL Hct 25.9 L (39.6-50.0) % RDW 15.0 H (11.5-14.5) % Immature Gran # 0.05 H (0.00-0.04) X 10*3/uL Eosinophils # 0.01 L (0.04-0.35) X 10*3/uL Sodium 129 L (135-145) mmol/L Potassium 3.3 L (3.5-5.5) mmol/L Chloride 94 L (96-109) mmol/L Calcium 8.3 L (8.7-10.3) mg/dL Assessment and Plan Plan: Dyspnea and chest discomfort suspect secondary to esophageal stricture. CT angiogram of the chest ruled out pulmonary embolism. Focal moderate to severe wall thickening in the mid to distal esophagus with some dilation and air fluid levels proximal to this. EGD performed 11/15/2024 revealed severe ulcerative esophagitis with oozing consistent with severe LA grade D reflux HF otitis. 1 cm polyp in the mid esophagus status post biopsy. Small gastric polyp status post biopsy. Moderate to large hiatal hernia. Initiated on Protonix IV twice daily. Consider the possibility of aspiration Paroxysmal A-fib, currently sinus rhythm and the patient remains on anticoagulation History of esophageal strictures previous esophageal dilatation and esophageal stent placement Dysphagia secondary to above Acute tracheobronchitis without evidence of pneumonia. 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
[2024-11-21] MEDS ORDERED: ERGOCALCIFEROL 1,250 MCG (50,000 IU) CAPSULE PO SCH (09:00)
== END 2024-11-19 17:25 | DRG 380 ==
LOC: EC 20:04 → SUPCPDRO 20:04 → 6NMEDSUR 22:19 → OBSVTOIN 11-15 08:22
PROVIDERS: ADMIT Hospitalist; ATTEND Hospitalist
PROC: 0DB68ZX Excision of Stomach, Via Natural or Artificial Opening Endoscopic, Diagnostic (ICD-10-PCS; 2024-11-15)
PROC: 0DB28ZX Excision of Middle Esophagus, Via Natural or Artificial Opening Endoscopic, Diagnostic (ICD-10-PCS; principal; 2024-11-15 08:25)
DX: K22.10 Ulcer of esophagus without bleeding (principal); J69.0 Pneumonitis due to inhalation of food and vomit; J90 Pleural effusion, not elsewhere classified; I10 Essential (primary) hypertension; D64.9 Anemia, unspecified; E87.1 Hypo-osmolality and hyponatremia; I48.0 Paroxysmal atrial fibrillation; E55.9 Vitamin D deficiency, unspecified; K21.00 Gastro-esophageal reflux disease with esophagitis, without bleeding; E78.5 Hyperlipidemia, unspecified; K44.9 Diaphragmatic hernia without obstruction or gangrene; K31.7 Polyp of stomach and duodenum; K22.81 Esophageal polyp; J20.9 Acute bronchitis, unspecified; Q16.0 Congenital absence of (ear) auricle; Z87.891 Personal history of nicotine dependence; Z85.46 Personal history of malignant neoplasm of prostate; Z79.899 Other long term (current) drug therapy; Z79.01 Long term (current) use of anticoagulants; Z92.3 Personal history of irradiation
CPT/HCPCS: 36415; 43239; 71046; 71275; 74230; 80048; 80053; 83735; 84145; 84484; 85025; 85379; 85610; 85730; 86738; 87449; 87636; 88305; 88312; 93005; 93306; 94640; 94760; 96365; 96366; 96368; 99285

== ENCOUNTER → 2025-01-28 | Outpatient (CLI) | payer MEDICARE, OTHER ==
[~2025-01-28] MED LIST changes: -LACTATED RINGERS 1,000 ML IV SCH; +REGADENOSON 0.4 MG/5 ML SYRINGE IV PRN
--- NOTE | 2025-01-28 12:22 | CA ---
Lexiscan Nuclear Stress Test Report Name: Vaughn Carballo Exam Date: 01/28/2025 11:35 Exam Location: [place] Stress Ht (in): 70 Wt (lb): 180 BSA: 2.00 Ordering Phys: Megan Zamudio DO Referring Phys: Dionna Smith Technologist: DELIA Age: 84 Gender: M : 1940 Procedure CPT: Indications: R06.09 OTHER FORMS OF DYSPNEA I10 ESSEN R53.1 ICD-10 Codes: Patient History: Chest pain, Shortness of breath, palpitations and hypertension. Medications: Meds past 24 hrs: Pretest Chest Pain: STRESS TEST Lexiscan Protocol Exercise Duration (min:sec): 01:[address] Depressions (mm): Angina Score: Hughes Score: Resting HR (bpm): 72 Peak HR (bpm): 97 Resting BP (mmHg): 171 / 77 Peak BP (mmHg): 175 / 79 MPHR: 137 Target HR: 116 % MPHR: 71 METS: 1.0 Total Dose: Peak Dose: Atropine: Double Product: 94982 BP Response: Stress Termination: INFUSION COMPLETE Stress Symptoms: DIFFICULTY IN BREATHING Stress Summary: ECG ANALYSIS Resting ECG: Stress ECG: CONCLUSIONS Nondiagnostic stress testing Dr. Shaun Wahl MD (Electronically Signed) Final Date: 28 January 2025 12:21
--- NOTE | 2025-01-29 07:12 | NM ---
EXAMINATION TYPE: NM stress lexiscan cardiolite DATE OF EXAM: 01/28/2025 COMPARISON: NONE CLINICAL INDICATION: Male, 84 years old with history of R06.09 OTHER FORMS OF DYSPNEA I10 ESSEN R53.1 ; history of hypertension presents with chest pain and palpitations. TECHNIQUE: After the intravenous administration of 9.7 mCi Tc 99m Sestamibi - Cardiolite resting SPE CT images acquired 45 minutes post injection. The patient received 0.4mg Lexiscan, 25.0 mCi Tc 99m Sestamibi - Stress images obtained [address] injection FINDINGS: Review of stress and rest SPECT images demonstrates diminished radiotracer uptake involving inferior lateral left ventricular wall on stress and rest images suggesting old infarct. Slightly more promine nt uptake in rest images in the inferior wall. Cannot exclude periInfarct ischemia. Gated analysis s hows an estimated left ventricular ejection fraction of 65 %. 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 Possible adjacent ischemia. Need to further investigate with direct catheter angiogram should be based on clinical and EKG correlation. [facility], , 01/29/2025 7:10 AM
== END | disposition home or self-care (01) ==
LOC: RADNMMAIN 09:15
PROVIDERS: ATTEND Family Medicine
DX: I10 Essential (primary) hypertension (principal); R53.1 Weakness; R06.09 Other forms of dyspnea
CPT/HCPCS: 93017; 78452; A9500; J2785

== ENCOUNTER 2025-02-19 10:19 | Day surgery (SDC) | payer MEDICARE, OTHER ==
[~2025-02-19 10:19] MED LIST changes: +ALPRAZolam 0.25 MG TAB PO PRN; +HEPARIN SODIUM,PORCINE (1 ML) 2,500 UNIT in SODIUM CHLORIDE 0.9% 250 ML IRRIGATION PRN; +HEPARIN SODIUM,PORCINE 10,000 UNIT in SODIUM CHLORIDE 0.9% 1,000 ML IRRIGATION PRN; +NITROGLYCERIN SL TABS 0.4 MG TAB SUBLINGUAL PRN; -REGADENOSON 0.4 MG/5 ML SYRINGE IV PRN
[2025-02-19] MEDS: SODIUM CHLORIDE 0.9% 1,000 ML in EMPTY BAG 1 BAG IV SCH (10:25)
[2025-02-19] MEDS: IV FLUID CONTINUATION 1,000 ML IV ONE (10:25)
[2025-02-19] MEDS: ASPIRIN 325 MG TAB PO STA (11:10)
[2025-02-19] MEDS: amLODIPine 5 MG TAB PO STA (11:11)
[2025-02-19 11:13] LABS: Eosinophils # (A) 0.08 10*3/uL (0.04-0.35); Eosinophils % (A) 1.7 %; Lymphocytes # (A) 1.31 10*3/uL (0.90-5.00); Lymphocytes % (A) 27.4 %; MCH 29.7 pg (27.0-32.0); MCHC 35.5 g/dL (32.0-37.0); MCV 83.8 fL (80.0-97.0); Monocytes # (A) 0.52 10*3/uL (0.20-1.00); Monocytes % (A) 10.9 %; Neutrophils # (A) 2.84 10*3/uL (1.80-7.70); Neutrophils % (A) 59.4 %; Platelet Count 258 10*3/uL (140-440); WBC 4.78 10*3/uL (4.50-10.00)
[2025-02-19] MEDS: METOPROLOL SUCCINATE (ER) 100 MG TAB.ER.24H PO STA (11:15)
[2025-02-19] MEDS: HEPARIN SODIUM,PORCINE (1 ML) 2,500 UNIT in SODIUM CHLORIDE 0.9% 250 ML IRRIGATION ONE (12:09)
[2025-02-19] MEDS: HEPARIN SODIUM (1,000 UNIT/ML) 1,000 UNIT in SODIUM CHLORIDE 0.9% 1,000 ML IRRIGATION ONE (12:09)
[2025-02-19] MEDS: LIDOCAINE 1% INJ 10MG/ML (20 ML MDV) SQ ONE (12:14)
[2025-02-19] MEDS: MIDAZOLAM 2 MG/2 ML VIAL IVP ONE (12:15)
[2025-02-19] MEDS: VERAPAMIL SYRINGE (5 MG/10 ML) INTRAARTER ONE (12:15)
[2025-02-19] MEDS: fentaNYL (PF) 50 MCG/ML 2 ML AMP IVP ONE (12:15)
[2025-02-19] MEDS: HEPARIN SODIUM 1,000 UN/ML (10ML VL) IV ONE ×2 (12:17→12:53)
[2025-02-19] MEDS: HEPARIN SODIUM 1,000 UN/ML (10ML VL) IVP ONE ×2 (12:27→12:36)
[2025-02-19] MEDS: CLOPIDOGREL 75 MG TAB PO ONE (12:33)
[2025-02-19] MEDS: NITROGLYCERIN 1000MCG/10ML SYRINGE INTRAARTER ONE (12:35)
[2025-02-19] MEDS: NITROGLYCERIN 1000MCG/10ML SYRINGE INTRACORON ONE (12:50)
[2025-02-19] MEDS: IOPAMIDOL-370 100ML BTL INJ ONE (12:58)
[2025-02-19] MEDS ORDERED: MELATONIN 5 MG TABLET PO PRN (13:10)
[2025-02-19] MEDS ORDERED: ZOLPIDEM 5 MG TAB PO PRN (13:12)
[2025-02-19] MEDS ORDERED: RX INFO: IV CONTRAST WAS GIVEN 1 EACH MISC MISCELLANE PRN (13:12)
[2025-02-19] MEDS ORDERED: ATROPINE SULFATE 0.1 MG/ML 10ML SYRINGE IV PRN (13:12)
[2025-02-19] MEDS: HYDROcodone/APAP 10-325MG 1 EACH TAB PO SCH (15:05)
[2025-02-19] MEDS: EMPTY BAG 1 BAG with SODIUM CHLORIDE 0.9% 1,000 ML IV ONE (15:06)
--- NOTE | 2025-02-19 17:15 | P.PRCINT ---
Percutaneous Coronary Int. - Percutaneous Coronary Intervention Percutaneous Coronary Intervention: PROCEDURES PERFORMED: Left heart catheterization, bilateral coronary angiography, ultrasound guided arterial access, iFR LAD, circumflex, OM1, PCI mid LAD with a 2.5 x 33mm Xience ARELY, post dilated with a 2.75mm NC balloon, IVUS LAD, Shockwave lithotripsy LAD with a 2.5mm balloon INDICATION: Chest pain with exertion consistent with angina, [place] Heart Association class III symptoms with abnormal stress test CONSENT:I have discussed the risks, benefits and alternative therapies for the above-mentioned procedure and for both sedation/analgesia as well as necessary blood product administration, if indicated, as they pertain to this patient. The patient has indicated understanding and acceptance of the risks and procedures discussed. PROCEDURE: After the risks, benefits and alternatives of the above mentioned procedure explained in detail with the patient, informed consent was obtained. Patient was taken to the catheterization lab and prepped and draped in usual fashion. Ultrasound guidance was used to assess for arterial access. 1% lidocaine was used to anesthetize the right radial artery. A 6-Moldovan sheath was placed in the right radial artery using modified Seldinger technique and ultrasound guidance. Left coronary angiography was performed with a 5-[place] JL 3.5 catheter and right coronary angiography was performed with a 5-[place] FR5 catheter in various views. A 5-[place] FR5 catheter was inserted into the left ventricle and pressure measurements were obtained. The decision was made to perform functional assessment of the circumflex as well as the LAD. RCA appeared small caliber and felt best treated medically at this point. Heparin was given. A 6 [place] CLS 3.5 guide was used to engage the left main. A 0.014 pressure wire was advanced into the left main and normalized. It was then advanced into the circumflex and OM1. iFR of OM1 was abnormal at 0.26, circumflex to OM 2 was normal at 1.0 and then the wire was repositioned down the LAD and was abnormal at 0.58. Given relatively small caliber OM1 again this was felt best treated medically and main symptoms appeared likely related to the LAD. Therefore decision made to perform PCI of the LAD. There was a small caliber diagonal branch and complicated bifurcation stenting was not recommended. Predilation was performed with a 2.5 mm balloon. Next intravascular ultrasound was performed however unable to fully advance past the mid LAD calcified segment and intravascular ultrasound showed diffuse calcium with reference vessel 2.5 to 2.75 mm. Therefore shockwave lithotripsy was recommended. Shockwave lithotripsy was performed with a 2.5 mm balloon. Next a 2.5 x 33 mm drug-eluting stent was placed in the mid LAD jailing the small caliber diagonal 1 branch. Given small caliber with proximal diagonal stenosis further attempts at opening this up were not recommended. Intravascular ultrasound showed some underexpansion and therefore a 2.75 x 12 mm noncompliant balloon was used to post dilate the stent. Final angiograms were performed. Preintervention there was 70% mid LAD stenosis and ALEX-3 flow. Postintervention there was less than 10% stenosis and ALEX-3 flow. The right radial sheath was removed and a TR band was placed with hemostasis achieved. The patient tolerated the procedure well. Patient was transported back to the post catheterization holding area in stable condition. Conscious Sedation: Patient was monitored under the direct supervision of myself for conscious sedation using Versed and fentanyl for a total duration of 44 minutes HEMODYNAMICS: Aorta: 129/72 LV: 128/5, LVEDP 10 SELECTIVE CORONARY ARTERIOGRAPHY: LEFT MAIN: The left main is a large caliber vessel which trifurcates into the LAD, ramus and circumflex. There is no significant stenosis. LEFT ANTERIOR DESCENDING CORONARY ARTERY: LAD is a large caliber vessel which wraps around to the apex. There is diffuse heavy calcification of the proximal LAD. There is a more focal 70% stenosis just after a small caliber diagonal 1 branch. Diagonal 1 has proximal 60 to 70% stenosis. The mid to distal LAD appears relatively normal with mild luminal irregularities. RAMUS INTERMEDIUS: The ramus is a small caliber vessel with what appears to be proximal/ostial 70 to 80% stenosis. LEFT CIRCUMFLEX CORONARY ARTERY: Left circumflex is a moderate caliber vessel with OM1 small caliber and a mid OM1 80% stenosis. OM 2 is small caliber and has a mid to distal 50% stenosis. OM 3 is small caliber. RIGHT CORONARY ARTERY: The right coronary artery is a small caliber vessel which gives off a PDA and PLV branch and is the dominant vessel. There is diffuse proximal and mid RCA stenosis with a 70 to 80% RCA stenosis. FINAL IMPRESSION: 1. Multivessel CAD as described above including 70% mid LAD, 60 to 70% diagonal 1, 70 to 80% small caliber ramus, 80% small caliber OM1, OM2 50%, small caliber RCA for 70 to 80% stenosis 2. Normal left sided filling pressures 3. iFR LAD and OM1 abnormal and iFR circumflex to OM2 normal 4. S/p PCI mid LAD with a 2.5 x 33mm Xience ARELY, post dilated with a 2.75mm NC balloon PLAN: 1. Aggressive risk factor modification per most recent ACC/AHA guidelines. 2. Continue aspirin, Plavix and Eliquis for 1 week and then Eliquis and Plavix for 6 months. 3. Other diffuse disease mainly appears of small caliber vessels. Optimize medical therapy before considering any intervention.
[2025-02-19] MEDS: PANTOPRAZOLE 40 MG TABLET PO SCH (18:37)
[2025-02-19] MEDS ORDERED: NON FORMULARY DRUG (Esomeprazole Magnesium [Nexium] 40 MG Capsule.Dr) PO SCH (21:00)
[2025-02-19] MEDS ORDERED: ATORVASTATIN 80 MG TAB PO SCH (21:00)
[2025-02-19] MEDS: ATORVASTATIN 40 MG TAB PO SCH (21:06)
[2025-02-19] MEDS: busPIRone HCl 10 MG TAB PO SCH (21:06)
[2025-02-20] MEDS: ALPRAZolam 0.5 MG TAB PO PRN (00:58)
[2025-02-20] MEDS: MAG HYDROX/AL HYDROX/SIMETH 30 ML CUP PO PRN (03:58)
[2025-02-20 07:09] LABS: Basophils # (A) 0.01 10*3/uL (0.00-0.10); Basophils % (A) 0.1 %; Eosinophils # (A) 0.01 10*3/uL (0.04-0.35); Eosinophils % (A) 0.1 %; HCT 31.1 % (39.6-50.0); HGB 10.9 g/dL (13.0-17.0); MCH 29.1 pg (27.0-32.0); MCV 82.9 fL (80.0-97.0); Mean Platelet Volume 10.7 fL (9.5-12.2); Monocytes # (A) 0.71 10*3/uL (0.20-1.00); Monocytes % (A) 8.1 %; Neutrophils # (A) 6.58 10*3/uL (1.80-7.70); Platelet Count 236 10*3/uL (140-440); RBC 3.75 10*6/uL (4.40-5.60); RDW 14.1 % (11.5-14.5); WBC 8.77 10*3/uL (4.50-10.00)
[2025-02-20 07:22] LABS: African American GFR (CKD) >90 (>60 ml/min/1.73 sqM); Anion Gap 15 mmol/L; Blood Urea Nitrogen 10 mg/dL (9-20); Calcium 9.3 mg/dL (8.4-10.2); Carbon Dioxide 21 mmol/L (22-30); Chloride 87 mmol/L (98-107); Glucose 136 mg/dL (74-99); Non-African American GFR(CKD) >90 (>60 ml/min/1.73 sqM); Potassium 3.7 mmol/L (3.5-5.1); Sodium 123 mmol/L (137-145)
[2025-02-20] MEDS: CLOPIDOGREL 75 MG TAB PO SCH (08:24)
[2025-02-20] MEDS: APIXABAN 5 MG TAB PO SCH (08:24)
[2025-02-20] MEDS: amLODIPine 5 MG TAB PO SCH (08:24)
[2025-02-20] MEDS: ASPIRIN 81 MG PO SCH (08:24)
[2025-02-20] MEDS: ONDANSETRON ODT 4 MG TAB PO PRN (08:32)
[2025-02-20] MEDS: NON FORMULARY DRUG (Cariprazine Hcl [Vraylar] 4.5 MG Capsule) PO SCH (08:43)
[2025-02-20] MEDS: ESCITALOPRAM 20 MG TAB PO SCH (09:41)
[2025-02-20] MEDS: METOPROLOL SUCCINATE (ER) 100 MG TAB.ER.24H PO SCH (09:42)
[2025-02-20 09:43] VITALS: BMI 27.7
--- NOTE | 2025-02-20 14:23 | XR ---
EXAMINATION TYPE: XR chest 2V DATE OF EXAM: 02/20/2025 1:10 PM COMPARISON: 11/18/2024 CLINICAL INDICATION: Male, 84 years old with history of cough and phlegm production, , TECHNIQUE: AP and lateral views FINDINGS: Heart upper limits of normal in size. Aorta and pulmonary vasculature are within normal limits. There is some central interstitial prominence without consolidation or pleural effusion. Previous left low er chest posterior thoracotomy change. IMPRESSION: Some central interstitial prominence could reflect bronchitis or asthma. No focal pneumonia seen. [facility], Workstation: [facility], 02/20/2025 2:21 PM
[2025-02-20 14:30] VITALS: BP 143/79; PULSE 80; RESP 19; TEMP 98.7
[2025-02-25] MEDS ORDERED: CHOLECALCIFEROL 125 MCG (5000 IU) TABLET PO SCH (09:00)
== END 2025-02-20 17:07 | disposition home or self-care (01) ==
LOC: CATHCVL 10:19 → 6NMEDSUR 13:48 → CATHCVL 02-20 17:07
PROVIDERS: ATTEND Internal Medicine
DX: I25.10 Atherosclerotic heart disease of native coronary artery without angina pectoris (principal); I48.0 Paroxysmal atrial fibrillation; I10 Essential (primary) hypertension; E78.5 Hyperlipidemia, unspecified; K22.2 Esophageal obstruction; Z79.02 Long term (current) use of antithrombotics/antiplatelets; Z79.01 Long term (current) use of anticoagulants; Z79.899 Other long term (current) drug therapy
CPT/HCPCS: 92978; 93458; 93799; 92972; 80048; 85025 ×2; 71046; 99152; 99153; C9600; C1894; C1887; C1725 ×2; C1753; C1769; C1761; J2250; J1644 ×2; J2003; J3010; Q9967; J2305

== ENCOUNTER → 2025-05-01 | Outpatient (CLI) | payer MEDICARE, OTHER ==
[2025-05-01 13:53] LABS: African American GFR (CKD) >90 (>60 ml/min/1.73 sqM); Blood Urea Nitrogen 16 mg/dL (9-20); Non-African American GFR(CKD) 86 (>60 ml/min/1.73 sqM)
--- NOTE | 2025-05-01 14:53 | CT ---
CT chest with contrast HISTORY: Dyskinesia of the esophagus. COMPARISON: CTA chest dated 11/13/2024. TECHNIQUE: Multiple axial images were obtained through the chest following IV contrast. FINDINGS: The great vessels the chest are normal and there is no mediastinal, hilar or axillary adenopathy. The re is a small hiatal hernia otherwise the esophagus is unremarkable. There are a few scattered micronodules but no suspicious lung mass or nodule. There is no airspace consolidation or abnormal interstitial density. There is no pleural effusion or pneumothorax. Limited scanning through the upper abdomen reveals cholecystectomy but no other significant abnormali ty. The osseous structures are intact. IMPRESSION: 1. No acute cardiopulmonary disease. 2. small hiatal hernia [facility], , 05/01/2025 2:51 PM
== END | disposition home or self-care (01) ==
LOC: RADCTMAIN 13:10
PROVIDERS: ATTEND Family Medicine
DX: K22.4 Dyskinesia of esophagus (principal); K44.9 Diaphragmatic hernia without obstruction or gangrene
CPT/HCPCS: 82565; 84520; 71260; 36415; Q9967

== ENCOUNTER 2025-05-02 11:08 | Inpatient (IN) | payer MEDICARE, OTHER ==
[2025-05-02] MEDS: DIPHENOX-ATROP 2.5-0.025 MG 1 EACH TAB PO STA (12:41)
[2025-05-02 12:44] LABS: Basophils # (A) 0.01 10*3/uL (0.00-0.10); Basophils % (A) 0.2 %; Eosinophils # (A) 0.00 10*3/uL (0.04-0.35); Eosinophils % (A) 0.0 %; HCT 31.5 % (39.6-50.0); HGB 11.2 g/dL (13.0-17.0); Lymphocytes # (A) 1.06 10*3/uL (0.90-5.00); Lymphocytes % (A) 17.5 %; MCH 29.9 pg (27.0-32.0); MCHC 35.6 g/dL (32.0-37.0); MCV 84.0 fL (80.0-97.0); Monocytes # (A) 0.75 10*3/uL (0.20-1.00); Monocytes % (A) 12.4 %; Neutrophils # (A) 4.20 10*3/uL (1.80-7.70); Neutrophils % (A) 69.1 %; Platelet Count 225 10*3/uL (140-440); RBC 3.75 10*6/uL (4.40-5.60); RDW 14.6 % (11.5-14.5); WBC 6.07 10*3/uL (4.50-10.00)
[2025-05-02] MEDS: LORazepam 1 MG/0.5 ML VIAL IV STA (12:44)
[2025-05-02 13:04] LABS: ALT 19 U/L (4-49); AST 22 U/L (17-59); African American GFR (CKD) >90 (>60 ml/min/1.73 sqM); Albumin 4.2 g/dL (3.5-5.0); Alkaline Phosphatase 68 U/L (38-126); Anion Gap 15 mmol/L; Blood Urea Nitrogen 16 mg/dL (9-20); Calcium 7.9 mg/dL (8.4-10.2); Carbon Dioxide 22 mmol/L (22-30); Chloride 99 mmol/L (98-107); Glucose 124 mg/dL (74-99); Non-African American GFR(CKD) 84 (>60 ml/min/1.73 sqM); Potassium 3.1 mmol/L (3.5-5.1); Sodium 136 mmol/L (137-145); Total Protein 6.9 g/dL (6.3-8.2)
[2025-05-02 13:06] LABS: INR 1.2 (<1.2); Partial Thromboplastin Time 25.6 sec (22.0-30.0); Prothrombin Time 12.5 sec (10.0-12.5)
[2025-05-02 13:17] LABS: Magnesium 0.7 mg/dL (1.6-2.3)
--- NOTE | 2025-05-02 13:40 | XR ---
EXAMINATION TYPE: XR chest 1V portable DATE OF EXAM: 05/02/2025 1:36 PM COMPARISON: Chest radiographs from 02/20/2025. CLINICAL INDICATION: Male, 85 years old with history of Weakness; [facility] TECHNIQUE: XR chest 1V portable Frontal view of the chest. FINDINGS: Lungs/Pleura: There is no evidence of pleural effusion, focal consolidation, or pneumothorax. Pulmonary vascularity: Unremarkable. Heart/mediastinum: Cardiomediastinal silhouette is unremarkable. Musculoskeletal: No acute osseous pathology. IMPRESSION: No acute cardiopulmonary disease/process. [facility], , 05/02/2025 1:38 PM
--- NOTE | 2025-05-02 13:56 | ED ---
General Adult HPI - General Chief complaint: Weakness Stated complaint: weakness/dehydration Time Seen by Provider: 05/02/25 11:35 Source: patient, family, RN notes reviewed, old records reviewed Mode of arrival: wheelchair Limitations: no limitations - History of Present Illness Initial comments: Is an 85-year-old male who presents to the emergency department having diarrhea for 1 week. Patient also has a history of anxiety. Patient denies any abdo kamran pain. Patient is any nausea vomiting. Patient states he is not eating as much lately. Patient denies any fever chills. Patient has any chest pain difficulty breathing or shortness of breath. Patient denies any recent fall. Patient is taking 2 different proton pump inhibitors. - Related Data Home Medications Medication Instructions Recorded Confirmed Metoprolol Succinate [Toprol XL] 100 mg PO DAILY 04/30/14 02/19/25 amLODIPine [Norvasc] 5 mg PO DAILY 11/15/18 02/19/25 Cariprazine HCl [Vraylar] 4.5 mg PO DAILY 11/14/24 02/19/25 Cholecalciferol (Vitamin D3) 1,250 mcg PO Q7DAYS 11/14/24 02/19/25 [Vitamin D3 (1250 Mcg = 50,000 Iu)] Escitalopram [Lexapro] 20 mg PO DAILY 11/14/24 02/19/25 Esomeprazole Magnesium [NexIUM] 40 mg PO BID 11/14/24 02/19/25 busPIRone HCl [Buspar] 10 mg PO BID 11/14/24 02/19/25 Previous Rx's Medication Instructions Recorded Apixaban [Eliquis] 5 mg PO BID #60 tab 11/19/24 HYDROcodone/APAP 10-325MG [[place] 1 tab PO TID 3 Days #6 tab 11/19/24 10-325] Melatonin 5 mg PO HS PRN tab 11/19/24 Ondansetron [Zofran] 4 mg PO Q12HR PRN tab 11/19/24 Pantoprazole [Protonix] 40 mg PO AC-BID tab 11/19/24 Allergies Allergy/AdvReac Type Severity Reaction Status Date / Time No Known Allergies Allergy Verified 05/02/25 11:36 Review of Systems ROS Statement: Those systems with pertinent positive or pertinent negative responses have been documented in the HPI. ROS Other: All systems not noted in ROS Statement are negative. Past Medical History Past Medical History: Cancer, GERD/Reflux, GI Bleed, Hyperlipidemia, Hyperten hamzah, Osteoarthritis (OA) Additional Past Medical History / Comment(s): esophageal stricture, hiatal hernia, prostate cancer 7 yrs. ago-had radiation tx, rectal bleeding, congenital absence of external ears(sx), hiatal hernia. RECENT SOB AND FATIGUE History of Any Multi-Drug Resistant Organisms: None Reported Past Surgical History: Cholecystectomy Additional Past Surgical History / Comment(s): mult EGD's. 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 Esophageal dilatations, esophageal stent, colonoscopy ,cataracts. Past Anesthesia/Blood Transfusion Reactions: Previous Problems w/ Anesthesia, Postoperative Nausea & Vomiting (PONV) Additional Past Anesthesia/Blood Transfusion Reaction / Comment(s): problem with intubation-"uses special equipment" per niece. small airway & palate, niece states had a trach after a procedure and went to ICU. Past Psychological History: No Psychological Hx Reported Smoking Status: Former smoker Past Alcohol Use History: None Reported Past Drug Use History: None Reported - Past Family History Sister(s) Family Medical History: Cancer Mother History Unknown: Yes Additional Family Medical History / Comment(s): great niece stated pt's mom may have had syphyllis Father Additional Family Medical History / Comment(s): Blind, from alcoholism. General Exam - General Exam Comments Initial Comments: GENERAL: Patient is well-developed and well-nourished. Patient is nontoxic and well- hydrated and is in mild distress. ENT: Neck is soft and supple. No significant lymphadenopathy is noted. Oropharynx is clear. Moist mucous membranes. Neck has full range of motion without eliciting any pain. EYES: The sclera were anicteric and conjunctiva were pink and moist. Extraocular movements were intact and pupils were equal round and reactive to light. Eyelids were unremarkable. PULMONARY: Unlabored respirations. Good breath sounds bilaterally. No audible rales rhonchi or wheezing was noted. CARDIOVASCULAR: There is a regular rate and rhythm without any murmurs gallops or rubs. ABDOMEN: Soft and nontender with normal bowel sounds. SKIN: Skin is clear with no lesions or rashes and otherwise unremarkable. NEUROLOGIC: Patient is alert and oriented x3. Cranial nerves II through XII are grossly intact. Motor and sensory are also intact. Normal speech, volume and content. Symmetrical smile. MUSCULOSKELETAL: Normal extremities with adequate strength and full range of motion. LYMPHATICS: No significant lymphadenopathy is noted PSYCHIATRIC: Normal psychiatric evaluation. Limitations: no limitations Course Vital Signs 05/02/25 11:30 Temperature 98.1 F Pulse Rate 114 H Respiratory 18 Rate Blood Pressure 125/65 O2 Sat by Pulse 97 Oximetry Medical Decision Making - Medical Decision Making EKG is interpreted by myself and EKG shows a sinus tachycardia with occasional PAC at 112 bpm RI interval is 181 QRS is 93 QT interval is 364 QTc is 430. Patient's EKG shows no ST segment elevation or depression. Was pt. sent in by a medical professional or institution (FROY Snell, [employer]CR[employer]PERATOR, urgent care, hospital, or penitentiary...) When possible be specific @ -No Did you speak to anyone other than the patient for history (EMS, parent, family, police, friend...)? What history was obtained from this source @ -No Did you review nursing and triage notes (agree or disagree)? Why? @ -I reviewed and agree with nursing and triage notes Were old charts reviewed (outside hosp., previous admission, EMS record, old EKG, old radiological studies, urgent care reports/EKG's, penitentiary records)? Report findings @ -No old charts were reviewed Differential Diagnosis? @ -Differential Weakness: Hypoglycemia, shock, sepsis, hyponatremia, anemia, infection, MT, ETOH, adverse medicine reaction, overdose, stroke, this is not meant to be an all-inclusive list. EKG interpreted by me (3pts min.). @ -As above X-rays interpreted by me (1pt min.). @ -Chest x-ray shows no acute abnormality CT interpreted by me (1pt min.). @ -None done U/S interpreted by me (1pt. min.). @ -None done What testing was considered but not performed or refused? (CT, X-rays, U/S, labs)? Why? @ -None What meds were considered but not given or refused? Why? @ -None Did you discuss the management of the patient with other professionals (professionals i.e. FROY Snell, [employer]CR[employer] OPERATOR, lab, RT, psych nurse, social sciences lecturer, hospital director, teacher, health promotion officer, case management social worker)? Give summary @ -I spoke with Dr. LEWIS agreed to admit the patient admit the patient recommending orders Was smoking cessation discussed for >3mins.? @ -No Was critical care preformed (if so, how long)? @ -No Were there social determinants of health that impacted care today? How? (Homelessness, low income, unemployed, alcoholism, drug addiction, transportation, low edu. Level, literacy, decrease access to med. care, half-way, rehab)? @ -No Was there de-escalation of care discussed even if they declined (Discuss DNR or withdrawal of care, Hospice)? DNR status @ -No What co-morbidities impacted this encounter? (DM, HTN, Smoking, COPD, CAD, Cancer, CVA, ARF, Chemo, Hep., AIDS, mental health diagnosis, sleep apnea, morbid obesity)? @ -None Was patient admitted / discharged? Hospital course, mention meds given and route, prescriptions, significant lab abnormalities, going to OR and other pertinent info. @ -Patient's magnesium was extremely low and potassium was low. Patient will be given magnesium and potassium in the emergency department. Patient will be admitted to [facility] Undiagnosed new problem with uncertain prognosis? @ -No Drug Therapy requiring intensive monitoring for toxicity (Heparin, Nitro, Insulin, Cardizem)? @ -No Were any procedures done? @ -No Diagnosis/symptom? @ -Generalized weakness Acute, or Chronic, or Acute on Chronic? @ -Acute Uncomplicated (without systemic symptoms) or Complicated (systemic symptoms)? @ -Complicated Side effects of treatment? @ -No Exacerbation, Progression, or Severe Exacerbation? @ -No Poses a threat to life or bodily function? How? (Chest pain, USA, MT, pneumonia, PE, COPD, DKA, ARF, appy, cholecystitis, CVA, Diverticulitis, Homicidal, Jimenez icidal, threat to staff... and all critical care pts) @ -No Diagnosis/symptom? @ -Hypomagnesemia Acute, or Chronic, or Acute on Chronic? @ -Acute Uncomplicated (without systemic symptoms) or Complicated (systemic symptoms)? @ -Complicated Side effects of treatment? @ -None Exacerbation, Progression, or Severe Exacerbation] @ -No Poses a threat to life or bodily function? @ -Yes this can lead to extreme weakness vomiting and potential falls Diagnosis/symptom? @ -Hypokalemia Acute, or Chronic, or Acute on Chronic? @ -Acute Uncomplicated (without systemic symptoms) or Complicated (systemic symptoms)? @ -Complicated Side effects of treatment? @ -None Exacerbation, Progression, or Severe Exacerbation] @ -No Poses a threat to life or bodily function? @ -Yes this can lead to arrhythmias. - Lab Data Result diagrams: 05/02/25 12:31 05/02/25 12:31 Lab Results 05/02/25 05/02/25 05/02/25 Range/Units 12:31 12: 12:31 WBC 6.07 (4.50-10.00) 10*3/uL RBC 3.75 L (4.40-5.60) 10*6/uL Hgb 11.2 L (13.0-17.0) g/dL Hct 31.5 L (39.6-50.0) % MCV 84.0 (80.0-97.0) fL MCH 29.9 (27.0-32.0) pg MCHC 35.6 (32.0-37.0) g/dL Plt Count 225 (140-440) 10*3/uL MPV 11.1 (9.5-12.2) fL Immature Gran % (Auto) 0.8 % Neutrophils % 69.1 % Lymphocytes % 17.5 % Monocytes % 12.4 % Eosinophils % 0.0 % Basophils % 0.2 % Immature Gran # 0.05 H (0.00-0.04) 10*3/uL Neutrophils # 4.20 (1.80-7.70) 10*3/uL Lymphocytes # 1.06 (0.90-5.00) 10*3/uL Monocytes # 0.75 (0.20-1.00) 10*3/uL Eosinophils # 0.00 L (0.04-0.35) 10*3/uL Basophils # 0.01 (0.00-0.10) 10*3/uL PT 12.5 (10.0-12.5) sec INR 1.2 H (<1.2) APTT 25.6 (22.0-30.0) sec Sodium 136 L (137-145) mmol/L Potassium 3.1 L (3.5-5.1) mmol/L Chloride 99 (98-107) mmol/L Carbon Dioxide 22 (22-30) mmol/L Anion Gap 15 mmol/L BUN 16 (9-20) mg/dL Creatinine 0.75 (0.66-1.25) mg/dL Est GFR (CKD-EPI)AfAm >90 (>60 ml/min/1.73 sqM) Est GFR (CKD-EPI)NonAf 84 (>60 ml/min/1.73 sqM) Glucose 124 H (74-99) mg/dL Plasma Lactic Acid Bj (0.7-2.0) mmol/L Calcium 7.9 L (8.4-10.2) mg/dL Magnesium 0.7 L* (1.6-2.3) mg/dL Total Bilirubin 0.7 (0.2-1.3) mg/dL AST 22 (17-59) U/L ALT 19 (4-49) U/L Alkaline Phosphatase 68 (38-126) U/L Troponin I (0.000-0.034) ng/mL Total Protein 6.9 (6.3-8.2) g/dL Albumin 4.2 (3.5-5.0) g/dL 05/02/25 05/02/25 Range/Units 12:31 12:31 WBC (4.50-10.00) 10*3/uL RBC (4.40-5.60) 10*6/uL Hgb (13.0-17.0) g/dL Hct (39.6-50.0) % MCV (80.0-97.0) fL MCH (27.0-32.0) pg MCHC (32.0-37.0) g/dL Plt Count (140-440) 10*3/uL MPV (9.5-12.2) fL Immature Gran % (Auto) % Neutrophils % % Lymphocytes % % Monocytes % % Eosinophils % % Basophils % % Immature Gran # (0.00-0.04) 10*3/uL Neutrophils # (1.80-7.70) 10*3/uL Lymphocytes # (0.90-5.00) 10*3/uL Monocytes # (0.20-1.00) 10*3/uL Eosinophils # (0.04-0.35) 10*3/uL Basophils # (0.00-0.10) 10*3/uL PT (10.0-12.5) sec INR (<1.2) APTT (22.0-30.0) sec Sodium (137-145) mmol/L Potassium (3.5-5.1) mmol/L Chloride (98-107) mmol/L Carbon Dioxide (22-30) mmol/L Anion Gap mmol/L BUN (9-20) mg/dL Creatinine (0.66-1.25) mg/dL Est GFR (CKD-EPI)AfAm (>60 ml/min/1.73 sqM) Est GFR (CKD-EPI)NonAf (>60 ml/min/1.73 sqM) Glucose (74-99) mg/dL Plasma Lactic Acid Bj 1.3 (0.7-2.0) mmol/L Calcium (8.4-10.2) mg/dL Magnesium (1.6-2.3) mg/dL Total Bilirubin (0.2-1.3) mg/dL AST (17-59) U/L ALT (4-49) U/L Alkaline Phosphatase (38-126) U/L Troponin I 0.025 (0.000-0.034) ng/mL Total Protein (6.3-8.2) g/dL Albumin (3.5-5.0) g/dL Disposition Clinical Impression: Hypokalemia, Hypomagnesemia Disposition: ADMITTED IP TO THIS [facility] Referrals: Megan Zamudio DO [Primary Care Provider] - 1-2 days Time of Disposition: 13:56
[2025-05-02] MEDS: MAGNESIUM SULFATE-D5W PMX 1 GM in DEXTROSE/WATER 1 100ML.BAG IVPB SCH (14:24)
[2025-05-02] MEDS: SODIUM CHLORIDE 0.9% 1,000 ML IV ONE (14:24)
[2025-05-02] MEDS: POTASSIUM CHLORIDE ER 20 MEQ TAB.ER PO STA (14:26)
[2025-05-02 18:34] LABS: Bilirubin,Urine Negative (Negative); Blood,Urine Trace (Negative); Color,Urine Yellow; Glucose,Urine (UA) Negative (Negative); Hyaline Casts,Urine 4 /lpf (0-2); Ketones,Urine 1+ (Negative); Leukocyte Esterase,Urine Negative (Negative); Mucus,Urine Rare /hpf; Nitrite,Urine Negative (Negative); PH, Urine 6.0 (5.0-8.0); Protein,Urine Trace (Negative); RBC,Urine 1 /hpf (0-5); Specific Gravity,Urine 1.030 (1.001-1.035); Squamous Epithelial Cell,Urine 1 /hpf (0-4); Urobilinogen,Urine <2.0 mg/dL (<2.0); WBC,Urine 4 /hpf (0-5)
[2025-05-02] MEDS: TAMSULOSIN 0.4 MG CAP.ER.24H PO SCH (21:42)
[2025-05-02] MEDS: MELATONIN 5 MG TABLET PO SCH (21:42)
[2025-05-02] MEDS: APIXABAN 5 MG TAB PO SCH (21:42)
[2025-05-02] MEDS: HYDROcodone/APAP 10-325MG 1 EACH TAB PO PRN (21:45)
--- NOTE | 2025-05-03 00:51 | P.HPIM ---
History of Present Illness Date of service for this note 05/02/2025 This is a pleasant 85 years old male with past medical history of multiple medical problems as below. Presents because of generalized weakness and diarrhea for about 1 week and he wants to go to rehab. When asked saw the patient he told me he has been having weakness and progressive over the last 2 weeks also has been complaining from chronic diarrhea for months about 6-7 times per day but in small amounts no blood or specific dark color. Complaining also from suprapubic pain about 2 months about /10 but now is better 7/10 nonspecific nonradiating associated with nausea. Also was complaining from little dysuria but urinalysis not suspicious for infection. He has an appointment at [facility] on May 21 for his esophageal stricture. He denies smoking or illicit drugs. No chest pain or dyspnea. He is with no fever but tachycardic with heart rate 114 hemoglobin 11.2 WBC normal 6.0 rest of labs including BMP LFT INR troponin and urinalysis are unremarkable. Magnesium low at 0.7. EKG showing sinus tachycardia 111. Discussion with no acute cardiopulmonary process. Patient is on Eliquis and normal sinus 25 metoprolol 100 close will continue with his Plavix. Protonix. Admitted with close monitoring with PT/OT evaluation Review of Systems Review of systems -CONSTITUTIONAL: No fever, no malaise, + fatigue. HEENT: No recent visual problems or hearing problems. Denied any sore throat. CARDIOVASCULAR: No orthopnea, PND, no palpitations, no syncope. PULMONARY: No shortness of breath, no cough, no hemoptysis. GASTROINTESTINAL: No diarrhea, no nausea, no vomiting, no abdominal pain. Normoactive bowel sounds. NEUROLOGICAL: No headaches, no weakness, no numbness. HEMATOLOGICAL: Denies any bleeding or petechiae. GENITOURINARY: Denies any burning micturition, frequency, or urgency. MUSCULOSKELETAL/RHEUMATOLOGICAL: Denies any joint pain, swelling, or any muscle pain. ENDOCRINE: Denies any polyuria or polydipsia. Past Medical History Past Medical History: Cancer, GERD/Reflux, GI Bleed, Hyperlipidemia, Hypertension, Osteoarthritis (OA) Additional Past Medical History / Comment(s): esophageal stricture, hiatal hernia, prostate cancer 7 yrs. ago-had radiation tx, rectal bleeding, congenital absence of external ears(sx), hiatal hernia. RECENT SOB AND FATIGUE History of Any Multi-Drug Resistant Organisms: None Reported Past Surgical History: Cholecystectomy, Heart Catheterization With Stent Additional Past Surgical History / Comment(s): mult EGD's. tracheostomy, skin graft-reconstruction of ears(born with out outer ears) hears only in left ear wi th hearing aide. Esophageal dilatations, esophageal stent, colonoscopy, cataracts. Recent heart cath with stent placement January(Dr. Ayoub) Past Anesthesia/Blood Transfusion Reactions: Previous Problems w/ Anesthesia, Postoperative Nausea & Vomiting (PONV) Additional Past Anesthesia/Blood Transfusion Reaction / Comment(s): problem with intubation-"uses special equipment" per niece. small airway & palate, niece states had a trach after a procedure and went to ICU. Date of Last Stent Placement:: February 19, 2025 Past Psychological History: No Psychological Hx Reported Additional Psychological History / Comment(s): pt lives with family. His niece takes him to his appt.'s Smoking Status: Former smoker Past Alcohol Use History: None Reported Additional Past Alcohol Use History / Comment(s): Quit smoking 2007, smoked cigarettes &/or pipe since teens, quit drinking 2006. Past Drug Use History: None Reported - Past Family History Sister(s) Family Medical History: Cancer Mother History Unknown: Yes Additional Family Medical History / Comment(s): great niece stated pt's mom may have had syphyllis Father Additional Family Medical History / Comment(s): Blind, from alcoholism. Medications and Allergies Home Medications Medication Instructions Recorded Confirmed Type Metoprolol Succinate [Toprol XL] 100 mg PO DAILY@1200 04/30/14 05/02/25 History amLODIPine [Norvasc] 5 mg PO DAILY 11/15/18 05/02/25 History Cariprazine HCl [Vraylar] 4.5 mg PO DAILY@1200 11/14/24 05/02/25 History Cholecalciferol (Vitamin D3) 1,250 mcg PO ROWE 11/14/24 05/02/25 History [Vitamin D3 (1250 Mcg = 50,000 Iu)] Escitalopram [Lexapro] 20 mg PO DAILY 11/14/24 05/02/25 History Esomeprazole Magnesium [NexIUM] 40 mg PO AC-BID 11/14/24 05/02/25 History busPIRone HCl [Buspar] 10 mg PO AC-BID 11/14/24 05/02/25 History Pantoprazole [Protonix] 40 mg PO AC-BID tab 11/19/24 05/02/25 Rx Apixaban [Eliquis] 5 mg PO AC-BID 05/02/25 05/02/25 History Brexpiprazole [Rexulti] 1 mg PO DAILY 05/02/25 05/02/25 History Clopidogrel [Plavix] 75 mg PO DAILY 05/02/25 05/02/25 History HYDROcodone/APAP 10-325MG [[place] 1 tab PO TID 05/02/25 05/02/25 History 10-325] Melatonin 5 mg PO HS 05/02/25 05/02/25 History Tamsulosin [Flomax] 0.4 mg PO HS 05/02/25 05/02/25 History Allergies Allergy/AdvReac Type Severity Reaction Status Date / Time No Known Allergies Allergy Verified 05/02/25 15:44 Physical Exam Vitals: Vital Signs Temp Pulse Pulse Resp BP BP Pulse Ox 05/02/25 18:09 97.4 F L 101 H 20 139/83 96 05/02/25 17:16 98.3 F 114 H 18 116/75 98 05/02/25 15:47 107 H 18 116/75 97 05/02/25 14:21 109 H 18 125/108 96 05/02/25 11:30 98.1 F 114 H 18 125/65 97 Intake and Output 05/02/25 05/02/25 05/03/25 14:59 22:59 06:59 Intake Total 400 Output Total 200 Balance 200 Intake: Intake, IV Titration 400 Amount Sodium Chloride 0.9% 1, 400 000 ml @ 75 mls/hr IV . [id number] Rx#:[id number] Output: Urine 200 Other: Voiding Method Diaper Weight 84.368 kg 84.368 kg -GENERAL: The patient is alert and oriented x3, not in any acute distress. Well developed, well nourished. Generally weak HEENT: Pupils are round and equally reacting to light. EOMI. No scleral icterus. No conjunctival pallor. Normocephalic, atraumatic. No pharyngeal erythema. No thyromegaly. CARDIOVASCULAR: S1 and S2 present. No murmurs, rubs, or gallops. PULMONARY: Chest is clear to auscultation, no wheezing , no crackles. -ABDOMEN: Soft, nondistended, normoactive bowel sounds. No palpable organomegaly. Mild suprapubic tenderness no rebound tenderness MUSCULOSKELETAL: No joint swelling or deformity. EXTREMITIES: No cyanosis, clubbing, or pedal edema. NEUROLOGICAL: Gross neurological examination did not reveal any focal deficits. SKIN: No rashes. no petechiae. Results CBC & Chem 7: 05/02/25 12:05/02/25 12:31 Labs: Abnormal Lab Results - Last 24 Hours (Table) 05/02/25 05/02/25 05/02/25 Range/Units 12:31 12: 12:31 RBC 3.75 L (4.40-5.60) 10*6/uL Hgb 11.2 L (13.0-17.0) g/dL Hct 31.5 L (39.6-50.0) % Immature Gran # 0.05 H (0.00-0.04) 10*3/uL Eosinophils # 0.00 L (0.04-0.35) 10*3/uL INR 1.2 H (<1.2) Sodium 136 L (137-145) mmol/L Potassium 3.1 L (3.5-5.1) mmol/L Glucose 124 H (74-99) mg/dL Calcium 7.9 L (8.4-10.2) mg/dL Magnesium 0.7 L* (1.6-2.3) mg/dL Urine Protein (Negative) Urine Ketones (Negative) Urine Blood (Negative) Hyaline Casts (0-2) /lpf Urine Mucus (None) /hpf 05/02/25 Range/Units 18:19 RBC (4.40-5.60) 10*6/uL Hgb (13.0-17.0) g/dL Hct (39.6-50.0) % Immature Gran # (0.00-0.04) 10*3/uL Eosinophils # (0.04-0.35) 10*3/uL INR (<1.2) Sodium (137-145) mmol/L Potassium (3.5-5.1) mmol/L Glucose (74-99) mg/dL Calcium (8.4-10.2) mg/dL Magnesium (1.6-2.3) mg/dL Urine Protein Trace H (Negative) Urine Ketones 1+ H (Negative) Urine Blood Trace H (Negative) Hyaline Casts 4 H (0-2) /lpf Urine Mucus Rare H (None) /hpf Thrombosis Risk Factor Assmnt - Choose All That Apply Any of the Below Risk Factors Present?: Yes Each Factor Represents 1 point: Medical pt on bed rest Each Risk Factor Represents 2 Points: Malignancy Each Risk Factor Represents 3 Points: Age 75 years or older Thrombosis Risk Factor Assessment Total Risk Factor Score: 6 Thrombosis Risk Factor Assessment Level: High Risk Assessment and Plan Assessment: Generalized weakness Subacute diarrhea Severe hypomagnesemia and hypokalemia present on admission. Hypertension Hyperlipidemia Osteoarthritis History of GERD History of GI bleed Esophageal stricture History of prostate cancer Coronary disease status post stent Plan: Continue with normal saline 75 mL 2 hours. Send stool studies like WBC C. difficile. Continue with Eliquis and Plavix PT/OT evaluation. Check TSH hemoglobin A1c and B12. Labs and medication were reviewed.. Continue same treatment. Continue with symptomatic treatment. Resume home medication. Monitor labs and vitals. DVT and GI prophylaxis. Further recommendations as per clinical course of the patient DVT prophylaxis: Eliquis GI Prophylaxis: P Protonix PT/OT: Pending Prognosis is guarded
[2025-05-03] MEDS ORDERED: NON FORMULARY DRUG (Esomeprazole Magnesium [Nexium] 40 MG Capsule.Dr) PO SCH (07:30)
[2025-05-03] MEDS: amLODIPine 5 MG TAB PO SCH (08:23)
[2025-05-03] MEDS: ESCITALOPRAM 20 MG TAB PO SCH (08:23)
[2025-05-03] MEDS: CLOPIDOGREL 75 MG TAB PO SCH (08:23)
[2025-05-03] MEDS: PANTOPRAZOLE 40 MG TABLET PO SCH (08:23)
[2025-05-03] MEDS: NON FORMULARY DRUG (Brexpiprazole [Rexulti] 1 MG Tablet) PO SCH (08:24)
[2025-05-03 08:50] LABS: Basophils # (A) 0.01 X 10*3/uL (0.00-0.10); Basophils % (A) 0.3 %; Eosinophils # (A) 0.01 X 10*3/uL (0.04-0.35); Eosinophils % (A) 0.3 %; HCT 29.4 % (39.6-50.0); HGB 10.0 g/dL (13.0-17.0); Immature Grans, Automated 0.80 %; Lymphocytes # (A) 0.77 X 10*3/uL (0.90-5.00); Lymphocytes % (A) 19.6 %; MCH 28.7 pg (27.0-32.0); MCHC 34.0 g/dL (32.0-37.0); MCV 84.5 FL (80.0-97.0); Monocytes # (A) 0.50 X 10*3/uL (0.20-1.00); Monocytes % (A) 12.7 %; NRBC Per 100 WBC 0 X 10*3/uL (0.00-0.01); Neutrophils # (A) 2.61 X 10*3/uL (1.80-7.70); Neutrophils % (A) 66.3 %; Platelet Count 212 X 10*3/uL (140-440); RBC 3.48 X 10*6/uL (4.40-5.60); RDW 14.6 % (11.5-14.5); WBC 3.93 X 10*3/uL (4.50-10.00)
[2025-05-03 10:26] LABS: Anion Gap 13.90 mmol/L (4.00-12.00); BUN/Creat Ratio 15.33 Ratio (12.00-20.00); Blood Urea Nitrogen 9.2 mg/dL (9.0-27.0); Calcium 7.6 mg/dL (8.7-10.3); Carbon Dioxide 21.1 mmol/L (21.6-31.8); Chloride 98 mmol/L (96-109); Glucose 117 mg/dL (70-110); Magnesium 1.8 mg/dL (1.5-2.4); Potassium 3.1 mmol/L (3.5-5.5); Sodium 133 mmol/L (135-145); Vitamin B12 1443.0 pg/mL (200.0-944.0)
[2025-05-03] MEDS: NON FORMULARY DRUG (Cariprazine Hcl [Vraylar] 4.5 MG Capsule) PO SCH (12:49)
[2025-05-03] MEDS: METOPROLOL SUCCINATE (ER) 100 MG TAB.ER.24H PO SCH (13:02)
--- NOTE | 2025-05-03 19:14 | P.PN ---
Subjective This is a pleasant 85 years old male with past medical history of multiple medical problems as below. Presents because of generalized weakness and diarrhea for about 1 week and he wants to go to rehab. When asked saw the patient he told me he has been having weakness and progressive over the last 2 weeks also has been complaining from chronic diarrhea for months about 6-7 times per day but in small amounts no blood or specific dark color. Complaining also from suprapubic pain about 2 months about 9/10 but now is better 7/10 nonspecific nonradiating associated with nausea. Also was complaining from little dysuria but urinalysis not suspic ious for infection. He has an appointment at [facility] on May [address] ricture. He denies smoking or illicit drugs. No chest pain or dyspnea. He is with no fever but tachycardic with heart rate 114 hemoglobin 11.2 WBC normal 6.0 rest of labs including BMP LFT INR troponin and urinalysis are unremarkable. Magnesium low at 0.7. EKG showing sinus tachycardia 111. Discussion with no acute cardiopulmonary process. Patient is on Eliquis and normal sinus 25 metoprolol 100 close will continue with his Plavix. Protonix. Admitted with close monitoring with PT/OT evalu ation 05/03 Patient back pain 6/10 Hip had 2 bowel movement while in bed today mainly diarrhea Still feels weak Has poor appetite Has 1+ leg edema Abdomen soft Low magnesium and potassium are being replaced We will check TSH, vitamin B12 and folate all were unremarkable with TSH 0.6, folate 18 B12 more than 2000 and hemoglobin A1c 5.7 Objective - Vital Signs Vital signs: Vital Signs Temp 98.3 F 05/03/25 07:07 Pulse 101 H 05/03/25 07:07 Resp 16 05/03/25 07:07 BP 158/78 05/03/25 07:07 Pulse Ox 96 05/03/25 07:07 FiO2 Intake & Output 05/02/25 05/03/25 05/03/25 18:59 06:59 18:59 Intake Total 400 Output Total 600 Balance 400 -600 Weight 84.368 kg Intake: Intake, IV Titration 400 Amount Sodium Chloride 0.9% 1, 400 000 ml @ 75 mls/hr IV . [id number] ONE Rx#:[id number] Output: Urine 600 Other: Voiding Method Diaper Diaper - Exam GENERAL: The patient is alert and oriented x3, not in any acute distress. Well developed, well nourished. HEENT: Pupils are round and equally reacting to light. EOMI. No scleral icterus. No conjunctival pallor. Normocephalic, atraumatic. No pharyngeal erythema. No thyromegaly. CARDIOVASCULAR: S1 and S2 present. No murmurs, rubs, or gallops. PULMONARY: Chest is clear to auscultation, no wheezing , no crackles. ABDOMEN: Soft, nontender, nondistended, normoactive bowel sounds. No palpable organomegaly. MUSCULOSKELETAL: No joint swelling or deformity. EXTREMITIES: No cyanosis, clubbing, or pedal edema. NEUROLOGICAL: Gross neurological examination did not reveal any focal deficits. SKIN: No rashes. no petechiae. - Labs CBC & Chem 7: 05/03/25 05:18 05/03/25 05:18 Labs: Abnormal Lab Results - Last 24 Hours (Table) 05/02/25 05/02/25 05/02/25 Range/Units 12:31 12:31 12:31 WBC (4.50-10.00) X 10*3/uL RBC 3.75 L (4.40-5.60) 10*6/uL Hgb 11.2 L (13.0-17.0) g/dL Hct 31.5 L (39.6-50.0) % RDW (11.5-14.5) % Immature Gran # 0.05 H (0.00-0.04) 10*3/uL Lymphocytes # (0.90-5.00) X 10*3/uL Eosinophils # 0.00 L (0.04-0.35) 10*3/uL INR 1.2 H (<1.2) Sodium 136 L (137-145) mmol/L Potassium 3.1 L (3.5-5.1) mmol/L Carbon Dioxide (21.6-31.8) mmol/L Anion Gap (4.00-12.00) mmol/L Glucose 124 H (74-99) mg/dL Calcium 7.9 L (8.4-10.2) mg/dL Magnesium 0.7 L* (1.6-2.3) mg/dL Vitamin B12 (200.0-944.0) pg/mL Urine Protein (Negative) Urine Ketones (Negative) Urine Blood (Negative) Hyaline Casts (0-2) /lpf Urine Mucus (None) /hpf 05/02/25 05/03/25 05/03/25 Range/Units 18:19 05:18 05:18 WBC 3.93 L (4.50-10.00) X 10*3/uL RBC 3.48 L (4.40-5.60) 10*6/uL Hgb 10.0 L (13.0-17.0) g/dL Hct 29.4 L (39.6-50.0) % RDW 14.6 H (11.5-14.5) % Immature Gran # (0.00-0.04) 10*3/uL Lymphocytes # 0.77 L (0.90-5.00) X 10*3/uL Eosinophils # 0.01 L (0.04-0.35) 10*3/uL INR (<1.2) Sodium 133 L (137-145) mmol/L Potassium 3.1 L (3.5-5.1) mmol/L Carbon Dioxide 21.1 L (21.6-31.8) mmol/L Anion Gap 13.90 H (4.00-12.00) mmol/L Glucose 117 H (74-99) mg/dL Calcium 7.6 L (8.4-10.2) mg/dL Magnesium (1.6-2.3) mg/dL Vitamin B12 1443.0 H (200.0-944.0) pg/mL Urine Protein Trace H (Negative) Urine Ketones 1+ H (Negative) Urine Blood Trace H (Negative) Hyaline Casts 4 H (0-2) /lpf Urine Mucus Rare H (None) /hpf Assessment and Plan Assessment: Generalized weakness, secondary to chronic diarrhea Subacute diarrhea Severe hypomagnesemia and hypokalemia present on admission. Hypertension Hyperlipidemia Osteoarthritis History of GERD History of GI bleed Esophageal stricture History of prostate cancer Coronary disease status post stent Plan: Continue with normal saline 75 mL Send stool studies like WBC C. difficile. Continue with Eliquis and Plavix PT/OT evaluation. Check TSH hemoglobin A1c and B12. Were unremarkable Labs and medication were reviewed.. Continue same treatment. Continue with symptomatic treatment. Resume home medication. Monitor labs and vitals. DVT and GI prophylaxis. Further recommendations as per clinical course of the patient DVT prophylaxis: Eliquis GI Prophylaxis: P Protonix PT/OT: Pending Prognosis is guarded
[2025-05-03] MEDS: POTASSIUM CHLORIDE ER 20 MEQ TAB.ER PO STA (21:38)
[2025-05-03] MEDS: MAGNESIUM OXIDE 400 MG TAB PO SCH (21:38)
[2025-05-03] MEDS: MAGNESIUM SULFATE-D5W PMX 1 GM in DEXTROSE/WATER 1 100ML.BAG IVPB SCH (21:38)
[2025-05-04] MEDS: CHOLECALCIFEROL 125 MCG (5000 IU) TABLET PO SCH (08:05)
[2025-05-04 09:06] LABS: ALT 16 U/L (10-49); AST 21 U/L (14-35); Albumin 3.8 g/dL (3.8-4.9); Albumin/Globulin Ratio 1.65 Ratio (1.60-3.17); Alkaline Phosphatase 65 U/L (41-126); Anion Gap 12.20 mmol/L (4.00-12.00); BUN/Creat Ratio 10.33 Ratio (12.00-20.00); Bilirubin,Unconjugated >0.20 mg/dL (0.20-1.00); Blood Urea Nitrogen 6.2 mg/dL (9.0-27.0); Calcium 7.8 mg/dL (8.7-10.3); Carbon Dioxide 22.8 mmol/L (21.6-31.8); Chloride 100 mmol/L (96-109); Globulin 2.3 g/dL (1.6-3.3); Glucose 123 mg/dL (70-110); Magnesium 2.2 mg/dL (1.5-2.4); Potassium 3.3 mmol/L (3.5-5.5); Sodium 135 mmol/L (135-145); Total Protein 6.1 g/dL (6.2-8.2)
[2025-05-04 09:35] LABS: Basophils # (A) 0.01 X 10*3/uL (0.00-0.10); Basophils % (A) 0.2 %; Eosinophils # (A) 0.05 X 10*3/uL (0.04-0.35); Eosinophils % (A) 1.0 %; HCT 32.1 % (39.6-50.0); HGB 10.9 g/dL (13.0-17.0); Immature Grans, Automated 0.40 %; Lymphocytes # (A) 1.43 X 10*3/uL (0.90-5.00); Lymphocytes % (A) 28.0 %; MCH 28.8 pg (27.0-32.0); MCHC 34.0 g/dL (32.0-37.0); MCV 84.9 FL (80.0-97.0); Monocytes # (A) 0.67 X 10*3/uL (0.20-1.00); Monocytes % (A) 13.1 %; NRBC Per 100 WBC 0 X 10*3/uL (0.00-0.01); Neutrophils # (A) 2.93 X 10*3/uL (1.80-7.70); Neutrophils % (A) 57.3 %; Platelet Count 240 X 10*3/uL (140-440); RBC 3.78 X 10*6/uL (4.40-5.60); RDW 14.6 % (11.5-14.5); WBC 5.11 X 10*3/uL (4.50-10.00)
--- NOTE | 2025-05-05 13:27 | P.PN ---
Subjective This is a pleasant 85 years old male with past medical history of multiple medical problems as below. Presents because of generalized weakness and diarrhea for about 1 week and he wants to go to rehab. When asked saw the patient he told me he has been having weakness and progressive over the last 2 weeks also has been complaining from chronic diarrhea for months about 6-7 times per day but in small amounts no blood or specific dark color. Complaining also from suprapubic pain about 2 months about 9/10 but now is better 7/10 nonspecific nonradiating associated with nausea. Also was complaining from little dysuria but urinalysis not suspic ious for infection. He has an appointment at [facility] on May [address] ricture. He denies smoking or illicit drugs. No chest pain or dyspnea. He is with no fever but tachycardic with heart rate 114 hemoglobin 11.2 WBC normal 6.0 rest of labs including BMP LFT INR troponin and urinalysis are unremarkable. Magnesium low at 0.7. EKG showing sinus tachycardia 111. Discussion with no acute cardiopulmonary process. Patient is on Eliquis and normal sinus 25 metoprolol 100 close will continue with his Plavix. Protonix. Admitted with close monitoring with PT/OT evalu ation 05/03 Patient back pain 6/10 Hip had 2 bowel movement while in bed today mainly diarrhea Still feels weak Has poor appetite Has 1+ leg edema Abdomen soft Low magnesium and potassium are being replaced We will check TSH, vitamin B12 and folate all were unremarkable with TSH 0.6, folate 18 B12 more than 2000 and hemoglobin A1c 5.7 05/04 Diarrhea is improving Generally weak Very mild periumbilical pain Abdomen soft nontender Objective - Vital Signs Vital signs: Vital Signs Temp 98.1 F 05/04/25 07:15 Pulse 77 05/04/25 07:15 Resp 18 05/04/25 07:15 BP 148/74 05/04/25 07:15 Pulse Ox 96 05/04/25 07:15 FiO2 Intake & Output 05/03/25 05/04/25 05/04/25 18:59 06:59 18:59 Intake Total 1740 590 Output Total 300 Balance 1740 290 Intake: Oral 1740 590 Output: Urine 300 Other: Voiding Method Diaper Urinal Urinal Diaper Diaper # Voids 5 2 # Bowel Movements 3 2 - Exam GENERAL: The patient is alert and oriented x3, not in any acute distress. Well developed, well nourished. HEENT: Pupils are round and equally reacting to light. EOMI. No scleral icterus. No conjunctival pallor. Normocephalic, atraumatic. No pharyngeal erythema. No thyromegaly. CARDIOVASCULAR: S1 and S2 present. No murmurs, rubs, or gallops. PULMONARY: Chest is clear to auscultation, no wheezing , no crackles. ABDOMEN: Soft, nontender, nondistended, normoactive bowel sounds. No palpable organomegaly. MUSCULOSKELETAL: No joint swelling or deformity. EXTREMITIES: No cyanosis, clubbing, or pedal edema. NEUROLOGICAL: Gross neurological examination did not reveal any focal deficits. SKIN: No rashes. no petechiae. - Labs CBC & Chem 7: 05/04/25 04:11 05/04/25 04:11 Labs: Abnormal Lab Results - Last 24 Hours (Table) 05/04/25 05/04/25 Range/Units 04:11 04:11 RBC 3.78 L (4.40-5.60) X 10*6/uL Hgb 10.9 L (13.0-17.0) g/dL Hct 32.1 L (39.6-50.0) % RDW 14.6 H (11.5-14.5) % Potassium 3.3 L (3.5-5.5) mmol/L Anion Gap 12.20 H (4.00-12.00) mmol/L BUN 6.2 L (9.0-27.0) mg/dL BUN/Creatinine Ratio 10.33 L (12.00-20.00) Ratio Glucose 123 H (70-110) mg/dL Calcium 7.8 L (8.7-10.3) mg/dL Total Protein 6.1 L (6.2-8.2) g/dL Assessment and Plan Assessment: Generalized weakness, secondary to chronic diarrhea Subacute diarrhea Severe hypomagnesemia and hypokalemia present on admission. Hypertension Hyperlipidemia Osteoarthritis History of GERD History of GI bleed Esophageal stricture History of prostate cancer Coronary disease status post stent Plan: Continue with normal saline 75 mL Send stool studies like WBC C. difficile. Continue with Eliquis and Plavix PT/OT evaluation. Check TSH hemoglobin A1c and B12. Were unremarkable Labs and medication were reviewed.. Continue same treatment. Continue with symptomatic treatment. Resume home medication. Monitor labs and vitals. DVT and GI prophylaxis. Further recommendations as per clinical course of the patient DVT prophylaxis: Eliquis GI Prophylaxis: P Protonix PT/OT: Pending Prognosis is guarded
--- NOTE | 2025-05-06 05:06 | P.PN ---
Subjective Progress Note Date: 05/05/25 This is a pleasant 85 years old male with past medical history of multiple medical problems as below. Presents because of generalized weakness and diarrhea for about 1 week and he wants to go to rehab. When asked saw the patient he told me he has been having weakness and progressive over the last 2 weeks also has been complaining from chronic diarrhea for months about 6-7 times per day but in small amounts no blood or specific dark color. Complaining also from suprapubic pain about 2 months about 9/10 but now is better 7/10 nonspecific nonradiating associated with nausea. Also was complaining from little dysuria but urinalysis not suspicious for infection. He has an appointment at [facility] on May 21 for his esophageal stricture. He denies smoking or illicit drugs. No chest pain or dyspnea. He is with no fever but tachycardic with heart rate 114 hemoglobin 11.2 WBC normal 6.0 rest of labs including BMP LFT INR troponin and urinalysis are unremarkable. Magnesium low at 0.7. EKG showing sinus tachycardia 111. Discussion with no acute cardiopulmonary process. Patient is on Eliquis and normal sinus 25 metoprolol 100 close will continue with his Plavix. Protonix. Admitted with close monitoring with PT/OT evaluation 05/03 Patient back pain 6/10 Hip had 2 bowel movement while in bed today mainly diarrhea Still feels weak Has poor appetite Has 1+ leg edema Abdomen soft Low magnesium and potassium are being replaced We will check TSH, vitamin B12 and folate all were unremarkable with TSH 0.6, folate 18 B12 more than 2000 and hemoglobin A1c 5.7 05/05/2025 Patient is seen in follow-up today with no acute overnight issues noted. Potassium mildly low at 3.4 and will replace per protocol. Patient reporting multiple episodes of loose stool today and C. difficile testing was negative, will continue with as needed Lomotil and will add Questran. Follow-up on repeat labs. Awaiting PT/OT therapy evaluation as patient is extremely weak and would benefit from ECF. Patient does reside with niece who is agreeable to rehab as well. Patient is currently afebrile with no reports of chest pain or shortness of breath. Will follow-up on repeat labs and replace electrolytes per protocol Review of systems: Constitutional: No reports of fatigue, fever, or chills Cardiovascular: No reports of chest pain or palpitations Respiratory: No reports of shortness of breath or cough GI: No reports of nausea, vomiting, reports multiple episodes of diarrhea : No reports of dysuria or retention Neurovascular: reports of weakness and difficulty ambulating All medications have been reviewed Physical exam: GENERAL: The patient is alert and oriented x 2, baseline not in any acute distress. Well developed, elderly appearing, chronically ill-appearing HEENT: Pupils are round and equally reacting to light. EOMI. No scleral icterus. No conjunctival pallor. Normocephalic, atraumatic. No pharyngeal erythema. No thyromegaly. CARDIOVASCULAR: S1 and S2 present. No murmurs, rubs, or gallops. PULMONARY: Chest is clear to auscultation, no wheezing , no crackles. ABDOMEN: Soft, nontender, nondistended, normoactive bowel sounds. No palpable organomegaly. MUSCULOSKELETAL: No joint swelling or deformity. EXTREMITIES: No cyanosis, clubbing, or pedal edema. NEUROLOGICAL: Gross neurological examination did not reveal any focal deficits. Diffusely weak SKIN: No rashes. no petechiae. Assessment: Generalized weakness, secondary to chronic diarrhea Subacute diarrhea, C. difficile ruled out Severe hypomagnesemia and hypokalemia present on admission. Secondary to c ontinued diarrhea Hypertension Hyperlipidemia Osteoarthritis History of GERD History of GI bleed History of esophageal stricture History of prostate cancer Coronary disease status post stent Generalized weakness with gait dysfunction GI prophylaxis DVT prophylaxis Plan: Continue with normal saline 75 mL Stool cultures thus far are pending, C. difficile testing was negative will add Questran Continue with Eliquis and Plavix Awaiting PT/OT evaluation as patient is significantly weak and would benefit from ECF. Case management/social work following will be placing referrals Replace electrolytes and follow-up on repeat labs. Monitor for improvement in diarrhea Consider possible discharge planning to ECF once accepted in the next 24 to 48 hours The impression and plan of care has been dictated by Niecy Iraheta, Nurse Practitioner as directed. Dr. Bella MD I have performed a history and examination and MDM of this patient, discussed the same with the dictator, and agree with the dictator's assessment and plan as written ,documented as a scribe. Based on total visit time, I have performed more than 50% of the visit. Objective - Vital Signs Vital signs: Vital Signs Temp 97.9 F 05/05/25 07:22 Pulse 78 05/05/25 07:22 Resp 20 05/05/25 07:22 BP 169/96 05/05/25 07:22 Pulse Ox 97 05/05/25 07:22 FiO2 Intake & Output 05/04/25 05/05/25 05/05/25 18:59 06:59 18:59 Intake Total 1160 Output Total 600 400 Balance 560 -400 Intake: Oral 1160 Output: Urine 600 400 Other: Voiding Method Urinal Urinal Diaper Diaper # Voids 1 # Bowel Movements 3 1 1 - Labs CBC & Chem 7: 05/04/25 04:11 05/04/25 04:11 Labs: Microbiology - Last 24 Hours (Table) 05/03/25 20:40 Stool Culture - Preliminary Stool
[2025-05-06] MEDS: CHOLESTYRAMINE RESIN 4 GM PACKET PO SCH (08:21)
[2025-05-06 08:50] LABS: Anion Gap 12.60 mmol/L (4.00-12.00); BUN/Creat Ratio 21.33 Ratio (12.00-20.00); Blood Urea Nitrogen 12.8 mg/dL (9.0-27.0); Calcium 8.5 mg/dL (8.7-10.3); Carbon Dioxide 21.4 mmol/L (21.6-31.8); Chloride 100 mmol/L (96-109); Glucose 117 mg/dL (70-110); Potassium 3.4 mmol/L (3.5-5.5); Sodium 134 mmol/L (135-145)
[2025-05-06] MEDS: DIPHENOX-ATROP 2.5-0.025 MG 1 EACH TAB PO PRN (11:29)
[2025-05-06 19:19] VITALS: RESP 16
--- NOTE | 2025-05-07 06:14 | P.PN ---
Subjective Progress Note Date: 05/06/25 This is a pleasant 85 years old male with past medical history of multiple medical problems as below. Presents because of generalized weakness and diarrhea for about 1 week and he wants to go to rehab. When asked saw the patient he told me he has been having weakness and progressive over the last 2 weeks also has been complaining from chronic diarrhea for months about 6-7 times per day but in small amounts no blood or specific dark color. Complaining also from suprapubic pain about 2 months about 9/10 but now is better 7/10 nonspecific nonradiating associated with nausea. Also was complaining from little dysuria but urinalysis not suspicious for infection. He has an appointment at [facility] on May 21 for his esophageal stricture. He denies smoking or illicit drugs. No chest pain or dyspnea. He is with no fever but tachycardic with heart rate 114 hemoglobin 11.2 WBC normal 6.0 rest of labs including BMP LFT INR troponin and urinalysis are unremarkable. Magnesium low at 0.7. EKG showing sinus tachycardia 111. Discussion with no acute cardiopulmonary process. Patient is on Eliquis and normal sinus 25 metoprolol 100 close will continue with his Plavix. Protonix. Admitted with close monitoring with PT/OT evaluation 05/03 Patient back pain 6/10 Hip had 2 bowel movement while in bed today mainly diarrhea Still feels weak Has poor appetite Has 1+ leg edema Abdomen soft Low magnesium and potassium are being replaced We will check TSH, vitamin B12 and folate all were unremarkable with TSH 0.6, folate 18 B12 more than 2000 and hemoglobin A1c 5.7 05/05/2025 Patient is seen in follow-up today with no acute overnight issues noted. Potassium mildly low at 3.4 and will replace per protocol. Patient reporting multiple episodes of loose stool today and C. difficile testing was negative, will continue with as needed Lomotil and will add Questran. Follow-up on repeat labs. Awaiting PT/OT therapy evaluation as patient is extremely weak and would benefit from ECF. Patient does reside with niece who is agreeable to rehab as well. Patient is currently afebrile with no reports of chest pain or shortness of breath. Will follow-up on repeat labs and replace electrolytes per protocol 05/06/2025 Patient is seen in follow-up today with no acute overnight issues noted. Patient is maintained on Questran and Lomotil and showing improvements in diarrhea. Labs reviewed and potassium slightly low at 3.4 and being replaced per protocol. Recommend daily supplementation. Encouraged oral intake and increased activity as tolerated. Case management/social work is following looking into possibly [facility] and awaiting acceptance and will require insurance authorization. Patient is currently afebrile with no reports of chest pain or shortness of breath. Patient has been tolerating diet with no reported nausea or vomiting. Patient is medically stable once insurance authorization is obtained for ECF. Review of systems: Constitutional: No reports of fatigue, fever, or chills Cardiovascular: No reports of chest pain or palpitations Respiratory: No reports of shortness of breath or cough GI: No reports of nausea, vomiting, reports continued episodes of loose stools although less frequent : No reports of dysuria or retention Neurovascular: reports of weakness and difficulty ambulating All medications have been reviewed Physical exam: GENERAL: The patient is alert and oriented x 2, baseline, not in any acute distress. Well developed, elderly appearing, chronically ill-appearing HEENT: Pupils are round and equally reacting to light. EOMI. No scleral icterus. No conjunctival pallor. Normocephalic, atraumatic. No pharyngeal erythema. No thyromegaly. CARDIOVASCULAR: S1 and S2 present. No murmurs, rubs, or gallops. PULMONARY: Chest is clear to auscultation, no wheezing , no crackles. ABDOMEN: Soft, nontender, nondistended, normoactive bowel sounds. No palpable organomegaly. MUSCULOSKELETAL: No joint swelling or deformity. EXTREMITIES: No cyanosis, clubbing, or pedal edema. NEUROLOGICAL: Gross neurological examination did not reveal any focal deficits. Diffusely weak SKIN: No rashes. no petechiae. Assessment: Generalized weakness, secondary to chronic diarrhea Subacute diarrhea, C. difficile ruled out Severe hypomagnesemia and hypokalemia present on admission. Secondary to continued diarrhea, improving Hypertension Hyperlipidemia Osteoarthritis History of GERD History of GI bleed History of esophageal stricture History of prostate cancer Coronary disease status post stent Generalized weakness with gait dysfunction GI prophylaxis DVT prophylaxis Plan: Stool cultures thus far are negative, C. difficile testing was negative and patient is continued on Lomotil as needed as well as Questran having less frequent stools Continue with Eliquis and Plavix Patient was evaluated by PT/OT and would benefit from ECF. Case management/social work following and awaiting to see if [facility] can accept the patient. Patient will require insurance authorization Replace electrolytes and follow-up on repeat labs. Monitor for improvement in diarrhea. Replace electrolytes per protocol. Potassium was 3.4 and will follow-up on repeat labs. Patient is stable for discharge planning to ECF once accepted, hopefully in the next 24 to 48 hours The impression and plan of care has been dictated by Niecy Iraheta, Nurse Practitioner as directed. Dr. Bella MD I have performed a history and examination and MDM of this patient, discussed the same with the dictator, and agree with the dictator's assessment and plan as written ,documented as a scribe. Based on total visit time, I have performed more than 50% of the visit. Objective - Vital Signs Vital signs: Vital Signs Temp 98 F 05/07/25 01:03 Pulse 85 05/07/25 01:03 Resp 16 05/07/25 01:03 BP 156/76 05/07/25 01:03 Pulse Ox 94 L 05/07/25 01:03 FiO2 Intake & Output 05/06/25 05/06/25 05/07/25 06:59 18:59 06:59 Intake Total 540 Output Total 300 200 Balance -300 340 Intake: Oral 540 Output: Urine 300 200 Other: Voiding Method Urinal Urinal Urinal Diaper Diaper # Voids 1 1 # Bowel Movements 1 1 - Labs CBC & Chem 7: 05/04/25 04:11 05/06/25 04:43 Labs: Abnormal Lab Results - Last 24 Hours (Table) 05/06/25 Range/Units 04:43 Sodium 134 L (135-145) mmol/L Potassium 3.4 L (3.5-5.5) mmol/L Carbon Dioxide 21.4 L (21.6-31.8) mmol/L Anion Gap 12.60 H (4.00-12.00) mmol/L BUN/Creatinine Ratio 21.33 H (12.00-20.00) Ratio Glucose 117 H (70-110) mg/dL Calcium 8.5 L (8.7-10.3) mg/dL
[2025-05-07 07:26] VITALS: BP 130/70; PULSE 78; TEMP 98.1
[2025-05-07] MEDS: POTASSIUM CHLORIDE ER 20 MEQ TAB.ER PO SCH (08:29)
--- NOTE | 2025-05-07 10:09 | P.DS ---
Providers Date of admission: 05/02/25 13:19 Attending physician: José Miguel Chamorro MD Primary care physician: [facility] [place] Hospital Course: Final Diagnosis Generalized weakness, secondary to chronic diarrhea Subacute diarrhea, C. difficile ruled out Severe hypomagnesemia and hypokalemia present on admission. 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 GI prophylaxis DVT prophylaxis Discharge Disposition Patient is stable for discharge to [facility] patient will continue on Lomotil and Questran as needed. Patient will be continued on esomeprazole twice daily. Patient will continue on oral potassium supplementation. He is advised to follow-up with his PCP in 1 to 2 days. Patient to repeat a BMP magnesium level in 2 to 3 days for close monitoring of his electrolytes. Hospital Course This is a pleasant 85 years old male with past medical history of hypertension, hyperlipidemia, osteoarthritis, GERD, GI bleed, esophageal stricture, prostate cancer, coronary artery disease post stent. Patient presents because of progressive weakness over the last as well as chronic diarrhea has been going about 6-7 times per day denies any melena or bright red rectal bleeding. He has also had suprapubic pain which is nonradiating nonspecific associated with some nausea. He was having dysuria but urinalysis was not suspicious of infection. Patient's dose Suleo-M for his esophageal stricture and has a follow-up appointment on May 21. He is afebrile with blood cell count normal magnesium was low at 0.7. Patient has been maintained on Eliquis as well as Plavix. Patient was given Questran and Lomotil. His C. difficile was found to be negative. Magnesium was supplemented as well as potassium. Electrolytes are now within normal limits. Patient has been accepted for discharge to [facility]. He is currently afebrile with no reports of chest pain or shortness of breath. He has been tolerating diet without any reported nausea or vomiting. He has a temperature of 98.1 heart rate of 78 normal sinus rhythm, blood pressure 130/70, 96% on room air. Please see medication reconciliation for a list of current medications. Thank you for allowing us to participate in the care of this patient. The impression and plan of care has been dictated by Lyn De Oliveira, Nurse Practitioner as directed. Dr. Bella MD I have performed a history and physical examination and medical decision making of this patient, discussed the same with the dictator, and agree with the dictators assessment and plan as written, documented as a scribe. Based on total visit time, I have performed more than 50% of this visit. Patient Condition at Discharge: Stable Plan - Discharge Summary Discharge Rx Participant: Yes New Discharge Prescriptions: New Diphenox-Atrop 2.5-0.025 mg [Lomotil] 1 each PO Q6HR PRN #4 tab PRN Reason: Diarrhea Cholestyramine Resin [Questran Packet] 4 gm PO BID@1000,1800 PRN packet PRN Reason: Diarrhea Potassium Chloride ER [K-Dur 20] 20 meq PO DAILY tab Continue Metoprolol Succinate [Toprol XL] 100 mg PO DAILY@1200 amLODIPine [Norvasc] 5 mg PO DAILY Esomeprazole Magnesium [NexIUM] 40 mg PO AC-BID busPIRone HCl [Buspar] 10 mg PO AC-BID Escitalopram [Lexapro] 20 mg PO DAILY Clopidogrel [Plavix] 75 mg PO DAILY Tamsulosin [Flomax] 0.4 mg PO HS Brexpiprazole [Rexulti] 1 mg PO DAILY Cholecalciferol (Vitamin D3) [Vitamin D3 (1250 Mcg = 50,000 Iu)] 1,250 mcg PO ROWE Cariprazine HCl [Vraylar] 4.5 mg PO DAILY@1200 Pantoprazole [Protonix] 40 mg PO AC-BID tab Apixaban [Eliquis] 5 mg PO AC-BID Melatonin 5 mg PO HS HYDROcodone/APAP 10-325MG [[place] 10-325] 1 tab PO TID #6 tab Discharge Medication List Metoprolol Succinate [Toprol XL] 100 mg PO DAILY@1200 04/30/14 [History] amLODIPine [Norvasc] 5 mg PO DAILY 11/15/18 [History] Cariprazine HCl [Vraylar] 4.5 mg PO DAILY@1200 11/14/24 [History] Cholecalciferol (Vitamin D3) [Vitamin D3 (1250 Mcg = 50,000 Iu)] 1,250 mcg PO ROWE 11/14/24 [History] Escitalopram [Lexapro] 20 mg PO DAILY 11/14/24 [History] Esomeprazole Magnesium [NexIUM] 40 mg PO AC-BID 11/14/24 [History] busPIRone HCl [Buspar] 10 mg PO AC-BID 11/14/24 [History] Pantoprazole [Protonix] 40 mg PO AC-BID tab 11/19/24 [Rx] Apixaban [Eliquis] 5 mg PO AC-BID 05/02/25 [History] Brexpiprazole [Rexulti] 1 mg PO DAILY 05/02/25 [History] Clopidogrel [Plavix] 75 mg PO DAILY 05/02/25 [History] Melatonin 5 mg PO HS 05/02/25 [History] Tamsulosin [Flomax] 0.4 mg PO HS 05/02/25 [History] Cholestyramine Resin [Questran Packet] 4 gm PO BID@1000,1800 PRN packet 05/07/25 [Rx] Diphenox-Atrop 2.5-0.025 mg [Lomotil] 1 each PO Q6HR PRN #4 tab 05/07/25 [Rx] HYDROcodone/APAP 10-325MG [[place] 10-325] 1 tab PO TID #6 tab 05/07/25 [Rx] Potassium Chloride ER [K-Dur 20] 20 meq PO DAILY tab 05/07/25 [Rx] Follow up Appointment(s)/Referral(s): Megan Zamudio DO [Primary Care Provider] - 1-2 days Ambulatory/Diagnostic Orders: Basic Metabolic Panel [LAB.AMB] Time Frame: 3 Days, Location: None Selected Magnesium [LAB.AMB] Location: None Selected Discharge Disposition: TRANSFER TO SNF/ECF
[2025-05-07 10:48] LABS: Anion Gap 12.60 mmol/L (4.00-12.00); BUN/Creat Ratio 20.00 Ratio (12.00-20.00); Blood Urea Nitrogen 12.0 mg/dL (9.0-27.0); Calcium 8.8 mg/dL (8.7-10.3); Carbon Dioxide 22.4 mmol/L (21.6-31.8); Chloride 98 mmol/L (96-109); Glucose 126 mg/dL (70-110); Potassium 3.7 mmol/L (3.5-5.5); Sodium 133 mmol/L (135-145)
== END 2025-05-07 11:25 | DRG 641 ==
LOC: EC 11:08 → 5NMEDONC 13:19
PROVIDERS: ADMIT Internal Medicine; ATTEND Internal Medicine
DX: E83.42 Hypomagnesemia (principal); R13.10 Dysphagia, unspecified; I10 Essential (primary) hypertension; E78.5 Hyperlipidemia, unspecified; K52.9 Noninfective gastroenteritis and colitis, unspecified; E87.6 Hypokalemia; E86.0 Dehydration; I25.10 Atherosclerotic heart disease of native coronary artery without angina pectoris; M19.90 Unspecified osteoarthritis, unspecified site; Z79.01 Long term (current) use of anticoagulants; Z79.02 Long term (current) use of antithrombotics/antiplatelets; Z85.46 Personal history of malignant neoplasm of prostate; Z79.899 Other long term (current) drug therapy; Z87.891 Personal history of nicotine dependence; Z87.19 Personal history of other diseases of the digestive system
CPT/HCPCS: 36415; 71045; 80048; 80053; 80076; 81001; 82607; 82746; 83036; 83605; 83630; 83735; 84443; 84484; 85025; 85610; 85730; 87045; 87046; 87324; 93005; 96365; 96366; 99285

== ENCOUNTER → 2025-05-20 | Outpatient (CLI) | payer MEDICARE, OTHER ==
--- NOTE | 2025-05-20 17:21 | FL ---
EXAMINATION TYPE: FL barium swallow DATE OF EXAM: 05/20/2025 3:37 PM COMPARISON: None CLINICAL INDICATION: Male, 85 years old with history of K22.2 ESOPHAGEAL OBSTRUCTION, trouble swallow ing for years. History of multiple esophageal dilatations, last in October 2024. History of previous esophageal stent placed at [facility] by thoracic surgery. Scheduled to see thoracic surgery again due to o ngoing problems. Total Fluoroscopy Time: 2 minutes 24 seconds Total images: 55 Total DAP: 350 mGycm2 FINDINGS: The swallowing mechanism is normal and hypopharyngeal anatomy is preserved. The cervical and thoracic portions have a normal course and caliber. No abnormal fixed narrowing is i dentified. There are blunted secondary stripping waves with delayed clearance of contrast from the esophagus whe n the patient is upright and persistent pooling with the patient is prone/supine. At the distal esophagus near the GE junction, there are linear folds suggesting a small hiatal hernia . However, some concurrent mucosal irregularity here is also noted. The remainder of the thoracic eso phagus shows no discrete mucosal abnormality or abnormal filling defect. Given the patient's condition, we had difficulty in assessing for gastroesophageal reflux. IMPRESSION: 1. No fixed narrowing to clearly indicate a stricture. 2. Small hiatal hernia but with some mucosal irregularity in this region near the GE junction. Correl ate with findings on patient's reported endoscopy in October 2024. Repeat endoscopy may be indicated to exclude any abnormal fold thickening or mucosal lesion/neoplasm given the irregularity here. 3. Moderate esophageal dysmotility. Contrast remains pooled in the esophagus when in the prone/supine position. There is delayed clearance when upright. [facility], , 05/20/2025 5:18 PM
== END | disposition home or self-care (01) ==
LOC: RADFLMAIN 14:36
PROVIDERS: ATTEND Thoracic Surgery (Cardiothoracic Vascular Surgery)
DX: K22.2 Esophageal obstruction (principal); K44.9 Diaphragmatic hernia without obstruction or gangrene; K22.4 Dyskinesia of esophagus
CPT/HCPCS: 74220